=== PATIENT | female | born 1940 | race Caucasian/White ===

== ENCOUNTER → 2016-11-30 | Outpatient (CLI) | payer OTHER ==
[~2016-11-30] MED LIST: ASPI81TA28 PO; CALC500C50 PO; GEMF600T3 PO; METO25TA56 PO; MULTTAB58 PO; RANI150T2 PO; WARF5TAB7 PO
== END | disposition home or self-care (01) ==
LOC: C.PAPS 16:08
PROVIDERS: ATTEND Obstetrics & Gynecology
DX: N87.9 Dysplasia of cervix uteri, unspecified (principal); N81.11 Cystocele, midline

== ENCOUNTER → 2017-04-19 | Outpatient (CLI) | payer OTHER ==
--- NOTE | 2017-04-19 12:56 | MAMMOGRAPHY REPORT ---
BILATERAL DIGITAL SCREENING MAMMOGRAM WITH CAD: 04/19/2017 CLINICAL HISTORY: Routine screening. Patient has no complaints. TECHNIQUE: Current study was also evaluated with a Computer Aided Detection (CAD) system. Bilateral CC and MLO views were obtained. COMPARISON: Comparison is made to exams dated: 05/01/2016 mammogram, 04/18/2016 mammogram, 5 mammogram, 04/14/2014 mammogram, 04/13/2013 mammogram, and 04/10/2012 mammogram - [facility]. BREAST COMPOSITION: There are scattered areas of fibroglandular density in both breasts. FINDINGS: No suspicious masses, calcifications, or areas of architectural distortion are noted in ei ther breast. There has been no significant interval change compared to prior exams. Scattered bilater al benign-appearing calcifications are not significantly changed. IMPRESSION: ACR BI-RADS CATEGORY 2: BENIGN There is no mammographic evidence of malignancy. A 1 year screening mammogram is recommended. The pa tient will receive written notification of the results. Approximately 10% of breast cancers are not detected with mammography. A negative mammographic report should not delay biopsy if a clinically suggestive mass is present. Jessenia Tate M.D. /:04/19/2017 10:22:48 Requisition Approver: Cady CORONEL(Heber)(Stephan)(BD), [facility] letter sent: Normal 1/2 BI-RADS Code: ACR BI-RADS Category 2: Benign
== END | disposition home or self-care (01) ==
LOC: C.MAMM 09:10
PROVIDERS: ATTEND Obstetrics & Gynecology
DX: Z12.31 Encounter for screening mammogram for malignant neoplasm of breast (principal)

== ENCOUNTER → 2017-05-09 | Outpatient (CLI) | payer OTHER ==
[~2017-05-09] MED LIST changes: -GEMF600T3 PO; +GEMF600T5 PO
== END | disposition home or self-care (01) ==
LOC: C.PAPS 10:29
PROVIDERS: ATTEND Obstetrics & Gynecology
DX: Z12.4 Encounter for screening for malignant neoplasm of cervix (principal); N87.9 Dysplasia of cervix uteri, unspecified

== ENCOUNTER 2024-07-14 09:43 | Inpatient (IN) ==
--- NOTE | 2024-07-14 10:05 | Emergency Department Note ---
Impression & Plan Influenza A, UTI (urinary tract infection), Generalized weakness, Chronic atrial fibrillation, Elevated troponin ED Provider Note NAME: VAHID ADAMS AGE: 84 SEX: F : 1940 ARRIVES VIA: Ambulance INFORMANT: Patient, daughters, ED PROVIDER(S): Levi Zuleta MD CHIEF COMPLAINT: Weakness, falls MEDICAL DECISION MAKING: Patient presents with the above. Also associated cough decreased p.o. intake low-grade temperature per EMS. IV was established and blood work was obtained. Patient in A-fib. Patient with diminished breath sounds throughout. Chest x- ray was obtained. After discussion with patient family the patient did fall to her buttocks but no head strike or LOC. No CT head at this time. Patient's blood work shows a normal white count hemoglobin and platelet count. The patient was ordered her home metoprolol given her A-fib and the fact that she did not take her morning meds. INR of 2.5 therapeutic. Kidney function unremarkable. The patient's initial troponin of 239. No priors for comparison. Patient's EKG does not show evidence of obvious ischemia. Still pending urinalysis at this time. Patient is positive for flu A. Patient's urinalysis eventually does show nitrates with bacteria concerning for infection. Given the patient's NSTEMI and other findings including UTI and fluid do believe the patient would benefit from admission at this time. No active chest pain or shortness of breath at this time. I did inform the patient and the patient's family of the recommendations and findings. They are comfortable with current plan of care. Patient was admitted to the medicine service by Dr. White. Inpatient service did order antibiotics as well as Tamiflu. Also of note patient's repeat troponin to 79. Discussion w/ other healthcare providers: NADIYA Garrett Dr. inpatient medicine service [facility] Prior /Outside records reviewed: None Differential diagnosis: Infection, dehydration, metabolic abnormality, hypo/hyperglycemia, electrolyte imbalance, anemia, UTI, pneumonia, thyroid dysfunction among others were considered. Diagnostics, as interpreted by me: ECG: A-fib with RVR, rate 105, normal QRS duration, left axis deviation. No ST elevations. Cardiac monitoring: An order was placed for continuous cardiac monitoring. The monitor shows a rate of 112 with regular irregular rhythm. Patient was placed on pulse oximetry Medical decision rules: None Imaging studies: I informally interpreted the patient's Chest x-ray does not show obvious pneumonia or pneumothorax, cardiomegaly noted with formal report to follow. HPI: Patient presents from home due to concern for increasing weakness. The patient reportedly tried to ambulate yesterday and fell to her buttocks sometime in the evening. Patient subsequently was able to get back in bed. Therapist did arrive this morning and try to get her up and out of bed and subsequently had a fall to her buttocks. The patient denies any head strike with either fall. The patient reportedly did have some skin tears to the left lower leg. Patient is on Coumadin for known history of A-fib. Patient denies any chest pains or shortness of breath. Patient has had cough. Known sick contact being . Patient has not been eating as much. No reported abdominal pain nausea vomiting or diarrhea. Patient does follow with Tacos Guerin with cardiology at [facility]. PAST MEDICAL HISTORY: See Below PAST SURGICAL HISTORY: See Below SOCIAL HISTORY: See Below HOME MEDICATIONS: See Below ALLERGIES: See Below VITALS: See Below PHYSICAL EXAMINATION: GENERAL: NAD, non-toxic. EYE EXAM: Normal conjunctiva. PERRL, no anisocoria and EOM's grossly intact w/o pain. OROPHARYNX: Dry mucus membranes, grossly normal dentition. NECK: Trachea midline, no stridor. Supple, no nuchal rigidity, no adenopathy, non-tender. No signs of meningismus. FROM of the neck with good chin to chest and neck extension. LUNGS: Clear to auscultation. Normal chest wall mechanics. HEART: Tachycardic and irregular irregular, no MRG. ABDOMEN: Abdomen soft, non-tender, no masses, no rebound or guarding. BACK: No CVA TTP. SKIN: No rashes and no bruising. UPPER EXTREMITIES: Upper extremities are grossly normal. LOWER EXTREMITIES: 2 skin tears noted to the lateral aspect of the left lower leg no obvious laceration, no edema. NEURO EXAM: A&O x3, cranial nerves II-XII grossly intact, normal speech, moves all 4 extremities. Past Med/Surg History Problem List (Updated 07/14/24 @ 17:38 by Levi Zuleta MD) Elevated troponin (Acute) Chronic atrial fibrillation (Acute) Ambulatory dysfunction Generalized weakness (Acute) UTI (urinary tract infection) (Acute) Influenza A (Acute) Personal history of cervical dysplasia Cystocele Pessary maintenance Anticoagulant long-term use (Acute) Atrial fibrillation with rapid ventricular response (Acute 2013) Epistaxis (Acute) SOB (shortness of breath) (Acute) Medical History (Updated 07/14/24 @ 17:38 by Levi Zuleta MD) Hx of ovarian cyst Hx of uterine prolapse Endometrial polyp (1999) Surgical History S/P lymph node biopsy History of hysterectomy (12/01/12) vaginal hysterectomy with anterior repair S/P wisdom tooth extraction S/P tubal ligation (1981) S/P knee replacement S/P dilation and curettage (09/1999) with hysteroscopy for PMB, suspected endometrial polyp S/P colonoscopy (11/2007) Family History Aunt Breast cancer Mother Ovarian cancer Other Chest pain Social History Smoking Status: Never smoker Do You Dip or Chew Tobacco: No; Preferred Language: Taiwanese Feels Safe at Home: Yes Dental Care, Regularly: Yes Physical Activity Frequency Comment: Exercises regularly. Seatbelt Use: always Sunscreen Use: Yes Allergies Allergies Allergy/AdvReac Type Severity Reaction Status Date / Time metronidazole Allergy Unknown RASH Verified 07/14/24 11:30 Penicillins Allergy Unknown Swelling Verified 07/14/24 14:46 of Lip/Tongue/Throat Home Meds Home Medications Medication Instructions Recorded Confirmed metoprolol tartrate 25 mg tablet 25 mg PO BID 01/20/19 07/14/24 furosemide 20 mg tablet 20 mg PO 3XWK 03/14/23 07/14/24 omeprazole 20 mg capsule,delayed 20 mg PO BID 03/14/23 07/14/24 release rosuvastatin 20 mg tablet 20 mg PO DAILY 03/14/23 07/14/24 acetaminophen 500 mg tablet 500 mg PO Q6H PRN Pain 07/14/24 07/14/24 potassium chloride 10 mEq 10 meq PO 3XWK 07/14/24 07/14/24 tablet,extended release warfarin 2.5 mg tablet 1.25 mg PO UD 07/14/24 07/14/24 warfarin 2.5 mg tablet 2.5 mg PO DAILY 07/14/24 07/14/24 Results & Data (ED) Vital Signs Vital Signs - 24 hr 07/14/24 10:07 07/14/24 10:08 07/14/24 10:24 Temperature 36.8 C Temperature Source Oral Pulse Rate 104 H 105 H Pulse Rate [Apical] Pulse Rhythm Irregular Regular Pulse Rhythm [Apical] Pulse Strength Normal Pulse Strength [Apical] Respiratory Rate 20 Respiratory Effort / Characteristics Non-Labored Spontaneous Respiratory Depth Normal Respiratory Pattern Regular Blood Pressure 129/77 Blood Pressure [Right Arm] Blood Pressure Mean 94 Blood Pressure Mean [Right Arm] Blood Pressure Position Lying Blood Pressure Position [Right Arm] Pulse Oximetry 96 96 Oxygen Delivery Method Room Air Room Air Sepsis Recent Fever Within 48 Hours Yes Sepsis New/Unexplained Change in Mental Status N/A Sepsis Action Taken by Nursing No Action Required 07/14/24 11:31 07/14/24 12:01 07/14/24 12:01 Temperature 37.3 C Temperature Source Oral Pulse Rate Pulse Rate [Apical] 98 H 95 H Pulse Rhythm Pulse Rhythm [Apical] Irregular Irregular Pulse Strength Pulse Strength [Apical] Normal Normal Respiratory Rate 16 23 Respiratory Effort / Characteristics Non-Labored Spontaneous Non-Labored Spontaneous Respiratory Depth Normal Normal Respiratory Pattern Regular Regular Blood Pressure Blood Pressure [Right Arm] 147/91 H 136/69 Blood Pressure Mean Blood Pressure Mean [Right Arm] 109 91 Blood Pressure Position Blood Pressure Position [Right Arm] Lying Lying Pulse Oximetry 97 94 Oxygen Delivery Method Room Air Room Air Room Air Sepsis Recent Fever Within 48 Hours Sepsis New/Unexplained Change in Mental Status Sepsis Action Taken by [place] Medications Current Medication List: was personally reviewed by me Laboratory Data Attestation: I reviewed the patient's lab results. 07/14/24 10:20 07/14/24 10:20 Lab Results 07/14/24 07/14/24 07/14/24 Range/Units 10:20 10:35 12:00 WBC 8.63 (4.8-10.8) K/ul RBC 3.95 L (4.20-5.40) M/uL Hgb 12.1 (12.0-16.0) g/dl Hct 37.1 (37.0-47.0) % MCV 93.9 (80.0-100.0) fL MCH 30.6 (25.0-34.0) pg MCHC 32.6 (32.0-36.0) g/dL RDW Std Deviation 49.5 H (36.4-46.3) fL RDW Coeff of George 14.5 (11.5-14.5) % Plt Count 183 (130-400) K/uL MPV 12.6 H (9.4-12.4) fL Immature Gran % (Auto) 0.7 % Neut % (Auto) 78.1 % Lymph % (Auto) 8.8 % [place] % (Auto) 12.1 % Eos % (Auto) 0.1 % Baso % (Auto) 0.2 % Neut # (Auto) 6.74 H (1.40-6.50) K/uL Lymph # (Auto) 0.76 L (1.20-3.40) K/uL [place] # (Auto) 1.04 H (0.11-0.59) K/uL Eos # (Auto) 0.01 (0.00-0.50) K/uL Baso # (Auto) 0.02 (0.00-0.20) K/uL Immature Gran # (Auto) 0.06 (0.01-0.20) K/uL PT 25.2 H (9.0-12.0) Seconds INR 2.5 H (0.9-1.1) APTT 42 H (21-31) Seconds PTT Ratio 1.6 Sodium 139 (136-145) mmol/L Potassium 4.1 (3.5-5.1) mmol/L Chloride 104 (98-107) mmol/L Carbon Dioxide 26 (21-32) mmol/L Anion Gap 9 (3-11) BUN 22 (6-23) mg/dl Creatinine 0.93 (0.6-1.2) mg/dl Est Cr Clr Drug Dosing 41.9 ml/min eGFR 60.23 BUN/Creatinine Ratio 23.7 H (10-20) Glucose 122 H (70-99(Fasting)) mg/dl Calcium 9.1 (8.6-10.3) mg/dl Magnesium 1.9 (1.7-2.4) mg/dl Total Bilirubin 0.5 (0.2-1.0) mg/dl AST 36 (13-39) U/L ALT 21 (7-52) U/L Alkaline Phosphatase 86 (34-104) U/L Troponin I High Sens 239.0 H* (0-14) pg/ml Total Protein 8.0 (6.0-8.3) gm/dl Albumin 4.4 (3.4-5.0) gm/dl Globulin 3.6 (2.5-4.0) gm/dl Albumin/Globulin Ratio 1.2 (0.9-2) Procalcitonin 0.25 (0-0.5) ng/ml TSH 1.877 (0.300-4.500) uIu/ml Urine Color Yellow Urine Appearance Clear (Clear) Urine pH 5.5 (4.5-7.5) Ur Specific [place] 1.023 (1.000-1.030) Urine Protein 1+ H (Negative) Urine Glucose (UA) Negative (Negative) Urine Ketones 1+ H (Negative) Urine Blood Trace H (Negative) Urine Nitrite Positive A (Negative) Urine Bilirubin Negative (Negative) Urine Urobilinogen Negative (Negative) Ur Leukocyte Esterase Negative (Negative) Urine WBC (Auto) 0-5 (0-5) /hpf Urine RBC (Auto) 3-5 H (0-2) /hpf U Hyaline Cast (Auto) 0-2 (0-2) /lpf U Epithel Cells (Auto) 0-2 (0-2) /hpf Urine Bacteria (Auto) 4+ H (None Seen) Nasal Influ A H1 2008 PCR DETECTED A (NotDetected) Adenovirus (PCR) Not Detected (NotDetected) B. pertussis DNA (PCR) Not Detected (NotDetected) B.parapertussis DNA PCR Not Detected (NotDetected) C. pneumoniae DNA (PCR) Not Detected (NotDetected) Coronavirus OC43 (PCR) Not Detected (NotDetected) Coronavirus HKU1 (PCR) Not Detected (NotDetected) Coronavirus 229E (PCR) Not Detected (NotDetected) SARS-CoV-2 (PCR) Not Detected (NotDetected) Coronavirus NL63 (PCR) Not Detected (NotDetected) Human Metapneumovir PCR Not Detected (NotDetected) Influenza Type B (PCR) Not Detected (NotDetected) M. pneumoniae (PCR) Not Detected (NotDetected) Parainfluenza 1 (PCR) Not Detected (NotDetected) Parainfluenza 2 (PCR) Not Detected (NotDetected) Parainfluenza 3 (PCR) Not Detected (NotDetected) Parainfluenza 4 (PCR) Not Detected (NotDetected) RSV (PCR) Not Detected (NotDetected) Entero/Rhino (PCR) Not Detected (NotDetected) 07/14/24 Range/Units 12:19 WBC (4.8-10.8) K/ul RBC (4.20-5.40) M/uL Hgb (12.0-16.0) g/dl Hct (37.0-47.0) % MCV (80.0-100.0) fL MCH (25.0-34.0) pg MCHC (32.0-36.0) g/dL RDW Std Deviation (36.4-46.3) fL RDW Coeff of George (11.5-14.5) % Plt Count (130-400) K/uL MPV (9.4-12.4) fL Immature Gran % (Auto) % Neut % (Auto) % Lymph % (Auto) % [place] % (Auto) % Eos % (Auto) % Baso % (Auto) % Neut # (Auto) (1.40-6.50) K/uL Lymph # (Auto) (1.20-3.40) K/uL [place] # (Auto) (0.11-0.59) K/uL Eos # (Auto) (0.00-0.50) K/uL Baso # (Auto) (0.00-0.20) K/uL Immature Gran # (Auto) (0.01-0.20) K/uL PT (9.0-12.0) Seconds INR (0.9-1.1) APTT (21-31) Seconds PTT Ratio Sodium (136-145) mmol/L Potassium (3.5-5.1) mmol/L Chloride (98-107) mmol/L Carbon Dioxide (21-32) mmol/L Anion Gap (3-11) BUN (6-23) mg/dl Creatinine (0.6-1.2) mg/dl Est Cr Clr Drug Dosing ml/min eGFR BUN/Creatinine Ratio (10-20) Glucose (70-99(Fasting)) mg/dl Calcium (8.6-10.3) mg/dl Magnesium (1.7-2.4) mg/dl Total Bilirubin (0.2-1.0) mg/dl AST (13-39) U/L ALT (7-52) U/L Alkaline Phosphatase (34-104) U/L Troponin I High Sens 279.3 H* (0-14) pg/ml Total Protein (6.0-8.3) gm/dl Albumin (3.4-5.0) gm/dl Globulin (2.5-4.0) gm/dl Albumin/Globulin Ratio (0.9-2) Procalcitonin (0-0.5) ng/ml TSH (0.300-4.500) uIu/ml Urine Color Urine Appearance (Clear) Urine pH (4.5-7.5) Ur Specific [place] (1.000-1.030) Urine Protein (Negative) Urine Glucose (UA) (Negative) Urine Ketones (Negative) Urine Blood (Negative) Urine Nitrite (Negative) Urine Bilirubin (Negative) Urine Urobilinogen (Negative) Ur Leukocyte Esterase (Negative) Urine WBC (Auto) (0-5) /hpf Urine RBC (Auto) (0-2) /hpf U Hyaline Cast (Auto) (0-2) /lpf U Epithel Cells (Auto) (0-2) /hpf Urine Bacteria (Auto) (None Seen) Nasal Influ A H1 2009 PCR (NotDetected) Adenovirus (PCR) (NotDetected) B. pertussis DNA (PCR) (NotDetected) B.parapertussis DNA PCR (NotDetected) C. pneumoniae DNA (PCR) (NotDetected) Coronavirus OC43 (PCR) (NotDetected) Coronavirus HKU1 (PCR) (NotDetected) Coronavirus 229E (PCR) (NotDetected) SARS-CoV-2 (PCR) (NotDetected) Coronavirus NL63 (PCR) (NotDetected) Human Metapneumovir PCR (NotDetected) Influenza Type B (PCR) (NotDetected) M. pneumoniae (PCR) (NotDetected) Parainfluenza 1 (PCR) (NotDetected) Parainfluenza 2 (PCR) (NotDetected) Parainfluenza 3 (PCR) (NotDetected) Parainfluenza 4 (PCR) (NotDetected) RSV (PCR) (NotDetected) Entero/Rhino (PCR) (NotDetected) Administered Medications Aztreonam 1,000 mg/ Dextrose 100 mls @ 100 mls/hr IV Q8H FRANCIS Stop: 07/19/24 14:59 Last Admin: 07/14/24 16:05 Dose: 100 mls/hr Documented By: DANIEL Levalbuterol HCl (Levalbuterol 1.25 Mg/3 Ml Neb) 1.25 mg NEB Q6R FRANCIS Stop: 08/13/24 15:29 Last Admin: 07/14/24 15:50 Dose: 1.25 mg Documented By: [id number] Discontinued Medications Sodium Chloride (Nss) 250 mls @ 999 mls/hr IV .Q16M ONE Stop: 07/14/24 10:37 Last Infusion: 07/14/24 10:57 Dose: Infused Documented By: Admin: 07/14/24 10:40 Dose: 999 mls/hr Documented By: BANG Metoprolol Tartrate (Metoprolol Tartrate 25 Mg Tab) 25 mg PO NOW STA Stop: 07/14/24 10:22 Last Admin: 07/14/24 10:42 Dose: 25 mg Documented By: BANG Oseltamivir Phosphate (Oseltamivir Phosphate 75 Mg Cap) 75 mg PO NOW STA Stop: 07/14/24 13:07 Last Admin: 07/14/24 13:21 Dose: 75 mg Documented By: JESSICA Imaging Data Radiologist's Impression: Chest X-Ray 07/14/24 10:06 XR chest 1V portable CLINICAL HISTORY: weakness COMPARISON STUDY: 07/12/2021 FINDINGS: There is no significant interval change in alignment for technical differences. There is no acute pulmonary process identified. Cardiomegaly and pulmonary vascular congestion are persistent. No pleural effusion or pneumothorax. 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 IMPRESSION: Stable exam; no acute findings ACT 112: Negative or not required by law. Electronically signed by: Monserrat Khan M.D. 07/14/2024 10:20 AM Discharge Plan Visit Data Chief Complaint: Weakness Stated Complaint: FALL, WEAKNESS, INJURY ALERT, SKIN TEARS TO CALF ED Provider: Levi Zuleta Discharge Problem: Influenza A, UTI (urinary tract infection), Generalized weakness, Chronic atrial fibrillation, Elevated troponin Patient Disposition: Admitted As Inpatient Discharge Instructions Interventions: ED Discharge Assessment Last Done: 07/14/24 17:07 Discharge Problem: UTI (urinary tract infection) Qualifiers: Urinary tract infection type: acute cystitis Hematuria presence: with hematuria Qualified Code(s): N30.01 - Acute cystitis with hematuria
[2024-07-14] MEDS ORDERED: SODIUM CHLORIDE 0.9% 500 ML IV ONE (10:21)
--- NOTE | 2024-07-14 10:22 | XRay Report ---
XR chest 1V portable CLINICAL HISTORY: weakness COMPARISON STUDY: 07/12/2021 FINDINGS: There is no significant interval change in alignment for technical differences. There is no acute pulmonary process identified. Cardiomegaly and pulmonary vascular congestion are persistent. N o pleural effusion or pneumothorax. 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 IMPRESSION: Stable exam; no acute findings ACT 112: Negative or not required by law. Electronically signed by: Monserrat Khan M.D. 07/14/2024 10:20 AM
[2024-07-14] MEDS: SODIUM CHLORIDE 0.9% 250 ML IV ONE (10:40)
[2024-07-14] MEDS: METOPROLOL TARTRATE 25 MG TAB PO STA (10:42)
[2024-07-14 10:51] LABS: Basophils # (auto) 0.02 K/uL (0.00-0.20); Basophils % (auto) 0.2 %; Eosinophils # (auto) 0.01 K/uL (0.00-0.50); Eosinophils % (auto) 0.1 %; Hematocrit (blood only) 37.1 % (37.0-47.0); Hemoglobin 12.1 g/dl (12.0-16.0); Immature Granulocytes # (auto) 0.06 K/uL (0.01-0.20); Immature Granulocytes % (auto) 0.7 %; Lymphocytes # (auto) 0.76 K/uL (1.20-3.40); Lymphocytes % (auto) 8.8 %; Mean Corpuscular Hemoglobin 30.6 pg (25.0-34.0); Mean Corpuscular Hgb Conc 32.6 g/dL (32.0-36.0); Mean Corpuscular Volume 93.9 fL (80.0-100.0); Mean Platelet Volume 12.6 fL (9.4-12.4); Monocytes # (auto) 1.04 K/uL (0.11-0.59); Monocytes % (auto) 12.1 %; Neutrophils # (auto) 6.74 K/uL (1.40-6.50); Neutrophils % (auto) 78.1 %; Platelet Count 183 K/uL (130-400); RDW Coefficient of Variation 14.5 % (11.5-14.5); RDW Standard Deviation 49.5 fL (36.4-46.3); Red Blood Count 3.95 M/uL (4.20-5.40); White Blood Count 8.63 K/ul (4.8-10.8)
[2024-07-14 11:09] LABS: Albumin Globulin Ratio 1.2 (0.9-2); Albumin Level 4.4 gm/dl (3.4-5.0); BUN Creatinine Ratio 23.7 (10-20); Bilirubin,Total 0.5 mg/dl (0.2-1.0); Calcium 9.1 mg/dl (8.6-10.3); Creatinine Clr Calc Pharmacy 41.9 ml/min; Globulin 3.6 gm/dl (2.5-4.0); Magnesium 1.9 mg/dl (1.7-2.4); Potassium 4.1 mmol/L (3.5-5.1)
[2024-07-14 11:24] LABS: Thyroid Stimulating Hormone 1.877 uIu/ml (0.300-4.500)
[2024-07-14 11:28] LABS: INR 2.5 (0.9-1.1); Partial Thromboplastin Ratio 1.6; Partial Thromboplastin Time 42 Seconds (21-31); Prothrombin Time 25.2 Seconds (9.0-12.0)
--- OUTSIDE RECORDS SUMMARY | 2024-07-14 11:53 | External Medical Summary | Summary of Care ---
Author Name Unknown Organization [facility] Address [address] [place] [address] Phone [phone] Care Team Providers Care Accounts Payable Clerk Name Role Phone Roberth Hayward DO Primary Care Provider [phone] Reason for Visit * Reason Comments Dosage Adjustment In Person (Anticoag Cl inic) Encounter Details Date Type Department Care Team (Late st Contact Info) Description 06/25/2024 8:20 AM EST Anticoagulation Family Practice 65 [facility] [address] [place] [phone] College, Pharmacist [address] [address] Anticoagulation management encounter*; Chronic atrial fibrillation (HCC) Allergies Active Allergy Reactions Criticality Noted Date Comments Metronidazole 02/24/2007 Hives Penicillins 01/24/2001 swelling of tongue documented as of this encounter (statuses as of 06/25/2024) Medications Acetaminophen 500 MG Oral Tablet (Tylenol) Take 2 Tablets by mouth every 6 hours as needed for Pain, Mild or Pain, Moderate. 3 Active Estradiol 0.1 MG/GM Vaginal Cream (Estrace) Two times weekly 2 Active Triamcinolone Acetonide 0.5 % External Cream (Aristocort)Nelda cations:Venous stasis dermatitis of both lower extremities Apply topically to affected area 2 times a day. To affected area. 60 g 1 3 Active Warfarin Sodium 2.5 MG Oral Tablet (Coumadin) Take 1 Tablet by mouth every evening. 30 Tablet 11 06/04/2024 11:35 AM EST 4 Active Rosuvastatin Calcium 20 MG Oral Tablet (Crestor)Indicat ions:Dyslipidemi a, goal LDL below 100 Take 1 Tablet by mouth in the morning. 30 Tablet 11 06/04/2024 11:35 AM EST 4 Active One-A-Day Womens 50+ Oral Tablet Take 1 Tablet by mouth in the morning. 65 Tablet 11 05/04/2024 12:26 PM EST 4 Active Omeprazole 20 MG Oral Capsule Delayed Release (PriLOSEC) Take 1 Capsule by mouth in the morning and 1 Capsule before bedtime. 60 Capsule 11 06/04/2024 11:35 AM EST 4 Active Metoprolol Tartrate 25 MG Oral Tablet (Lopressor)Indic ations:Chronic atrial fibrillation (HCC) Take 1 Tablet by mouth in the morning and 1 Tablet before bedtime. 60 Tablet 11 06/04/2024 11:35 AM EST 4 Active Furosemide 20 MG Oral Tablet (Lasix)Indicatio ns:Pulmonary hypertension (HCC) Take 1 tablet by mouth once daily in the morning on Mondays, Wednesdays and Fridays 14 Tablet 1 5 Active Potassium Chloride ER 10 MEQ Oral Tablet Extended Release Dissolve 1 tablet in water over 2 minutes, stir well and drink immediately daily by mouth on Saturday, Saturday and Fridays 42 Tablet 2 06/05/2024 10:48 AM EST 5 Active Diclofenac Sodium 1 % External Gel (Voltaren) Apply topically to affected area 3 times a day as needed for Pain. Apply to affected area 100 g 2 5 Active documented as of this encounter (statuses as of 06/25/2024) Active Problems Problem Noted Date Diagnosed Date Personal history of adenomatous and serrated col on polyps 03/12/2024 Overview (03/12/2024): Colonoscopy 2007 HTN, goal below 140/90 11/19/2022 Lumbar degenerative disc disease 02/28/2022 Ambulatory dysfunction 02/28/2022 Pulmonary hypertension 06/20/2021 Benign esophageal stricture 06/20/2021 Type 2 diabetes mellitus wit h hemoglobin A1c goal of less than 8.0% 08/09/2020 Gastroesophageal reflux disease without esophagi tis 06/01/2019 Chronic atrial fibrillation 11/27/2018 Lung nodule 05/03/2014 Pure hypercholesterolemia 04/21/2009 Overview (04/21/2009): Per Lipid Taxonomy. Status post right knee replacement 03/11/2006 Overview (03/11/2006): R TKR 09/06 Osteoarthritis of multiple joints 09/01/2003 Overview (02/07/2016): ICD-10 update of inactive term documented as of this encounter (statuses as of 06/25/2024) Resolved Problems Problem Noted Date Diagnosed Date Resolved Date Prediabetes 06/18/2017 02/18/2020 Overview: Per Prediabetes protocol #1 Atrial fibrillation 03/30/2014 11/28/19 19 Benign neoplasm of colon 10/28/200711/2023 Overview (03/12/2024): Colonoscopy 2008 adenomatous/repeat colonoscopy in 5 yrs ADVANCE DIRECTIVE INFORMATION 02/05/2005 11/20/2016 Overview (02/05/2005): refused Allergic rhinitis 02/05/2005 06/01/2019 Mixed dyslipidemia 09/01/2003 9 Overview (04/21/2009): Per Lipid Taxonomy. Reflux esophagitis 09/01/2003 0 documented as of this encounter (statuses as of 06/25/2024) Immunizations Name Administration Dates Next Due COVID-19 mRNA, LNP-s, No Pre serve, 2-Dose Series ([employer]) 04/27/2021,07/15/2020,06/24/2020 COVID-19, LNP-s, No Preserve , Oliver-sucrose, Ages 12+ ([employer]) 10/24/2021 COVID-19, MRNA-LNP, PF, 30 M CG/0.3 mL, 12 YRS AND ABOVE, IM (PFIZER-Comirnaty) 01/16/2024,03/14/2023 Covid-19, Mrna, Lnp-s, Pf, B ivalent, 30 Mcg, IM, 12 yrs and above (Pfizer) 03/27/2022 Pneumococcal Conjugate Vacc, 13 Valent (Prevnar) 11/01/2014 Pneumococcal Conjugate Vacci ne, 20-valent ([id number]) 04/17/2024 Pneumococcal Polysaccharide PPV23 (Pneumovax) 08/28/2007 RSV Vac., Recomb, Adjuvant, PF,0.5 Ml (Arexvy) 04/17/2024 Season Influenza, Quad, PF, Adjuvanted, 65+ Yrs, IM (FLUAD) 01/14/2020 Seasonal Influenza Vac., MDV , IM, 0.5 mL (Fluzone) 02/12/2014,03/03/2013,01/30/2012,02/12,02/02/2010,03/04/2009,02/27/2008 ,02/24/2007,03/11/2006 Seasonal Influenza, High Dos e, Trivalent, PF, IM (Fluzone HD) 01/16/2024 Seasonal Influenza, PF, 6 M & above, IM , (FluLaval or Fluzone) 02/11/2018,01/28/2017 Seasonal Influenza, Quadriva lent Hd (Fluzone Hd) 01/24/2023,02/28/2022,02/16/2021 Seasonal Influenza, Quadriva lent, No Preserve, IM 02/29/2016,02/09/2015 Seasonal Influenza, Trivalen t, Adjuvanted, 65+ YRS, PF, (Fluad) 02/19/2019 TD - Tetanus/Diptheria (ADULT) 08/28/2007 TDAP (age 10 and older)(Boostrix) 05/30/2023, Varicella Zoster Vaccine (Adult) 08/17/2011 Zoster Vaccine Recombinant (Shingrix) 10/28/2019 ,06/18/2019 documented as of this encounter Social History Tobacco Use Types Packs/Day Years Used Date Smoking Tobacco: Never Passive Smoke Exposure: Never Smokeless Tobacco: Never Alcohol Use Standard Drinks/Week Comments Not Currently 0 (1 standard drink = 0.6 oz pur e alcohol) PHQ-2 Answer Date Recorded PHQ Adult Total Score 0 07/24/2023 Hunger Vital Sign Answer Date Recorded Within the past 12 months, y ou worried that your food would run out before you got the money to buy more. Never true 07/24/19 24 Within the past 12 months, t he food you bought just didn't last and you didn't have money to get more. Never true 07/24/2023 Childcare Answer Date Recorded Do you feel overwhelmed with taking care of a child, family member or friend? No 07/24/2023 Does your family need help f inding childcare? (Household - for ages 0-17 years) Not on file 07/24/2023 Clothing Answer Date Recorded Have you been unable to get clothing when it was really needed? No 07/24/2023 Is your family able to get c lothes or diapers when needed? (Household - for ages 0-17 years) Not on file 07/24/2023 Personal Safety Answer Date Recorded Do you feel unsafe or have concerns for your saf ety? No 07/24/2023 Do you have concerns for you r family's safety? (Household - for ages 0-17 years) Not on file 07/24/2023 Utilities Answer Date Recorded Do you have trouble paying y our heating, water, or electric bill? No 07/24/2023 Is your family able to pay t he heat, water, or electric bill? (Household - for ages 0-17 years) Not on file 07/24/2023 Does your family have access to good internet? (Household - for ages 0-17 years) Not on file 07/24/2023 Employment Status Answer Date Recorded Are you unemployed or without regular income? No 07/24/2023 Does the household have a re gular source of income? (Household - for ages 0-17 years) Not on file 07/24/2023 Social Connections Answer Date Recorded How often do you feel lonely or isolated from th ose around you? Never 07/24/2023 Financial Resource Strain Answer Date R ecorded Do you have any trouble payi ng for your medications, or do you think you might in the future? No 07/24/2023 Does your family have troubl e paying for medicine? (Household - for ages 0-17 years) Not on file 07/24/2023 Transportation Needs Answer Date Record ed READ ONLY Do you have troubl e getting a ride to medical visits or work? Never True 07/24/2023 Does your family have a hard time getting a ride to doctors visits? (Household - for ages 0-17 years) Not on file 07/24/2023 Has lack of transportation k ept you from medical appointments, meetings, work, or from getting things needed for daily living? Check all that apply. (Adult - for ages 18 years and over) Not on file 07/24/2023 Do you (or your family) have trouble finding or paying for a ride (transportation)? (Household - for ages 0-17 years) Not on file 07/24/2023 Housing Stability Answer Date Recorded Do you currently live in a s helter or have no steady place to sleep at night? No 07/24/2023 READ ONLY Do you think you a re at risk of becoming homeless? No 07/24/2023 Does your family worry about paying for your home or becoming homeless? (Household - for ages 0-17 years) Not on file 0 07/24/2023 Are you homeless or worried that you might be in the future? (Adult - for ages 18 years and over) Not on file Are you (or your family) elana eless or worried that you might be in the future? (Household - for ages 0-17 years) Not on file Food Insecurity Answer Date Recorded Do you need food for this week? No 07/24/2023 Are you able to get enough f ood for your family? (Household - for ages 0-17 years) Not on file 07/24/2023 Does your family need food t his week? (Household - for ages 0-17 years) Not on file 07/24/2023 Do you always have enough fo od for your family? (Household - for ages 0-17 years) Not on file 07/24/2023 Food Insecurity Answer Date Recorded Within the past 12 months, y ou worried that your food would run out before you got the money to buy more. Never true 07/24/19 24 Within the past 12 months, t he food you bought just didn't last and you didn't have money to get more. Never true 07/24/2023 Do you need food for this week? No 07/24/2023 Comments No Sex and Gender Information Value Date Recorded Sex Assigned at Female 06/20/2021 9:56 AM EST Legal Sex Female 7:14 AM EST Gender Identity Female 06/20/2021 9:56 AM EST Sexual Orientation Straight 06/20/2021 9 :56 AM EST documented as of this encounter Progress Notes * Columba Hays RPh - 06/25/2024 8:34 AM EST Images from the original note were not included. Medication Therapy Disease Management - Anticoagulation Patient: Kathi Verdugo | : 1940 Subjective Patient-Reported Symptoms: Patient Findings Positives: Change in diet/appetite (not eating much lately, and barely any vegetables at all) Negatives: Signs/symptoms of thrombosis, Signs/symptoms of bleeding, Change in health, Change in alcohol use, Change in activity, Upcoming invasive procedure, Missed doses, Extra doses, Change in medications, Bruising Objective Current Warfarin Dose As of 06/25/2024 Warfarin maintenance plan: 2.5 mg (2.5 mg x 1) every day INR Result As of 06/25/2024 INR goal: 2.0-3.0 INR used for dosin.8 (06/25/2024) Assessment & Plan Warfarin Plan As of 06/25/2024 Full warfarin instructions: 06/25: Hold; Otherwise 1.25 mg every Mon; 2.5 mg all other days Next INR check: 07/23/2024 Repeat PT/INR in 4 week(s) Weekly dose: decreased Additional Dosing Information: I spent a total of 10-19 minutes (exact time 10 mins) on the date of service in preparation, delivery, and documentation of the care provided to Kathi Verdugo excluding any time spent in the performance of separately billed services or time spent by another provider/QHP. Columba Fitch [facility] Clinical Pharmacist 06/25/2024, 8:34 AM documented in this encounter Plan of Treatment Upcoming Encounters Date Type Department Care Team (Late st Contact Info) Description 07/20/2024 10:30 AM EDT Anticoagulation Family Practice 65 [facility] [address] [place] [phone] College, Pharmacist [address], [place] [address] 08/21/2024 9:20 AM EDT Office Visit Family Practice 65 [facility] [address] [place] [phone] Roberth Haywadr, 293 [facility], [place] [address] 08/21/2024 10:00 AM EDT Anticoagulation Family Practice 65 [facility] [address] [facility], [place] [phone] College, Pharmacist [address], [place] [address] 12/17/2024 8:30 AM EDT Office Visit Cardiology, [facility] [address] [facility] [place] [address] Tacos Guerin PA-C [address] [facility] [place] [address] 04/28/2025 9:40 AM EST Office Visit Dermatology [facility] [place] [address] [place] [address] Chandni Stahl PA-C [address] [place] [address] Scheduled Procedures Name Priority Associated Diagnoses Date/Ti me COLONOSCOPY FLEXIBLE PROXIMAL DIAGNOSTIC Recall History of colon polyps Health Maintenance Due Date Last Done Comments DXA Scan 12/08/2021 12/08/2018, 05/0 08/2014, 03/18/2012, Additional history exists Adult Wellness Visit 09/28/2023 09/27/2022, 09/21/2021, 10/04/2020 Diabetic Foot Exam 07/11/2024 07/12/2023, 0 07/05/2022, 07/19/2021, Additional history exists COVID-19 Vaccine (2023- season) 2024 01/16/2024, 03/14/2023, 03/27/2022, Additional history exists Depression Screening 07/23/2024 07/24/2023 Diabetic Eye Exam 08/25/2024 08/26/2023, , 09/27/2022, Additional history exists HbA1c 10/16/2024 04/17/2024, 08/0 10/2023, 07/12/2023, Additional history exists Albumin/Creatinine Ratio 04/17/2025 024, 11/05/2022, 10/24/2021, Additional history exists DTap/Tdap Vaccines (3 - Td or Tdap) 05/30/2033 05/30/2023, 04/30/2013, 08/28/2007 Colonoscopy Discontinued 01/28/2018, 01/05, 01/09/2013, Additional history exists RETIRED - COLONOSCOPY-EVERY 5 YRS AGES 18-100 Discontinued 01/28/2018, 01/28/2018, 01/09/2013, Additional history exists Zoster Vaccines Completed 10/28/2019, 06/06, 08/17/2011 Influenza Vaccine (FLU shot) Completed 01/16/2024, 01/16/2024, 01/24/2023, Additional history exists Pneumococcal Vaccine: 50+ Years Completed 04/17/2024, 11/01/2014, 08/28/2007, Additional history exists HPV (Gardasil) Vaccine Aged Out No lo nger eligible based on patient's age to complete this topic Hepatitis B Vaccine Aged Out No longe r eligible based on patient's age to complete this topic MENINGOCOCCAL (MENACTRA/MENVEO) Aged Out No longer eligible based on patient's age to complete this topic Meningitis B Vaccine (Bexsero/Trumemba) Aged Out No longer eligible based on patient's age to complete this topic documented as of this encounter Medical Devices Implanted Type Area Electrical Designer Device Identifier Shelf Expiration Date Model / Serial / Lot Lens Intraoc 17.0 - [id number] - [id number] Implanted:Qty: 1 on 07/10/2022 by Lucio Pino MD at OR [facility] Left: Eye [employer] 02/02/2027 [id number] / [id number] / Lens Intraoc 17.0 - [id number] - [id number] Implanted:Qty: 1 on 07/24/2022 by Lucio Pino MD at OR [facility] Right: Eye [employer] 05/05/2027 [id number] / [id number] / [id number] documented as of this encounter Procedures Procedure Name Priority Date/Time Associated Diagnosis Comments INR FINGERSTICK, POINT OF CARE STAT 06/25/2024 8:35 AM EST Chronic atrial fibrillation (HCC) Anticoagulation management encounter documented in this encounter Results * INR FINGERSTICK, POINT OF CARE (06/25/2024 8:35 AM EST) Fingerstick INR 3.8 INR 8:42 AM EST [facility] 56-21 Blood 06/25/2024 8:35 AM EST 06/25/2024 8:42 AM EST Narrative [facility] 56-21 - 06/25/2024 8:42 AM EST Therapeutic ranges for non-operative patients: Prophylaxsis/treatment of DVT: (Range:2.0-3.0) Treatment of pulmonary embolism:(Range:2.0-3.0) Prevention of systemic embolism from: -tissue heart valves -acute myocardial infarction -valvular heart disease -atrial fibrillation (Range: 2.0-3.0) Mechanical prosthetic valves: (Range: 2.5-3.5) Columba Lobato [facility] LAB PO INT OF CARE TEST DOCKED DEVICE UNSOLICITED RESULTS Final Result [facility] [address] [place] [phone] documented in this encounter Visit Diagnoses Diagnosis Anticoagulation management encounter- Primary Encounter for therapeutic drug monitoring Chronic atrial fibrillation (HCC) Atrial fibrillation documented in this encounter Advance Directives * No Code (Latest Code Status on File) Date Activated Date Inactivated Comments 07/24/2022 11:26 AM 07/24/2022 5:48 PM This order reflects the patients wishes and were consensually agreed upon. Question Answer Comments Discussion of Advance Directives occurred with: Patient Does the patient have a Living Will? No Does the patient have Health Care Power of Attor hortensia? No * No Code Date Activated Date Inactivated Comments 07/10/2022 12:51 PM 07/10/2022 7:01 PM This order re flects the patients wishes and were consensually agreed upon. Question Answer Comments Discussion of Advance Directives occurred with: Patient Does the patient have a Living Will? No Does the patient have Health Care Power of Attor hortensia? No Care Teams Accounts Payable Clerk Relationship Specialty Start Date End Date Roberth Hayward DO [address] [place] [address] PCP - General Internal Medicine 10/21/23 documented as of this encounter"
--- OUTSIDE RECORDS SUMMARY | 2024-07-14 11:53 | External Medical Summary ---
Author Name Unknown Address Unknown Organization : Laboratory Report Ordering Provider Test Date Status SHAYLEE MEDINA 06/25/2024 08:35:47 Final Therapeutic ranges for non-o perative patients:
Prophylaxsis/treatment of DVT: (Range:2.0-3.0)
Treatment of pulmonary embolism:(Range:2.0-3.0)
Prevention of systemic embolism from:
-tissue heart valves
-acute myocardial infarction
-valvular heart disease
-atrial fibrillation
(Range: 2.0-3.0)
Mechanical prosthetic valves: (Range: 2.5-3.5) Observation Date Value Abnormality Reference (Units ) Status INR in Capillary blood by Coagulation assay 06/25/2024 08:35:47 3.8 (INR) Final Performing Location
--- OUTSIDE RECORDS SUMMARY | 2024-07-14 11:53 | External Medical Summary | Summary of Care ---
Author Name Unknown Organization [facility] Address [address] [place] [address] Phone [phone] Care Team Providers Care Hostage Negotiator Name Role Phone Roberth Hayward DO Primary Care Provider [phone] Reason for Visit * Reason Comments Dosage Adjustment In Person (Anticoag Cl inic) Encounter Details Date Type Department Care Team (Late st Contact Info) Description 05/29/2024 10:00 AM EST Anticoagulation Family Practice 65 [facility] [address] [place] [address] College, Pharmacist [address] [address] Anticoagulation management encounter*; Chronic atrial fibrillation (HCC) Allergies Active Allergy Reactions Criticality Noted Date Comments Metronidazole 02/24/2007 Hives Penicillins 01/24/2001 swelling of tongue documented as of this encounter (statuses as of 05/29/2024) Medications Acetaminophen 500 MG Oral Tablet (Tylenol) [...] by mouth every evening. 30 Tablet 11 05/04/2024 12:26 PM EST 4 Active Rosuvastatin Calcium 20 MG Oral Tablet (Crestor)Indicat ions:Dyslipidemi a, goal LDL below 100 Take 1 Tablet by mouth in the morning. 30 Tablet 11 05/04/2024 12:26 PM EST 4 Active One-A-Day Womens 50+ Oral Tablet Take 1 Tablet by mouth in the morning. 65 Tablet 11 05/04/2024 12:26 PM EST 4 Active Omeprazole 20 MG Oral Capsule Delayed Release (PriLOSEC) Take 1 Capsule by mouth in the morning and 1 Capsule before bedtime. 60 Capsule 11 05/04/2024 12:26 PM EST 4 Active Metoprolol Tartrate 25 MG Oral Tablet (Lopressor)Indic ations:Chronic atrial fibrillation (HCC) Take 1 Tablet by mouth in the morning and 1 Tablet before bedtime. 60 Tablet 11 05/04/2024 12:26 PM EST 4 Active Furosemide 20 MG Oral [...] Saturday, Saturday and Fridays 42 Tablet 2 5 Active documented as of this encounter (statuses as of 05/29/2024) Active Problems Problem Noted Date Diagnosed Date [...] as of this encounter (statuses as of 05/29/2024) Resolved Problems Problem Noted Date Diagnosed Date Resolved Date Prediabetes 06/18/2017 02/18/2020 Overview: Per Prediabetes protocol #1 Atrial fibrillation 03/30/2014 11/28/19 19 Benign neoplasm of colon 10/28/200711/2023 Overview (03/12/2024): Colonoscopy 2007 adenomatous/repeat colonoscopy in 5 yrs ADVANCE DIRECTIVE INFORMATION 02/05/2005 11/20/2016 Overview (02/05/2005): refused Allergic rhinitis 02/05/2005 06/01/2019 Mixed dyslipidemia 09/01/2003 9 Overview (04/21/2009): Per Lipid Taxonomy. Reflux esophagitis 09/01/2003 0 documented as of this encounter (statuses as of 05/29/2024) Immunizations Name Administration Dates Next Due COVID-19 mRNA, LNP-s, No Pre serve, 2-Dose Series ([facility]) 04/27/2021,07/15/2020,06/24/2020 COVID-19, LNP-s, No Preserve , Oliver-sucrose, Ages 12+ (Pfizer) 10/24/2021 COVID-19, MRNA-LNP, PF, 30 M CG/0.3 mL, 12 YRS AND ABOVE, IM ([facility]) 01/16/2024,03/14/2023 Covid-19, Mrna, Lnp-s, Pf, B ivalent, 30 Mcg, IM, 12 yrs and above (Pfizer) 03/27/2022 Pneumococcal Conjugate Vacc, 13 Valent (Prevnar) 11/01/2014 Pneumococcal Conjugate Vacci ne, 20-valent ([id number]) 04/17/2024 Pneumococcal Polysaccharide PPV23 (Pneumovax) 08/28/2007 RSV [...] No 07/24/2023 Does the household have a [facility] source [facility] income? (Household - for ages [...] ages 0-17 years) Not on file 07/24/2023 Comments No Sex and Gender Information Value Date Recorded Sex Assigned at Female 06/20/2021 9:56 AM EST Legal Sex Female 7:14 AM EST Gender Identity Female 06/20/2021 9:56 AM EST Sexual Orientation Straight 06/20/2021 9: 56 AM EST documented as of this encounter Progress Notes * Columba Hays, [facility] - 05/29/2024 10:27 AM EST Images from the original note were not included. Medication Therapy Disease Management - Anticoagulation Patient: Kathi Verdugo | : 1940 Subjective Patient-Reported Symptoms: Patient Findings Positives: Change in diet/appetite (decreased Vit K) Negatives: Signs/symptoms of thrombosis, Signs/symptoms of bleeding, Change in health, Change in alcohol use, Change in activity, Upcoming invasive procedure, Missed doses, Extra doses, Change in medications, Bruising Objective Current Warfarin Dose As of 05/29/2024 Warfarin maintenance plan: 2.5 mg (2.5 mg x 1) every day INR Result As of 05/29/2024 INR goal: 2.0-3.0 INR used for dosin.4 (05/29/2024) Assessment & Plan Warfarin Plan As of 05/29/2024 Full warfarin instructions: 05/29: Hold; Otherwise 2.5 mg every day Next INR check: 06/26/2024 Repeat PT/INR in 4 week(s) Weekly dose: not changed Additional Dosing Information: I spent a total of 10-19 minutes (exact time 15 mins) on the date of service in preparation, delivery, and documentation of the care provided to Kathi Verdugo excluding any time spent in the performance of separately billed services or time spent by another provider/QHP. Columba Fitch [facility] Clinical Pharmacist 05/29/2024, 10:27 AM documented in this encounter Plan of Treatment Upcoming Encounters Date Type Department Care Team (Late st Contact Info) Description 06/04/2024 11:15 AM EST Office Visit Orthopaedics [facility] [address] [place] [address] Jose Bowling PA-C [address] [place] [phone] 06/25/2024 8:20 AM EST Anticoagulation Family Practice [address] [place] [address] [facility] [address] College, Pharmacist 65 [facility] 293 [facility] [place] [address] 08/21/2024 9:20 AM EDT Office Visit Family Practice 65 [facility] [place] [facility] [place] [address] Roberth Hayward DO 293 [facility] [place] [address] 12/17/2024 8:30 AM EDT Office Visit Cardiology, [facility] 132 [facility] [place] [address] Tacos Guerin PA-C 132 [facility] [place] [address] 04/28/2025 9:40 AM EST Office Visit Dermatology [facility] [address] [place] [address] Chandni Stahl PA-C 200 [facility] [place] [address] Scheduled Procedures Name Priority Associated Diagnoses Date/Ti me COLONOSCOPY FLEXIBLE PROXIMAL DIAGNOSTIC Recall History of colon polyps Health Maintenance Due Date Last Done Comments DXA Scan 12/08/2021 12/08/2018, 050 08/2014, 03/18/2012, Additional history exists Adult Wellness Visit 09/28/2023 09/27/2022, 09/21/2021, 10/04/2020 Diabetic Foot Exam 07/11/2024 07/12/2023, 0 07/05/2022, 07/19/2021, Additional history exists Depression Screening 07/23/2024 07/24/2023 [...] exists Zoster Vaccines Completed 10/28/2019, 06/06, 08/17/2011 COVID-19 Vaccine Completed 01/16/2024, 01/2023, 03/27/2022, Additional history exists Influenza Vaccine (FLU shot) Completed 01/16/2024, 01/16/2024, [...] this encounter Medical Devices Implanted Type Area Bb Shot Packer Device Identifier Shelf Expiration Date Model / Serial / Lot Lens Intraoc 17.0 - [id number] - [id number] Implanted:Qty: 1 on 07/10/2022 by Lucio Pino MD at OR [facility] Left: Eye BAUSCH & LOMB 02/02/2027 [id number] / [id number] / Lens Intraoc 17.0 - [id number] - [id number] Implanted:Qty: 1 on 07/24/2022 by Lucio Pino MD at OR [facility] Right: Eye BAUSCH & LOMB 05/05/2027 [id number] / [id number] / [id number] documented as of this encounter Procedures Procedure Name Priority Date/Time Associated Diagnosis Comments INR FINGERSTICK, POINT OF CARE STAT 05/29/2024 10:29 AM EST Chronic atrial fibrillation (HCC) Anticoagulation management encounter documented in this encounter Results * INR FINGERSTICK, POINT OF CARE (05/29/2024 10:29 AM EST) Fingerstick INR 3.4 INR 10:41 AM EST [facility] Blood 05/29/2024 10:2 9 AM EST 05/29/2024 10:41 AM EST Narrative [facility] 56-21 - 05/29/2024 10:41 AM EST Therapeutic ranges for non-operative patients: Prophylaxsis/treatment of DVT: (Range:2.0-3.0) Treatment of pulmonary embolism:(Range:2.0-3.0) Prevention of systemic embolism from: -tissue heart valves -acute myocardial infarction -valvular heart disease -atrial fibrillation (Range: 2.0-3.0) Mechanical prosthetic valves: (Range: 2.5-3.5) Columba Lobato [facility] LAB PO INT OF CARE TEST DOCKED DEVICE UNSOLICITED RESULTS Final Result [place] [address] [address] [place] [address] documented in this encounter Visit Diagnoses Diagnosis [...] Power of Attor hortensia? No Care Teams Hostage Negotiator Relationship Specialty Start Date End Date Roberth Hayward DO 293 [place] [address] PCP - General Internal Medicine 10/21/23 documented as of this encounter"
--- OUTSIDE RECORDS SUMMARY | 2024-07-14 11:53 | External Medical Summary | Summary of Care ---
Author Name Unknown Organization [facility] Address [address] [place] [address] Phone [phone] Care Team Providers Care Coal Pipeline Operator Name Role Phone Roberth Hayward DO Primary Care Provider [phone] Encounter Details Date Type Department Care Team (Late st Contact Info) Description 05/27/2024 Population Health External Data Unspecified Department Allergies Active Allergy Reactions Criticality Noted Date Comments Metronidazole 02/24/2007 Hives Penicillins 01/24/2001 swelling of tongue documented as of this encounter (statuses as of 05/27/2024) Medications Acetaminophen 500 MG Oral Tablet (Tylenol) [...] as of this encounter (statuses as of 05/27/2024) Active Problems Problem Noted Date Diagnosed Date [...] as of this encounter (statuses as of 05/27/2024) Resolved Problems Problem Noted Date Diagnosed Date [...] as of this encounter (statuses as of 05/27/2024) Immunizations Name Administration Dates Next Due COVID-19 mRNA, LNP-s, No Pre serve, 2-Dose Series ([employer]) 04/27/2021,07/15/2020,06/24/2020 COVID-19, LNP-s, No Preserve , Oliver-sucrose, Ages 12+ (Pfizer) 10/24/2021 COVID-19, MRNA-LNP, PF, 30 M CG/0.3 mL, 12 YRS AND ABOVE, IM ([facility]) 01/16/2024,03/14/2023 Covid-19, Mrna, Lnp-s, Pf, B ivalent, 30 Mcg, IM, 12 yrs and above ([employer]) 03/27/2022 Pneumococcal Conjugate Vacc, 13 Valent (Prevnar) 11/01/2014 Pneumococcal Conjugate Vacci ne, 20-valent ([id number]) 04/17/2024 Pneumococcal Polysaccharide PPV23 (Pneumovax) 08/28/2007 RSV [...] money to buy more. Never true 07/24/19 Within the past 12 months, t he [...] No 07/24/2023 Does the household have a [facility] source [facility] income? (Household - for [...] AM EST documented as of this encounter Plan of Treatment Upcoming Encounters Date Type Department Care Team (Late st Contact Info) Description 05/29/2024 9:00 AM EST Office Visit Orthopaedics [facility] [address] [place] [address] Jose Bowling PA-C [address] [place] [phone] 05/29/2024 10:00 AM EST Anticoagulation Family Practice 65 [facility] 293 [place] [address] College, Pharmacist [address] [place] [address] 08/21/2024 9:20 AM EDT Office Visit Family Practice 65 [facility] 293 [place] [address] Roberth Hayward, 293 [place] [address] 12/17/2024 8:30 AM EDT Office Visit Cardiology, [facility] 132 [facility] [place] [address] Tacos Guerin PAHarshadC 132 [facility] [place] [address] 04/28/2025 9:40 AM EST Office Visit Dermatology [facility] 200 [facility] [place] [address] Chandni Stahl PA-C 200 [facility] [place] [address] Scheduled Procedures Name Priority Associated Diagnoses Date/Ti [...] this encounter Medical Devices Implanted Type Area News Production Supervisor Device Identifier Shelf Expiration Date Model / Serial / Lot Lens Intraoc 17.0 - [id number] - [id number] Implanted:Qty: 1 on 07/10/2022 by Lucio Pino MD at OR [facility] Left: Eye BAUSCH & LOMB 02/02/2027 [id number] / [id number] / Lens Intraoc 17.0 - [id number] - [id number] Implanted:Qty: 1 on 07/24/2022 by Lucio Pino MD at OR [facility] Right: Eye BAUSCH & LOMB 05/05/2027 [id number] / [id number] / [id number] documented as of this encounter Advance Directives * No Code [...] Power of Attor hortensia? No Care Teams Coal Pipeline Operator Relationship Specialty Start Date End Date Roberth Hayward DO [address] [place] [address] PCP - General Internal Medicine 10/21/23 documented as of this encounter
--- OUTSIDE RECORDS SUMMARY | 2024-07-14 11:53 | External Medical Summary | Summary of Care ---
Author Name Unknown Organization [facility] Address [address] [facility] [place] [address] Phone [phone] Care Team Providers Care Supervisor Soldering Name Role Phone Roberth Hayward DO Primary Care Provider Reason for Referral * Evaluate & Treat - Unlimited Visits (Within 10 days (routine)) - Authorized Specialty Diagnoses / Procedures Referred By Wilmer sesay Referred To Contact Physical Therapy / Physical Medicine And Rehab Diagnoses Patellar tendinitis of right knee Jose Bowling PA-C [address] [place] [address] Phone: tel: fax: Referral ID Status Reason Start Date Expiration Date Visits Requested Visits Authorized [id number] Authorized Specialty Services Required 06/04/[phone] Question Answer Referral Priority Within 10 days (routine) Where should this appointment be scheduled? [facility] Reason for Visit * Reason Comments Follow Up Pt presents for a 3 month f/u for L knee OA Encounter Details Date Type Department Care Team (Latest Contact Info) Description 06/04/2024 11:15 AM EST Office Visit Orthopaedics [facility] [address] [place] [phone] Jose Bowling PA-C [address] [place] [address] Patellar tendinitis of right knee*; Primary osteoarthritis of left knee Allergies Active Allergy Reactions Criticality Noted Date Comments Metronidazole 02/24/2007 Hives Penicillins 01/24/2001 swelling of tongue documented as of this encounter (statuses as of 06/04/2024) Medications Acetaminophen 500 MG Oral Tablet (Tylenol) [...] by mouth in the morning. 30 Tablet 06/04/2024 11:35 AM EST 4 Active One-A-Day [...] and Fridays 42 Tablet 2 5 Active Diclofenac Sodium 1 % External Gel (Voltaren) Apply topically to affected area 3 times a day as needed for Pain. Apply to affected area 100 g 2 5 Active documented as of this encounter (statuses as of 06/04/2024) Active Problems Problem Noted Date Diagnosed Date [...] as of this encounter (statuses as of 06/04/2024) Resolved Problems Problem Noted Date Diagnosed Date [...] as of this encounter (statuses as of 06/04/2024) Immunizations Name Administration Dates Next Due COVID-19 mRNA, LNP-s, No Pre serve, 2-Dose Series ([employer]) 04/27/2021,07/15/2020,06/24/2020 COVID-19, LNP-s, No Preserve , Oliver-sucrose, Ages 12+ ([employer]) 10/24/2021 COVID-19, MRNA-LNP, PF, 30 M CG/0.3 mL, 12 YRS AND ABOVE, IM ([facility]) 01/16/2024,03/14/2023 Covid-19, Mrna, Lnp-s, Pf, B ivalent, 30 Mcg, IM, 12 yrs and above ([employer]) 03/27/2022 Pneumococcal Conjugate Vacc, 13 Valent (Prevnar) 11/01/2014 Pneumococcal Conjugate Vacci ne, 20-valent ([id number]) 04/17/2024 Pneumococcal Polysaccharide PPV23 (Pneumovax) 08/28/2007 RSV [...] as of this encounter Progress Notes * Jose Bowling PA-C - 06/04/2024 11:11 AM EST Established patient presents 3 months status post left knee injection for osteoarthritis. The patient has also been doing physical therapy strengthening in both lower extremities and knees. States itis overall going well and actually reports that her left knee continues to do well from her last injection. The patient is not feel that an injection is warranted today. Denies any new injury or fall. Denies any calf pain. No swelling or redness in the knee. Denies any mechanical symptoms or instability. X-rays on file complete review of systems negative General: alert and oriented x3 female, no acute distress, appears currently stated age, pleasant, well nourished, here with family Skin: Left knee does not reveal any erythema, effusion, ecchymosis, abrasion, laceration, skin breakdown otherwise Neurovascular: Left lower extremity is neurovascularly intact with good sensation strength throughout, calf supple nontender, toes were mobile, +5 strength dorsi and plantar flexion of the foot Musculoskeletal: Left knee ROM 0-120, jointline tenderness, advanced crepitation noted in PFJ, femoral condyles are tender as well. Ligamentously stable regarding cruciate and collateral ligaments. Extensor mechanism intact. No obvious cystic change or masses the popliteal fossa. Pes anserine bursaand patellar tendon nontender. Hip and ankle atraumatic X-rays of the right and left knee x-rays obtained today. Right knee reveals postsurgical changes with intraoperative hardware consistent with total knee arthroplasty. No evidence of periprosthetic fracture or hardware loosening. Left knee reveals end-stage osteoarthritis tricompartmental. Calcific vascular changes identified throughout. No acute findings such as fracture dislocation or subluxation. Unable to identify any type of obvious cystic changes or masses in the bone. Official radiology report to follow accordingly and we listed in the patient's chart under imaging. Right knee reveals tenderness palpating the patellar tendon as well as resisted knee extension. Otherwise joint line is nontender. Extensor mechanism intact. Neurovascularly intact. Calf supple nontender right lower extremity. Impression: Left knee osteoarthritis, stable Right knee pain secondary to patellar tendinitis, history of TKA Plan: Today 's findings were discussed with the patient. They were educated regarding their diagnosis. Multiple treatment options discussed and agreed upon, including continued physical therapy as well as focusing on the right knee with the patellar tendinitis. Can use ice and Voltaren gel, behavior modification rest discuss as well. We would like to call for next appointment if interested in theleft knee repeat injection and I feel that is appropriate. Prescription diclofenac gel placed. The patient has no other questions or concerns. Pleased with today 's care. Call sooner if needed. This chart was completed in part utilizing [employer] Speech Voice Recognition Software. Grammatical errors, random word insertions, prounoun errors, and incomplete sentences are an occasional consequence of this system due to software limitations, ambient noise, and hardware issues. Any formal questions or concerns about the content, text, or information contained within the body of this dictation should be directly addressed to the provider for clarification. documented in this encounter Nursing Notes * Jordy Lopez CMA - 06/04/2024 10:57 AM EST Pt presents for a 3 month f/u for L knee OA A1C 6.5 as of 04/17/24 Pt states pain no pain today in her L knee - Jordy Ramos CMA documented in this encounter Plan of Treatment Upcoming Encounters Date Type Department Care Team (Late st Contact Info) Description 06/25/2024 8:20 AM EST Anticoagulation Family Practice 65 [facility] 293 [place] [phone] College, Pharmacist [address] [place] [address] 08/21/2024 9:20 AM EDT Office Visit Family Practice 65 [facility] 293 [place] [phone] Roberth Hayward, 293 [place] [address] 12/17/2024 8:30 AM EDT Office Visit Cardiology, [facility] [place] [address] Tacos Guerin PA-C 132 [facility] [address] 04/28/2025 9:40 AM EST Office Visit Dermatology [facility] 200 [facility] [place] [address] Chandni Stahl PAHarshadC 200 [facility] [place] [address] Scheduled Procedures Name Priority Associated Diagnoses Date/Ti me COLONOSCOPY FLEXIBLE PROXIMAL DIAGNOSTIC Recall History of colon polyps Scheduled Referrals Name Type Priority Associated Diagnoses Orde r Schedule PHYSICAL THERAPY REFERRAL OP Referral Within 10 days (routine) Patellar tendinitis of right knee Ordered: 06/04/2024 Health Maintenance Due Date Last Done Comments [...] this encounter Medical Devices Implanted Type Area Manhole Builder Device Identifier Shelf Expiration Date Model / Serial / Lot Lens Intraoc 17.0 - [id number] - [id number] Implanted:Qty: 1 on 07/10/2022 by Lucio Pino MD at OR [facility] Left: Eye BAUSCH & LOMB 02/02/2027 [id number] / [id number] / Lens Intraoc 17.0 - [id number] - [id number] Implanted:Qty: 1 on 07/24/2022 by Lucio Pino MD at [facility] Right: Eye BAUSCH & LOMB 05/05/2027 [id number] / [id number] / [id number] documented as of this encounter Visit Diagnoses Diagnosis Patellar tendinitis of right knee- Primary Patellar tendinitis Primary osteoarthritis of left knee Primary localized osteoarthrosis, lower leg documented in this encounter Advance Directives * [...] Power of Attor hortensia? No Care Teams Supervisor Soldering Relationship Specialty Start Date End Date Roberth Hayward DO [address] [place] [address] PCP - General Internal Medicine 10/21/23 documented as of this encounter
[2024-07-14 12:15] LABS: Appearance Urine Clear (Clear); Bacteria Urine Automated 4+ (None Seen); Bilirubin Urine Negative (Negative); Blood Urine Trace (Negative); Cast Urine Automated 0-2 /lpf (0-2); Color Urine Yellow; Epithelial Cell Urine Auto 0-2 /hpf (0-2); Glucose Urine UA Negative (Negative); Ketones Urine 1+ (Negative); Leukocyte Esterase Urine Negative (Negative); Nitrite Urine Positive (Negative); Protein Urine 1+ (Negative); Specific Gravity Urine 1.023 (1.000-1.030); Urobilinogen Urine Negative (Negative); WBC Urine Automated 0-5 /hpf (0-5); pH Urine 5.5 (4.5-7.5)
--- NOTE | 2024-07-14 12:33 | History & Physical Report ---
Date of Service July 14, 2024 Assessment & Plan (1) Influenza A: Plan: Patient is a 84-year-old female with PMH chronic atrial fibrillation, anticoagulated on warfarin, HTN, HLD, pulmonary hypertension, DM II, GERD presented to ER with c/o increased weakness and fall since yesterday. +URI symptoms past 2 days. In ER afebrile, P: 104, R: 20, BP 129/77, 96% on room air No leukocytosis. Positive influenza A on respiratory [employer] panel. Procalcitonin: 0.25 CXR no acute infiltrate In ER given 750 mL NSS Isolation precautions Start tamiflu Incentive spirometry CBC, BMP in am (2) UTI (urinary tract infection): Plan: UA: 4+bacteria, +nitrite Pt with reported tongue edema with penicillin With current weakness possibly related to UTI in addition to influenza will start on IV antibiotics - aztreonam given her allergies and age Urine culture pending (3) Generalized weakness: (4) Ambulatory dysfunction: Plan: Chronic ambulatory dysfunction Currently receiving home PT Increased weakness and ambulatory dysfunction past day likely secondary to influenza and UTI Fall precautions PT/OT eval (5) Chronic atrial fibrillation: Plan: Anticoagulated on warfarin INR: 2.5 Initially in ER pulse in low 100's. EKG with atrial fibrillation, nonspecific st changes per my interpretation Given home oral metoprolol tartrate (which she missed this morning) and 750ml NSS and HRs improved to 90's Continue warfarin, metoprolol tartrate (6) Elevated troponin: Plan: Initial troponin: 239. Repeat 279. Current troponins flat Patient without chest pain Possible demand ischemia Trend troponin Echo If troponins uptrending or abnormal echo consider cardiology consultation (7) Chronic heart failure with preserved ejection fraction (HFpEF): Plan: 03/21/2023 echo: EF: 60-64%, grade 3 diastolic dysfunction, mild MR, mild TR, mild pulmonary regurgitation, moderate pulmonary hypertension Patient currently appears euvolemic. Will hold home Lasix (takes 3 times a week) with patient's current fever and reassess volume status tomorrow (8) Diabetes mellitus, type II: Plan: A1c: 6.5 on 04/17/2024 Diet controlled Monitor a.m. glucose (9) HLD (hyperlipidemia): Plan: Continue rosuvastatin DVT Prophylaxis Anticoagulated on warfarin with therapeutic INR Admit med tele Full code as per discussion with pt Follows with Dr Hayward for routine care Pt was seen and care coordinated with Dr White. See addendum I spent a total of 71 minutes reviewing notes, outpatient records, labs, medication, coordinating, documenting and providing care for this patient excluding time spent in the performance of separately billed services and excluding time spent by another provider/QHP. History of Present Illness Chief Complaint: weakness Primary Care Provider: Roberth Hayward DO Patient is a 84-year-old female with PMH chronic atrial fibrillation, anticoagulated on warfarin, HTN, HLD, pulmonary hypertension, DM II, GERD presented to ER with c/o increased weakness and fall since yesterday. Patient states past 2 days with nasal congestion, post nasal drip triggering cough. She reports her spouse has similar symptoms that started prior to her onset of congestion. Patient states has ambulatory dysfunction at baseline and uses walker with seat. She reports she sits on seat and will use her legs to scoot throughout the house. She states she was sitting and scooting last night when she slid off the seat onto her knees. She states she was unable to get up. They needed to call for left assistance and patient was placed in bed. Patient states this morning was feeling weak and unable to get out of bed. She has home PT who evaluated patient today was able to get patient out of bed and sitting on her walker seat. States she slid out of seat onto buttocks. She denies hitting her head in any of these instances. Denies chest pain, shortness of breath. Family is concerned patient may have UTI as in past became more weak from UTI. EMS reported patient had temp 99F. Denies diaphoresis, N/V/D/C, GOMEZ, dizziness, syncope, vision changes, neck pain, CP, SOB, palpitations, hemoptysis, sore throat, abdominal pain, paresthesias, extremity edema, rashes, dysuria, hematuria, urinary frequency or urinary retention. Allergies Allergy/AdvReac Type Severity Reaction Status Date / Time metronidazole Allergy Unknown RASH Verified 07/14/24 11:30 Penicillins Allergy Unknown Swelling Verified 07/14/24 14:46 of Lip/Tongue/Throat Home Medications Medication Instructions Recorded Confirmed Type metoprolol tartrate 25 mg tablet 25 mg PO BID 01/20/19 07/14/24 History furosemide 20 mg tablet 20 mg PO 3XWK 03/14/23 07/14/24 History omeprazole 20 mg capsule,delayed 20 mg PO BID 03/14/23 07/14/24 History release rosuvastatin 20 mg tablet 20 mg PO DAILY 03/14/23 07/14/24 History acetaminophen 500 mg tablet 500 mg PO Q6H PRN Pain 07/14/24 07/14/24 History potassium chloride 10 mEq 10 meq PO 3XWK 07/14/24 07/14/24 History tablet,extended release warfarin 2.5 mg tablet 1.25 mg PO UD 07/14/24 07/14/24 History warfarin 2.5 mg tablet 2.5 mg PO DAILY 07/14/24 07/14/24 History Past Med/Surg History Problem List (Updated 07/14/24 @ 18:26 by Palma Thornton PA-C) HLD (hyperlipidemia) Diabetes mellitus, type II Chronic heart failure with preserved ejection fraction (HFpEF) Elevated troponin (Acute) Chronic atrial fibrillation (Acute) Ambulatory dysfunction Generalized weakness (Acute) UTI (urinary tract infection) (Acute) Influenza A (Acute) Personal history of cervical dysplasia Cystocele Pessary maintenance Anticoagulant long-term use (Acute) Atrial fibrillation with rapid ventricular response (Acute 2013) Epistaxis (Acute) SOB (shortness of breath) (Acute) Medical History (Updated 07/14/24 @ 18:26 by Palma Thornton PA-C) Hx of ovarian cyst Hx of uterine prolapse Endometrial polyp (1999) Surgical History S/P lymph node biopsy History of hysterectomy (12/01/12) vaginal hysterectomy with anterior repair S/P wisdom tooth extraction S/P tubal ligation (1981) S/P knee replacement S/P dilation and curettage (09/1999) with hysteroscopy for PMB, suspected endometrial polyp S/P colonoscopy (11/2007) Family History Aunt Breast cancer Mother Ovarian cancer Other Chest pain Social History Smoking Status: Never smoker Second Hand Exposure: No; Do You Dip or Chew Tobacco: No; Hx Alcohol Use: No Hx Substance Use: No Preferred Language: Ukrainian Business Analysis Consultant Required: No Beliefs That Will Affect Care: None Current Living Situation: Spouse Feels Safe at Home: Yes Safety Concerns: Feels Safe At This Time Dental Care, Regularly: Yes Physical Activity Frequency Comment: Exercises regularly. Seatbelt Use: always Sunscreen Use: Yes Assistive Devices: Glasses and Walker Review of Systems Review of Systems: All systems reviewed & are unremarkable except as noted in HPI & below Physical Exam Physical Exam: General: no distress, WDWN elderly female Head: normocephalic, atraumatic Eyes: conjunctiva non-injected, anicteric ENT: normal inspection external ears, nose, mucous membranes moist Neck: supple, trachea midline Lungs: clear, no respiratory distress, no wheezing/rhonchi/rales CV: irregularly irregular, no pretibial edema Abd: normal BS, soft, non-tender Ext: no cyanosis, no calf tenderness Neuro: A&O x 3, no focal deficits noted, normal affect Skin: warm, dry Results & Data Results & Data Vital Signs (Past 12 Hours) Vital Signs Temp Pulse Pulse Resp BP BP Pulse Ox 07/14/24 12:01 37.3 C 95 H 23 136/69 94 07/14/24 12:01 97 07/14/24 11:31 98 H 16 147/91 H 07/14/24 10:24 105 H 07/14/24 10:08 36.8 C 104 H 20 129/77 96 07/14/24 10:07 96 O2 Del Method 07/14/24 12:01 Room Air 07/14/24 12:01 Room Air 07/14/24 11:31 Room Air 07/14/24 10:24 07/14/24 10:08 Room Air 07/14/24 10:07 Room Air Laboratory Results Short CBC 07/14/24 Range/Units 10:20 WBC 8.63 (4.8-10.8) K/ul Hgb 12.1 (12.0-16.0) g/dl Hct 37.1 (37.0-47.0) % Plt Count 183 (130-400) K/uL BMP 07/14/24 10:20 Sodium 139 Potassium 4.1 Chloride 104 Carbon Dioxide 26 BUN 22 Creatinine 0.93 Glucose 122 H Calcium 9.1 Liver Function 07/14/24 Range/Units 10:20 Total Bilirubin 0.5 (0.2-1.0) mg/dl AST 36 (13-39) U/L ALT 21 (7-52) U/L Alkaline Phosphatase 86 (34-104) U/L Albumin 4.4 (3.4-5.0) gm/dl Urine 07/14/24 Range/Units 12:00 Urine Color Yellow Urine Appearance Clear (Clear) Urine pH 5.5 (4.5-7.5) Ur Specific [place] 1.023 (1.000-1.030) Urine Protein 1+ H (Negative) Urine Glucose (UA) Negative (Negative) Diagnostic Findings Chest X-Ray 07/14/24 10:06 XR chest 1V portable CLINICAL HISTORY: weakness COMPARISON STUDY: 07/12/2021 FINDINGS: There is no significant interval change in alignment for technical differences. There is no acute pulmonary process identified. Cardiomegaly and pulmonary vascular congestion are persistent. No pleural effusion or pneumothorax. 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 IMPRESSION: Stable exam; no acute findings ACT 112: Negative or not required by law. Electronically signed by: Monserrat Khan M.D. 07/14/2024 10:20 AM Supervising Physician Co-Signing Physician Notes Attending Addendum: Case reviewed with the advanced practitioner. I have personally performed a history and physical examination on the patient. I have reviewed the advanced practitioner's documentation on the date of service referenced in note, and I agree with, and take responsibility for the plan of care. please refer to her notes for full details patient seen and examined, records reviewed by myself as well on exam, patient Seen resting in bed, comfortable, patient's daughters at the bedside visiting on room air, not in distress, comfortable Appears weak States she is starting to feel improved since admission Breathing is improving, still having productive cough, congestion Denies abdominal pain, nausea or vomiting, problems with urination No other new symptoms VS noted and reviewed oriented x 2, not in distress, speaks in sentences with no effort nor accessory muscle use, appears weak normal rate, regular rhythm, no murmurs Positive scattered faint wheeze bilaterally, good air entry bilaterally non distended, soft, nontender no bipedal edema, erythema, warmth no gross focal neuro deficits all labs, imaging noted and reviewed ASSESSMENT AND PLAN> Generalized weakness, Multifactorial secondary to: Influenza A infection UTI Poor oral intake On room air Chest x-ray: No pneumonia Tamiflu, nebs every 6 hours scheduled, Mucinex If with persistent wheezing, may benefit from a short prednisone taper Follow-up cultures Empiric aztreonam given penicillin allergy-swelling of tongue/lip/throat Troponin elevation, likely demand ischemia secondary to above No cardiac symptoms Troponin 230, 279 EKG no signs of ischemia or infarct Echocardiogram ordered INR therapeutic, continue usual Coumadin, metoprolol, Crestor other diagnoses and plan of care as per advanced practitioner's notes I spent a total of 35 minutes coordinating, documenting, and providing care for this patient, excluding time spent in the performance of separately billed services or time spent by another provider/QHP. plan of care discussed with patient And her daughters at the peds in detail and at length all questions answered they are understanding, agreeable, comfortable with the plan of care Omer White MD
[2024-07-14 12:38] LABS: Adenovirus PCR Not Detected (NotDetected); Bordetella parapertussis PCR Not Detected (NotDetected); Bordetella pertussis PCR Not Detected (NotDetected); Chlamydia pneumoniae PCR Not Detected (NotDetected); Coronavirus 229E PCR Not Detected (NotDetected); Coronavirus CoV-2 (COVID19)PCR Not Detected (NotDetected); Coronavirus HKU1 PCR Not Detected (NotDetected); Coronavirus NL63 PCR Not Detected (NotDetected); Coronavirus OC43PCR Not Detected (NotDetected); Human Metapneumovirus PCR Not Detected (NotDetected); Influenza A (H1 2009) PCR DETECTED (NotDetected); Influenza B PCR Not Detected (NotDetected); Mycoplasma pneumoniae PCR Not Detected (NotDetected); Parainfluenza Virus 1 PCR Not Detected (NotDetected); Parainfluenza Virus 2 PCR Not Detected (NotDetected); Parainfluenza Virus 3 PCR Not Detected (NotDetected); Parainfluenza Virus 4 PCR Not Detected (NotDetected); Respiratory Syncytial VirusPCR Not Detected (NotDetected); Rhinovirus/Enterovirus PCR Not Detected (NotDetected)
[2024-07-14] MEDS: OSELTAMIVIR PHOSPHATE 75 MG CAP PO STA (13:21)
[2024-07-14] MEDS ORDERED: ONDANSETRON INJ 2 MG/ML 2 ML VIAL IV PRN (15:43)
[2024-07-14] MEDS: LEVALBUTEROL 1.25 MG/3 ML NEB NEB SCH (15:50)
[2024-07-14] MEDS: AZTREONAM 1,000 MG in DEXTROSE 5% MINI-B 100 ML IV SCH (16:05)
[2024-07-14] MEDS: WARFARIN SOD 2.5 MG TAB PO SCH (17:56)
[2024-07-14] MEDS: OSELTAMIVIR PHOSPHATE SUSP 30 MG/5 ML UDP PO SCH (20:21)
[2024-07-14] MEDS: PANTOprazole 40 MG TAB PO SCH (20:21)
[2024-07-14] MEDS: METOPROLOL TARTRATE 25 MG TAB PO SCH (20:21)
[2024-07-14] MEDS: ACETAMINOPHEN 325 MG TAB PO PRN (20:21)
--- NOTE | 2024-07-15 06:22 | Electrocardiogram Report ---
Test Reason : Blood Pressure : */* mmHG Vent. Rate : 105 BPM Atrial Rate : * BPM P-R Int : * ms QRS Dur : 88 ms QT Int : 302 ms P-R-T Axes : * -39 -15 degrees QTcB Int : 399 ms Atrial fibrillation with rapid ventricular response Left axis deviation Anteroseptal infarct (cited on or before 26-Mar-2014) Abnormal ECG When compared with ECG of 12-Jul-2021 17:30, Nonspecific T wave abnormality now evident in Anterolateral leads Confirmed by Olayinka Jin ([id number]) on 07/15/2024 6:22:38 AM Referred By: Confirmed By: Olayinka Jin
[2024-07-15 07:43] LABS: Hematocrit (blood only) 34.2 % (37.0-47.0); Hemoglobin 11.2 g/dl (12.0-16.0); Mean Corpuscular Hemoglobin 30.7 pg (25.0-34.0); Mean Corpuscular Hgb Conc 32.7 g/dL (32.0-36.0); Mean Corpuscular Volume 93.7 fL (80.0-100.0); Mean Platelet Volume 12.4 fL (9.4-12.4); Platelet Count 162 K/uL (130-400); RDW Coefficient of Variation 14.5 % (11.5-14.5); RDW Standard Deviation 50.2 fL (36.4-46.3); Red Blood Count 3.65 M/uL (4.20-5.40); White Blood Count 6.03 K/ul (4.8-10.8)
[2024-07-15 08:08] LABS: BUN Creatinine Ratio 22.1 (10-20); Calcium 8.5 mg/dl (8.6-10.3); Chol HDL Ratio 2.3 (0-5); Creatinine Clr Calc Pharmacy 50.8 ml/min; Potassium 3.8 mmol/L (3.5-5.1)
[2024-07-15 08:09] LABS: INR 2.4 (0.9-1.1); Prothrombin Time 24.4 Seconds (9.0-12.0)
[2024-07-15] MEDS: ROSUVASTATIN CALCIUM 20 MG TAB PO SCH (08:59)
--- NOTE | 2024-07-15 10:47 | Hospitalist Progress Note ---
Date of Service July 15, 2024 Assessment & Plan (1) Influenza A: Plan: Patient is a 84-year-old female with PMH chronic atrial fibrillation, anticoagulated on warfarin, HTN, HLD, pulmonary hypertension, DM II, GERD presented to ER with c/o increased weakness and fall since yesterday. +URI symptoms past 2 days. Continue Tamiflu, remains on room air CXR without infiltrate (2) UTI (urinary tract infection): Plan: Urine growing > 100k E.coli Started on Aztreonam - will continue until culture results given angioedema hx with PCN no prior urine culture in [facility] or [facility] (3) Generalized weakness: (4) Ambulatory dysfunction: Plan: Chronic ambulatory dysfunction Currently receiving home PT Increased weakness and ambulatory dysfunction past day likely secondary to influenza and UTI Fall precautions PT/OT eval (5) Chronic atrial fibrillation: Plan: Anticoagulated on warfarin INR: 2.5 Continue warfarin, metoprolol tartrate (6) Elevated troponin: Plan: Initial troponin: 239. Repeat 279 and downtrended to 231 Patient without chest pain, probably demand ischemia in setting of above illness Echocardiogram pending no further work up if no wall motional abnormality (7) Chronic heart failure with preserved ejection fraction (HFpEF): Plan: 03/21/2023 echo: EF: 60-64%, grade 3 diastolic dysfunction, mild MR, mild TR, mild pulmonary regurgitation, moderate pulmonary hypertension Patient currently appears euvolemic. Will continue to hold home lasix/KCL until pt eating/drinking has improved given underlying illness add daily weights (8) Diabetes mellitus, type II: Plan: A1c: 6.5 on 04/17/2024 Diet controlled fasting BS 124, continue diet control, given age allow for liberal control (9) HLD (hyperlipidemia): Plan: Continue rosuvastatin DVT Prophylaxis Anticoagulated on warfarin with therapeutic INR PCP: Yesy Dispo: await PT/OT evals, pt has home PT arranged but will need to determine if she would require inpt rehab, not yet medically ready for discharge Pt was seen and care coordinated with Dr Banks. See addendum I spent a total of 45 minutes reviewing notes, outpatient records, labs, medication, coordinating, documenting and providing care for this patient excluding time spent in the performance of separately billed services and excluding time spent by another provider/QHP. Admission and Anticipated Discharge Date Admission Date: July 14, 2024 Supervising Physician Co-Signing Physician Notes I have seen and discussed the case with the collaborating advanced practitioner. I agree with the above progress note. I have reviewed and confirmed the patients medical history, the findings on physical examination, and the patients diagnosis and treatment plan with Peter HEARN and agree with the information documented. Ms Verdugo is an 84 year old woman with Influenza A and UTI. NAEO overnight per [facility]. Reviewed labs with downtrending Troponin. CTM and plan for PT/OT I spent a total of 15 minutes coordinating, documenting, and providing care for this patient excluding time spent in the performance of separately billed services. All of the aforementioned completed outside of collaborating with the assigned advanced practitioner for a full treatment plan. I have reviewed the advanced practitioner's documentation, and I agree with, and take responsibility for the plan of care Subjective Pt was seen in room 256-2. She endorses no complaints this morning. Denies pain, f/c/s, chest pain, sob. She reports coming to the hospital due to significant weakness. She reports having home therapy arranged and when working with them she fell to her knees. Review of Systems Review of Systems: All systems reviewed & are unremarkable except as noted in HPI & below Physical Exam Physical Exam: Gen: WD/WN, elderly, F NAD, A&O x3 HEENT: Normocephalic, atraumatic, conjunctivae moist, sclerae anicteric, mucous membranes moist. Lung: Clear to Auscultation bilaterally, no wheezes/rales/rhonchi Heart: IRR/IRR, no murmurs, rubs, or gallops Abdomen: Soft, NT, ND +BS x 4 Extremities: No edema Skin: Warm, no rash, negative turgor. Results & Data Results & Data Vital Signs (Past 12 Hours) Vital Signs Temp Pulse Resp BP Pulse Ox O2 Del Method 07/15/24 07:39 37.8 C H 78 20 110/53 L 100 Nebulizer 07/15/24 07:30 85 20 96 Room Air 07/15/24 02:47 36.8 C 82 18 122/71 95 Room Air 07/14/24 23:55 75 18 97 Room Air Laboratory Results I have independently reviewed and interpreted patient's labs including CBC, bmp, trop, cholesterolpanel Short CBC 07/14/24 07/15/24 Range/Units 10:20 07:28 WBC 8.63 6.03 (4.8-10.8) K/ul Hgb 12.1 11.2 L (12.0-16.0) g/dl Hct 37.1 34.2 L (37.0-47.0) % Plt Count 183 162 (130-400) K/uL BMP 07/14/24 07/15/24 10:20 07:28 Sodium 139 137 Potassium 4.1 3.8 Chloride 104 104 Carbon Dioxide 26 26 BUN 22 17 Creatinine 0.93 0.77 Glucose 122 H 124 H Calcium 9.1 8.5 L Liver Function 07/14/24 Range/Units 10:20 Total Bilirubin 0.5 (0.2-1.0) mg/dl AST 36 (13-39) U/L ALT 21 (7-52) U/L Alkaline Phosphatase 86 (34-104) U/L Albumin 4.4 (3.4-5.0) gm/dl Urine 07/14/24 Range/Units 12:00 Urine Color Yellow Urine Appearance Clear (Clear) Urine pH 5.5 (4.5-7.5) Ur Specific [place] 1.023 (1.000-1.030) Urine Protein 1+ H (Negative) Urine Glucose (UA) Negative (Negative) Medications Administered Current Inpatient Medications Acetaminophen (Acetaminophen 325 Mg Tab) 650 mg PO Q4H PRN PRN Reason: Pain or Fever Stop: 08/13/24 15:42 Last Admin: 07/14/24 20:21 Dose: 650 mg Furosemide (Furosemide 20 Mg Tab) 20 mg PO MoWeFr [facility] Stop: 08/14/24 08:59 Aztreonam 1,000 mg/ Dextrose 100 mls @ 100 mls/hr IV Q8H FRANCIS Stop: 07/19/24 14:59 Last Infusion: 07/15/24 07:12 Dose: Infused Levalbuterol HCl (Levalbuterol 1.25 Mg/3 Ml Neb) 1.25 mg NEB Q6R PRN PRN Reason: Shortness Of Breath Or Wheezing Stop: 08/13/24 15:29 Metoprolol Tartrate (Metoprolol Tartrate 25 Mg Tab) 25 mg PO BID [facility] Stop: 08/13/24 20:59 Last Admin: 07/15/24 08:59 Dose: 25 mg Ondansetron HCl (Ondansetron Inj 2 Mg/Ml 2 Ml Vial) 4 mg IV Q6H PRN PRN Reason: Nausea Stop: 08/13/24 15:42 Oseltamivir Phosphate (Oseltamivir Phosphate Susp 30 Mg/5 Ml Udp) 30 mg PO BID [facility] Stop: 07/19/24 20:59 Last Admin: 07/15/24 08:59 Dose: 30 mg Pantoprazole Sodium (Pantoprazole 40 Mg Tab) 40 mg PO BID [facility] Stop: 08/13/24 20:59 Last Admin: 07/15/24 08:58 Dose: 40 mg Polyethylene Glycol (Polyethylene (Miralax) 17 Gm Pack) 17 gm PO DAILY PRN PRN Reason: Constipation Stop: 08/13/24 15:42 Potassium Chloride (Potassium Chloride 10 Meq Tabcr) 10 meq PO MoWeFr [facility] Stop: 08/14/24 08:59 Rosuvastatin Calcium (Rosuvastatin Calcium 20 Mg Tab) 20 mg PO DAILY [facility] Stop: 08/14/24 08:59 Last Admin: 07/15/24 08:59 Dose: 20 mg Warfarin Sodium (Warfarin Sod 2.5 Mg Tab) 2.5 mg PO [id number]@1600 [facility] Stop: 08/13/24 15:59 Last Admin: 07/14/24 17:56 Dose: 2.5 mg Warfarin Sodium (Warfarin Sod 1.25 Mg Tab) 1.25 mg PO Mo@1600 [facility] Stop: 08/19/24 15:59 (2) UTI (urinary tract infection) Hematuria presence: with hematuria Urinary tract infection type: acute cystitis Qualified Code(s): N30.01 - Acute cystitis with hematuria
[2024-07-15] MEDS: BENZONATATE 100 MG CAPSULE PO PRN (19:39)
[2024-07-15] MEDS: LEVALBUTEROL 1.25 MG/3 ML NEB NEB PRN (20:14)
[2024-07-16 05:23] LABS: Hematocrit (blood only) 35.1 % (37.0-47.0); Hemoglobin 11.3 g/dl (12.0-16.0); Mean Corpuscular Hemoglobin 30.3 pg (25.0-34.0); Mean Corpuscular Hgb Conc 32.2 g/dL (32.0-36.0); Mean Corpuscular Volume 94.1 fL (80.0-100.0); Platelet Count 151 K/uL (130-400); RDW Coefficient of Variation 14.5 % (11.5-14.5); RDW Standard Deviation 49.3 fL (36.4-46.3); Red Blood Count 3.73 M/uL (4.20-5.40); White Blood Count 6.71 K/ul (4.8-10.8)
[2024-07-16 05:32] LABS: Calcium 8.5 mg/dl (8.6-10.3); Creatinine Clr Calc Pharmacy 48.9 ml/min
[2024-07-16 05:44] LABS: INR 2.3 (0.9-1.1); Prothrombin Time 23.6 Seconds (9.0-12.0)
--- NOTE | 2024-07-16 06:44 | Electrocardiogram Report ---
Test Reason : Blood Pressure : */* mmHG Vent. Rate : 85 BPM Atrial Rate : 110 BPM P-R Int : * ms QRS Dur : 94 ms QT Int : 438 ms P-R-T Axes : * -37 -48 degrees QTcB Int : 521 ms Atrial fibrillation Left axis deviation Anterior infarct (cited on or before 26-Mar-2014) T wave abnormality, consider anterior ischemia T wave abnormality, consider inferior ischemia Prolonged QT Abnormal ECG When compared with ECG of 14-Jul-2024 10:16, Inverted T waves have replaced nonspecific T wave abnormality in Anterior leads QT has lengthened Confirmed by Olayinka Jin ([id number]) on 07/16/2024 6:43:45 AM Referred By: REFERRED SELF Confirmed By: Olayinka Jin
--- NOTE | 2024-07-16 07:59 | Hospitalist Progress Note ---
Date of Service July 16, 2024 Assessment & Plan (1) Influenza A: Plan: Patient is a 84-year-old female with PMH chronic atrial fibrillation, anticoagulated on warfarin, HTN, HLD, pulmonary hypertension, DM II, GERD presented to ER with c/o increased weakness and fall since yesterday. +URI symptoms past 2 days. Continue Tamiflu, remains on room air CXR without infiltrate (2) UTI (urinary tract infection): Plan: Urine growing > 100k E.coli, pansensitive per senitivities today Started on Aztreonam -history of angioedema hx with PCN Plan for transition to Macrobid at time of dc to complete course (3) Generalized weakness: (4) Ambulatory dysfunction: Plan: Chronic ambulatory dysfunction Currently receiving home PT Increased weakness and ambulatory dysfunction past day likely secondary to influenza and UTI Fall precautions PT/OT eval- recommending rehab CM to discuss rehab options with patient today (5) Chronic atrial fibrillation: Plan: Anticoagulated on warfarin INR therapeutic Continue warfarin, metoprolol tartrate (6) Elevated troponin: Plan: #NSTEMI iso illness Initial troponin: 239. Repeat 279 and downtrended to 231 Patient without chest pain, probably demand ischemia in setting of above illness Echocardiogram 07/15/24 with LV normal size, mild hypokinesis of apical anteroseptum with otherwise normal WM, EF 60-65%, AV sclerosis not stenosis (7) Chronic heart failure with preserved ejection fraction (HFpEF): Plan: Repeat Echo as above Patient currently appears euvolemic Add daily weights Plan to resume lasix/Kcl tomorrow now that eating/drinking improved (8) Diabetes mellitus, type II: Plan: A1c: 6.5 on 04/17/2024 Diet controlled Fasting BS 124, continue diet control, given age allow for liberal control (9) HLD (hyperlipidemia): Plan: Continue rosuvastatin DVT Prophylaxis Anticoagulated on warfarin with therapeutic INR PCP: Yesy Dispo: await PT/OT LYNETTE coffman discussing rehab options with patient Pt was seen and care coordinated with Dr Banks. I spent a total of 50 minutes reviewing notes, outpatient records, labs, medication, coordinating, documenting and providing care for this patient excluding time spent in the performance of separately billed services and excluding time spent by another provider/QHP. Admission and Anticipated Discharge Date Admission Date: July 14, 2024 Supervising Physician Co-Signing Physician Notes I have seen and discussed the case with the collaborating advanced practitioner. I agree with the above progress note. I have reviewed and confirmed the patients medical history, the findings on physical examination, and the edouard ents diagnosis and treatment plan with Aristeo HEARN and agree with the information documented. Ms Verdugo is an 84 year old woman with Influenza A and UTI. NAEO.. Reviewed labs with downtrending Troponin. CTM and plan for PT/OT: recommending rehab, discussed with CM I spent a total of 10 minutes coordinating, documenting, and providing care for this patient excluding time spent in the performance of separately billed services. All of the aforementioned completed outside of collaborating with the assigned advanced practitioner for a full treatment plan. I have reviewed the advanced practitioner's documentation, and I agree with, and take responsibility for the plan of care Subjective Pt was seen and examined in 256-2. No new complaints overnight. No F/C, lightheadedness or SOB. Tolerating diet without issue. Still feeling weak. No F/C, headache, CP, SOB, N/V, abd pain, dysuria, diarrhea or constipation. Review of Systems Review of Systems: At least ten systems reviewed and negative except as noted in the HPI. Physical Exam Physical Exam: Gen: WD/WN, NAD, resting in bed comfortably, A&Ox3 HEENT: Normocephalic, atraumatic, conjunctivae moist, sclerae anicteric, mucous membranes moist Lung: Clear to Auscultation bilaterally, no wheezes/rales/rhonchi Heart: Regular rate, regular rhythm, no murmurs, rubs, or gallops Abdomen: Soft, NT, ND +BS x 4 Extremities: no edema Skin: Warm, no rash Results & Data Results & Data Vital Signs (Past 12 Hours) Vital Signs Temp Pulse Pulse Pulse Resp BP Pulse Ox 07/16/24 07:39 36.6 C 82 17 131/82 95 07/16/24 04:33 36.5 C 98 H 16 138/78 91 07/15/24 23:45 37.0 C 91 H 20 115/63 95 07/15/24 21:46 85 07/15/24 20:15 07/15/24 20:15 90 18 97 O2 Del Method 07/16/24 07:39 Room Air 07/16/24 04:33 Room Air 07/15/24 23:45 Room Air 07/15/24 21:46 07/15/24 20:15 Room Air 07/15/24 20:15 Room Air Laboratory Results Short CBC 07/16/24 Range/Units 04:17 WBC 6.71 (4.8-10.8) K/ul Hgb 11.3 L (12.0-16.0) g/dl Hct 35.1 L (37.0-47.0) % Plt Count 151 (130-400) K/uL BMP 07/16/24 04:17 Sodium 136 Potassium 4.0 Chloride 104 Carbon Dioxide 25 BUN 20 Creatinine 0.80 Glucose 113 H Calcium 8.5 L Diagnostic Findings Chest X-Ray 07/14/24 10:06 XR chest 1V portable CLINICAL HISTORY: weakness COMPARISON STUDY: 07/12/2021 FINDINGS: There is no significant interval change in alignment for technical differences. There is no acute pulmonary process identified. Cardiomegaly and pulmonary vascular congestion are persistent. No pleural effusion or pneumothorax. 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 IMPRESSION: Stable exam; no acute findings ACT 112: Negative or not required by law. Electronically signed by: Monserrat Khan M.D. 07/14/2024 10:20 AM (2) UTI (urinary tract infection) Hematuria presence: with hematuria Urinary tract infection type: acute cystitis Qualified Code(s): N30.01 - Acute cystitis with hematuria
[2024-07-17 07:46] LABS: Hemoglobin 11.6 g/dl (12.0-16.0); Mean Corpuscular Hemoglobin 30.2 pg (25.0-34.0); Mean Corpuscular Hgb Conc 32.2 g/dL (32.0-36.0); Mean Corpuscular Volume 93.8 fL (80.0-100.0); Mean Platelet Volume 12.6 fL (9.4-12.4); Platelet Count 171 K/uL (130-400); RDW Coefficient of Variation 14.4 % (11.5-14.5); RDW Standard Deviation 49.4 fL (36.4-46.3); Red Blood Count 3.84 M/uL (4.20-5.40); White Blood Count 6.07 K/ul (4.8-10.8)
[2024-07-17 07:53] LABS: BUN Creatinine Ratio 23.7 (10-20); Calcium 8.7 mg/dl (8.6-10.3); Creatinine Clr Calc Pharmacy 52.7 ml/min; Potassium 3.9 mmol/L (3.5-5.1)
[2024-07-17 08:04] LABS: INR 2.4 (0.9-1.1); Prothrombin Time 24.5 Seconds (9.0-12.0)
--- NOTE | 2024-07-17 08:56 | Hospitalist Progress Note ---
Date of Service July 17, 2024 Assessment & Plan (1) Influenza A: Plan: Patient is a 84-year-old female with PMH chronic atrial fibrillation, anticoagulated on warfarin, HTN, HLD, pulmonary hypertension, DM II, GERD presented to ER with c/o increased weakness and fall since yesterday. +URI symptoms past 2 days. Continue Tamiflu (EOT 3/16 PM), remains on room air CXR without infiltrate (2) UTI (urinary tract infection): Plan: Urine growing > 100k E.coli, pansensitive per sensitivities today Started on Aztreonam (day 4)-history of angioedema hx with PCN Plan for transition to Macrobid at time of dc to complete course (3) Generalized weakness: (4) Ambulatory dysfunction: Plan: Chronic ambulatory dysfunction Currently receiving home PT Increased weakness and ambulatory dysfunction past day likely secondary to influenza and UTI Fall precautions PT/OT eval- recommending rehab CM to discuss rehab options with patient today (5) Chronic atrial fibrillation: Plan: Anticoagulated on warfarin INR therapeutic Continue warfarin, metoprolol tartrate (6) Elevated troponin: Plan: NSTEMI iso illness Initial troponin: 239. Repeat 279 and downtrended to 231 Patient without chest pain, probably demand ischemia in setting of above illness Echocardiogram 07/15/24 with LV normal size, mild hypokinesis of apical anteroseptum with otherwise normal WM, EF 60-65%, AV sclerosis not stenosis (7) Chronic heart failure with preserved ejection fraction (HFpEF): Plan: Repeat Echo as above Patient currently appears euvolemic Add daily weights Lasix/Kcl resumed today (8) Diabetes mellitus, type II: Plan: A1c: 6.5 on 04/17/2024 Diet controlled Fasting BS 124, continue diet control, given age allow for liberal control (9) HLD (hyperlipidemia): Plan: Continue rosuvastatin DVT Prophylaxis Anticoagulated on warfarin with therapeutic INR PCP: Yesy Dispo: await PT/OT augustus CM discussing rehab options with patient Pt was seen and care coordinated with Dr Banks. I spent a total of 45 minutes reviewing notes, outpatient records, labs, medication, coordinating, documenting and providing care for this patient excluding time spent in the performance of separately billed services and excluding time spent by another provider/QHP. Admission and Anticipated Discharge Date Admission Date: July 14, 2024 Supervising Physician Co-Signing Physician Notes I have seen and discussed the case with the collaborating advanced practitioner. I agree with the above progress note. I have reviewed and confirmed the patients medical history, the findings on physical examination, and the patients diagnosis and treatment plan with Aristeo HEARN and agree with the information documented. agree with above plan, no changes to plan I have reviewed the advanced practitioner's documentation, and I agree with, and take responsibility for the plan of care Subjective Pt was seen and examined in 256-2. No new complaints overnight. Worked with therapy this morning.No F/C, lightheadedness or SOB. Tolerating diet without issue.No F/C, headache, CP, SOB, N/V, abd pain, dysuria, diarrhea or constipation. Review of Systems Review of Systems: At least ten systems reviewed and negative except as noted in the HPI. Physical Exam Physical Exam: Gen: WD/WN, NAD, sitting in bedside chair, A&Ox3 HEENT: Normocephalic, atraumatic, conjunctivae moist, sclerae anicteric, mucous membranes moist Lung: Clear to Auscultation bilaterally, no wheezes/rales/rhonchi Heart: Regular rate, regular rhythm, no murmurs, rubs, or gallops Abdomen: Soft, NT, ND +BS x 4 Extremities: no edema Skin: Warm, no rash Results & Data Results & Data Vital Signs (Past 12 Hours) Vital Signs Temp Pulse Pulse Resp BP Pulse Ox O2 Del Method 07/17/24 07:43 Room Air 07/17/24 07:32 36.7 C 85 16 135/83 95 Room Air 07/17/24 03:41 36.9 C 74 16 111/59 L 96 Room Air 07/16/24 23:39 36.8 C 69 16 112/72 95 Room Air 07/16/24 22:05 93 H 07/16/24 21:45 Room Air Laboratory Results Short CBC 07/17/24 Range/Units 06:41 WBC 6.07 (4.8-10.8) K/ul Hgb 11.6 L (12.0-16.0) g/dl Hct 36.0 L (37.0-47.0) % Plt Count 171 (130-400) K/uL BMP 07/17/24 06:41 Sodium 137 Potassium 3.9 Chloride 104 Carbon Dioxide 29 BUN 18 Creatinine 0.76 Glucose 120 H Calcium 8.7 Diagnostic Findings Chest X-Ray 07/14/24 10:06 XR chest 1V portable CLINICAL HISTORY: weakness COMPARISON STUDY: 07/12/2021 FINDINGS: There is no significant interval change in alignment for technical differences. There is no acute pulmonary process identified. Cardiomegaly and pulmonary vascular congestion are persistent. No pleural effusion or pneumothorax. 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 IMPRESSION: Stable exam; no acute findings ACT 112: Negative or not required by law. Electronically signed by: Monserrat Khan M.D. 07/14/2024 10:20 AM (2) UTI (urinary tract infection) Hematuria presence: with hematuria Urinary tract infection type: acute cystitis Qualified Code(s): N30.01 - Acute cystitis with hematuria
[2024-07-17] MEDS: POTASSIUM CHLORIDE 10 MEQ TABCR PO SCH (09:55)
[2024-07-17] MEDS: FUROSEMIDE 20 MG TAB PO SCH (09:55)
[2024-07-18 06:28] LABS: Hematocrit (blood only) 35.1 % (37.0-47.0); Hemoglobin 11.7 g/dl (12.0-16.0); Mean Corpuscular Hemoglobin 30.7 pg (25.0-34.0); Mean Corpuscular Hgb Conc 33.3 g/dL (32.0-36.0); Mean Corpuscular Volume 92.1 fL (80.0-100.0); Platelet Count 166 K/uL (130-400); RDW Coefficient of Variation 13.9 % (11.5-14.5); Red Blood Count 3.81 M/uL (4.20-5.40); White Blood Count 7.81 K/ul (4.8-10.8)
[2024-07-18 06:54] LABS: BUN Creatinine Ratio 26.3 (10-20); Calcium 8.5 mg/dl (8.6-10.3); Creatinine Clr Calc Pharmacy 51.4 ml/min; Potassium 3.8 mmol/L (3.5-5.1)
--- NOTE | 2024-07-18 11:03 | Hospitalist Progress Note ---
Date of Service July 18, 2024 Assessment & Plan (1) Influenza A: Plan: Patient is a 84-year-old female with PMH chronic atrial fibrillation, anticoagulated on warfarin, HTN, HLD, pulmonary hypertension, DM II, GERD presented to ER with c/o increased weakness and fall since yesterday. +URI symptoms past 2 days. Continue Tamiflu (EOT 3/16 PM), remains on room air CXR without infiltrate (2) UTI (urinary tract infection): Plan: Urine growing > 100k E.coli, pansensitive per sensitivities today Will complete treatment of Aztreonam today (3) Generalized weakness: (4) Ambulatory dysfunction: Plan: Chronic ambulatory dysfunction Currently receiving home PT Increased weakness and ambulatory dysfunction past day likely secondary to influenza and UTI Fall precautions PT/OT eval- recommending rehab (5) Chronic atrial fibrillation: Plan: Anticoagulated on warfarin INR therapeutic Continue warfarin, metoprolol tartrate (6) Elevated troponin: Plan: NSTEMI iso illness Initial troponin: 239. Repeat 279 and downtrended to 231 Patient without chest pain, probably demand ischemia in setting of above illness Echocardiogram 07/15/24 with LV normal size, mild hypokinesis of apical anteroseptum with otherwise normal WM, EF 60-65%, AV sclerosis not stenosis (7) Chronic heart failure with preserved ejection fraction (HFpEF): Plan: Repeat Echo as above Patient currently appears euvolemic Add daily weights Lasix/Kcl resumed today (8) Diabetes mellitus, type II: Plan: A1c: 6.5 on 04/17/2024 Diet controlled Fasting BS 124, continue diet control, given age allow for liberal control (9) HLD (hyperlipidemia): Plan: Continue rosuvastatin DVT Prophylaxis Anticoagulated on warfarin with therapeutic INR PCP: Yesy Dispo: Plan for D/C to centre care when bed available Pt was seen and care coordinated with Dr Banks. I spent a total of 44 minutes reviewing notes, outpatient records, labs, medication, coordinating, documenting and providing care for this patient excluding time spent in the performance of separately billed services and excluding time spent by another provider/QHP. Admission and Anticipated Discharge Date Admission Date: July 14, 2024 Supervising Physician Co-Signing Physician Notes I have seen and discussed the case with the collaborating advanced practitioner. I agree with the above progress note. I have reviewed and confirmed the patients medical history, the findings on physical examination, and the patients diagnosis and treatment plan with Peter HEARN and agree with the information documented. labs reviewed.agree with above plan, no changes to plan I have reviewed the advanced practitioner's documentation, and I agree with, and take responsibility for the plan of care Subjective Pt was seen in 256-2. She continues to have a mild cough. Her appetite is diminished. She denies f/c/s, chest pain, sob, n/v/d. Plan is to go to rehab. She is down about the fact that she has to start over again with rehab. Review of Systems Review of Systems: All systems reviewed & are unremarkable except as noted in HPI & below Physical Exam Physical Exam: Gen: WD/WN, elderly, F NAD, A&O x3 HEENT: Normocephalic, atraumatic, conjunctivae moist, sclerae anicteric, mucous membranes moist. Lung: Clear to Auscultation bilaterally, no wheezes/rales/rhonchi Heart: IRR/IRR, no murmurs, rubs, or gallops Abdomen: Soft, NT, ND +BS x 4 Extremities: No edema Skin: Warm, no rash, negative turgor. Results & Data Results & Data Vital Signs (Past 12 Hours) Vital Signs Temp Pulse Pulse Resp BP Pulse Ox O2 Del Method 07/18/24 08:46 70 07/18/24 07:31 Room Air 07/18/24 07:30 36.5 C 88 16 137/81 96 Room Air 07/18/24 03:26 36.5 C 78 16 134/74 96 Room Air 07/17/24 23:48 36.8 C 73 16 115/66 93 Room Air Laboratory Results I have independently reviewed and interpreted patient's cbc, bmp Medications Administered Current Inpatient Medications Acetaminophen (Acetaminophen 325 Mg Tab) 650 mg PO Q4H PRN PRN Reason: Pain or Fever Stop: 08/13/24 15:42 Last Admin: 07/18/24 03:25 Dose: 650 mg Benzonatate (Benzonatate 100 Mg Capsule) 100 mg PO TID PRN PRN Reason: cough Stop: 08/14/24 13:59 Last Admin: 07/16/24 20:09 Dose: 100 mg Furosemide (Furosemide 20 Mg Tab) 20 mg PO MoWeFr FRANCIS Stop: 08/14/24 08:59 Last Admin: 07/17/24 09:55 Dose: 20 mg Aztreonam 1,000 mg/ Dextrose 100 mls @ 100 mls/hr IV Q8H FRANCIS Stop: 07/19/24 14:59 Last Infusion: 07/18/24 07:28 Dose: Infused Levalbuterol HCl (Levalbuterol 1.25 Mg/3 Ml Neb) 1.25 mg NEB Q6R PRN PRN Reason: Shortness Of Breath Or Wheezing Stop: 08/13/24 15:29 Last Admin: 07/16/24 15:51 Dose: 1.25 mg Metoprolol Tartrate (Metoprolol Tartrate 25 Mg Tab) 25 mg PO BID [facility] Stop: 08/13/24 20:59 Last Admin: 07/18/24 07:57 Dose: 25 mg Ondansetron HCl (Ondansetron Inj 2 Mg/Ml 2 Ml Vial) 4 mg IV Q6H PRN PRN Reason: Nausea Stop: 08/13/24 15:42 Oseltamivir Phosphate (Oseltamivir Phosphate Susp 30 Mg/5 Ml Udp) 30 mg PO BID FRANCIS Stop: 07/19/24 20:59 Last Admin: 07/18/24 07:57 Dose: 30 mg Pantoprazole Sodium (Pantoprazole 40 Mg Tab) 40 mg PO BID [facility] Stop: 08/13/24 20:59 Last Admin: 07/18/24 07:57 Dose: 40 mg Polyethylene Glycol (Polyethylene (Miralax) 17 Gm Pack) 17 gm PO DAILY PRN PRN Reason: Constipation Stop: 08/13/24 15:42 Potassium Chloride (Potassium Chloride 10 Meq Tabcr) 10 meq PO MoWeFr FRANCIS Stop: 08/14/24 08:59 Last Admin: 07/17/24 09:55 Dose: 10 meq Rosuvastatin Calcium (Rosuvastatin Calcium 20 Mg Tab) 20 mg PO DAILY [facility] Stop: 08/14/24 08:59 Last Admin: 07/18/24 07:57 Dose: 20 mg Warfarin Sodium (Warfarin Sod 2.5 Mg Tab) 2.5 mg PO [id number] [facility] Stop: 08/13/24 15:59 Last Admin: 07/17/24 17:15 Dose: 2.5 mg Warfarin Sodium (Warfarin Sod 1.25 Mg Tab) 1.25 mg PO Mo@1600 [facility] Stop: 08/19/24 15:59 (2) UTI (urinary tract infection) Hematuria presence: with hematuria Urinary tract infection type: acute cystitis Qualified Code(s): N30.01 - Acute cystitis with hematuria
[2024-07-18] MEDS ORDERED: COUGH DROP (SUGAR FREE) LOZ 24 LOZ/1 BOX BUCCAL PRN (14:01)
[2024-07-18] MEDS: guaiFENesin/DEXTROM SYRUP 200MG/20MG 10ML UDC PO SCH (20:28)
[2024-07-18] MEDS: POLYETHYLENE (MIRALAX) 17 GM PACK PO PRN (20:29)
[2024-07-19] MEDS: DOCUSATE SODIUM/SENNA 50/8.6MG TAB PO SCH (09:23)
--- NOTE | 2024-07-19 10:31 | Hospitalist Progress Note ---
Date of Service July 19, 2024 Assessment & Plan (1) Influenza A: Plan: Patient is a 84-year-old female with PMH chronic atrial fibrillation, anticoagulated on warfarin, HTN, HLD, pulmonary hypertension, DM II, GERD presented to ER with c/o increased weakness and fall since yesterday. +URI symptoms past 2 days. Continue Tamiflu (EOT 07/19 PM), remains on room air CXR without infiltrate added Robitussin DM and cough drops for symptomatic care (2) UTI (urinary tract infection): Plan: Urine growing > 100k E.coli, pansensitive per sensitivities today Completed tx with aztreonam (3) Generalized weakness: (4) Ambulatory dysfunction: Plan: Chronic ambulatory dysfunction Currently receiving home PT Increased weakness and ambulatory dysfunction past day likely secondary to influenza and UTI Fall precautions PT/OT eval- recommending rehab (5) Chronic atrial fibrillation: Plan: Anticoagulated on warfarin INR therapeutic Continue warfarin, metoprolol tartrate PT/INR in a.m (6) Elevated troponin: Plan: NSTEMI iso illness Initial troponin: 239. Repeat 279 and downtrended to 231 Patient without chest pain, probably demand ischemia in setting of above illness Echocardiogram 07/15/24 with LV normal size, mild hypokinesis of apical anteroseptum with otherwise normal WM, EF 60-65%, AV sclerosis not stenosis (7) Chronic heart failure with preserved ejection fraction (HFpEF): Plan: Repeat Echo as above Patient currently appears euvolemic weights remain stable at 71.8kg Lasix/Kcl resumed today (8) Diabetes mellitus, type II: Plan: A1c: 6.5 on 04/17/2024 Diet controlled continue diet control, given age allow for liberal control (9) HLD (hyperlipidemia): Plan: Continue rosuvastatin DVT Prophylaxis Anticoagulated on warfarin with therapeutic INR PCP: Yesy Dispo: Plan for D/C to centre care when bed available Pt was seen and care coordinated with Dr Banks. I spent a total of 45 minutes reviewing notes, outpatient records, labs, medication, coordinating, documenting and providing care for this patient excluding time spent in the performance of separately billed services and excluding time spent by another provider/QHP. Had extensive conversation with daughters at bedside updating them regarding Kathi's current condition, assessment and treatment plan and they agree with above. Plan to d/c to [facility] early next week when bed available. Admission and Anticipated Discharge Date Admission Date: July 14, 2024 Supervising Physician Co-Signing Physician Notes I have seen and discussed the case with the collaborating advanced practitioner. I agree with the above progress note. I have reviewed and confirmed the patients medical history, the findings on physical examination, and the patients diagnosis and treatment plan with Peter HEARN and agree with the information documented. labs reviewed.agree with above plan, no changes to plan I have reviewed the advanced practitioner's documentation, and I agree with, and take responsibility for the plan of care Subjective Pt was seen in 256-2. Pt endorses no concerns. She denies pain, f/c/s, chest pain, sob,n/v. She is tolerating diet. She reports no BM, per nursing notes last was 07/16. She is slightly confused this morning thinking it was evening time. Her blinds were lifted and she was re oriented. Review of Systems Review of Systems: All systems reviewed & are unremarkable except as noted in HPI & below Physical Exam Physical Exam: Gen: WD/WN, elderly, F NAD, A&O x2 basics HEENT: Normocephalic, atraumatic, conjunctivae moist, sclerae anicteric, mucous membranes moist. Lung: Clear to Auscultation bilaterally, no wheezes/rales/rhonchi Heart: IRR/IRR, no murmurs, rubs, or gallops Abdomen: Soft, NT, ND +BS x 4 Extremities: No edema Skin: Warm, no rash, negative turgor. Results & Data Results & Data Vital Signs (Past 12 Hours) Vital Signs Temp Pulse Pulse Resp BP Pulse Ox O2 Del Method 07/19/24 08:39 81 07/19/24 07:36 37.1 C 91 H 20 144/59 H 93 Room Air 07/19/24 07:19 Room Air 07/19/24 03:26 36.5 C 86 18 122/63 96 Room Air 07/19/24 01:24 Room Air 07/18/24 23:49 37.2 C 79 18 111/70 95 Room Air Medications Administered Current Inpatient Medications Acetaminophen (Acetaminophen 325 Mg Tab) 650 mg PO Q4H PRN PRN Reason: Pain or Fever Stop: 08/13/24 15:42 Last Admin: 07/18/24 17:57 Dose: 650 mg Benzonatate (Benzonatate 100 Mg Capsule) 100 mg PO TID PRN PRN Reason: cough Stop: 08/14/24 13:59 Last Admin: 07/16/24 20:09 Dose: 100 mg Furosemide (Furosemide 20 Mg Tab) 20 mg PO MoWeFr [facility] Stop: 08/14/24 08:59 Last Admin: 07/17/24 09:55 Dose: 20 mg Guaifenesin/Dextromethorphan (Guaifenesin/Dextrom Syrup 200mg/20mg 10ml Udc) 10 ml PO BID FRANCIS Stop: 08/17/24 20:59 Last Admin: 07/19/24 07:51 Dose: 10 ml Aztreonam 1,000 mg/ Dextrose 100 mls @ 100 mls/hr IV Q8H FRANCIS Stop: 07/19/24 14:59 Last Infusion: 07/19/24 07:35 Dose: Infused Levalbuterol HCl (Levalbuterol 1.25 Mg/3 Ml Neb) 1.25 mg NEB Q6R PRN PRN Reason: Shortness Of Breath Or Wheezing Stop: 08/13/24 15:29 Last Admin: 07/18/24 13:32 Dose: 1.25 mg Menthol (Cough Drop (Sugar Free) Danny 24 Danny/1 Box) 1 danny BUCCAL Q1H PRN PRN Reason: Sore Throat/cough Stop: 08/17/24 14:00 Metoprolol Tartrate (Metoprolol Tartrate 25 Mg Tab) 25 mg PO BID [facility] Stop: 08/13/24 20:59 Last Admin: 07/19/24 07:51 Dose: 25 mg Ondansetron HCl (Ondansetron Inj 2 Mg/Ml 2 Ml Vial) 4 mg IV Q6H PRN PRN Reason: Nausea Stop: 08/13/24 15:42 Oseltamivir Phosphate (Oseltamivir Phosphate Susp 30 Mg/5 Ml Udp) 30 mg PO BID [facility] Stop: 07/19/24 20:59 Last Admin: 07/19/24 07:51 Dose: 30 mg Pantoprazole Sodium (Pantoprazole 40 Mg Tab) 40 mg PO BID [facility] Stop: 08/13/24 20:59 Last Admin: 07/19/24 07:51 Dose: 40 mg Polyethylene Glycol (Polyethylene (Miralax) 17 Gm Pack) 17 gm PO DAILY PRN PRN Reason: Constipation Stop: 08/13/24 15:42 Last Admin: 07/18/24 20:29 Dose: 17 gm Potassium Chloride (Potassium Chloride 10 Meq Tabcr) 10 meq PO MoWeFr [facility] Stop: 08/14/24 08:59 Last Admin: 07/17/24 09:55 Dose: 10 meq Rosuvastatin Calcium (Rosuvastatin Calcium 20 Mg Tab) 20 mg PO DAILY [facility] Stop: 08/14/24 08:59 Last Admin: 07/19/24 07:51 Dose: 20 mg Senna/Docusate Sodium (Docusate Sodium/Senna 50/8.6mg Tab) 1 tab PO QAM [facility] Stop: 08/18/24 08:59 Last Admin: 07/19/24 09:23 Dose: 1 tab Warfarin Sodium (Warfarin Sod 2.5 Mg Tab) 2.5 mg PO [id number] [facility] Stop: 08/13/24 15:59 Last Admin: 07/18/24 15:21 Dose: 2.5 mg Warfarin Sodium (Warfarin Sod 1.25 Mg Tab) 1.25 mg PO Mo@1600 [facility] Stop: 08/19/24 15:59 (2) UTI (urinary tract infection) Hematuria presence: with hematuria Urinary tract infection type: acute cystitis Qualified Code(s): N30.01 - Acute cystitis with hematuria
[2024-07-19 22:58] VITALS: O2SAT 96
[2024-07-20 06:13] LABS: Hematocrit (blood only) 38.2 % (37.0-47.0); Hemoglobin 12.6 g/dl (12.0-16.0); Mean Corpuscular Hemoglobin 30.7 pg (25.0-34.0); Mean Corpuscular Volume 92.9 fL (80.0-100.0); Mean Platelet Volume 12.4 fL (9.4-12.4); Platelet Count 211 K/uL (130-400); RDW Coefficient of Variation 13.8 % (11.5-14.5); RDW Standard Deviation 46.5 fL (36.4-46.3); Red Blood Count 4.11 M/uL (4.20-5.40); White Blood Count 9.56 K/ul (4.8-10.8)
[2024-07-20 06:29] LABS: BUN Creatinine Ratio 27.9 (10-20); Calcium 8.8 mg/dl (8.6-10.3); Creatinine Clr Calc Pharmacy 56.8 ml/min; Potassium 3.7 mmol/L (3.5-5.1)
[2024-07-20 06:53] LABS: INR 2.8 (0.9-1.1); Prothrombin Time 27.5 Seconds (9.0-12.0)
[2024-07-20 07:59] VITALS: RESP 20; TEMP 98.4
--- NOTE | 2024-07-20 10:22 | Discharge Summary ---
Discharge Summary Date of Service July 20, 2024 Principal Dx & Hospital Course #1 = Principal Diagnosis (1) Influenza A: Patient is a 84-year-old female with PMH chronic atrial fibrillation, anticoagulated on warfarin, HTN, HLD, pulmonary hypertension, DM II, GERD presented to ER with c/o increased weakness and fall since yesterday. +URI symptoms past 2 days. Continue Tamiflu (EOT 3/16 PM), remains on room air CXR without infiltrate continue supportive care as needed with cough drops and robitussin (2) UTI (urinary tract infection): Urine growing > 100k E.coli, pansensitive per sensitivities today Completed tx with aztreonam (3) Generalized weakness: (4) Ambulatory dysfunction: Chronic ambulatory dysfunction Currently receiving home PT Increased weakness and ambulatory dysfunction past day likely secondary to influenza and UTI Fall precautions PT/OT eval- recommending rehab - will discharge to centre care today (5) Chronic atrial fibrillation: Anticoagulated on warfarin INR therapeutic Continue warfarin, metoprolol tartrate (6) Elevated troponin: NSTEMI iso illness Initial troponin: 239. Repeat 279 and downtrended to 231 Patient without chest pain, probably demand ischemia in setting of above illness Echocardiogram 07/15/24 with LV normal size, mild hypokinesis of apical anteroseptum with otherwise normal WM, EF 60-65%, AV sclerosis not stenosis (7) Chronic heart failure with preserved ejection fraction (HFpEF): Repeat Echo as above Patient currently appears euvolemic weights remain stable at 70.8kg continue lasix (8) Diabetes mellitus, type II: A1c: 6.5 on 04/17/2024 Diet controlled continue diet control, given age allow for liberal control (9) HLD (hyperlipidemia): Continue rosuvastatin DVT Prophylaxis Anticoagulated on warfarin with therapeutic INR PCP: Yesy Dispo: Plan for D/C to centre care Today Pt was seen and care coordinated with Dr Banks. I spent a total of 35 minutes reviewing notes, outpatient records, labs, medication, coordinating, documenting and providing care for this patient excluding time spent in the performance of separately billed services and excluding time spent by another provider/QHP. Notes For Next Care Provider Please check a cbc, bmp and PT/INR with in 3 days of discharge. INR on day of discharge is 2.8. Medication Changes From Visit Continue all medications as prescribed. Current warfarin dosing is 1.25mg every Saturday and 2.5mg all other days. Her INR was 2.8 on day of discharge. Please continue to use stool softeners as needed to help promote regular bowel movements. Admission HPI Per Admitting Provider Patient is a 84-year-old female with PMH chronic atrial fibrillation, anticoagulated on warfarin, HTN, HLD, pulmonary hypertension, DM II, GERD presented to ER with c/o increased weakness and fall since yesterday. Patient states past 2 days with nasal congestion, post nasal drip triggering cough. She reports her spouse has similar symptoms that started prior to her onset of congestion. Patient states has ambulatory dysfunction at baseline and uses walker with seat. She reports she sits on seat and will use her legs to scoot throughout the house. She states she was sitting and scooting last night when she slid off the seat onto her knees. She states she was unable to get up. They needed to call for left assistance and patient was placed in bed. Patient states this morning was feeling weak and unable to get out of bed. She has home PT who evaluated patient today was able to get patient out of bed and sitting on her walker seat. States she slid out of seat onto buttocks. She denies hitting her head in any of these instances. Denies chest pain, shortness of breath. Family is concerned patient may have UTI as in past became more weak from UTI. EMS reported patient had temp 99F. Denies diaphoresis, N/V/D/C, GOMEZ, dizziness, syncope, vision changes, neck pain, CP, SOB, palpitations, hemoptysis, sore throat, abdominal pain, paresthesias, extremity edema, rashes, dysuria, hematuria, urinary frequency or urinary retention. Admission Exam Per Admitting Provider General: no distress, WDWN elderly female Head: normocephalic, atraumatic Eyes: conjunctiva non-injected, anicteric ENT: normal inspection external ears, nose, mucous membranes moist Neck: supple, trachea midline Lungs: clear, no respiratory distress, no wheezing/rhonchi/rales CV: irregularly irregular, no pretibial edema Abd: normal BS, soft, non-tender Ext: no cyanosis, no calf tenderness Neuro: A&O x 3, no focal deficits noted, normal affect Skin: warm, dry Discharge Exam Gen: WD/WN, elderly, F NAD, A&O x2 basics HEENT: Normocephalic, atraumatic, conjunctivae moist, sclerae anicteric, mucous membranes moist. Lung: Clear to Auscultation bilaterally, no wheezes/rales/rhonchi Heart: IRR/IRR, no murmurs, rubs, or gallops Abdomen: Soft, NT, ND +BS x 4 Extremities: No edema Skin: Warm, no rash, negative turgor. Updated Medication List Medication Instructions Recorded Confirmed Type acetaminophen 500 mg tablet 500 mg PO Q6H PRN Pain 07/14/24 07/14/24 History furosemide 20 mg tablet 20 mg PO 3XWK #16 tabs 07/20/24 Rx metoprolol tartrate 25 mg tablet 25 mg PO BID #60 tabs 07/20/24 Rx omeprazole 20 mg capsule,delayed 20 mg PO BID #60 caps 07/20/24 Rx release potassium chloride 10 mEq 10 meq PO 3XWK #16 tabs 07/20/24 Rx tablet,extended release rosuvastatin 20 mg tablet 20 mg PO DAILY #30 tabs 07/20/24 Rx warfarin 2.5 mg tablet 1.25 mg (1/2 x 2.5 mg) PO Mo@1600 07/20/24 Rx #4 tabs warfarin 2.5 mg tablet 2.5 mg PO SuTuWeThFrSa@1600 #24 07/20/24 Rx tabs Hospital Stay Data Consultations 07/14/24 11:30 ED Decision to Admit Stat Diagnostic Imagining Performed Chest X-Ray 07/14/24 10:06 XR chest 1V portable CLINICAL HISTORY: weakness COMPARISON STUDY: 07/12/2021 FINDINGS: There is no significant interval change in alignment for technical differences. There is no acute pulmonary process identified. Cardiomegaly and pulmonary vascular congestion are persistent. No pleural effusion or pneumothorax. 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 IMPRESSION: Stable exam; no acute findings ACT 112: Negative or not required by law. Electronically signed by: Monserrat Khan M.D. 07/14/2024 10:20 AM Pending Results Patient Have Any Pending Studies at Discharge: No Discharge Instructions Given to Patient (Per Discharging Provider) MEDICATION CHANGES: Continue all medications as prescribed. Current warfarin dosing is 1.25mg every Saturday and 2.5mg all other days. Her INR was 2.8 on day of discharge. Please continue to use stool softeners as needed to help promote regular bowel movements. SUMMARY OF TEST RESULTS: You were admitted to the hospital due to weakness and difficulty walking from Influenza A and a UTI. You were treated with IV antibiotics for a UTI and you received Tamiflu for your influenza A. Your symptoms gradually improved. You continue to have a mild cough which may take a couple weeks to completely resolve. PENDING TEST RESULTS: None RECOMMENDATIONS FOR FOLLOW-UP: Please follow up with your Primary Care Provider after discharge from Rehab. Please have your PT/INR rechecked in 3 days. Continue all other home medications as prescribed. OTHER INSTRUCTIONS: Seek medical attention if you have: * temperature above 101 * chest pain or trouble breathing * abdominal pain, nausea, vomiting * diarrhea, dark stools or bloody stools * any unanswered questions or concerns Call 911 if symptoms are severe. Please take good care of yourself. It has been a pleasure taking care of you. Please take care of yourself. If you have any questions regarding your recent hospitalization please contact [facility] and request Analilia Huist @ [phone]. Total Time Total Time Spent Total Time Spent (In Minutes): 35 minutes Supervising Physician Co-Signing Physician Notes I have seen and discussed the case with the collaborating advanced practitioner. I agree with the above progress note. I have reviewed and confirmed the patients medical history, the findings on physical examination, and the patients diagnosis and treatment plan with Peter HEARN and agree with the information documented. Admitted for uti and influenza. Reports significant subjective improvement and ready to leave hospital. Exam with diminished bibasilar breath sounds. [facility] I have reviewed the advanced practitioner's documentation, and I agree with, and take responsibility for the plan of care
[2024-07-20 10:35] VITALS: BP 129/76; PULSE 93
[2024-07-20] MEDS ORDERED: WARFARIN SOD 1.25 MG TAB PO SCH (16:00)
== END 2024-07-20 11:15 | DRG 193 ==
LOC: ED 09:43 → EDINP 12:41 → SUATTDRO 12:41 → 2W 17:07

== ENCOUNTER 2024-08-28 10:29 | Inpatient (IN) ==
[2024-08-28] MEDS: SODIUM CHLORIDE 0.9% 500 ML IV ONE (10:46)
[2024-08-28 11:01] LABS: Basophils # (auto) 0.03 K/uL (0.00-0.20); Basophils % (auto) 0.3 %; Eosinophils # (auto) 0.01 K/uL (0.00-0.50); Eosinophils % (auto) 0.1 %; Hematocrit (blood only) 37.6 % (37.0-47.0); Hemoglobin 12.3 g/dl (12.0-16.0); Immature Granulocytes # (auto) 0.04 K/uL (0.01-0.20); Immature Granulocytes % (auto) 0.4 %; Mean Corpuscular Hemoglobin 30.6 pg (25.0-34.0); Mean Corpuscular Hgb Conc 32.7 g/dL (32.0-36.0); Mean Corpuscular Volume 93.5 fL (80.0-100.0); Mean Platelet Volume 12.2 fL (9.4-12.4); Monocytes % (auto) 7.1 %; Neutrophils # (auto) 8.59 K/uL (1.40-6.50); Neutrophils % (auto) 76.1 %; Platelet Count 311 K/uL (130-400); RDW Coefficient of Variation 14.7 % (11.5-14.5); RDW Standard Deviation 51.3 fL (36.4-46.3); Red Blood Count 4.02 M/uL (4.20-5.40); White Blood Count 11.27 K/ul (4.8-10.8)
--- NOTE | 2024-08-28 11:02 | Electrocardiogram Report ---
Test Reason : Blood Pressure : */* mmHG Vent. Rate : 91 BPM Atrial Rate : * BPM P-R Int : * ms QRS Dur : 90 ms QT Int : 364 ms P-R-T Axes : * -25 -43 degrees QTcB Int : 447 ms Atrial fibrillation Nonspecific ST and T wave abnormality Abnormal ECG When compared with ECG of 15-Jul-2024 06:01, T wave inversion no longer evident in Anterior leads QT has shortened Confirmed by David Lua ([id number]) on 08/28/2024 11:01:52 AM Referred By: Confirmed By: David Lua
--- NOTE | 2024-08-28 11:04 | Emergency Department Note ---
Impression & Plan Weakness, Acute dehydration, Cellulitis, Leukocytosis ED Provider Note NAME: VAHID ADAMS AGE: 84 SEX: F : 1940 ARRIVES VIA: Ambulance INFORMANT: [Patient][family] ED PROVIDER(S): [Arjun Martinez MD] CHIEF COMPLAINT: Abnormal labs, weakness HISTORY OF PRESENT ILLNESS: The patient is an 84-year-old female who has had 2 recent UTIs. She has had a wound to her right heel but, it has been draining persistently. She saw her doctor's office yesterday and had lab work showing a high white count and a possible acidosis, she was referred to the ER for evaluation. The patient has been weaker, no fever. No shortness of breath, no nausea or vomiting, no abdominal pain. PMHx/PSHx/Social Hx: See Below PHYSICAL EXAM: GENERAL: Patient is in no acute distress. HEENT: No acute trauma, normocephalic atraumatic, mucous membranes dry, no nasal congestion. NECK: No stridor, no adenopathy, no meningismus, trachea is midline. LUNGS: Clear to auscultation bilaterally, no wheeze, no rhonchi, breath sounds equal. HEART: Irregular rhythm, no obvious murmurs. Normal rate. ABDOMEN: Soft, nontender, no peritonitis. EXTREMITIES: No cyanosis, full range of motion of all the joints without pain or difficulty. Patient has a draining wound to the right heel. A culture was obtained. Subtle surrounding erythema noted. No ascending erythema seen. NEUROLOGIC: Awake alert, no acute motor or sensory deficits, no focal weakness. SKIN: No jaundice, no diaphoresis. DIFFERENTIAL DIAGNOSIS: Osteomyelitis, cellulitis, UTI, dehydration, electrolyte imbalance, among others. EMERGENCY DEPARTMENT PROCEDURES: MEDICAL DECISION MAKING: There is a very subtle leukocytosis, this could be consistent with infection. There is a normal hemoglobin and platelet count. No bandemia. INR was elevated at 3.1, consistent with her warfarin use. There was no renal failure or significant electrolyte abnormality. Lactic acid level was not elevated making severe sepsis unlikely. No worrisome liver enzyme elevation. The patient appeared to be in a euthyroid state. ECG showed atrial fibrillation, no obvious ischemia. Cardiac enzyme testing x 1 was not consistent with acute cardiac injury. Urinalysis shows some dehydration as well as some contamination, no obvious infection. COVID, influenza and RSV test were negative. Chest x-ray did not show pneumonia. Right foot CT did not show any osteomyelitis, cellulitis was thought likely. On exam, the patient had a open draining wound to the right heel with some subtle surrounding cellulitis. The patient received IV clindamycin as antibiotic therapy. She was given a 500 cc saline bolus. The patient has a wound that has been draining and is now cellulitic. She has a leukocytosis as well as some weakness. Hospitalization is indicated. I spoke with the patient and case management. The on-call hospitalist was consulted. Of note, a culture of her wound was obtained and is currently pending. Prior/Outside records/notes reviewed: Today's EMS notes describing her presentation and transport to this hospital. ECG per my interpretation: Indication was weakness. The ECG shows atrial fibrillation with a rate of 91. There is nonspecific ST change and some baseline artifact. There is no acute ST elevation, no PVCs. The QTc is 447. Continuous Cardiac Monitoring per my interpretation: An order was placed for continuous cardiac monitoring. The monitor shows a rate of 92 with atrial fibrillation. Imaging/x-ray results per my interpretation: Chest x-ray shows some chronic change, there was a hiatal hernia. No pneumonia. Chronic Medical/Social conditions affecting care: Advanced age. Care/Management discussed with: Case management, the on-call hospitalist. Level of care consideration(s): After review of the information above and other included data: --I believe the patient requires escalation of care to admission DISPOSITION: Admission Past Med/Surg History Problem List (Updated 08/28/24 @ 17:14 by Arjun Martinez MD) Leukocytosis (Acute) Cellulitis (Acute) Acute dehydration (Acute) Weakness (Acute) Pressure injury of heel, stage 2 Personal history of cervical dysplasia Cystocele Pessary maintenance Anticoagulant long-term use (Acute) Atrial fibrillation with rapid ventricular response (Acute 2013) Epistaxis (Acute) SOB (shortness of breath) (Acute) Medical History (Updated 08/28/24 @ 17:14 by Arjun Martinez MD) HLD (hyperlipidemia) Diabetes mellitus, type II Chronic heart failure with preserved ejection fraction (HFpEF) Elevated troponin Chronic atrial fibrillation Ambulatory dysfunction Generalized weakness UTI (urinary tract infection) Influenza A Hx of ovarian cyst Hx of uterine prolapse Endometrial polyp (1999) Surgical History (Updated 08/20/24 @ 00:06 by Joselo Osuna) S/P lymph node biopsy History of hysterectomy (12/01/12) vaginal hysterectomy with anterior repair S/P wisdom tooth extraction S/P tubal ligation (1981) S/P knee replacement S/P dilation and curettage (09/1999) with hysteroscopy for PMB, suspected endometrial polyp S/P colonoscopy (11/2007) Family History Aunt Breast cancer Mother Ovarian cancer Other Chest pain Social History Smoking Status: Never smoker Second Hand Exposure: No; Do You Dip or Chew Tobacco: No; Hx Alcohol Use: No Hx Substance Use: No Preferred Language: Moldovan Communication Ability: Effective Handkerchief Presser Required: No Beliefs That Will Affect Care: None Current Living Situation: Spouse Feels Safe at Home: Yes Dental Care, Regularly: Yes Physical Activity Frequency Comment: Exercises regularly. Seatbelt Use: always Sunscreen Use: Yes Assistive Devices: Walker Allergies Allergies Allergy/AdvReac Type Severity Reaction Status Date / Time metronidazole Allergy Unknown RASH Verified 07/14/24 11:30 Penicillins Allergy Unknown Swelling Verified 07/14/24 14:46 of Lip/Tongue/Throat Home Meds Home Medications Medication Instructions Recorded Confirmed acetaminophen 500 mg tablet 500 mg PO Q6H PRN Pain 07/14/24 08/28/24 warfarin 2.5 mg tablet 2.5 mg PO UD 08/28/24 08/28/24 Previous Rx's Medication Instructions Recorded furosemide 20 mg tablet 20 mg PO 3XWK #16 tabs 07/20/24 metoprolol tartrate 25 mg tablet 25 mg PO BID #60 tabs 07/20/24 omeprazole 20 mg capsule,delayed 20 mg PO BID #60 caps 07/20/24 release potassium chloride 10 mEq 10 meq PO 3XWK #16 tabs 07/20/24 tablet,extended release rosuvastatin 20 mg tablet 20 mg PO DAILY #30 tabs 07/20/24 Results & Data (ED) Vital Signs Vital Signs - 24 hr 08/28/24 10:34 08/28/24 10:34 08/28/24 10:34 Temperature Temperature Source Pulse Rate Pulse Rate [Finger] Pulse Rate from SpO2 Sensor Pulse Rhythm [Finger] Pulse Strength [Finger] Respiratory Rate Respiratory Effort / Characteristics Respiratory Depth Respiratory Pattern Blood Pressure 128/85 128/85 128/85 Blood Pressure [Right Arm] Blood Pressure Mean 97 97 97 Blood Pressure Mean [Right Arm] Blood Pressure Position [Right Arm] Pulse Oximetry Oxygen Delivery Method Sepsis Recent Fever Within 48 Hours Sepsis New/Unexplained Change in Mental Status Sepsis Action Taken by Nursing 08/28/24 10:36 08/28/24 10:37 08/28/24 10:46 Temperature 36.7 C Temperature Source Oral Pulse Rate 91 H 87 91 H Pulse Rate [Finger] Pulse Rate from SpO2 Sensor 98 H Pulse Rhythm [Finger] Pulse Strength [Finger] Respiratory Rate 23 24 Respiratory Effort / Characteristics Non-Labored Respiratory Depth Normal Respiratory Pattern Regular Blood Pressure 125/85 Blood Pressure [Right Arm] Blood Pressure Mean 98 Blood Pressure Mean [Right Arm] Blood Pressure Position [Right Arm] Pulse Oximetry 98 97 Oxygen Delivery Method Room Air Sepsis Recent Fever Within 48 Hours No Sepsis New/Unexplained Change in Mental Status No Sepsis Action Taken by Nursing No Action Required 08/28/24 10:59 08/28/24 11:00 08/28/24 11:00 Temperature Temperature Source Pulse Rate Pulse Rate [Finger] 78 Pulse Rate from SpO2 Sensor Pulse Rhythm [Finger] Regular Pulse Strength [Finger] Normal Respiratory Rate 20 Respiratory Effort / Characteristics Non-Labored Respiratory Depth Normal Respiratory Pattern Regular Blood Pressure 135/81 Blood Pressure [Right Arm] 135/81 Blood Pressure Mean 117 Blood Pressure Mean [Right Arm] 99 Blood Pressure Position [Right Arm] Lying Pulse Oximetry 98 98 Oxygen Delivery Method Room Air Sepsis Recent Fever Within 48 Hours Sepsis New/Unexplained Change in Mental Status Sepsis Action Taken by Nursing 08/28/24 11:00 08/28/24 11:00 08/28/24 11:00 Temperature Temperature Source Pulse Rate 80 Pulse Rate [Finger] Pulse Rate from SpO2 Sensor 82 Pulse Rhythm [Finger] Pulse Strength [Finger] Respiratory Rate 18 Respiratory Effort / Characteristics Respiratory Depth Respiratory Pattern Blood Pressure 135/81 135/81 Blood Pressure [Right Arm] Blood Pressure Mean 117 117 Blood Pressure Mean [Right Arm] Blood Pressure Position [Right Arm] Pulse Oximetry 98 Oxygen Delivery Method Sepsis Recent Fever Within 48 Hours Sepsis New/Unexplained Change in Mental Status Sepsis Action Taken by Nursing 08/28/24 11:03 08/28/24 11:31 08/28/24 11:31 Temperature Temperature Source Pulse Rate 83 Pulse Rate [Finger] Pulse Rate from SpO2 Sensor 81 Pulse Rhythm [Finger] Pulse Strength [Finger] Respiratory Rate 20 Respiratory Effort / Characteristics Respiratory Depth Respiratory Pattern Blood Pressure 126/108 H 126/108 H Blood Pressure [Right Arm] Blood Pressure Mean 111 111 Blood Pressure Mean [Right Arm] Blood Pressure Position [Right Arm] Pulse Oximetry 97 96 Oxygen Delivery Method Sepsis Recent Fever Within 48 Hours Sepsis New/Unexplained Change in Mental Status Sepsis Action Taken by Nursing 08/28/24 11:31 08/28/24 11:33 08/28/24 11:57 Temperature Temperature Source Pulse Rate 85 106 H Pulse Rate [Finger] Pulse Rate from SpO2 Sensor Pulse Rhythm [Finger] Pulse Strength [Finger] Respiratory Rate 23 16 Respiratory Effort / Characteristics Respiratory Depth Respiratory Pattern Blood Pressure 126/108 H Blood Pressure [Right Arm] Blood Pressure Mean 111 Blood Pressure Mean [Right Arm] Blood Pressure Position [Right Arm] Pulse Oximetry Oxygen Delivery Method Sepsis Recent Fever Within 48 Hours Sepsis New/Unexplained Change in Mental Status Sepsis Action Taken by Nursing 08/28/24 12:00 08/28/24 12:00 08/28/24 12:06 Temperature Temperature Source Pulse Rate 86 Pulse Rate [Finger] 87 Pulse Rate from SpO2 Sensor 83 Pulse Rhythm [Finger] Pulse Strength [Finger] Respiratory Rate 18 18 Respiratory Effort / Characteristics Non-Labored Respiratory Depth Normal Respiratory Pattern Regular Blood Pressure 134/75 Blood Pressure [Right Arm] 134/75 Blood Pressure Mean 101 Blood Pressure Mean [Right Arm] 94 Blood Pressure Position [Right Arm] Sitting Pulse Oximetry 100 98 Oxygen Delivery Method Room Air Sepsis Recent Fever Within 48 Hours Sepsis New/Unexplained Change in Mental Status Sepsis Action Taken by Nursing 08/28/24 12:24 08/28/24 12:30 08/28/24 12:33 Temperature Temperature Source Pulse Rate 88 84 Pulse Rate [Finger] Pulse Rate from SpO2 Sensor 88 81 Pulse Rhythm [Finger] Pulse Strength [Finger] Respiratory Rate 22 17 Respiratory Effort / Characteristics Respiratory Depth Respiratory Pattern Blood Pressure 130/78 Blood Pressure [Right Arm] Blood Pressure Mean 107 Blood Pressure Mean [Right Arm] Blood Pressure Position [Right Arm] Pulse Oximetry 100 100 Oxygen Delivery Method Sepsis Recent Fever Within 48 Hours Sepsis New/Unexplained Change in Mental Status Sepsis Action Taken by [facility] Medications Current Medication List: was personally reviewed by me Laboratory Data Attestation: I reviewed the patient's lab results. 08/28/24 10:40 08/28/24 10:40 Lab Results 08/28/24 08/28/24 08/28/24 Range/Units 10:40 10:45 11:33 WBC 11.27 H (4.8-10.8) K/ul RBC 4.02 L (4.20-5.40) M/uL Hgb 12.3 (12.0-16.0) g/dl Hct 37.6 (37.0-47.0) % MCV 93.5 (80.0-100.0) fL MCH 30.6 (25.0-34.0) pg MCHC 32.7 (32.0-36.0) g/dL RDW Std Deviation 51.3 H (36.4-46.3) fL RDW Coeff of George 14.7 H (11.5-14.5) % Plt Count 311 (130-400) K/uL MPV 12.2 (9.4-12.4) fL Immature Gran % (Auto) 0.4 % Neut % (Auto) 76.1 % Lymph % (Auto) 16.0 % [place] % (Auto) 7.1 % Eos % (Auto) 0.1 % Baso % (Auto) 0.3 % Neut # (Auto) 8.59 H (1.40-6.50) K/uL Lymph # (Auto) 1.80 (1.20-3.40) K/uL [place] # (Auto) 0.80 H (0.11-0.59) K/uL Eos # (Auto) 0.01 (0.00-0.50) K/uL Baso # (Auto) 0.03 (0.00-0.20) K/uL Immature Gran # (Auto) 0.04 (0.01-0.20) K/uL PT 30.0 H (9.0-12.0) Seconds INR 3.1 H (0.9-1.1) Sodium 138 (136-145) mmol/L Potassium 4.2 (3.5-5.1) mmol/L Chloride 104 (98-107) mmol/L Carbon Dioxide 26 (21-32) mmol/L Anion Gap 8 (3-11) BUN 19 (6-23) mg/dl Creatinine 0.82 (0.6-1.2) mg/dl Est Cr Clr Drug Dosing 47.0 ml/min eGFR 70.05 BUN/Creatinine Ratio 23.2 H (10-20) Glucose 173 H (70-99(Fasting)) mg/dl Lactate 2.0 (0.4-2.0) mmol/L Calcium 8.9 (8.6-10.3) mg/dl Magnesium 1.8 (1.7-2.4) mg/dl Total Bilirubin 0.6 (0.2-1.0) mg/dl AST 23 (13-39) U/L ALT 13 (7-52) U/L Alkaline Phosphatase 106 H (34-104) U/L Troponin I High Sens 9.0 (0-14) pg/ml Total Protein 8.2 (6.0-8.3) gm/dl Albumin 3.8 (3.4-5.0) gm/dl Globulin 4.4 H (2.5-4.0) gm/dl Albumin/Globulin Ratio 0.9 (0.9-2) Procalcitonin 0.04 (0-0.5) ng/ml TSH 2.343 (0.300-4.500) uIu/ml Urine Color Urine Appearance (Clear) Urine pH (4.5-7.5) Ur Specific Bo[place] (1.000-1.030) Urine Protein (Negative) Urine Glucose (UA) (Negative) Urine Ketones (Negative) Urine Blood (Negative) Urine Nitrite (Negative) Urine Bilirubin (Negative) Urine Urobilinogen (Negative) Ur Leukocyte Esterase (Negative) Urine WBC (Auto) (0-5) /hpf Urine RBC (Auto) (0-2) /hpf U Hyaline Cast (Auto) (0-2) /lpf U Epithel Cells (Auto) (0-2) /hpf Urine Bacteria (Auto) (None Seen) SARS-CoV-2 (PCR) NEGATIVE (Negative) Influenza Type A (PCR) Negative (Neg) Influenza Type B (PCR) Negative (Neg) RSV (RT-PCR) Negative (Neg) 08/28/24 Range/Units 11:55 WBC (4.8-10.8) K/ul RBC (4.20-5.40) M/uL Hgb (12.0-16.0) g/dl Hct (37.0-47.0) % MCV (80.0-100.0) fL MCH (25.0-34.0) pg MCHC (32.0-36.0) g/dL RDW Std Deviation (36.4-46.3) fL RDW Coeff of George (11.5-14.5) % Plt Count (130-400) K/uL MPV (9.4-12.4) fL Immature Gran % (Auto) % Neut % (Auto) % Lymph % (Auto) % [place] % (Auto) % Eos % (Auto) % Baso % (Auto) % Neut # (Auto) (1.40-6.50) K/uL Lymph # (Auto) (1.20-3.40) K/uL [place] # (Auto) (0.11-0.59) K/uL Eos # (Auto) (0.00-0.50) K/uL Baso # (Auto) (0.00-0.20) K/uL Immature Gran # (Auto) (0.01-0.20) K/uL PT (9.0-12.0) Seconds INR (0.9-1.1) Sodium (136-145) mmol/L Potassium (3.5-5.1) mmol/L Chloride (98-107) mmol/L Carbon Dioxide (21-32) mmol/L Anion Gap (3-11) BUN (6-23) mg/dl Creatinine (0.6-1.2) mg/dl Est Cr Clr Drug Dosing ml/min eGFR BUN/Creatinine Ratio (10-20) Glucose (70-99(Fasting)) mg/dl Lactate (0.4-2.0) mmol/L Calcium (8.6-10.3) mg/dl Magnesium (1.7-2.4) mg/dl Total Bilirubin (0.2-1.0) mg/dl AST (13-39) U/L ALT (7-52) U/L Alkaline Phosphatase (34-104) U/L Troponin I High Sens (0-14) pg/ml Total Protein (6.0-8.3) gm/dl Albumin (3.4-5.0) gm/dl Globulin (2.5-4.0) gm/dl Albumin/Globulin Ratio (0.9-2) Procalcitonin (0-0.5) ng/ml TSH (0.300-4.500) uIu/ml Urine Color Yellow Urine Appearance Clear (Clear) Urine pH 5.5 (4.5-7.5) Ur Specific [place] 1.024 (1.000-1.030) Urine Protein 1+ H (Negative) Urine Glucose (UA) Negative (Negative) Urine Ketones Trace H (Negative) Urine Blood Negative (Negative) Urine Nitrite Negative (Negative) Urine Bilirubin Negative (Negative) Urine Urobilinogen Negative (Negative) Ur Leukocyte Esterase 1+ H (Negative) Urine WBC (Auto) 11-20 H (0-5) /hpf Urine RBC (Auto) 6-10 H (0-2) /hpf U Hyaline Cast (Auto) 3-5 H (0-2) /lpf U Epithel Cells (Auto) 0-2 (0-2) /hpf Urine Bacteria (Auto) None Seen (None Seen) SARS-CoV-2 (PCR) (Negative) Influenza Type A (PCR) (Neg) Influenza Type B (PCR) (Neg) RSV (RT-PCR) (Neg) Administered Medications Daptomycin 400 mg/ Syringe 8 mls @ 4 mls/min IV Q24H [facility]; Protocol Stop: 09/04/24 13:29 Last Admin: 08/28/24 13:43 Dose: 4 mls/min Documented By: FARHAT Discontinued Medications Sodium Chloride (Nss) 500 mls @ 999 mls/hr IV .Q31M ONE Stop: 08/28/24 11:07 Last Infusion: 08/28/24 11:54 Dose: Infused Documented By: Admin: 08/28/24 10:46 Dose: 999 mls/hr Documented By: EDITA Clindamycin Phosphate (Cleocin/D5w) 900 mg in 50 mls @ 100 mls/hr IV NOW ONE Stop: 08/28/24 11:22 Last Infusion: 08/28/24 12:30 Dose: Infused Documented By: Admin: 08/28/24 11:54 Dose: 100 mls/hr Documented By: FARHAT Imaging Data Radiologist's Impression: Chest X-Ray 08/28/24 10:37 XR chest 1V portable CLINICAL HISTORY: weakness COMPARISON STUDY: 07/14/2024 FINDINGS: There is a small hiatal hernia. There is stable moderate cardiomegaly without pulmonary vascular congestion. No effusion, consolidation, or pneumothorax. IMPRESSION: No acute findings. ACT 112: Negative or not required by law. Electronically signed by: Prabhjot Guan M.D. 08/28/2024 11:[address] 08/28/24 10:51 CT foot RT wo con HISTORY: 84 years-old Female poss osteo chronic pain of the right foot with clinical concern for osteomyelitis COMPARISON: None TECHNIQUE: Multiple axial CT images of the right foot were obtained without IV contrast. A dose lowering technique was used consistent with the principals of JAIDEN. FINDINGS: Extensive arterial calcifications. There is diffuse atrophy of the musculature with mild to moderate subcutaneous edema. No discrete fluid collection or soft tissue mass identified. Moderate thickening within the proximal to mid fibers of the Achilles tendon. Moderate thickening of the medial cord plantar fascia suggestive of chronic fasciitis. Tendons and ligaments are not well evaluated by CT technique. Subcentimeter accessory ossicles are noted adjacent to the medial talus. Demineralized appearance of the bones. Multifocal osteoarthritis appears to mild to moderate. Moderate sized calcaneal enthesophyte at the Achilles insertion site. No acute fracture, dislocation or osseous erosion identified by CT. IMPRESSION: 1. No acute fracture, dislocation or osseous erosion to suggest acute osteomyelitis. 2. Nonspecific subcutaneous edema. Differential considerations include cellulitis, venous stasis or lymphedema. 3. Extensive arterial calcifications. 4. Mild to moderate osteoarthritis. 5. Moderate Achilles tendinosis. ACT 112: Negative or not required by law. The above report was generated using voice recognition software. It may contain grammatical, syntax or spelling errors. Electronically signed by: Sergio Kebede M.D. 08/28/2024 11:50 AM Discharge Plan Visit Data Chief Complaint: Abnormal Labs/Diagnostic Testing ED Provider: Arjun Martinez ED Midlevel Provider: Yelena Munoz Discharge Problem: Weakness, Acute dehydration, Cellulitis, Leukocytosis Patient Disposition: Admitted As Inpatient Condition: Fair Discharge Instructions Interventions: ED Discharge Assessment Last Done: 08/28/24 15:58 Discharge Problem: Cellulitis Qualifiers: Site of cellulitis: extremity Site of cellulitis of extremity: lower extremity Laterality: right Qualified Code(s): L03.115 - Cellulitis of right lower limb Leukocytosis Qualifiers: Leukocytosis type: unspecified Qualified Code(s): D72.829 - Elevated white blood cell count, unspecified
[2024-08-28 11:19] LABS: Albumin Globulin Ratio 0.9 (0.9-2); Albumin Level 3.8 gm/dl (3.4-5.0); BUN Creatinine Ratio 23.2 (10-20); Bilirubin,Total 0.6 mg/dl (0.2-1.0); Calcium 8.9 mg/dl (8.6-10.3); Globulin 4.4 gm/dl (2.5-4.0); Magnesium 1.8 mg/dl (1.7-2.4); Potassium 4.2 mmol/L (3.5-5.1); Total Protein 8.2 gm/dl (6.0-8.3)
[2024-08-28 11:34] LABS: Thyroid Stimulating Hormone 2.343 uIu/ml (0.300-4.500)
[2024-08-28 11:48] LABS: Influenza A virus by PCR Negative (Neg); Influenza B virus by PCR Negative (Neg); RSV by PCR Negative (Neg); SARS CoV2 RNA(COVID-19) Ceph NEGATIVE (Negative)
--- NOTE | 2024-08-28 11:51 | CT Scan Report ---
CT foot RT wo con HISTORY: 84 years-old Female poss osteo chronic pain of the right foot with clinical concern for ost eomyelitis COMPARISON: None TECHNIQUE: Multiple axial CT images of the right foot were obtained without IV contrast. A dose lower ing technique was used consistent with the principals of JAIDEN. FINDINGS: Extensive arterial calcifications. There is diffuse atrophy of the musculature with mild to moderate subcutaneous edema. No discrete fluid collection or soft tissue mass identified. Moderate thickening within the proximal to mid fibers of the Achilles tendon. Moderate thickening of the medial cord plan tar fascia suggestive of chronic fasciitis. Tendons and ligaments are not well evaluated by CT techni que. Subcentimeter accessory ossicles are noted adjacent to the medial talus. Demineralized appearance of the bones. Multifocal osteoarthritis appears to mild to moderate. Moderate sized calcaneal enthesophy te at the Achilles insertion site. No acute fracture, dislocation or osseous erosion identified by CT . IMPRESSION: 1. No acute fracture, dislocation or osseous erosion to suggest acute osteomyelitis. 2. Nonspecific subcutaneous edema. Differential considerations include cellulitis, venous stasis or l ymphedema. 3. Extensive arterial calcifications. 4. Mild to moderate osteoarthritis. 5. Moderate Achilles tendinosis. ACT 112: Negative or not required by law. The above report was generated using voice recognition software. It may contain grammatical, syntax o r spelling errors. Electronically signed by: Sergio Kebede M.D. 08/28/2024 11:50 AM
[2024-08-28] MEDS: CLINDAMYCIN/D5W 900 MG/50 ML BAG IV ONE (11:54)
[2024-08-28 12:32] LABS: Appearance Urine Clear (Clear); Bacteria Urine Automated None Seen (None Seen); Bilirubin Urine Negative (Negative); Blood Urine Negative (Negative); Color Urine Yellow; Epithelial Cell Urine Auto 0-2 /hpf (0-2); Glucose Urine UA Negative (Negative); Ketones Urine Trace (Negative); Leukocyte Esterase Urine 1+ (Negative); Nitrite Urine Negative (Negative); Protein Urine 1+ (Negative); Specific Gravity Urine 1.024 (1.000-1.030); Urobilinogen Urine Negative (Negative); pH Urine 5.5 (4.5-7.5)
[2024-08-28] MEDS ORDERED: GLUCOSE 10 TAB/TUBE PO PRN (12:44)
[2024-08-28] MEDS ORDERED: GLUCAGON FOR INJ 1 MG VIAL SQ PRN (12:44)
[2024-08-28] MEDS ORDERED: GLUCOSE 40% GEL 15 GM TUBE PO PRN (12:44)
[2024-08-28] MEDS ORDERED: DEXTROSE 50% 50 ML SYRINGE IV PRN (12:44)
[2024-08-28] MEDS ORDERED: CARBOHYDRATES FOR HYPOGLYCEMIA PO PRN (12:44)
[2024-08-28 12:58] LABS: INR 3.1 (0.9-1.1)
--- NOTE | 2024-08-28 13:08 | History & Physical Report ---
Date of Service August 28, 2024 Assessment & Plan (1) Pressure injury of heel, stage 2: (2) HLD (hyperlipidemia): (3) Diabetes mellitus, type II: (4) Ambulatory dysfunction: (5) Chronic heart failure with preserved ejection fraction (HFpEF): Plan The patient is a 84-year-old female who presents to the ED on with complaints of generalized weakness and concern for right heel drainage/infection Right heel pressure sorePOA Right foot cellulitis versus possible osteomyelitis Worsening general weakness over the past week, right foot CT not indicative of osteomyelitis Consult podiatry for possible I&D, continue IV Dapto, patient has allergy to penicillin Therapeutic Lovenox, hold warfarin for possible debridement Wound culture pending, blood cultures pending, afebrile Hx CHF/NSTEMI/AF/HLD: Continue furosemide/metoprolol/statin Hold warfarin, continue therapeutic Lovenox Hx DM2: Not on any medications at home, last A1c 6.9 SSI/4 times daily BGM, continue to monitor Hx GERD: Continue omeprazole A total of 60 minutes was spent on chart review/reviewing diagnostic data/facilitating plan of care/discussion with consultants Full code DVT prophylaxis: Therapeutic Lovenox/warfarin History of Present Illness Chief Complaint: Generalized weakness, abnormal labs Primary Care Provider: Roberth Hayward, The patient is a 84-year-old female with a past medical history of DM 2, HLD, A- fibon warfarin, pulmonary hypertension, HTN, GERD, esophageal stricture, osteoarthritis, chronic ambulatory dysfunction, NSTEMI who presents to the ED on 05/30/2024 with complaints of worsening generalized weakness over the past week and abnormal outpatient labs. Patient had blood work at her PCPs office on 08/27/2024 that showed a white count of 12.28, sugar of 220, anion gap 23, CO2 15. Patient has been treated recently outpatient for 2 UTIs. Both E. coli. Family is concerned with the worsening generalized weakness that she may have recurrent UTI. Patient also has a right heel wound, stage II pressure sore that was present on arrival that has been draining more and has a slight odor to it. On arrival to the ED today, labs remarkable for WBC 11.2, glucose 173, alk phos 106 Urinalysis + ketones, protein, leukocytes, WBC, urine culture pending Chest x-ray without any acute findings Right foot CT showed: 1. No acute fracture, dislocation or osseous erosion to suggest acute osteomyelitis. 2. Nonspecific subcutaneous edema. Differential considerations include cellulitis, venous stasis or lymphedema. 3. Extensive arterial calcifications. 4. Mild to moderate osteoarthritis. 5. Moderate Achilles tendinosis. The patient will be admitted for further workup for worsening weakness and treatment of right heel infection Allergies Allergy/AdvReac Type Severity Reaction Status Date / Time metronidazole Allergy Unknown RASH Verified 07/14/24 11:30 Penicillins Allergy Unknown Swelling Verified 07/14/24 14:46 of Lip/Tongue/Throat Home Medications Medication Instructions Recorded Confirmed Type acetaminophen 500 mg tablet 500 mg PO Q6H PRN Pain 07/14/24 08/28/24 History furosemide 20 mg tablet 20 mg PO 3XWK #16 tabs 07/20/24 08/28/24 Rx metoprolol tartrate 25 mg tablet 25 mg PO BID #60 tabs 07/20/24 08/28/24 Rx omeprazole 20 mg capsule,delayed 20 mg PO BID #60 caps 07/20/24 08/28/24 Rx release potassium chloride 10 mEq 10 meq PO 3XWK #16 tabs 07/20/24 08/28/24 Rx tablet,extended release rosuvastatin 20 mg tablet 20 mg PO DAILY #30 tabs 07/20/24 08/28/24 Rx warfarin 2.5 mg tablet 2.5 mg PO UD 08/28/24 08/28/24 History Past Med/Surg History Problem List (Updated 08/28/24 @ 13:04 by CHUCK Aleman) Pressure injury of heel, stage 2 Personal history of cervical dysplasia Cystocele Pessary maintenance Anticoagulant long-term use (Acute) Atrial fibrillation with rapid ventricular response (Acute 2013) Epistaxis (Acute) SOB (shortness of breath) (Acute) Medical History (Updated 08/28/24 @ 13:04 by CHUCK Aleman) HLD (hyperlipidemia) Diabetes mellitus, type II Chronic heart failure with preserved ejection fraction (HFpEF) Elevated troponin Chronic atrial fibrillation Ambulatory dysfunction Generalized weakness UTI (urinary tract infection) Influenza A Hx of ovarian cyst Hx of uterine prolapse Endometrial polyp (1999) Surgical History (Updated 08/20/24 @ 00:06 by Joselo Osuna) S/P lymph node biopsy History of hysterectomy (07/29/13) vaginal hysterectomy with anterior repair S/P wisdom tooth extraction S/P tubal ligation (1981) S/P knee replacement S/P dilation and curettage (09/1999) with hysteroscopy for PMB, suspected endometrial polyp S/P colonoscopy (11/2007) Family History Aunt Breast cancer Mother Ovarian cancer Other Chest pain Social History Smoking Status: Never smoker Second Hand Exposure: No; Do You Dip or Chew Tobacco: No; Hx Alcohol Use: No Hx Substance Use: No Preferred Language: Nicaraguan Communication Ability: Effective Heel Caser Required: No Beliefs That Will Affect Care: None Current Living Situation: Spouse Feels Safe at Home: Yes Dental Care, Regularly: Yes Physical Activity Frequency Comment: Exercises regularly. Seatbelt Use: always Sunscreen Use: Yes Assistive Devices: Walker Review of Systems Review of Systems: All systems reviewed & are unremarkable except as noted in HPI & below Physical Exam Constitutional: WD/WN, vitals as above Eyes: PERRL, conjunctivae normal, anicteric sclerae ENMT: external ear and nose normal, oropharynx normal Neck: trachea midline, no thyromegaly Respiratory: normal respiratory effort, lungs clear to auscultation Cardiovascular: RRR, no murmur, no edema Gastrointestinal (Abdomen): normal bowel sounds, soft, nontender, no hepatosplenomegaly Musculoskeletal: no cyanosis or clubbing, extremities motor strength 5/5 Skin: no rashes, warm and dry (Right heel stage II-III pressure sore, left heel stage I pressure sore-POA) Neurologic: PERRL, EOMI, accommodation nl, no face palsy, no dysarthria Psychiatric: A+Ox3, euthymic affect Genitourinary: no vaginal lesions, no adnexal mass Lymphatic: no cervical or axillary lymphadenopathy Results & Data Results & Data Vital Signs (Past 12 Hours) Vital Signs Temp Pulse Pulse Resp BP BP Pulse Ox 08/28/24 12:06 86 18 98 08/28/24 12:00 134/75 08/28/24 12:00 87 18 134/75 100 08/28/24 11:57 106 H 16 08/28/24 11:33 85 23 08/28/24 11:31 126/108 H 08/28/24 11:31 126/108 H 96 08/28/24 11:31 126/108 H 08/28/24 11:03 83 20 97 08/28/24 11:00 80 18 98 08/28/24 11:00 135/81 08/28/24 11:00 135/81 08/28/24 11:00 135/81 08/28/24 11:00 78 20 135/81 98 08/28/24 10:59 98 08/28/24 10:46 91 H 08/28/24 10:37 36.7 C 87 24 125/85 97 08/28/24 10:36 91 H 23 98 08/28/24 10:34 128/85 08/28/24 10:34 128/85 08/28/24 10:34 128/85 O2 Del Method 08/28/24 12:06 08/28/24 12:00 08/28/24 12:00 Room Air 08/28/24 11:57 08/28/24 11:33 08/28/24 11:31 08/28/24 11:31 08/28/24 11:31 08/28/24 11:03 08/28/24 11:00 08/28/24 11:00 08/28/24 11:00 08/28/24 11:00 08/28/24 11:00 Room Air 08/28/24 10:59 08/28/24 10:46 08/28/24 10:37 Room Air 08/28/24 10:36 08/28/24 10:34 08/28/24 10:34 08/28/24 10:34 Diagnostic Findings Laboratory Results WBC 11.27 K/ul (4.8-10.8) H 08/28/24 10:40 RBC 4.02 M/uL (4.20-5.40) L 08/28/24 10:40 Hgb 12.3 g/dl (12.0-16.0) 08/28/24 10:40 Hct 37.6 % (37.0-47.0) 08/28/24 10:40 MCV 93.5 fL (80.0-100.0) 08/28/24 10:40 MCH 30.6 pg (25.0-34.0) 08/28/24 10:40 MCHC 32.7 g/dL (32.0-36.0) 08/28/24 10:40 RDW Std Deviation 51.3 fL (36.4-46.3) H 08/28/24 10:40 RDW Coeff of George 14.7 % (11.5-14.5) H 08/28/24 10:40 Plt Count 311 K/uL (130-400) 08/28/24 10:40 MPV 12.2 fL (9.4-12.4) 08/28/24 10:40 Immature Gran % (Auto) 0.4 % 08/28/24 10:40 Neut % (Auto) 76.1 % 08/28/24 10:40 Lymph % (Auto) 16.0 % 08/28/24 10:40 [place] % (Auto) 7.1 % 08/28/24 10:40 Eos % (Auto) 0.1 % 08/28/24 10:40 Baso % (Auto) 0.3 % 08/28/24 10:40 Neut # (Auto) 8.59 K/uL (1.40-6.50) H 08/28/24 10:40 Lymph # (Auto) 1.80 K/uL (1.20-3.40) 08/28/24 10:40 [place] # (Auto) 0.80 K/uL (0.11-0.59) H 08/28/24 10:40 Eos # (Auto) 0.01 K/uL (0.00-0.50) 08/28/24 10:40 Baso # (Auto) 0.03 K/uL (0.00-0.20) 08/28/24 10:40 Immature Gran # (Auto) 0.04 K/uL (0.01-0.20) 08/28/24 10:40 PT 30.0 Seconds (9.0-12.0) H 08/28/24 10:40 INR 3.1 (0.9-1.1) H 08/28/24 10:40 Sodium 138 mmol/L (136-145) 08/28/24 10:40 Potassium 4.2 mmol/L (3.5-5.1) 08/28/24 10:40 Chloride 104 mmol/L (98-107) 08/28/24 10:40 Carbon Dioxide 26 mmol/L (21-32) 08/28/24 10:40 Anion Gap 8 (3-11) 08/28/24 10:40 BUN 19 mg/dl (6-23) 08/28/24 10:40 Creatinine 0.82 mg/dl (0.6-1.2) 08/28/24 10:40 Est Cr Clr Drug Dosing 47.0 ml/min 08/28/24 10:40 eGFR 70.05 08/28/24 10:40 BUN/Creatinine Ratio 23.2 (10-20) H 08/28/24 10:40 Glucose 173 mg/dl (70-99(Fasting)) H 08/28/24 10:40 Lactate 2.0 mmol/L (0.4-2.0) 08/28/24 11:33 Calcium 8.9 mg/dl (8.6-10.3) 08/28/24 10:40 Magnesium 1.8 mg/dl (1.7-2.4) 08/28/24 10:40 Total Bilirubin 0.6 mg/dl (0.2-1.0) 08/28/24 10:40 AST 23 U/L (13-39) 08/28/24 10:40 ALT 13 U/L (7-52) 08/28/24 10:40 Alkaline Phosphatase 106 U/L (34-104) H 08/28/24 10:40 Troponin I High Sens 9.0 pg/ml (0-14) 08/28/24 10:40 Total Protein 8.2 gm/dl (6.0-8.3) 08/28/24 10:40 Albumin 3.8 gm/dl (3.4-5.0) 08/28/24 10:40 Globulin 4.4 gm/dl (2.5-4.0) H 08/28/24 10:40 Albumin/Globulin Ratio 0.9 (0.9-2) 08/28/24 10:40 Procalcitonin 0.04 ng/ml (0-0.5) 08/28/24 11:33 TSH 2.343 uIu/ml (0.300-4.500) 08/28/24 10:40 Urine Color Yellow 08/28/24 11:55 Urine Appearance Clear (Clear) 08/28/24 11:55 Urine pH 5.5 (4.5-7.5) 08/28/24 11:55 Ur Specific Woodman 1.024 (1.000-1.030) 08/28/24 11:55 Urine Protein 1+ (Negative) H 08/28/24 11:55 Urine Glucose (UA) Negative (Negative) 08/28/24 11:55 Urine Ketones Trace (Negative) H 08/28/24 11:55 Urine Blood Negative (Negative) 08/28/24 11:55 Urine Nitrite Negative (Negative) 08/28/24 11:55 Urine Bilirubin Negative (Negative) 08/28/24 11:55 Urine Urobilinogen Negative (Negative) 08/28/24 11:55 Ur Leukocyte Esterase 1+ (Negative) H 08/28/24 11:55 Urine WBC (Auto) 11-20 /hpf (0-5) H 08/28/24 11:55 Urine RBC (Auto) 6-10 /hpf (0-2) H 08/28/24 11:55 U Hyaline Cast (Auto) 3-5 /lpf (0-2) H 08/28/24 11:55 U Epithel Cells (Auto) 0-2 /hpf (0-2) 08/28/24 11:55 Urine Bacteria (Auto) None Seen (None Seen) 08/28/24 11:55 SARS-CoV-2 (PCR) NEGATIVE (Negative) 08/28/24 10:45 Influenza Type A (PCR) Negative (Neg) 08/28/24 10:45 Influenza Type B (PCR) Negative (Neg) 08/28/24 10:45 RSV (RT-PCR) Negative (Neg) 08/28/24 10:45 Impressions Chest X-Ray 08/28/24 10:37 XR chest 1V portable CLINICAL HISTORY: weakness COMPARISON STUDY: 07/14/2024 FINDINGS: There is a small hiatal hernia. There is stable moderate cardiomegaly without pulmonary vascular congestion. No effusion, consolidation, or pneumothorax. IMPRESSION: No acute findings. ACT 112: Negative or not required by law. Electronically signed by: Prabhjot Guan M.D. 08/28/2024 11:[address] 08/28/24 10:51 CT foot RT wo con HISTORY: 84 years-old Female poss osteo chronic pain of the right foot with clinical concern for osteomyelitis COMPARISON: None TECHNIQUE: Multiple axial CT images of the right foot were obtained without IV contrast. A dose lowering technique was used consistent with the principals of JAIDEN. FINDINGS: Extensive arterial calcifications. There is diffuse atrophy of the musculature with mild to moderate subcutaneous edema. No discrete fluid collection or soft tissue mass identified. Moderate thickening within the proximal to mid fibers of the Achilles tendon. Moderate thickening of the medial cord plantar fascia suggestive of chronic fasciitis. Tendons and ligaments are not well evaluated by CT technique. Subcentimeter accessory ossicles are noted adjacent to the medial talus. Demineralized appearance of the bones. Multifocal osteoarthritis appears to mild to moderate. Moderate sized calcaneal enthesophyte at the Achilles insertion site. No acute fracture, dislocation or osseous erosion identified by CT. IMPRESSION: 1. No acute fracture, dislocation or osseous erosion to suggest acute osteomyelitis. 2. Nonspecific subcutaneous edema. Differential considerations include cellulitis, venous stasis or lymphedema. 3. Extensive arterial calcifications. 4. Mild to moderate osteoarthritis. 5. Moderate Achilles tendinosis. ACT 112: Negative or not required by law. The above report was generated using voice recognition software. It may contain grammatical, syntax or spelling errors. Electronically signed by: Sergio Kebede M.D. 08/28/2024 11:50 AM Supervising Physician Co-Signing Physician Notes Attending addendum: The patient was seen and examined in the emergency room in presence of the family members She has been complaining of difficulty in ambulating with frequent falls at home. She has been in rehab until about 2 weeks ago when she was sent home She has history of recurrent UTI and denies any symptoms of urinary infection or any significant pain with ambulation Noted to have right-sided pressure sore at the heel with occasional drainage as per the daughter without any fever no chills On examination Lying in bed without any acute distress Remains hemodynamically stable and is afebrile Chestclear to auscultate bilateral HeartS1-S2, regular Abdomenbenign Extremitiesno edema Examination of the right foot and right heel showed dry ulceration involving the right heel without any evidence of drainage or surrounding inflammation General examination revealed generalized osteoarthritis and also generalized bruising secondary to anticoagulation Her admission labs, imaging studies and medications reviewed She has significant osteoarthritis and significant problem with ambulation Possible stage II heel ulcer on the right side and no evidence of osteomyelitis with CT scan Cultures have been taken and she has been on daptomycin IV for now UA is not suggestive of infection but culture has been sent with history of recurrent UTI Other significant medical conditions remained stable as noted above Agree with assessment and plan as outlined above by CHUCK Stewart and take the full responsible care in the hospital Total time taken in documenting all this was [address] Stephan Rios
[2024-08-28] MEDS: DAPTOmycin 400 MG in SYRINGE 0 ML IV SCH (13:43)
--- OUTSIDE RECORDS SUMMARY | 2024-08-28 15:14 | External Medical Summary | Summary of Care ---
Author Name Unknown Organization [facility] Address [address] [place] [address] Phone [phone] Care Team Providers Care Mast Maker Name Role Phone Roberth Hayward DO Primary Care Provider [phone] Reason for Visit * Reason Comments Medication Refill Encounter Details Date Type Department Care Team (Late st Contact Info) Description 08/27/2024 Refill Family Practice [address] [facility] [address] [place] [address] Roberth Hayward, [address] [place] [address] Allergies Active Allergy Reactions Criticality Noted Date Comments Metronidazole 02/24/2007 Hives Penicillins 01/24/2001 swelling of tongue documented as of this encounter (statuses as of 08/28/2024) Medications Acetaminophen 500 MG Oral Tablet (Tylenol) Take 2 Tablets by mouth every 6 hours as needed for Pain, Mild or Pain, Moderate. 07/06/19 23 Active Estradiol 0.1 MG/GM Vaginal Cream (Estrace) Two times weekly 02/06/20 22 Active Triamcinolone Acetonide 0.5 % External Cream (Aristocort)Nelda cations:Venous stasis dermatitis of both lower extremities Apply topically to affected area 2 times a day. To affected area. 60 g 1 11/20/19 23 Active Furosemide 20 MG Oral Tablet (Lasix)Indicatio ns:Pulmonary hypertension (HCC) Take 1 tablet by mouth once daily in the morning on Mondays, Wednesdays and Fridays 14 Tablet 1 07/31/2024 2:08 PM EDT 05/19/19 25 Active Potassium Chloride ER 10 MEQ Oral Tablet Extended Release Dissolve 1 tablet in water over 2 minutes, stir well and drink immediately daily by mouth on Saturday, Saturday and Fridays 42 Tablet 2 06/05/2024 10:48 AM EST 05/18/19 25 Active Diclofenac Sodium 1 % External Gel (Voltaren) Apply topically to affected area 3 times a day as needed for Pain. Apply to affected area 100 g 2 06/04/19 25 Active Rosuvastatin Calcium 20 MG Oral Tablet (Crestor)Indicat ions:Dyslipidemi a, goal LDL below 100 Take 1 Tablet by mouth in the morning. 30 Tablet 11 07/31/2024 2:08 PM EDT 07/23/19 25 Active Metoprolol Tartrate 25 MG Oral Tablet (Lopressor)Indic ations:Chronic atrial fibrillation (HCC) Take 1 Tablet by mouth in the morning and 1 Tablet before bedtime. 60 Tablet 11 07/31/2024 2:08 PM EDT 07/23/19 25 Active Warfarin Sodium 2.5 MG Oral Tablet (Coumadin) Take 1 Tablet by mouth every evening. 30 Tablet 11 07/31/2024 2:08 PM EDT 07/23/19 25 Active Omeprazole 20 MG Oral Capsule Delayed Release (PriLOSEC) Take 1 Capsule by mouth in the morning and 1 Capsule before bedtime. 60 Capsule 11 07/31/2024 2:08 PM EDT 07/23/19 25 Active Gait/Transfer BeltIndications: Generalized weakness,Ambulat ory dysfunction Family to use on patient for position change and when walking 1 Each 08/22/19 25 Active One-A-Day Womens 50+ Oral Tablet Take 1 Tablet by mouth in the morning. 65 Tablet 11 07/02/2024 10:17 AM EST 08/27/19 24 025 Discontin ued(Refil l) documented as of this encounter (statuses as of 08/28/2024) Active Problems Problem Noted Date Diagnosed Date History of non-ST elevation myocardial infarctio n (NSTEMI) 08/21/2024 Personal history of adenomatous and serrated col [...] as of this encounter (statuses as of 08/28/2024) Resolved Problems Problem Noted Date Diagnosed Date [...] as of this encounter (statuses as of 08/28/2024) Immunizations Name Administration Dates Next Due COVID-19 mRNA, LNP-s, No Pre serve, 2-Dose Series (Wickr) 04/27/2021,07/15/2020,06/24/2020 COVID-19, LNP-s, No Preserve , Oliver-sucrose, Ages 12+ (Pfizer) 10/24/2021 COVID-19, MRNA-LNP, PF, 30 M CG/0.3 mL, 12 YRS AND ABOVE, IM ([facility]) 01/16/2024,03/14/2023 Covid-19, Mrna, Lnp-s, Pf, B ivalent, 30 Mcg, IM, 12 yrs and above (Wickr) 03/27/2022 Pneumococcal Conjugate Vacc, 13 Valent (Prevnar) 11/01/2014 Pneumococcal Conjugate Vacci ne, 20-valent ([id number]) 04/17/2024 Pneumococcal Polysaccharide PPV23 (Pneumovax) 08/28/2007 RSV [...] 10 and older)(Boostrix) 05/30/2023, Varicella Zoster Vaccine Mani lt (Zostavax) 08/17/2011 Zoster Vaccine Recombinant (Shingrix) 10/28/2019 ,06/18/2019 documented as of this encounter Social History Tobacco Use Types Packs/Day Years Used Date Smoking Tobacco: Never Passive Smoke Exposure: Never Smokeless Tobacco: Never Alcohol Use Standard Drinks/Week Comments Not Currently 0 (1 standard drink = 0.6 oz pur e alcohol) PHQ-2 Answer Date Recorded PHQ Adult Total Score 0 08/21/2024 Hunger Vital Sign Answer Date Recorded Within [...] AM EST documented as of this encounter Miscellaneous Notes * Telephone Encounter - Haley Rivero [facility] - 08/28/2024 8:41 AM EDT No prescriptions requested or ordered in this encounter documented in this encounter Plan of Treatment Upcoming Encounters Date Type Department Care Team (Late st Contact Info) Description 09/04/2024 11:20 AM EDT Office Visit Family Practice [address] [facility] [place] [address] [facility] [place] [address] Roberth Hayward DO [address] [place] [address] 12/17/2024 8:30 AM EDT Office Visit Cardiology, [facility] [address] [place] [phone] Tacos Guerin PA-C [address] [place] [id number] 04/28/2025 9:40 AM EST Office Visit Dermatology Rick Garcia [place] [address] [facility] [place] [address] Chandni Stahl PA-C [address] [facility] [place] [address] Scheduled Procedures Name Priority Associated Diagnoses Date/Ti me COLONOSCOPY FLEXIBLE PROXIMAL DIAGNOSTIC Recall History of colon polyps Health Maintenance Due Date Last Done Comments DXA Scan 12/08/2021 12/08/2018, 05/0 08/2014, 03/18/2012, Additional history exists Adult Wellness Visit 09/28/2023 09/27/2022, 09/21/2021, 10/04/2020 Diabetic Foot Exam 07/11/2024 07/12/2023, 0 07/05/2022, 07/19/2021, Additional history exists COVID-19 Vaccine ( season) 2024 02/04/2024, 01/16/2024, 03/14/2023, Additional history exists Diabetic Eye Exam 08/25/2024 08/26/2023, , 09/27/2022, Additional history exists HbA1c 02/20/2025 08/21/2024, 04/05, 12/10/2023, Additional history exists Depression Screening 08/21/2025 08/21/2024 Albumin/Creatinine Ratio 08/24/2025 025, 04/17/2024, 11/05/2022, Additional history exists DTap/Tdap Vaccines (3 - [...] this encounter Medical Devices Implanted Type Area Sales Service Professional Device Identifier Shelf Expiration Date Model / Serial / Lot Lens Intraoc 17.0 - [id number] - [id number] Implanted:Qty: 1 on 07/10/2022 by Lucio Pino MD at [facility] Left: Eye BAUSCH 02/02/2027 [id number] / [id number] / Lens Intraoc 17.0 - [id number] - [id number] Implanted:Qty: 1 on 07/24/2022 by Lucio Pino MD at OR [facility] Right: Eye BAUSCH 05/05/2027 [id number] / [id number] / [id number] documented as of this encounter Advance Directives [...] Power of Attor hortensia? No Care Teams Mast Maker Relationship Specialty Start Date End Date Roberth Hayward DO [facility] [place] [address] PCP - General Internal Medicine 10/21/23 documented as of this encounter
--- OUTSIDE RECORDS SUMMARY | 2024-08-28 15:15 | External Medical Summary | Summary of Care ---
Author Name Unknown Organization [facility] Address [address] [place] [address] Phone [phone] Care Team Providers Care Clinical Academic Allergist Name Role Phone Roberth Hayward DO Primary Care Provider [phone] Reason for Visit * Reason Comments Outpatient Testing Encounter Details Date Type Department Care Team (Late st Contact Info) Description 08/27/2024 3:20 PM EDT Laboratory Laboratory [facility] [address] [place] [address] [facility] [address] [facility] [place] [address] Encounter for long-term (current) use of medications; Elevated white blood cell count Allergies Active Allergy Reactions Criticality Noted Date Comments Metronidazole 02/24/2007 Hives Penicillins 01/24/2001 swelling of tongue documented as of this encounter (statuses as of 08/27/2024) Medications Acetaminophen 500 MG Oral Tablet (Tylenol) [...] affected area. 60 g 1 3 Active One-A-Day Womens 50+ Oral Tablet Take 1 Tablet by mouth in the morning. 65 Tablet 11 07/02/2024 10:17 AM EST 4 Active Furosemide 20 MG Oral Tablet (Lasix)Indicatio ns:Pulmonary hypertension (HCC) Take 1 tablet by mouth once daily in the morning on Mondays, Wednesdays and Fridays 14 Tablet 1 07/31/2024 2:08 PM EDT 5 Active Potassium Chloride ER 10 MEQ [...] affected area 100 g 2 5 Active Rosuvastatin Calcium 20 MG Oral Tablet (Crestor)Indicat ions:Dyslipidemi a, goal LDL below 100 Take 1 Tablet by mouth in the morning. 30 Tablet 11 07/31/2024 2:08 PM EDT 5 Active Metoprolol Tartrate 25 MG Oral Tablet (Lopressor)Indic ations:Chronic atrial fibrillation (HCC) Take 1 Tablet by mouth in the morning and 1 Tablet before bedtime. 60 Tablet 11 07/31/2024 2:08 PM EDT 5 Active Warfarin Sodium 2.5 MG Oral Tablet (Coumadin) Take 1 Tablet by mouth every evening. 30 Tablet 11 07/31/2024 2:08 PM EDT 5 Active Omeprazole 20 MG Oral Capsule Delayed Release (PriLOSEC) Take 1 Capsule by mouth in the morning and 1 Capsule before bedtime. 60 Capsule 11 07/31/2024 2:08 PM EDT 5 Active Gait/Transfer BeltIndications: Generalized weakness,Ambulat ory dysfunction Family to use on patient for position change and when walking 1 Each 5 Active documented as of this encounter (statuses as of 08/27/2024) Active Problems Problem Noted Date Diagnosed Date [...] as of this encounter (statuses as of 08/27/2024) Resolved Problems Problem Noted Date Diagnosed Date [...] as of this encounter (statuses as of 08/27/2024) Immunizations Name Administration Dates Next Due COVID-19 mRNA, LNP-s, No Pre serve, 2-Dose Series (rankur) 04/27/2021,07/15/2020,06/24/2020 COVID-19, LNP-s, No Preserve , Oliver-sucrose, Ages 12+ (Pfizer) 10/24/2021 COVID-19, MRNA-LNP, PF, 30 M CG/0.3 mL, 12 YRS AND ABOVE, IM ([facility]) 01/16/2024,03/14/2023 Covid-19, Mrna, Lnp-s, Pf, B ivalent, 30 Mcg, IM, 12 yrs and above (rankur) 03/27/2022 Pneumococcal Conjugate Vacc, 13 Valent (Prevnar) 11/01/2014 Pneumococcal Conjugate Vacci ne, 20-valent ([id number]) 04/17/2024 Pneumococcal Polysaccharide PPV23 (Pneumovax) 08/28/2007 RSV [...] 11:20 AM EDT Office Visit Family Practice [address] [place] [address] [facility] [address] Roberth Hayward DO 293 [place] [address] 12/17/2024 8:30 AM EDT Office Visit Cardiology, [facility] [address] [place] [phone] Tacos Guerin PAYecenia [address] [place] [address] 04/28/2025 9:40 AM EST Office Visit Dermatology [facility] [address] [place] [address] Chandni Stahl PA-C [address] [place] [address] Scheduled Procedures Name Priority Associated Diagnoses Date/Ti me COLONOSCOPY FLEXIBLE PROXIMAL DIAGNOSTIC Recall History of colon polyps Health Maintenance Due Date Last Done Comments DXA Scan 12/08/2021 12/08/2018, 0508/2014, 03/18/2012, Additional history exists Adult Wellness Visit [...] this encounter Medical Devices Implanted Type Area Playground Equipment Erector Device Identifier Shelf Expiration Date Model / Serial / Lot Lens Intraoc 17.0 - [id number] - [id number] Implanted:Qty: 1 on 07/10/2022 by Lucio Pino MD at OR [facility] Left: Eye BAUSCH 02/02/2027 [id number] / [id number] / Lens Intraoc 17.0 - [id number] - [id number] Implanted:Qty: 1 on 07/24/2022 by Lucio Pino MD at OR [facility] Right: Eye BAUSCH 05/05/2027 [id number] / [id number] / [id number] documented as of this encounter Procedures Procedure Name Priority Date/Time Associated Diagnosis Comments COMPREHENSIVE METABOLIC PANEL Routine 08/27/2024 3:25 PM EDT Encounter for long-term (current) use of medications CBC Routine 08/27/2024 3:25 PM EDT Elevated white blood cell count documented in this encounter Results * (ABNORMAL) CBC (08/27/2024 3:25 PM EDT) WBC 12.28(H) 4.00 - 10.80 K/uL 08/27/2024 3:47 PM EDT [facility] 56- RBC 3.79 3.85 - 5.15 M/uL 08/27/2024 3:47 PM EDT [facility] 56- HGB 11.6(L) 12.0 - 15.3 g/dL 08/27/2024 3:47 PM EDT [facility] 56- HCT 37.2 36.0 - 45.2 % 08/27/2024 3:47 PM EDT [facility] 56- MCV 98.2 81.5 - 97.5 fL 08/27/2024 3:47 PM EDT [facility] 56- MCH 30.6 27.0 - 34.0 pg 08/27/2024 3:47 PM EDT [facility] 56- MCHC 31.2 32.0 - 36.0 g/dL 08/27/2024 3:47 PM EDT [facility] RDW 15.4 11.5 - 15.5 % 08/27/2024 3:47 PM EDT [facility] PLT 324 140 - 400 K/uL 08/27/2024 3:47 PM EDT [facility] MPV 12.2 6.6 - 11.1 fL 08/27/2024 3:47 PM EDT [facility] Blood Venous blood specimen / Unknown Venipuncture / Unknown 08/27/2024 3:25 PM EDT 08/27/2024 3:25 PM EDT us Roberth Hayward DO LAB BLOOD ORDERABLES Final Res ult [facility] [address] [place] [address] * (ABNORMAL) COMPREHENSIVE METABOLIC PANEL (08/27/2024 3:25 PM EDT) BUN 22(H) 6 - 20 mg/dL 08/27/2024 4:35 PM EDT [facility] CREATININE 0.8 0.5 - 1.0 mg/dL 08/27/2024 4:35 PM EDT [facility] EGFR 77 >=60 mL/min 08/27/2024 4:35 PM EDT [facility] Comment:eGFR is calculated b ased on the CKD-EPI 2020 equation. SODIUM 138 135 - 146 mmol/L 08/27/2024 4:35 PM EDT [facility] POTASSIUM 4.3 3.5 - 5.1 mmol/L 08/27/2024 4:35 PM EDT [facility] CHLORIDE 100 98 - 107 mmol/L 08/27/2024 4:35 PM EDT [facility] CO2 15(L) 22 - 32 mmol/L 08/27/2024 4:35 PM EDT [facility] ANION GAP 23(H) 7 - 15 mmol/L 08/27/2024 4:35 PM EDT [facility] GLUCOSE 220(H) 70 - 120 mg/dL 08/27/2024 4:35 PM EDT [facility] 56 Albumin 3.9 3.8 - 5.0 g/dL 08/27/2024 4:35 PM EDT [facility] 56 AST 25 10 - 35 U/L 08/27/2024 4:35 PM EDT [facility] 56 Alkaline Phosphatase 124 35 - 130 U/L 08/27/2024 4:35 PM EDT [facility] 56 Bilirubin, Total 0.4 <=1.2 mg/dL 08/27/2024 4:35 PM EDT [facility] 56 CALCIUM 9.2 8.4 - 10.2 mg/dL 08/27/2024 4:35 PM EDT [facility] 56 Protein 7.7 6.0 - 8.3 g/dL 08/27/2024 4:35 PM EDT [facility] 56 ALT 15 10 - 35 U/L 08/27/2024 4:35 PM EDT [facility] 56 Blood Venous blood specimen / Unknown Venipuncture / Unknown 08/27/2024 3:25 PM EDT 08/27/2024 3:25 PM EDT [facility] LAB BLOOD ORDERABLES Fin al Result [facility] 56[facility] [address] [place] [address] documented in this encounter Visit Diagnoses Diagnosis Encounter for long-term (current) use of medications Encounter for long-term (current) use of other medications Elevated white blood cell count Leukocytosis, unspecified documented in this encounter Advance Directives * [...] Power of Attor hortensia? No Care Teams Clinical Academic Allergist Relationship Specialty Start Date End Date Roberth Hayward DO [address] [place] [address] PCP - General Internal Medicine 10/21/23 documented as of this encounter
--- OUTSIDE RECORDS SUMMARY | 2024-08-28 15:15 | External Medical Summary | Summary of Care ---
Author Name Unknown Organization [facility] Address [address] [place] [address] Phone [phone] Care Team Providers Care Stna Name Role Phone Roberth Hayward DO Primary Care Provider [phone] Reason for Visit * Reason Onset Date Comments Order Request 08/25/2024 DME for transfer wheelchair Encounter Details Date Type Department Care Team (Late st Contact Info) Description 08/25/2024 Telephone Family Practice 65 [facility] [address] [place] [address] Roberth Hayward DO [address] [place] [address] Order Request (DME for transfer wheelchair ) Allergies Active Allergy Reactions Criticality Noted Date Comments Metronidazole 02/24/2007 Hives Penicillins 01/24/2001 swelling of tongue documented as of this encounter (statuses as of 08/26/2024) Medications Acetaminophen 500 MG Oral Tablet (Tylenol) [...] as of this encounter (statuses as of 08/26/2024) Active Problems Problem Noted Date Diagnosed Date [...] as of this encounter (statuses as of 08/26/2024) Resolved Problems Problem Noted Date Diagnosed Date [...] as of this encounter (statuses as of 08/26/2024) Immunizations Name Administration Dates Next Due COVID-19 mRNA, LNP-s, No Pre serve, 2-Dose Series (2C2P) 04/27/2021,07/15/2020,06/24/2020 COVID-19, LNP-s, No Preserve , Oliver-sucrose, Ages 12+ (Pfizer) 10/24/2021 COVID-19, MRNA-LNP, PF, 30 M CG/0.3 mL, 12 YRS AND ABOVE, IM ([facility]) 01/16/2024,03/14/2023 Covid-19, Mrna, Lnp-s, Pf, B ivalent, 30 Mcg, IM, 12 yrs and above (2C2P) 03/27/2022 Pneumococcal Conjugate Vacc, 13 Valent (Prevnar) 11/01/2014 Pneumococcal Conjugate Vacci ne, 20-valent ([id number]) 04/17/2024 Pneumococcal Polysaccharide PPV23 (Pneumovax) 08/28/2007,01/23/2002 RSV Vac., Recomb, Adjuvant, PF,0.5 Ml (Arexvy) 04/17/2024 Season Influenza, Quad, PF, Adjuvanted, 65+ Yrs, IM (FLUAD) 01/14/2020 Seasonal Influenza Vac., MDV , IM, 0.5 mL (Fluzone) 02/12/2014,03/03/2013,01/30/2012,02/12,02/02/2010,03/04/2009,02/27/2008 ,02/24/2007,03/11/2006,03/20/2005 Seasonal Influenza, High Dos e, Trivalent, PF, [...] encounter Miscellaneous Notes * Telephone Encounter - Roberth Hayward DO - 08/25/2024 3:23 PM EDT Transfer wheelchair as ordered is what the patient needs. * Telephone Encounter - Leesa Drummond CCMA - 08/25/2024 2:47 PM EDT I had submitted the DME order for a transfer wheelchair through [facility] on 08/17. After chatting back and forth with the [facility] team, this is what they need "Hello! [facility] here. Apologies for the back and forth as we are needing clarification to provide the best service care for the patient. The Rx uploaded did indicate "transfer wheelchair" however, the Dr needs to help clarify what exactly as the supplier would be requesting a LMN to justifythe need. So, please discuss with the provider and help us create a new portal order or you can faxa new Rx for it. Please be specific with your request to help provide clarity. For instance, does the patient already have a wheelchair and you need a gait belt (you already have a order created for this), or does she need a transfer bench for the bathroom, just to list a few examples. Thank you somuch." Please provide a new DME order stating exactly what the patient needs in order for [facility] to process the order. Thank you. documented in this encounter Plan of Treatment Upcoming Encounters Date Type Department Care Team (Late st Contact Info) Description 08/27/2024 10:00 AM EDT Scheduled Telephone Family Practice 65 [facility] [address] Floor [address] [place] [address] Roselia Costa, ANDREA [address] [facility] [address] [place], [place] [id number] 09/04/2024 11:20 AM EDT Office Visit Family [address] [place] [address] Roberth Hayward DO [address] [place] [address] 12/17/2024 8:30 AM EDT Office Visit Cardiology, [facility] [address] [place] [phone] Tacos Guerin PA-C [address] [place] [address] 04/28/2025 9:40 AM EST Office Visit [facility]ermatology [facility] [address] [place] [address] Chandni Stahl PA-C [address] [place] [address] Scheduled Procedures Name Priority Associated Diagnoses Date/Ti [...] this encounter Medical Devices Implanted Type Area Protection Mgr Device Identifier Shelf Expiration Date Model / Serial / Lot Lens Intraoc 17.0 - [id number] - [id number] Implanted:Qty: 1 on 07/10/2022 by Lucoi Pino MD at OR [facility] Left: Eye BAUSCH 02/02/2027 [id number] / [id number] / Lens Intraoc 17.0 - [id number] - [id number] Implanted:Qty: 1 on 07/24/2022 by Lucio Pino MD at OR [facility] Right: Eye BAUSCH 05/05/2027 [id number] / [id number] / [id number] documented as of this encounter Advance Directives [...] Power of Attor hortensia? No Care Teams Stna Relationship Specialty Start Date End Date Roberth Hayward DO [address] [place] [address] PCP - General Internal Medicine 10/21/23 documented as of this encounter
--- OUTSIDE RECORDS SUMMARY | 2024-08-28 15:15 | External Medical Summary | Summary of Care ---
Author Name Unknown Organization [facility] Address [address] [place] [address] Phone [phone] Care Team Providers Care Body Joiner Name Role Phone Roberth Hayward DO Primary Care Provider [phone] Reason for Visit * Reason Onset Date Comments Order Request 08/25/2024 DME for transfer wheelchair Encounter Details Date Type Department Care Team (Late st Contact Info) Description 08/25/2024 Telephone Family Practice 65 [facility] [address] [place] [address] Roberth Hayward DO [address] [place] [address] Order Request (DME for transfer wheelchair ) [...] mRNA, LNP-s, No Pre serve, 2-Dose Series (TheGrid) 04/27/2021,07/15/2020,06/24/2020 COVID-19, LNP-s, No Preserve , Oliver-sucrose, Ages 12+ (Pfizer) 10/24/2021 COVID-19, MRNA-LNP, PF, 30 M CG/0.3 mL, 12 YRS AND ABOVE, IM ([facility]) 01/16/2024,03/14/2023 Covid-19, Mrna, Lnp-s, Pf, B ivalent, 30 Mcg, IM, 12 yrs and above (TheGrid) 03/27/2022 Pneumococcal Conjugate Vacc, 13 Valent (Prevnar) 11/01/2014 Pneumococcal Conjugate Vacci ne, 20-valent ([id number]) 04/17/2024 Pneumococcal Polysaccharide PPV23 (Pneumovax) 08/28/2007,01/23/2002 RSV [...] DME order for a transfer wheelchair through [facility] on 08/17. After chatting back and forth with the [facility] team, this is what they need "Hello! [facility] here. Apologies for the back and forth [...] 11:20 AM EDT Office Visit Family Practice [address] [place] [address] 293 [facility] [place] [address] Roberth Hayward DO 293 [facility] [place] [address] 12/17/2024 8:30 AM EDT Office Visit Cardiology, [facility] [address] [place] [phone] Tacos Guerin PA-C [address] [place] [address] 04/28/2025 9:40 AM EST Office Visit Dermatology [facility] [address] [facility] [place] [address] Chandni Stahl PA-C [address] [facility] [place] [address] Scheduled Procedures Name Priority Associated Diagnoses Date/Ti [...] this encounter Medical Devices Implanted Type Area Ship'S Pilot Device Identifier Shelf Expiration Date Model / Serial / Lot Lens Intraoc 17.0 - [id number] - [id number] Implanted:Qty: 1 on 07/10/2022 by Lucio Pino MD at OR [facility] Left: Eye BAUSCH 02/02/2027 [id number] / [id number] / Lens Intraoc 17.0 - [id number] - [id number] Implanted:Qty: 1 on 07/24/2022 by Lucio Pino MD at OR [facility] Right: Eye BAUSCH 05/05/2027 [id number] / [id number] / [id number] documented as of this encounter Advance Directives [...] Power of Attor hortensia? No Care Teams Body Joiner Relationship Specialty Start Date End Date Roberth Hayward DO [address] [place] [address] PCP - General Internal Medicine 10/21/23 documented as of this encounter
--- OUTSIDE RECORDS SUMMARY | 2024-08-28 15:15 | External Medical Summary | Summary of Care ---
Author Name Unknown Organization [facility] Address [address] [place] [address] Phone [phone] Care Team Providers Care Eeg Technologist Name Role Phone Vicky Hayward DO Primary Care Provider [phone] Reason for Referral * Evaluate & Treat - Unlimited Visits (Within 3 days (urgent)) - Authorized Specialty Diagnoses / Procedures Referred By Wilmer sesay Referred To Contact Wound Care Diagnoses Pressure ulcer of right heel, stage 2 (HCC) Vicky Hayward DO [address] [place] [address] Phone: tel: fax: Referral ID Status Reason Start Date Expiration Date Visits Requested Visits Authorized [id number] Authorized Specialty Services Required 08/21/[phone] Question Answer Referral Priority Within 3 days (urgent) Where should this appointment be scheduled? [facility] Where is the wound? Below the knee Comments Assess for: Hx of wound healing problem Reason for Visit * Reason Onset Date Comments Hospital Follow-Up Hospital Follow-Up 08/21/2024 Encounter Details Date Type Department Care Team (Latest Contact Info) Description 08/21/2024 9:20 AM EDT Office Visit Family Practice [address] [facility] [place] [address] [place] [address] Vicky Hayward DO [address] [place] [address] Generalized weakness*; Ambulatory dysfunction; Influenza A; Pressure ulcer of right heel, stage 2 (HCC); Acute cystitis without hematuria; Chronic atrial fibrillation (HCC); History of non-ST elevation myocardial infarction (NSTEMI); Gastroesophageal reflux disease without esophagitis; HTN, goal below 140/90; Degeneration of intervertebral disc of lumbar region with discogenic back pain and lower extremity pain; Pulmonary hypertension (HCC); Pure hypercholesterolemia; Type 2 diabetes mellitus with hemoglobin A1c goal of less than 8.0% ([facility]); Risk and functional assessment; Hospital discharge follow-up Allergies Active Allergy Reactions Criticality Noted Date [...] by mouth in the morning. 30 Tablet 07/31/2024 2:08 PM EDT 5 Active Metoprolol Tartrate 25 MG Oral Tablet (Lopressor)Indic ations:Chronic atrial fibrillation (HCC) Take 1 Tablet by mouth in the morning and 1 Tablet before bedtime. 60 Tablet 07/31/2024 2:08 PM EDT 5 Active Warfarin Sodium 2.5 MG Oral Tablet (Coumadin) Take 1 Tablet by mouth every evening. 30 Tablet 07/31/2024 2:08 PM EDT 5 Active Omeprazole 20 MG Oral Capsule Delayed Release (PriLOSEC) Take 1 Capsule by mouth in the morning and 1 Capsule before bedtime. 60 Capsule 07/31/2024 2:08 PM EDT 5 Active Gait/Transfer [...] knee replacement 03/11/2006 Overview (03/11/2006): R TKR 5/04 Osteoarthritis of multiple joints 09/01/2003 Overview (02/07/2016): [...] mRNA, LNP-s, No Pre serve, 2-Dose Series (Aidin) 04/27/2021,07/15/2020,06/24/2020 COVID-19, LNP-s, No Preserve , Oliver-sucrose, Ages 12+ (Pfizer) 10/24/2021 COVID-19, MRNA-LNP, PF, 30 M CG/0.3 mL, 12 YRS AND ABOVE, IM ([employer]-Comirnat) 01/16/2024,03/14/2023 Covid-19, Mrna, Lnp-s, Pf, B ivalent, 30 Mcg, IM, 12 yrs and above (Aidin) 03/27/2022 Pneumococcal Conjugate Vacc, 13 Valent (Prevnar) 11/01/2014 Pneumococcal Conjugate Vacci ne, 20-valent ([id number]) 04/17/2024 Pneumococcal Polysaccharide PPV23 (Pneumovax) 08/28/2007,01/23/2002 RSV [...] Passive Smoke Exposure: Never Smokeless Tobacco: Never Tobacco Cessation:Counseling Given: Not Answered Alcohol Use Standard Drinks/Week Comments Not Currently [...] 07/24/2023 Does the household have a re lar source of income? (Household - for ages [...] AM EST documented as of this encounter Last Filed Vital Signs Vital Sign Reading Time Taken Comments Blood Pressure 100/66 08/21/2024 9:38 AM EDT Pulse 94 08/21/2024 9:38 AM EDT Temperature 36.3 °C (97.3 °F) 08/21/2024 9:38 AM ED T Respiratory Rate 14 08/21/2024 9:38 AM EDT Oxygen Saturation 90% 08/21/2024 9:38 AM EDT Inhaled Oxygen Concentration - - Weight 67.1 kg (147 lb 14.4 oz) 08/21/2024 9:38 AM EDT Height 152.4 cm (5') 08/21/2024 9:38 AM EDT Body Mass Index 28.88 08/21/2024 9:38 AM EDT documented in this encounter Patient Instructions * Patient Instructions* Bre De La Garza LPN - 08/21/2024 9:36 AM EDT Urinary Incontinence Plan of Care Documentation: (This education is for all patients over 65 regardless of symptoms) Current medications reconciled. Patient encouraged to: Practice kegal exercises Provide education materials Use the restroom every 2 hours throughout the day Limit caffeine, alcohol, spicy foods and acidic foods Keep a bladder diary Limit fluid intake 3-4 hours before bed Lose weight Prevent constipation Take fluid pills at a time when you can get to the bathroom quickly Control sugar better if diabetic Limit fluid intake to 60 oz. per day Wear support stockings (TEDs)if you have edema Bre De La Garza LPN 08/21/2024 Kegel Exercises Kegel exercises don’t require special clothing or equipment. They’re easy to learn and simple to do. And if you do them right, no one can tell you’re doing them, so they can be done almost anywhere. Your doctor, nurse, or physical therapist can answer any questions you have and help you get started. A Weak Pelvic Floor The pelvic floor muscles may weaken due to aging, and vaginal childbirth, injury, surgery, chronic cough, or lack of exercise. If the pelvic floor is weak, your bladder and other pelvic organs may sag out of place. The urethra may also open too easily and allow urine to leak out. Kegel exercises can help you strengthen your pelvic floor muscles so they can better support the pelvic organs and control urine flow. How Kegel Exercises Are Done Try each of the Kegel exercises described below. When you’re doing them, try not to move your leg, buttock, or stomach muscles. While you’re urinating, try to stop the flow of urine. Start and stop it as often as you can. Contract as if you were stopping your urine stream, but do it when you’re not urinating. Tighten your rectum as if trying not to pass gas. Contract your anus, but don’t move your buttocks. Helpful Hints Do your Kegels as often as you can. The more you do them, the faster you’ll feel the results. Pick an activity you do often as a reminder. For instance, do your Kegels every time you sit down. Tighten your pelvic floor before you sneeze, get up from a chair, cough, laugh, or lift. This protects your pelvic floor from injury and can help prevent urine leakage. Try to hold each Kegel for a slow count to five. You probably won’t be able to hold them for thatlong at first, but keep practicing. It will get easier as your pelvic floor gets stronger. Eventually, special weights that you place in your vagina may be recommended to help make your Kegels even more effective. Sweta Patient Education Copyright© 2008 - 2010 Sweta except where otherwise noted. Here are some helpful tips for your urinary incontinence: (This education is for all patients over 65 regardless of symptoms) Practice Kegel exercises Use the restroom every 2 hours throughout the day Limit caffeine, alcohol, spicy foods, and acidic foods Keep a bladder diary Limit fluid intake 3-4 hours before bed Lose weight Prevent constipation Take fluid pills at a time when can get to the bathroom quickly Control sugar better if diabetic Limit fluid intake to 60 oz. per day Any questions, please feel free to contact our office. documented in this encounter Progress Notes * Bre De La Garza LPN - 08/21/2024 1:01 PM EDT [facility] order for gait belt, chair and heel protectors. * Vicky Hayward, - 08/21/2024 10:25 AM EDT SUBJECTIVE: Kathi Verdugo is a 84 year old female. Chief Complaint Patient presents with Hospital Follow-Up Hospital Follow-Up Recent Admission: Patient was recently admitted to [facility]. The date of discharge was 08/13/2024. Discharge report received and reviewed. HPI: Patient is an 84 year old female with a history of diabetes type II, atrial fibrillation, hyperlipidemia, GERD, esophageal stricture, lumbar disc disease, ambulatory dysfunction, and osteoporosis that is seen for hospital follow up. The patient was admitted to [facility] from 07/14/2024 - 07/20/2024. The patient was admitted to the hospital due to fall from walker seat. She had worsening weakness due to influenza A infection and UTI. The patient had NSTEMI as well. The patient was transferred to [facility] on 07/20/2024 and was discharged on 08/13/2024. She was admitted to [facility] for weakness andwas treated with Physical Therapy. The patient still has weakness. She is unable to walk and needs full two person assist to transfer from bed to wheelchair. No chest pain or shortness of breath are present. Appetite is fair and weight is down. Patient Active Problem List Diagnosis Osteoarthritis of multiple joints Status post right knee replacement Pure hypercholesterolemia Lung nodule Chronic atrial fibrillation (HCC) Gastroesophageal reflux disease without esophagitis Type 2 diabetes mellitus with hemoglobin A1c goal of less than 8.0% (HCC) Pulmonary hypertension (HCC) Benign esophageal stricture Lumbar degenerative disc disease Ambulatory dysfunction HTN, goal below 140/90 Personal history of adenomatous and serrated colon polyps History of non-ST elevation myocardial infarction (NSTEMI) Current Outpatient Medications Medication Sig Dispense Refill Acetaminophen 500 MG Oral Tablet (Tylenol) Take 2 Tablets by mouth every 6 hours as needed for Pain, Mild or Pain, Moderate. Estradiol 0.1 MG/GM Vaginal Cream (Estrace) Two times weekly Triamcinolone Acetonide 0.5 % External Cream (Aristocort) Apply topically to affected area 2 times a day. To affected area. 60 g 1 One-A-Day Womens 50+ Oral Tablet Take 1 Tablet by mouth in the morning. 65 Tablet 11 Furosemide 20 MG Oral Tablet (Lasix) Take 1 tablet by mouth once daily in the morning on Mondays, Wednesdays and Fridays 14 Tablet 1 Potassium Chloride ER 10 MEQ Oral Tablet Extended Release Dissolve 1 tablet in water over 2 minutes, stir well and drink immediately daily by mouth on Saturday, Saturday and Fridays 42 Tablet 2 Diclofenac Sodium 1 % External Gel (Voltaren) Apply topically to affected area 3 times a day as needed for Pain. Apply to affected area 100 g 2 Rosuvastatin Calcium 20 MG Oral Tablet (Crestor) Take 1 Tablet by mouth in the morning. 30 Tablet 11 Metoprolol Tartrate 25 MG Oral Tablet (Lopressor) Take 1 Tablet by mouth in the morning and 1 Tablet before bedtime. 60 Tablet 11 Warfarin Sodium 2.5 MG Oral Tablet (Coumadin) Take 1 Tablet by mouth every evening. 30 Tablet 11 Omeprazole 20 MG Oral Capsule Delayed Release (PriLOSEC) Take 1 Capsule by mouth in the morning and1 Capsule before bedtime. 60 Capsule 11 No current facility-administered medications for this visit. Current and discharge medications have been reconciled. Review of patient's allergies indicates: Allergen Reactions Metronidazole Hives Penicillins swelling of tongue OBJECTIVE: BP 100/66 | Pulse 94 | Temp 97.3 °F (36.3 °C) | Resp 14 | Ht 5' (1.524 m) | Wt 147 lb 14.4 oz (67.1 kg) | SpO2 90% | BMI 28.88 kg/m² | BSA 1.69 m² REVIEW OF SYSTEMS: Review of Systems Constitutional: Positive for appetite change (), fatigue and unexpected weight change (decreased). Negative for fever. HENT: Negative for congestion, sore throat and trouble swallowing. Respiratory: Negative for cough, shortness of breath and wheezing. Cardiovascular: Negative for chest pain, palpitations and leg swelling. Gastrointestinal: Negative for abdominal pain, blood in stool, constipation, diarrhea, nausea and vomiting. Genitourinary: Negative for dysuria, frequency and hematuria. Musculoskeletal: Positive for gait problem. Bilateral knee pain is stable Neurological: Positive for weakness. Negative for dizziness, syncope and headaches. Psychiatric/Behavioral: Negative for decreased concentration and dysphoric mood. PHYSICAL EXAM: BP 100/66 | Pulse 94 | Temp 97.3 °F (36.3 °C) | Resp 14 | Ht 5' (1.524 m) | Wt 147 lb 14.4 oz (67.1 kg) | SpO2 90% | BMI 28.88 kg/m² | BSA 1.69 m² Physical Exam Vitals and nursing note reviewed. Constitutional: General: She is not in acute distress. Appearance: Normal appearance. She is not toxic-appearing. HENT: Head: Normocephalic and atraumatic. Cardiovascular: Rate and Rhythm: Normal rate. Rhythm irregular. Heart sounds: Normal heart sounds. No murmur heard. No gallop. Pulmonary: Effort: Pulmonary effort is normal. Breath sounds: Normal breath sounds. No wheezing, rhonchi or rales. Abdominal: General: Bowel sounds are normal. There is no distension. Palpations: Abdomen is soft. Tenderness: There is no abdominal tenderness. Musculoskeletal: Right lower leg: No edema. Left lower leg: No edema. Skin: Comments: Right heel stage 2 ulcer Left heel stage 1 ulcer Neurological: Mental Status: She is alert and oriented to person, place, and time. Mental status is at baseline. Motor: Weakness present. Gait: Gait abnormal. Psychiatric: Mood and Affect: Mood normal. Behavior: Behavior normal. ASSESSMENT/PLAN Generalized weakness (Primary) Significant worsening since hospitalization Unable to transfer without two person assist - COMPREHENSIVE METABOLIC PANEL; Future; Expected date: 08/21/2024 - CBC; Future; Expected date: 11/20/2024 - DURABLE MEDICAL EQUIPMENT - Gait/Transfer Belt; Family to use on patient for position change and when walking - COMPREHENSIVE METABOLIC PANEL - CBC Continue Home Physical Therapy Ambulatory dysfunction - DURABLE MEDICAL EQUIPMENT - Gait/Transfer Belt; Family to use on patient for position change and when walking Influenza A Resolved Pressure ulcer of right heel, stage 2 (HCC) - WOUND CARE REFERRAL OP Acute cystitis without hematuria Resolved Chronic atrial fibrillation (HCC) Continue Warfarin and Metoprolol History of non-ST elevation myocardial infarction (NSTEMI) Continue Metoprolol Gastroesophageal reflux disease without esophagitis Continue Omeprazole HTN, goal below 140/90 Continue Metoprolol Degeneration of intervertebral disc of lumbar region with discogenic back pain and lower extremity pain Pulmonary hypertension (HCC) Pure hypercholesterolemia Continue rosuvastatin Type 2 diabetes mellitus with hemoglobin A1c goal of less than 8.0% ([facility]) - HEMOGLOBIN A1C; Future; Expected date: 08/21/2024 - HEMOGLOBIN A1C Diet controlled Risk and functional assessment Hospital discharge follow-up - DISCH MED RECON CUR MED LIS Follow-up: Return in about 2 weeks (around 09/04/2024). | Check-out note: Schedule with [facility] Vicky Hayward DO documented in this encounter Miscellaneous Notes * Result Encounter Note - Bre De La Garza LPN - 08/24/2024 11:25 AM EDT See telephone encounter. * Result Encounter Note - Bre De La Garza LPN - 08/24/2024 11:24 AM EDT See telephone encounter. * Addendum Note - Vicky Hayward DO - 08/21/2024 12:47 PM EDTAddended by: VICKY HAYWARD on: 08/21/2024 12:47 PM Modules accepted: Orders * Addendum Note - rBe De La Garza LPN - 08/21/2024 12:47 PM EDTAddended by: BRE DE LA GARZA on: 08/21/2024 12:47 PM Modules accepted: Orders documented in this encounter Plan of Treatment Upcoming Encounters Date Type Department Care Team (Late st Contact Info) Description 09/04/2024 11:20 AM EDT Office Visit Family Practice [facility] [address] [place] [address] Vicky Hayward DO [address] [facility], [place] [address] 12/17/2024 8:30 AM EDT Office Visit Cardiology, [facility] [address] [place] [phone] Tacos Guerin PA-C [address] [place] [address] 04/28/2025 9:40 AM EST Office Visit Dermatology [employer] [address] [place] [address] Chandni Stahl PA-C [address] [facility] [place] [address] Scheduled Procedures Name Priority Associated Diagnoses Date/Ti me COLONOSCOPY FLEXIBLE PROXIMAL DIAGNOSTIC Recall History of colon polyps Scheduled Referrals Name Type Priority Associated Diagnoses Orde r Schedule WOUND CARE REFERRAL OP Referral Within 3 days (urgent) Pressure ulcer of right heel, stage 2 (HCC) Ordered: 08/21/2024 Health Maintenance Due Date Last Done Comments DXA Scan 12/08/2021 12/08/2018, 08/2014, 03/18/2012, Additional history exists Adult Wellness [...] this encounter Medical Devices Implanted Type Area Medical Imaging Technician Device Identifier Shelf Expiration Date Model / Serial / Lot Lens Intraoc 17.0 - [id number] - [id number] Implanted:Qty: 1 on 07/10/2022 by Lucio Pino MD at OR [facility] Left: Eye BAUSCH 02/02/2027 [id number] / [id number] / Lens Intraoc 17.0 - [id number] - [id number] Implanted:Qty: 1 on 07/24/2022 by Lucio Pino MD at OR [facility] Right: Eye BAUSCH 05/05/2027 [id number] / [id number] / [id number] documented as of this encounter Procedures Procedure Name Priority Date/Time Associated Diagnosis Comments HEMOGLOBIN A1C Routine 08/21/2024 10:44 AM EDT Type 2 diabetes mellitus with hemoglobin A1c goal of less than 8.0% (HCC) COMPREHENSIVE METABOLIC PANEL Routine 08/21/2024 10:44 AM EDT Generalized weakness CBC Routine 08/21/2024 10:44 AM EDT Generalized weakness documented in this encounter Results * (ABNORMAL) CBC (08/21/2024 10:44 AM EDT) WBC 11.44(H) 4.00 - 10.80 K/uL 08/21/2024 10:52 PM EDT [facility] RBC 3.96 3.85 - 5.15 M/uL 08/21/2024 10:52 PM EDT [facility] HGB 12.1 12.0 - 15.3 g/dL 08/21/2024 10:52 PM EDT [facility] HCT 38.9 36.0 - 45.2 % 08/21/2024 10:52 PM EDT [facility] MCV 98.2 81.5 - 97.5 fL 08/21/2024 10:52 PM EDT [facility] MCH 30.6 27.0 - 34.0 pg 08/21/2024 10:52 PM EDT LABORATORY [facility] MCHC 31.1 32.0 - 36.0 g/dL 08/21/2024 10:52 PM EDT LABORATORY [facility] RDW 14.6 11.5 - 15.5 % 08/21/2024 10:52 PM EDT LABORATORY [facility] PLT 313 140 - 400 K/uL 08/21/2024 10:52 PM EDT [facility] MPV 13.4 6.6 - 11.1 fL 08/21/2024 10:52 PM EDT LABORATORY [facility] NRBCs 0 <=0 /100 WBCs 08/21/2024 10:52 PM EDT LABORATORY [facility] Blood Venous blood specimen / Unknown Venipuncture / Unknown 08/21/2024 10:44 AM EDT 08/21/2024 10:44 AM EDT us Vicky Hayward DO LAB BLOOD ORDERABLES Final Res ult LABORATORY [facility] [address] [place] [address] * COMPREHENSIVE METABOLIC PANEL (08/21/2024 10:44 AM EDT) BUN 20 6 - 20 mg/dL 08/22/2024 2:23 AM EDT [facility] CREATININE 0.8 0.5 - 1.0 mg/dL 08/22/2024 2:23 AM EDT [facility] EGFR 76 >=60 mL/min 08/22/2024 2:23 AM EDT [facility] Comment:eGFR is calculated b ased on the CKD-EPI 2020 equation. SODIUM 141 135 - 146 mmol/L 08/22/2024 2:23 AM EDT [facility] POTASSIUM 5.0 3.5 - 5.1 mmol/L 08/22/2024 2:23 AM EDT [facility] CHLORIDE 104 98 - 107 mmol/L 08/22/2024 2:23 AM EDT [facility] CO2 23 22 - 32 mmol/L 08/22/2024 2:23 AM EDT [facility] ANION GAP 14 7 - 15 mmol/L 08/22/2024 2:23 AM EDT [facility] GLUCOSE 111 70 - 120 mg/dL 08/22/2024 2:23 AM EDT [facility] Albumin 3.8 3.8 - 5.0 g/dL 08/22/2024 2:23 AM EDT [facility] AST 27 10 - 35 U/L 08/22/2024 2:23 AM EDT [facility] Alkaline Phosphatase 109 35 - 130 U/L 08/22/2024 2:23 AM EDT [facility] Bilirubin, Total 0.3 <=1.2 mg/dL 08/22/2024 2:23 AM EDT [facility] CALCIUM 9.2 8.4 - 10.2 mg/dL 08/22/2024 2:23 AM EDT [facility] Protein 7.4 6.0 - 8.3 g/dL 08/22/2024 2:23 AM EDT [facility] ALT 19 10 - 35 U/L 08/22/2024 2:23 AM EDT [facility] Blood Venous blood specimen / Unknown Venipuncture / Unknown 08/21/2024 10:44 AM EDT 08/21/2024 10:44 AM EDT us Vicky Hayward DO LAB BLOOD ORDERABLES Final Res ult LAB[facility]ATORY [facility] [address] [place] [address] * (ABNORMAL) HEMOGLOBIN A1C (08/21/2024 10:44 AM EDT) Hemoglobin A1C 6.9(H) 4.0 - 5.6 % 08/22/2024 2:29 AM EDT LABORATORY [facility] Comment:The use of HbA1c to monitor glycemic status is based on normal hemoglobin and HbA composition. This test should not be used in patients with abnormal hemoglobin that affects the half life of the red blood cell or the in vivo glycation rates. Estimated Average Glucose 151(H) <126 mg/dL 08/22/2024 2:29 AM EDT LABORATORY [facility] Blood Venous blood specimen / Unknown Venipuncture / Unknown 08/21/2024 10:44 AM EDT 08/21/2024 10:44 AM EDT us Vicky Hayward DO LAB BLOOD ORDERABLES Final Res ult LABORATORY [facility] [address] [facility] [place] [id number] documented in this encounter Visit Diagnoses Diagnosis Generalized weakness- Primary Other malaise and fatigue Ambulatory dysfunction Influenza A Influenza with other respiratory manifestations Pressure ulcer of right heel, stage 2 (HCC) Acute cystitis without hematuria Acute cystitis Chronic atrial fibrillation (HCC) Atrial fibrillation History of non-ST elevation myocardial infarction (NSTEMI) Old myocardial infarction Gastroesophageal reflux disease without esophagitis Esophageal reflux HTN, goal below 140/90 Unspecified essential hypertension Degeneration of intervertebral disc of lumbar region with discogenic back pain and lower extremity pain Pulmonary hypertension (HCC) Other chronic pulmonary heart diseases Pure hypercholesterolemia Type 2 diabetes mellitus with hemoglobin A1c goal of less than 8.0% (HCC) Risk and functional assessment Screening for unspecified condition Hospital discharge follow-up Other follow-up examination documented in this encounter Advance Directives * [...] Power of Attor hortensia? No Care Teams Eeg Technologist Relationship Specialty Start Date End Date Vicky Hayward DO [address] [place] [address] PCP - General Internal Medicine 10/21/23 documented as of this encounter"
--- OUTSIDE RECORDS SUMMARY | 2024-08-28 15:15 | External Medical Summary | Summary of Care ---
Author Name Unknown Organization [facility] Address [address] [place] [address] Phone [phone] Care Team Providers Care Manufacturing Associate Name Role Phone Roberth Hayward DO Primary Care Provider [phone] Encounter Details Date Type Department Care Team (Late st Contact Info) Description 08/24/2024 3:30 PM EDT Nurse Only Family Practice 65 [facility] [address] [place] [address] College, Nurse [facility] [address] [address] Allergies Active Allergy Reactions Criticality Noted Date [...] mRNA, LNP-s, No Pre serve, 2-Dose Series ([employer]) 04/27/2021,07/15/2020,06/24/2020 COVID-19, LNP-s, No Preserve , Oliver-sucrose, Ages 12+ (Pfizer) 10/24/2021 COVID-19, MRNA-LNP, PF, 30 M CG/0.3 mL, 12 YRS AND ABOVE, IM ([facility] 01/16/2024,03/14/2023 Covid-19, Mrna, Lnp-s, Pf, B ivalent, 30 Mcg, IM, 12 yrs and above (Pfizer) 03/27/2022 Pneumococcal Conjugate Vacc, 13 Valent (Prevnar) 11/01/2014 Pneumococcal Conjugate Vacci ne, 20-valent ([id number]) 04/17/2024 Pneumococcal Polysaccharide PPV23 (Pneumovax) 08/28/2007 RSV [...] as of this encounter Miscellaneous Notes * Result Encounter Note - Bre De La Garza LPN - 08/25/2024 10:11 AM EDT Sent my Connectipity message. documented in this encounter Plan of Treatment Upcoming Encounters Date Type Department Care Team (Late st Contact Info) Description 09/04/2024 11:20 AM EDT Office Visit Family Practice [address] [place] [address] 293 [place] [address] Roberth Hayward DO 293 [place] [address] 12/17/2024 8:30 AM EDT Office Visit Cardiology, [facility] [address] [place] [phone] Tacos Guerin PA-C [address] [place] [address] 04/28/2025 9:40 AM EST Office Visit Dermatology [facility] [address] [place] [address] Chandni Stahl PA-C [address] [place] [address] Scheduled Procedures Name Priority Associated Diagnoses Date/Ti [...] this encounter Medical Devices Implanted Type Area Mill Dresser Device Identifier Shelf Expiration Date Model / Serial / Lot Lens Intraoc 17.0 - [id number] - [id number] Implanted:Qty: 1 on 07/10/2022 by Lucio Pino MD at OR [facility] Left: Eye BAUSCH 02/02/2027 [id number] / [id number] / Lens Intraoc 17.0 - [id number] - [id number] Implanted:Qty: 1 on 07/24/2022 by Lucio Pino MD at OR [facility] Right: Eye BAUSCH 05/05/2027 [id number] / [id number] / [id number] documented as of this encounter Procedures Procedure Name Priority Date/Time Associated Diagnosis Comments ALBUMIN / CREATININE RATIO, URINE Routine 08/24/2024 3:23 PM EDT Microalbuminuria documented in this encounter Results * (ABNORMAL) ALBUMIN / CREATININE RATIO, URINE (08/24/2024 3:23 PM EDT) Albumin, Random Urine 10.01 mg/dL 08/24/2024 10:43 PM EDT [facility] Creatinine, Random Urine 196 mg/dL 08/24/2024 10:43 PM EDT [facility]ORY [facility] Albumin / Creatinine Ratio, Urine 51(H) <30 mg/g Creat 08/24/2024 10:43 PM EDT [facility]ORY [facility] Urine Urine specimen obtained by clean catch procedure / Unknown Non-blood Collection / Unknown 08/24/2024 3:23 PM EDT 08/24/2024 3:23 PM EDT Narrative [facility]ORY [facility] - 08/24/2024 10:43 PM EDT Normal: <30 mg/g creatinine High: 30-300 mg/g creatinine Very High: >300 mg/g creatinine Nephrotic: >2200 mg/g creatinine us Roberth Hayward DO LAB URINE ORDERABLES Final Res ult LAB[facility]ATORY [facility] [address] [place] [address] documented in this encounter Visit Diagnoses Diagnosis Microalbuminuria- Primary Proteinuria documented in this encounter Advance Directives * [...] Power of Attor hortensia? No Care Teams Manufacturing Associate Relationship Specialty Start Date End Date Roberth Hayward DO [address] [place] [address] PCP - General Internal Medicine 10/21/23 documented as of this encounter
--- OUTSIDE RECORDS SUMMARY | 2024-08-28 15:15 | External Medical Summary | Summary of Care ---
Author Name Unknown Organization [facility] Address [address] [place] [address] Phone [phone] Care Team Providers Care Surgical Elastic Knitter Hand Frame Name Role Phone Roberth Hayward DO Primary Care Provider [phone] Reason for Visit * Reason Onset Date Comments Hospital Follow-Up 08/27/2024 Encounter Details Date Type Department Care Team (Late st Contact Info) Description 08/27/2024 10:00 AM EDT Scheduled Telephone Family Practice 65 [facility] [address] Floor 1 Entrance [address] [place] [address] Roselia Costa, ANDREA [address] [place] [address] Allergies Active Allergy Reactions Criticality Noted Date [...] mRNA, LNP-s, No Pre serve, 2-Dose Series (Andel) 04/27/2021,07/15/2020,06/24/2020 COVID-19, LNP-s, No Preserve , Oliver-sucrose, Ages 12+ (Pfizer) 10/24/2021 COVID-19, MRNA-LNP, PF, 30 M CG/0.3 mL, 12 YRS AND ABOVE, IM ([facility]) 01/16/2024,03/14/2023 Covid-19, Mrna, Lnp-s, Pf, B ivalent, 30 Mcg, IM, 12 yrs and above (Andel) 03/27/2022 Pneumococcal Conjugate Vacc, 13 Valent (Prevnar) 11/01/2014 Pneumococcal Conjugate Vacci ne, 20-valent ([id number]) 04/17/2024 Pneumococcal Polysaccharide PPV23 (Pneumovax) 08/28/2007 RSV [...] encounter Miscellaneous Notes * Telephone Encounter - Roselia Costa RN - 08/27/2024 1:51 PM EDT Phone visit for post SNF d/c from [facility]- [facility] week 2 Dates of stay: 07/14/24 to [facility] then 07/20/24 to [facility] until 08/13/24 Spoke with patient's quitatherInga, who reports: Kathi is "Doing ok" Still having a hard time getting up on her own- needs a lot of help PT was in today-encouraging that she does the home exercises they provided to build strength Eating independently Brushes her teeth (seated) independently Requires assistance with other tasks [facility] sending someone out twice weekly to assist with personal cares Finished cipro (for UTI) Had urine tested Saturday for alb/creat- daughter thought it was being tested for infection, however. No fever, no dysuria, no change in urine characteristics Denies increased SOB, no wheeze No chest pain Appetite fair- still about 50% meals Family encouraging water intake- Kathi doing better with this No N/V/D Bms regular- every 1-2 days No Dizziness/Lightheadedness Continues to c/o pain in knees L>R No longer c/o left hip pain Takes tylenol prn Keeping an eye on heel pressure areas- R>L; Right heel dressings every other day. Using a no sting skin prep spray to left heel only Avoiding pressure when lying/sitting Wound care appointment at [facility] on 09/02/24 at 1 PM Gait Belt Transfer w/c, lift chair have been ordered but Inga reports they have not heard anything yet about any of them. I did relay that TH was asking for additional information for the transferw/c and that clinic team is working on the request Aware CBC is needed this week- will take Kathi to [facility] lab this afternoon Inga denies any outstanding needs or concerns Pt scheduled for next PCP f/u on 09/04/24 I reinforced how to reach [address] triage after hours, weekends and holidays by calling clinic phone # documented in this encounter Plan of Treatment Upcoming Encounters Date Type Department Care Team (Late st Contact Info) Description 09/04/2024 11:20 AM EDT Office Visit Family Practice [address], [place] [facility] [address] Roberth Hayward, 293 [facility], [place] [address] 12/17/2024 8:30 AM EDT Office Visit Cardiology, [facility] [address] [place] [phone] Tacos Guerin PA-C [address] [place] [address] 04/28/2025 9:40 AM EST Office Visit Dermatology [facility] [address] [place] [address] Chandni Stahl PA-C [address] [place] [address] Scheduled Procedures Name Priority Associated Diagnoses Date/Ti me COLONOSCOPY FLEXIBLE PROXIMAL DIAGNOSTIC Recall History of colon polyps Health Maintenance Due Date Last Done Comments DXA Scan 12/08/2021 12/08/2018, 05/0 08/2014, 03/18/2012, Additional history exists Adult Wellness Visit 09/28/2023 09/27/2022, 09/21/2021, 10/04/2020 Diabetic Foot Exam 07/11/2024 07/12/2023, 0 07/05/2022, 07/19/2021, Additional history exists COVID-19 Vaccine (2023- season) 2024 02/04/2024, 01/16/2024, 03/14/2023, Additional history [...] this encounter Medical Devices Implanted Type Area Rubber Belt Splicer Device Identifier Shelf Expiration Date Model / Serial / Lot Lens Intraoc 17.0 - [id number] - [id number] Implanted:Qty: 1 on 07/10/2022 by Lucio Pino MD at OR [facility] Left: Eye BAUSCH 02/02/2027 [id number] / [id number] / Lens Intraoc 17.0 - [id number] - [id number] Implanted:Qty: 1 on 07/24/2022 by Lucio Pino MD at OR [facility] Right: Eye BAUSCH 05/05/2027 [id number] / [id number] / [id number] documented as of this encounter Advance Directives [...] Power of Attor hortensia? No Care Teams Surgical Elastic Knitter Hand Frame Relationship Specialty Start Date End Date Roberth Hayward DO [address] [place] [address] PCP - General Internal Medicine 10/21/23 documented as of this encounter
--- OUTSIDE RECORDS SUMMARY | 2024-08-28 15:15 | External Medical Summary ---
Author Name Unknown Address Unknown Organization K09:[facility] [place] [address] Laboratory Report Ordering Provider Test Date Status GM HAMMOND 08/27/2024 15:25:45 Final Observation Date Value Abnormality Reference (Units ) Status BUN 08/27/2024 15:25:45 22 Above high normal 6-20 (mg/dL) Final Creatinine 08/27/2024 15:25:45 0.8 0.5-1.0 (mg/dL) Final Glomerular filtration rate/1.73 sq M.predicted [Volume Rate/Area] in Serum, Plasma or Blood by Creatinine-based formula (CKD-EPI) 08/27/2024 15:25:45 77 >=60 (mL/min) Final eGFR is calculated based on the CKD-EPI 2020 equation. Sodium 08/27/2024 15:25:45 138 135-146 (m mol/L) Final Potassium 08/27/2024 15:25:45 4.3 3.5-5.1 (m mol/L) Final Cl 08/27/2024 15:25:45 100 98-107 (mm ol/L) Final CO2 08/27/2024 15:25:45 15 Below low normal 22- 32 (mmol/L) Final Anion gap 08/27/2024 15:25:45 23 Above high normal 7- 15 (mmol/L) Final Glucose 08/27/2024 15:25:45 220 Above high normal 70 -120 (mg/dL) Final Albumin 08/27/2024 15:25:45 3.9 3.8-5.0 (g /dL) Final AST (Aspartate aminotransferase) 08/27/2024 15:25:45 25 10-35 (U/L) Fin al Alk Phos 08/27/2024 15:25:45 124 35-130 (U/ L) Final Bilirubin, Total 08/27/2024 15:25:45 0.4 <=1 .2 (mg/dL) Final Calcium 08/27/2024 15:25:45 9.2 8.4-10.2 ( mg/dL) Final Protein 08/27/2024 15:25:45 7.7 6.0-8.3 (g /dL) Final ALT (Alanine aminotransferase) 08/27/2024 15:25:45 15 10-35 (U/L) Eugene patterson Performing Location [facility] [address] [place] [address]
--- OUTSIDE RECORDS SUMMARY | 2024-08-28 15:15 | External Medical Summary | Summary of Care ---
Author Name Unknown Organization [facility] Address [address] [place] [address] Phone [phone] Care Team Providers Care Medical Sales Consultant Name Role Phone Roberth Hayward DO Primary Care Provider [phone] Reason for Visit * Reason Onset Date Comments Hospital Follow-Up 08/27/2024 Encounter Details Date Type Department Care Team (Late st Contact Info) Description 08/27/2024 10:00 AM EDT Scheduled Telephone Family Practice 65 [facility] [address] Floor 1 Entrance [address] [place] [address] Roselia Costa, ANDREA [address] [place] [address] Allergies Active Allergy Reactions Criticality Noted [...] mRNA, LNP-s, No Pre serve, 2-Dose Series ([employer]) 04/27/2021,07/15/2020,06/24/2020 COVID-19, LNP-s, No Preserve , Oliver-sucrose, Ages 12+ (Pfizer) 10/24/2021 COVID-19, MRNA-LNP, PF, 30 M CG/0.3 mL, 12 YRS AND ABOVE, IM ([facility]) 01/16/2024,03/14/2023 Covid-19, Mrna, Lnp-s, Pf, B ivalent, 30 Mcg, IM, 12 yrs and above ([employer]) 03/27/2022 Pneumococcal Conjugate Vacc, 13 Valent (Prevnar) 11/01/2014 Pneumococcal Conjugate Vacci ne, 20-valent ([id number]) 04/17/2024 Pneumococcal Polysaccharide PPV23 (Pneumovax) 08/28/2007 RSV [...] Phone visit for post SNF d/c from [facility]- [facility] week 2 Dates of stay: 07/14/24 to [facility] then 07/20/24 to [facility] until 08/13/24 Spoke with patient's quitatherInga, who reports: Kathi is "Doing ok" Still having a hard time getting up on her own- needs a lot of help PT was in today-encouraging that she does the home exercises they provided to build strength Eating independently Brushes her teeth (seated) independently Requires assistance with other tasks [facility] sending someone out twice weekly to [...] pressure when lying/sitting Wound care appointment at [place] on 09/02/24 at 1 PM Gait Belt Transfer w/c, lift chair have been ordered but Inga reports they have not heard anything yet about any of them. I did relay that TH was asking for additional information for the transferw/c and that clinic team is working on the request Aware CBC is needed this week- will take Kathi to [facility] lab this afternoon Inga denies any [...] EDT Office Visit Family Practice [address], [place] [facility] [address] Roberth Hayward, 293 [facility], [place] [address] 12/17/2024 8:30 AM EDT Office Visit Cardiology, [facility] [address] [place] [phone] Tacos Guerin PA-C [address] [place] [address] 04/28/2025 9:40 AM EST Office Visit Dermatology [facility] [address] [place] [address] Chandni Stahl PA-C [address] [place] [address] Scheduled Procedures Name Priority Associated Diagnoses Date/Ti [...] this encounter Medical Devices Implanted Type Area Associate Professor Of Radiology Device Identifier Shelf Expiration Date Model / Serial / Lot Lens Intraoc 17.0 - [id number] - [id number] Implanted:Qty: 1 on 07/10/2022 by Lucio Pino MD at OR [facility] Left: Eye BAUSCH 02/02/2027 [id number] / [id number] / Lens Intraoc 17.0 - [id number] - [id number] Implanted:Qty: 1 on 07/24/2022 by Lucio Pino MD at OR [facility] Right: Eye BAUSCH 05/05/2027 [id number] / [id number] / [id number] documented as of this encounter Advance Directives [...] Power of Attor hortensia? No Care Teams Medical Sales Consultant Relationship Specialty Start Date End Date Roberth Hayward DO [address] [place] [address] PCP - General Internal Medicine 10/21/23 documented as of this encounter
--- OUTSIDE RECORDS SUMMARY | 2024-08-28 15:15 | External Medical Summary | Summary of Care ---
Author Name Unknown Organization [facility] Address [address] [place] [address] Phone [phone] Care Team Providers Care Dean Of Instruction Name Role Phone Roberth Hayward DO Primary Care Provider [phone] Reason for Visit * Reason Onset Date Comments Order Request 08/25/2024 DME for transfer wheelchair Encounter Details Date Type Department Care Team (Late st Contact Info) Description 08/25/2024 Telephone Family Practice 65 [facility] [address] [place] [address] Roberth Hayward DO [address] [place] [address] Order Request (DME for transfer wheelchair ) Allergies Active Allergy Reactions Criticality Noted Date Comments Metronidazole 02/24/2007 Hives Penicillins 01/24/2001 swelling of tongue documented as of this encounter (statuses as of 08/25/2024) Medications Acetaminophen 500 MG Oral Tablet (Tylenol) [...] as of this encounter (statuses as of 08/25/2024) Active Problems Problem Noted Date Diagnosed Date [...] as of this encounter (statuses as of 08/25/2024) Resolved Problems Problem Noted Date Diagnosed Date [...] as of this encounter (statuses as of 08/25/2024) Immunizations Name Administration Dates Next Due COVID-19 mRNA, LNP-s, No Pre serve, 2-Dose Series ([employer]) 04/27/2021,07/15/2020,06/24/2020 COVID-19, LNP-s, No Preserve , Oliver-sucrose, Ages 12+ (Pfizer) 10/24/2021 COVID-19, MRNA-LNP, PF, 30 M CG/0.3 mL, 12 YRS AND ABOVE, IM ([facility]) 01/16/2024,03/14/2023 Covid-19, Mrna, Lnp-s, Pf, B ivalent, 30 Mcg, IM, 12 yrs and above ([employer]) 03/27/2022 Pneumococcal Conjugate Vacc, 13 Valent (Prevnar) 11/01/2014 Pneumococcal Conjugate Vacci ne, 20-valent ([id number]) 04/17/2024 Pneumococcal Polysaccharide PPV23 (Pneumovax) 08/28/2007,01/23/2002 RSV [...] DME order for a transfer wheelchair through [facility] on 08/17. After chatting back and forth with the [facility] team, this is what they need "Hello! [facility] here. Apologies for the back and forth [...] AM EDT Scheduled Telephone Family Practice 65 [facility] [address] Floor [address]tr[address] [place] [address] Roselia Costa, ANDREA [address] [facility] [address] [place], [place] [phone] 09/04/2024 11:20 AM EDT Office Visit Family [address] [place] [address] Roberth Hayward DO [address] [place] [address] 12/17/2024 8:30 AM EDT Office Visit Cardiology, [facility] [address] [place] [phone] Tacos Guerin PA-C [address] [place] [address] 04/28/2025 9:40 AM EST Office Visit [facility]atology [facility] [address] [place] [address] Chandni Stahl PA-C [address] [place] [address] Scheduled Procedures Name Priority Associated Diagnoses Date/Ti [...] this encounter Medical Devices Implanted Type Area Safety Clothing And Equipment Developer Device Identifier Shelf Expiration Date Model / Serial / Lot Lens Intraoc 17.0 - [id number] - [id number] Implanted:Qty: 1 on 07/10/2022 by Lucio Pino MD at OR [facility] Left: Eye BAUSCH 02/02/2027 [id number] / [id number] / Lens Intraoc 17.0 - [id number] - [id number] Implanted:Qty: 1 on 07/24/2022 by Lucio Pino MD at OR [facility] Right: Eye BAUSCH 05/05/2027 [id number] / [id number] / [id number] documented as of this encounter Advance Directives [...] Power of Attor hortensia? No Care Teams Dean Of Instruction Relationship Specialty Start Date End Date Roberth Hayward DO [address] [place] [address] PCP - General Internal Medicine 10/21/23 documented as of this encounter
--- OUTSIDE RECORDS SUMMARY | 2024-08-28 15:15 | External Medical Summary | Summary of Care ---
Author Name Unknown Organization [facility] Address [address] [place] [address] Phone [phone] Care Team Providers Care Retail Branch Manager Name Role Phone Roberth Hayward DO Primary Care Provider [phone] Reason for Visit * Reason Onset Date Comments Order Request 08/25/2024 DME for transfer wheelchair Encounter Details Date Type Department Care Team (Late st Contact Info) Description 08/25/2024 Telephone Family Practice 65 [facility] [address] [place] [address] Roberth Hayward DO 293 [place] [address] Order Request (DME for transfer wheelchair ) [...] mRNA, LNP-s, No Pre serve, 2-Dose Series ([employer]) 04/27/2021,07/15/2020,06/24/2020 COVID-19, LNP-s, No Preserve , Oliver-sucrose, Ages 12+ (Pfizer) 10/24/2021 COVID-19, MRNA-LNP, PF, 30 M CG/0.3 mL, 12 YRS AND ABOVE, IM ([facility]) 01/16/2024,03/14/2023 Covid-19, Mrna, Lnp-s, Pf, B ivalent, 30 Mcg, IM, 12 yrs and above ([employer]icoin) 03/27/2022 Pneumococcal Conjugate Vacc, 13 Valent (Prevnar) 11/01/2014 Pneumococcal Conjugate Vacci ne, 20-valent ([id number]) 04/17/2024 Pneumococcal Polysaccharide PPV23 (Pneumovax) 08/28/2007,01/23/2002 RSV [...] DME order for a transfer wheelchair through [facility] on 08/17. After chatting back and forth with the [facility] team, this is what they need "Hello! [facility] here. Apologies for the back and forth [...] AM EDT Scheduled Telephone Family Practice 65 [facility] [address] [place] [address] Roselia Costa, ANDREA [address] [facility] 61 [place], [place] [address] 09/04/2024 11:20 AM EDT Office Visit Family [address] [place] [address] Roberth Hayward DO [address] [place] [address] 12/17/2024 8:30 AM EDT Office Visit Cardiology, [facility] [address] [place] [phone] Tacos Guerin PA-C [address] [place] [address] 04/28/2025 9:40 AM EST Office Visit [facility]atology [facility] [address] [place] [address] Chandni Stahl PA-C [address] [place] [address] Scheduled Procedures Name Priority Associated Diagnoses Date/Ti [...] encounter Medical Devices Implanted Type Area Safety Patrol Officer Device Identifier Shelf Expiration Date Model / Serial / Lot Lens Intraoc 17.0 - [id number] - [id number] Implanted:Qty: 1 on 07/10/2022 by Lucio Pino MD at OR [facility] Left: Eye BAUSCH 02/02/2027 [id number] / [id number] / Lens Intraoc 17.0 - [id number] - [id number] Implanted:Qty: 1 on 07/24/2022 by Lucio Pino MD at OR [facility] Right: Eye BAUSCH 05/05/2027 [id number] / [id number] / [id number] documented as of this encounter Advance Directives [...] Power of Attor hortensia? No Care Teams Retail Branch Manager Relationship Specialty Start Date End Date Roberth Hayward DO [address] [place] [address] PCP - General Internal Medicine 10/21/23 documented as of this encounter
--- OUTSIDE RECORDS SUMMARY | 2024-08-28 15:15 | External Medical Summary ---
Author Name Unknown Address Unknown Organization [facility] [place] [address] Laboratory Report Ordering Provider Test Date Status MARTIN PERRY 08/27/2024 15:25:45 Final Observation Date Value Abnormality Reference (Units ) Status WBC, Total 08/27/2024 15:25:45 12.28 Above high normal 4 .00-10.80 (K/uL) Final RBC 08/27/2024 15:25:45 3.79 3.85-5.15 (M/uL) Final Hemoglobin 08/27/2024 15:25:45 11.6 Below low normal 12 .0-15.3 (g/dL) Final HCT 08/27/2024 15:25:45 37.2 36.0-45.2 (%) Final MCV 08/27/2024 15:25:45 98.2 81.5-97.5 (fL) Final MCH 08/27/2024 15:25:45 30.6 27.0-34.0 (pg) Final MCHC 08/27/2024 15:25:45 31.2 32.0-36.0 (g/dL) Final RDW 08/27/2024 15:25:45 15.4 11.5-15.5 (%) Final Platelets 08/27/2024 15:25:45 324 140-400 (K /uL) Final MPV 08/27/2024 15:25:45 12.2 6.6-11.1 ( fL) Final Performing Location [facility] [place] [address]
--- OUTSIDE RECORDS SUMMARY | 2024-08-28 15:16 | External Medical Summary | Summary of Care ---
Author Name Unknown Organization [facility] Address [address] [place] [address] Phone [phone] Care Team Providers Care Linen Room Houseperson Name Role Phone Vicky Hayward DO Primary Care Provider [phone] Reason for Referral * Evaluate & Treat - Unlimited Visits (Within 3 days (urgent)) - Authorized Specialty Diagnoses / Procedures Referred By Wilmer sesay Referred To Contact Wound Care Diagnoses Pressure ulcer of right heel, stage 2 (HCC) Vicky Hayward DO [address] [place] [address] Phone: tel: fax: Referral ID Status Reason Start Date Expiration Date Visits Requested Visits Authorized [id number] Authorized Specialty Services Required 08/21/2024 999 999 [...] EDT Office Visit Family Practice [address] [facility] [place] [address] [place] [address] Vicky Hayward DO [address] [place] [address] Generalized weakness*; Ambulatory dysfunction; Influenza A; Pressure [...] hemoglobin A1c goal of less than 8.0% ([facility]); Risk and functional assessment; Hospital discharge follow-up Allergies Active Allergy Reactions Criticality Noted Date Comments Metronidazole 02/24/2007 Hives Penicillins 01/24/2001 swelling of tongue documented as of this encounter (statuses as of 08/21/2024) Medications Acetaminophen 500 MG Oral Tablet (Tylenol) [...] as of this encounter (statuses as of 08/21/2024) Active Problems Problem Noted Date Diagnosed Date [...] as of this encounter (statuses as of 08/21/2024) Resolved Problems Problem Noted Date Diagnosed Date [...] as of this encounter (statuses as of 08/21/2024) Immunizations Name Administration Dates Next Due COVID-19 mRNA, LNP-s, No Pre serve, 2-Dose Series (meQuilibrium) 04/27/2021,07/15/2020,06/24/2020 COVID-19, LNP-s, No Preserve , Oliver-sucrose, Ages 12+ (Pfizer) 10/24/2021 COVID-19, MRNA-LNP, PF, 30 M CG/0.3 mL, 12 YRS AND ABOVE, IM ([employer]-Comirnat) 01/16/2024,03/14/2023 Covid-19, Mrna, Lnp-s, Pf, B ivalent, 30 Mcg, IM, 12 yrs and above (meQuilibrium) 03/27/2022 Pneumococcal Conjugate Vacc, 13 Valent (Prevnar) 11/01/2014 Pneumococcal Conjugate Vacci ne, 20-valent ([id number]) 04/17/2024 Pneumococcal Polysaccharide PPV23 (Pneumovax) 08/28/2007,01/23/2002 RSV [...] Recent Admission: Patient was recently admitted to [facility]. The date of discharge was 08/13/2024. Discharge report received and reviewed. HPI: Patient is an 84 year old female with a history of diabetes type II, atrial fibrillation, hyperlipidemia, GERD, esophageal stricture, lumbar disc disease, ambulatory dysfunction, and osteoporosis that is seen for hospital follow up. The patient was admitted to [facility] from 07/14/2024 - 07/20/2024. The patient was admitted to the hospital due to fall from walker seat. She had worsening weakness due to influenza A infection and UTI. The patient had NSTEMI as well. The patient was transferred to [facility] on 07/20/2024 and was discharged on 08/13/2024. She was admitted to [facility] for weakness andwas treated with Physical [...] hemoglobin A1c goal of less than 8.0% ([facility]) - HEMOGLOBIN A1C; Future; Expected date: 08/21/2024 - HEMOGLOBIN A1C Diet controlled Risk and functional assessment Hospital discharge follow-up - DISCH MED RECON CUR MED LIS Follow-up: Return in about 2 weeks (around 09/04/2024). | Check-out note: Schedule with [facility] Vicky Hayward DO documented in this encounter Miscellaneous Notes * Addendum Note - Vicky Hayward DO - 08/21/2024 12:47 PM EDTAddended by: VICKY HAYWARD on: 08/21/2024 12:47 PM Modules accepted: Orders * Addendum Note - Bre De La Garza LPN - 08/21/2024 12:47 PM EDTAddended by: BRE DE LA GARZA on: 08/21/2024 12:47 PM Modules accepted: Orders documented in this encounter Plan of Treatment Upcoming Encounters Date Type Department Care Team (Late st Contact Info) Description 09/04/2024 11:20 AM EDT Office Visit Family Practice [address] [place] [address] [address] [facility] [place] [address] Vicky Hayward DO 293 [facility], [place] [address] 12/17/2024 8:30 AM EDT Office Visit [facility], [facility] [address] [place] [phone] Tacos Guerin PA-C [address] [place] [address] 04/28/2025 9:40 AM EST Office Visit Dermatology [facility] [address] [facility] [place] [address] Chandni Stahl PA-C [address] [facility] [place] [address] Pending Results Name Type Priority Associated Diagnoses Date /Time HEMOGLOBIN A1C Lab Routine Type 2 diabetes mellitus with hemoglobin A1c goal of less than 8.0% (HCC) 08/21/2024 10:44 AM EDT COMPREHENSIVE METABOLIC PANEL Lab Routine Generalized weakness 08/21/2024 10:44 AM EDT CBC Lab Routine Generalized weakness 08/21/2024 10:44 AM EDT Scheduled Orders Name Type Priority Associated Diagnoses Orde r Schedule HEMOGLOBIN A1C Lab Routine Type 2 diabetes mellitus with hemoglobin A1c goal of less than 8.0% (HCC) Expected: 08/21/2024 (Approximate), Expires: 08/21/2025 COMPREHENSIVE METABOLIC PANEL Lab Routine Generalized weakness Expected: 08/21/2024 (Approximate), Expires: 08/21/2025 CBC Lab Routine Generalized weakness Expected: 11/20/2024 (Approximate), Expires: 08/21/2025 Scheduled Procedures Name Priority Associated Diagnoses Date/Ti [...] 09/27/2022, Additional history exists HbA1c 10/16/2024 04/17/2024, 0810/2023, 07/12/2023, Additional history exists Albumin/Creatinine Ratio 04/17/202504/17/2 024, 11/05/2022, 10/24/2021, Additional history exists Depression Screening 08/21/2025 08/21/2024 DTap/Tdap Vaccines (3 - Td or Tdap) [...] encounter Medical Devices Implanted Type Area Sales Special Agent Device Identifier Shelf Expiration Date Model / Serial / Lot Lens Intraoc 17.0 - [id number] - [id number] Implanted:Qty: 1 on 07/10/2022 by Lucio Pino MD at OR [facility] Left: Eye BAUSCH 02/02/2027 [id number] / [id number] / Lens Intraoc 17.0 - [id number] - [id number] Implanted:Qty: 1 on 07/24/2022 by Lucio Pino MD at OR [facility] Right: Eye BAUSCH 05/05/2027 [id number] / [id number] / [id number] documented as of this encounter Visit Diagnoses Diagnosis Generalized weakness- [...] Power of Attor hortensia? No Care Teams Linen Room Houseperson Relationship Specialty Start Date End Date Vicky Hayward DO [address] [place] [address] PCP - General Internal Medicine 10/21/23 documented as of this encounter"
--- OUTSIDE RECORDS SUMMARY | 2024-08-28 15:16 | External Medical Summary ---
Author Name Unknown Address Unknown Organization K01:[facility] [place] [address] [facility] [address] Laboratory Report Ordering Provider Test Date Status MARTIN PERRY 08/21/2024 10:44:22 Final Observation Date Value Abnormality Reference (Units ) Status HbA1C 08/21/2024 10:44:22 6.9 Above high normal 4. 0-5.6 (%) Final The use of HbA1c to monitor glycemic status is based on normal hemoglobin and HbA composition. This test should not be used in patients with abnormal hemoglobin that affects the half life of the red blood cell or the in vivo glycation rates. Glucose, estimated average 08/21/2024 10:44:22 151 Above high normal <126 (mg/dL) Eugene patterson Performing Location [facility] [place] [facility] [address] [facility] [address]
--- OUTSIDE RECORDS SUMMARY | 2024-08-28 15:16 | External Medical Summary ---
Author Name Unknown Address Unknown Organization K01:[facility] [place] - [address] [facility] [address] Laboratory Report Ordering Provider Test Date Status VICKYMARTIN 08/21/2024 10:44:22 Final Observation Date Value Abnormality Reference (Units ) Status BUN 08/21/2024 10:44:22 20 6-20 (mg/dL) Final Creatinine 08/21/2024 10:44:22 0.8 0.5-1.0 (mg/dL) Final Glomerular filtration rate/1.73 sq M.predicted [Volume Rate/Area] in Serum, Plasma or Blood by Creatinine-based formula (CKD-EPI) 08/21/2024 10:44:22 76 >=60 (mL/min) Final eGFR is calculated based on the CKD-EPI 2020 equation. Sodium 08/21/2024 10:44:22 141 135-146 (m mol/L) Final Potassium 08/21/2024 10:44:22 5.0 3.5-5.1 (m mol/L) Final Cl 08/21/2024 10:44:22 104 98-107 (mm ol/L) Final CO2 08/21/2024 10:44:22 23 22-32 (mmo l/L) Final Anion gap 08/21/2024 10:44:22 14 7-15 (mmol /L) Final Glucose 08/21/2024 10:44:22 111 70-120 (mg /dL) Final Albumin 08/21/2024 10:44:22 3.8 3.8-5.0 (g /dL) Final AST (Aspartate aminotransferase) 08/21/2024 10:44:22 27 10-35 (U/L) Final Alk Phos 08/21/2024 10:44:22 109 35-130 (U/ L) Final Bilirubin, Total 08/21/2024 10:44:22 0.3 <=1 .2 (mg/dL) Final Calcium 08/21/2024 10:44:22 9.2 8.4-10.2 ( mg/dL) Final Protein 08/21/2024 10:44:22 7.4 6.0-8.3 (g /dL) Final ALT (Alanine aminotransferase) 08/21/2024 10:44:22 19 10-35 (U/L) Final Performing Location [facility] [place] - [address] [facility] [address]
--- OUTSIDE RECORDS SUMMARY | 2024-08-28 15:16 | External Medical Summary | Summary of Care ---
Author Name Unknown Organization [facility] Address [address] [place] [address] Phone [phone] Care Team Providers Care Warehouse Unloader Name Role Phone Roberth Hayward DO Primary Care Provider [phone] Reason for Visit * Reason Onset Date Comments Test Results 08/24/202408/24 Encounter Details Date Type Department Care Team (Late st Contact Info) Description 08/24/2024 Telephone Family Practice [address] [facility] [address] [place] [phone] Roberth Hayward DO [address] [place] [address] Test Results (08/24) Allergies Active Allergy Reactions Criticality Noted Date [...] mRNA, LNP-s, No Pre serve, 2-Dose Series ([employer]) 04/27/2021,07/15/2020,06/24/2020 COVID-19, LNP-s, No Preserve , Oliver-sucrose, Ages 12+ (Pfizer) 10/24/2021 COVID-19, MRNA-LNP, PF, 30 M CG/0.3 mL, 12 YRS AND ABOVE, IM ([facility]) 01/16/2024,03/14/2023 Covid-19, Mrna, Lnp-s, Pf, B ivalent, 30 Mcg, IM, 12 yrs and above ([employer]) 03/27/2022 Pneumococcal Conjugate Vacc, 13 Valent (Prevnar) 11/01/2014 Pneumococcal Conjugate Vacci ne, 20-valent ([id number]) 04/17/2024 Pneumococcal Polysaccharide PPV23 (Pneumovax) 08/28/2007 RSV [...] encounter Miscellaneous Notes * Telephone Encounter - Angelo Beck MED ASSIST - 08/24/2024 11:38 AM EDT Patient daughter calling in wanting to speak to a nurse. No information given. Patient daughter did ask for [facility] wound clinic number and it was given to daughter. * Telephone Encounter - Roberth Hayward DO - 08/24/2024 11:29 AM EDT Repeat CBC any time this week * Telephone Encounter - Bre De La Garza LPN - 08/24/2024 11:23 AM EDT The only problem for Kathi daughter states is her heels. Does not have wound clinic appt yet. Repeat CBC when? Thank you * Telephone Encounter - Bre De La Garza LPN - 08/24/2024 11:21 AM EDT ----- Message from Roberth Hayward DO sent at 08/23/2024 10:58 AM EDT ----- Repeat CBC Check for infectious symptoms. documented in this encounter Plan of Treatment Upcoming Encounters Date Type Department Care Team (Late st Contact Info) Description 08/27/2024 10:00 AM EDT Scheduled Telephone Family Practice 65 [facility] [address]tr[address] [place] [address] Roselia Costa, RN [address] [place] [address] 09/04/2024 11:20 AM EDT Office Visit Family Practice [address] [place] [address] [address] [place] [address] Roberth Hayward DO [address] [place] [address] 12/17/2024 8:30 AM EDT Office Visit Cardiology, [facility] [address] [place] [address] Tacos Guerin PAYecenia [address] [place] [address] 04/28/2025 9:40 AM EST Office Visit Dermatology [facility] [address] [place] [address] Chandni Stahl PA-C [address] [place] [address] Scheduled Orders Name Type Priority Associated Diagnoses Orde r Schedule CBC Lab Routine Elevated white blood cell count Expected: 08/24/2024 (Approximate), Expires: 08/24/2025 Scheduled Procedures Name Priority Associated Diagnoses Date/Ti [...] encounter Medical Devices Implanted Type Area Medical Anthropologist Device Identifier Shelf Expiration Date Model / Serial / Lot Lens Intraoc 17.0 - [id number] - [id number] Implanted:Qty: 1 on 07/10/2022 by Lucio Pino MD at OR [facility] Left: Eye BAUSCH 02/02/2027 [id number] / [id number] / Lens Intraoc 17.0 - [id number] - [id number] Implanted:Qty: 1 on 07/24/2022 by Lucio Pino MD at OR [facility] Right: Eye BAUSCH 05/05/2027 [id number] / [id number] / [id number] documented as of this encounter Visit Diagnoses Diagnosis Elevated white blood cell count- Primary Leukocytosis, unspecified documented in this encounter Advance [...] Power of Attor hortensia? No Care Teams Warehouse Unloader Relationship Specialty Start Date End Date Roberth Hayward DO [address] [place] [address] PCP - General Internal Medicine 10/21/23 documented as of this encounter
--- OUTSIDE RECORDS SUMMARY | 2024-08-28 15:16 | External Medical Summary | Summary of Care ---
Author Name Unknown Organization [facility] Address [address] [place] [address] Phone [phone] Care Team Providers Care Perfect Binder Feeder Offbearer Name Role Phone Vicky Hayward DO Primary Care Provider [phone] Reason for Referral * Evaluate & Treat - Unlimited Visits (Within 3 days (urgent)) - Authorized Specialty Diagnoses / Procedures Referred By Wilmer sesay Referred To Contact Wound Care Diagnoses Pressure ulcer of right heel, stage 2 (HCC) Vicky Hayward DO [address] [place] [address] Phone: tel: fax: Referral ID Status Reason Start Date Expiration Date Visits Requested Visits Authorized [id number] Authorized Specialty Services Required 08/21/2024 999 999 [...] AM EDT Office Visit Family Practice 65 [facility] [place] [address] [place] [address] Vicky Hayward DO [address] [place] [address] Generalized weakness*; Ambulatory dysfunction; Influenza A; Pressure [...] hemoglobin A1c goal of less than 8.0% ([facility]); Risk and functional assessment; Hospital discharge follow-up [...] mRNA, LNP-s, No Pre serve, 2-Dose Series ([employer]) 04/27/2021,07/15/2020,06/24/2020 COVID-19, LNP-s, No Preserve , Oliver-sucrose, Ages 12+ (Pfizer) 10/24/2021 COVID-19, MRNA-LNP, PF, 30 M CG/0.3 mL, 12 YRS AND ABOVE, IM ([employer]-Comirnat) 01/16/2024,03/14/2023 Covid-19, Mrna, Lnp-s, Pf, B ivalent, 30 Mcg, IM, 12 yrs and above ([employer]avn) 03/27/2022 Pneumococcal Conjugate Vacc, 13 Valent (Prevnar) 11/01/2014 Pneumococcal Conjugate Vacci ne, 20-valent ([id number]) 04/17/2024 Pneumococcal Polysaccharide PPV23 (Pneumovax) 08/28/2007,01/23/2002 RSV [...] Recent Admission: Patient was recently admitted to [facility]. The date of discharge was 08/13/2024. Discharge report received and reviewed. HPI: Patient is an 84 year old female with a history of diabetes type II, atrial fibrillation, hyperlipidemia, GERD, esophageal stricture, lumbar disc disease, ambulatory dysfunction, and osteoporosis that is seen for hospital follow up. The patient was admitted to [facility] from 07/14/2024 - 07/20/2024. The patient was admitted to the hospital due to fall from walker seat. She had worsening weakness due to influenza A infection and UTI. The patient had NSTEMI as well. The patient was transferred to [facility] on 07/20/2024 and was discharged on 08/13/2024. She was admitted to [facility] for weakness andwas treated with Physical [...] hemoglobin A1c goal of less than 8.0% ([facility]) - HEMOGLOBIN A1C; Future; Expected date: 08/21/2024 - HEMOGLOBIN A1C Diet controlled Risk and functional assessment Hospital discharge follow-up - DISCH MED RECON CUR MED LIS Follow-up: Return in about 2 weeks (around 09/04/2024). | Check-out note: Schedule with [facility] Vicky Hayward DO documented in this encounter [...] 11:20 AM EDT Office Visit Family Practice [address] [place] [address] 293 [place] [address] Vicky Hayward DO [address] [facility], [place] [address] 12/17/2024 8:30 AM EDT Office Visit Cardiology, [facility] [address] [place] [phone] Tacos Guerin PA-C [address] [place] [address] 04/28/2025 9:40 AM EST Office Visit Dermatology [facility] [address] [facility] [place] [address] Chandni Stahl PA-C [address] [facility] [place] [address] Pending Results Name Type Priority Associated Diagnoses [...] this encounter Medical Devices Implanted Type Area Field Crop I Farmworker Device Identifier Shelf Expiration Date Model / Serial / Lot Lens Intraoc 17.0 - [id number] - [id number] Implanted:Qty: 1 on 07/10/2022 by Lucio Pino MD at OR [facility] Left: Eye BAUSCH 02/02/2027 [id number] / [id number] / Lens Intraoc 17.0 - [id number] - [id number] Implanted:Qty: 1 on 07/24/2022 by Lucio Pino MD at OR [facility] Right: Eye BAUSCH 05/05/2027 [id number] / [id number] / [id number] documented as of this encounter Visit Diagnoses [...] Power of Attor hortensia? No Care Teams Perfect Binder Feeder Offbearer Relationship Specialty Start Date End Date Vicky Hayward DO [address] [place] [address] PCP - General Internal Medicine 10/21/23 documented as of this encounter"
--- OUTSIDE RECORDS SUMMARY | 2024-08-28 15:16 | External Medical Summary | Summary of Care ---
Author Name Unknown Organization [facility] Address [address] [place] [address] Phone [phone] Care Team Providers Care Clinical Cytogenetics Director Name Role Phone Vicky Hayward DO Primary Care Provider [phone] Reason for Referral * Evaluate & Treat - Unlimited Visits (Within 3 days (urgent)) - Authorized Specialty Diagnoses / Procedures Referred By Wilmer sesay Referred To Contact Wound Care Diagnoses Pressure ulcer of right heel, stage 2 (HCC) Vicky Hayward DO [address] [place] [address] Phone: tel: fax: Referral ID Status Reason Start Date Expiration Date Visits Requested Visits Authorized [id number] Authorized Specialty Services Required 08/21/2024 999 999 [...] AM EDT Office Visit Family Practice 65 [facility] [place] [address] [place] [address] Vicky Hayward DO [address] [place] [address] Generalized weakness*; Ambulatory dysfunction; Influenza A; Pressure [...] hemoglobin A1c goal of less than 8.0% ([facility]); Risk and functional assessment; Hospital [...] mRNA, LNP-s, No Pre serve, 2-Dose Series (Power[employer]) 04/27/2021,07/15/2020,06/24/2020 COVID-19, LNP-s, No Preserve , Oliver-sucrose, Ages 12+ (Pfizer) 10/24/2021 COVID-19, MRNA-LNP, PF, 30 M CG/0.3 mL, 12 YRS AND ABOVE, IM ([employer]-Comirnat) 01/16/2024,03/14/2023 Covid-19, Mrna, Lnp-s, Pf, B ivalent, 30 Mcg, IM, 12 yrs and above ([employer]) 03/27/2022 Pneumococcal Conjugate Vacc, 13 Valent (Prevnar) 11/01/2014 Pneumococcal Conjugate Vacci ne, 20-valent ([id number]) 04/17/2024 Pneumococcal Polysaccharide PPV23 (Pneumovax) 08/28/2007,01/23/2002 RSV [...] recently admitted to [facility]. The date of discharge was 08/13/2024. Discharge report received and reviewed. HPI: Patient is an 84 year old female with a history of diabetes type II, atrial fibrillation, hyperlipidemia, GERD, esophageal stricture, lumbar disc disease, ambulatory dysfunction, and osteoporosis that is seen for hospital follow up. The patient was admitted to [facility] from 07/14/2024 - 07/20/2024. The patient was admitted to the hospital due to fall from walker seat. She had worsening weakness due to influenza A infection and UTI. The patient had NSTEMI as well. The patient was transferred to [facility] on 07/20/2024 and was discharged on 08/13/2024. She was admitted to [facility] for weakness andwas treated with Physical [...] hemoglobin A1c goal of less than 8.0% ([facility]) - HEMOGLOBIN A1C; Future; Expected date: 08/21/2024 - HEMOGLOBIN A1C Diet controlled Risk and functional assessment Hospital discharge follow-up - DISCH MED RECON CUR MED LIS Follow-up: Return in about 2 weeks (around 09/04/2024). | Check-out note: Schedule with [facility] Vicky Hayward DO documented in this encounter [...] 11:20 AM EDT Office Visit Family Practice [address] [place] [address] 293 [place] [address] Vicky Hayward DO 293 [facility], [place] [address] 12/17/2024 8:30 AM EDT Office Visit Cardiology, [facility] [address] [place] [phone] Tacos Guerin PA-C [address] [place] [address] 04/28/2025 9:40 AM EST Office Visit Dermatology [facility] [address] [facility] [place] [address] Chandni Stahl PA-C [address] [facility] [place] [address] Pending Results Name Type Priority Associated Diagnoses [...] this encounter Medical Devices Implanted Type Area Insurance Sales Representative Device Identifier Shelf Expiration Date Model / Serial / Lot Lens Intraoc 17.0 - [id number] - [id number] Implanted:Qty: 1 on 07/10/2022 by Lucio Pino MD at OR [facility] Left: Eye BAUSCH 02/02/2027 [id number] / [id number] / Lens Intraoc 17.0 - [id number] - [id number] Implanted:Qty: 1 on 07/24/2022 by Lucio Pino MD at OR [facility] Right: Eye BAUSCH 05/05/2027 [id number] / [id number] / [id number] documented as of this encounter Visit Diagnoses [...] of Attor hortensia? No Care Teams Clinical Cytogenetics Director Relationship Specialty Start Date End Date Vicky Hayward DO [address] [place] [address] PCP - General Internal Medicine 10/21/23 documented as of this encounter"
--- OUTSIDE RECORDS SUMMARY | 2024-08-28 15:16 | External Medical Summary | Summary of Care ---
Author Name Unknown Organization [facility] Address [address] [place] [address] Phone [phone] Care Team Providers Care Newspaper Columnist Name Role Phone Vicky Hayward DO Primary Care Provider [phone] Reason for Referral * Evaluate & Treat - Unlimited Visits (Within 3 days (urgent)) - Authorized Specialty Diagnoses / Procedures Referred By Wilmer sesay Referred To Contact Wound Care Diagnoses Pressure ulcer of right heel, stage 2 (HCC) Vicky Hayward DO [address] [place] [address] Phone: tel: fax: Referral ID Status Reason Start Date Expiration Date Visits Requested Visits Authorized [id number] Authorized Specialty Services Required 08/21/2024 999 999 [...] EDT Office Visit Family Practice [address] [facility] [place] [address] [place] [address] Vicky Hayward DO [address] [place] [address] Generalized weakness*; Ambulatory dysfunction; Influenza A; Pressure [...] hemoglobin A1c goal of less than 8.0% ([facility]); Risk and functional assessment; Hospital discharge follow-up [...] mRNA, LNP-s, No Pre serve, 2-Dose Series ([employer]) 04/27/2021,07/15/2020,06/24/2020 COVID-19, LNP-s, No Preserve , Oliver-sucrose, Ages 12+ (Pfizer) 10/24/2021 COVID-19, MRNA-LNP, PF, 30 M CG/0.3 mL, 12 YRS AND ABOVE, IM (ObjectVideo-Comirnat) 01/16/2024,03/14/2023 Covid-19, Mrna, Lnp-s, Pf, B ivalent, 30 Mcg, IM, 12 yrs and above ([employer]) 03/27/2022 Pneumococcal Conjugate Vacc, 13 Valent (Prevnar) 11/01/2014 Pneumococcal Conjugate Vacci ne, 20-valent ([id number]) 04/17/2024 Pneumococcal Polysaccharide PPV23 (Pneumovax) 08/28/2007,01/23/2002 RSV [...] Recent Admission: Patient was recently admitted to [facility]. The date of discharge was 08/13/2024. Discharge report received and reviewed. HPI: Patient is an 84 year old female with a history of diabetes type II, atrial fibrillation, hyperlipidemia, GERD, esophageal stricture, lumbar disc disease, ambulatory dysfunction, and osteoporosis that is seen for hospital follow up. The patient was admitted to [facility] from 07/14/2024 - 07/20/2024. The patient was admitted to the hospital due to fall from walker seat. She had worsening weakness due to influenza A infection and UTI. The patient had NSTEMI as well. The patient was transferred to [facility] on 07/20/2024 and was discharged on 08/13/2024. She was admitted to [facility] for weakness andwas treated with Physical [...] hemoglobin A1c goal of less than 8.0% ([facility]) - HEMOGLOBIN A1C; Future; Expected date: 08/21/2024 - HEMOGLOBIN A1C Diet controlled Risk and functional assessment Hospital discharge follow-up - DISCH MED RECON CUR MED LIS Follow-up: Return in about 2 weeks (around 09/04/2024). | Check-out note: Schedule with [facility] Vicky Hayward DO documented in [...] 11:20 AM EDT Office Visit Family Practice [address] [place] [address] 293 [facility] [place] [address] Vicky Hayward DO 293 [facility], [place] [address] 12/17/2024 8:30 AM EDT Office Visit Cardiology, [facility] [address] [place] [phone] Tacos Guerin PA-C [address] [place] [address] 04/28/2025 9:40 AM EST Office Visit Dermatology [facility] [address] [facility] [place] [address] Chandni Stahl PA-C [address] [facility] [place] [address] Pending Results Name Type Priority Associated Diagnoses [...] this encounter Medical Devices Implanted Type Area Hand Laster Device Identifier Shelf Expiration Date Model / Serial / Lot Lens Intraoc 17.0 - [id number] - [id number] Implanted:Qty: 1 on 07/10/2022 by Lucio Pino MD at OR [facility] Left: Eye BAUSCH 02/02/2027 [id number] / [id number] / Lens Intraoc 17.0 - [id number] - [id number] Implanted:Qty: 1 on 07/24/2022 by Lucio Pino MD at OR [facility] Right: Eye BAUSCH 05/05/2027 [id number] / [id number] / [id number] documented as of this encounter Visit Diagnoses [...] 12:51 PM 07/10/2022 7:01 PM This order r eflects the patients wishes and were consensually agreed upon. Question Answer Comments Discussion of Advance Directives occurred with: Patient Does the patient have a Living Will? No Does the patient have Health Care Power of Attor hortensia? No Care Teams Newspaper Columnist Relationship Specialty Start Date End Date Vicky Hayward DO [address] [place] [address] PCP - General Internal Medicine 10/21/23 documented as of this encounter"
--- OUTSIDE RECORDS SUMMARY | 2024-08-28 15:16 | External Medical Summary ---
Author Name Unknown Address Unknown Organization K01:LABORATORY [facility] - [address] [facility] [address] Laboratory Report Ordering Provider Test Date Status MARTIN PERRY 08/24/2024 15:23:43 Final Normal: <30 mg/g creatinine< br/>High: 30-300 mg/g creatinine
Very High: >300 mg/g creatinine
Nephrotic: >2200 mg/g creatinine Observation Date Value Abnormality Reference (Units ) Status Albumin, Urine 08/24/2024 15:23:43 10.01 (mg/dL) Final Creatinine, Urine 08/24/2024 15:23:43 196 (mg/dL) Final Albumin/Creatinine [Mass Ratio] in Urine 08/24/2024 15:23:43 51 Above high normal <30 (mg/g Creat) Final Performing Location LABORATORY [facility] - [address] [place] [address]
--- OUTSIDE RECORDS SUMMARY | 2024-08-28 15:16 | External Medical Summary ---
Author Name Unknown Address Unknown Organization : Laboratory Report Ordering Provider Test Date Status SHAYLEE MEDINA 08/21/2024 10:29:32 Final Therapeutic ranges for non-o perative patients:
Prophylaxsis/treatment of DVT: (Range:2.0-3.0)
Treatment of pulmonary embolism:(Range:2.0-3.0)
Prevention of systemic embolism from:
-tissue heart valves
-acute myocardial infarction
-valvular heart disease
-atrial fibrillation
(Range: 2.0-3.0)
Mechanical prosthetic valves: (Range: 2.5-3.5) Observation Date Value Abnormality Reference (Units ) Status INR in Capillary blood by Coagulation assay 08/21/2024 10:29:32 2.7 (INR) Final Performing Location
--- OUTSIDE RECORDS SUMMARY | 2024-08-28 15:16 | External Medical Summary | Summary of Care ---
Author Name Unknown Organization [facility] Address [address] [place] [address] Phone [phone] Care Team Providers Care Quantitative Researcher Name Role Phone Vicky Hayward DO Primary Care Provider [phone] Reason for Referral * Evaluate & Treat - Unlimited Visits (Within 3 days (urgent)) - Authorized Specialty Diagnoses / Procedures Referred By Wilmer sesay Referred To Contact Wound Care Diagnoses Pressure ulcer of right heel, stage 2 (HCC) Vicky Hayward DO [address] [place] [address] Phone: tel: fax: Referral ID Status Reason Start Date Expiration Date Visits Requested Visits Authorized [id number] Authorized Specialty Services Required 08/21/2024 999 999 [...] AM EDT Office Visit Family Practice [address] [facility] [place] [address] [place] [address] Vicky Hayward DO [address] [place] [address] Generalized weakness*; Ambulatory dysfunction; Influenza A; Pressure [...] hemoglobin A1c goal of less than 8.0% ([facility]); Risk and functional assessment; Hospital discharge follow-up [...] mRNA, LNP-s, No Pre serve, 2-Dose Series (Flukle) 04/27/2021,07/15/2020,06/24/2020 COVID-19, LNP-s, No Preserve , Oliver-sucrose, Ages 12+ (Pfizer) 10/24/2021 COVID-19, MRNA-LNP, PF, 30 M CG/0.3 mL, 12 YRS AND ABOVE, IM (Kyron-Comirnat) 01/16/2024,03/14/2023 Covid-19, Mrna, Lnp-s, Pf, B ivalent, 30 Mcg, IM, 12 yrs and above (Flukle) 03/27/2022 Pneumococcal Conjugate Vacc, 13 Valent (Prevnar) 11/01/2014 Pneumococcal Conjugate Vacci ne, 20-valent ([id number]) 04/17/2024 Pneumococcal Polysaccharide PPV23 (Pneumovax) 08/28/2007,01/23/2002 RSV [...] Recent Admission: Patient was recently admitted to [facility]. The date of discharge was 08/13/2024. Discharge report received and reviewed. HPI: Patient is an 84 year old female with a history of diabetes type II, atrial fibrillation, hyperlipidemia, GERD, esophageal stricture, lumbar disc disease, ambulatory dysfunction, and osteoporosis that is seen for hospital follow up. The patient was admitted to [facility] from 07/14/2024 - 07/20/2024. The patient was admitted to the hospital due to fall from walker seat. She had worsening weakness due to influenza A infection and UTI. The patient had NSTEMI as well. The patient was transferred to [facility] on 07/20/2024 and was discharged on 08/13/2024. She was admitted to [facility] for weakness andwas treated with Physical Therapy. [...] hemoglobin A1c goal of less than 8.0% ([facility]) - HEMOGLOBIN A1C; Future; Expected date: 08/21/2024 - HEMOGLOBIN A1C Diet controlled Risk and functional assessment Hospital discharge follow-up - DISCH MED RECON CUR MED LIS Follow-up: Return in about 2 weeks (around 09/04/2024). | Check-out note: Schedule with [facility] Vicky Hayward DO documented in this encounter [...] 11:20 AM EDT Office Visit Family Practice [address] [place] [address] 293 [facility] [address] Vicky Hayward DO 293 [facility], [place] [address] 12/17/2024 8:30 AM EDT Office Visit Cardiology, [facility] [address] [place] [phone] Tacos Guerin PA-C [address] [place] [address] 04/28/2025 9:40 AM EST Office Visit Dermatology [facility] [address] [facility] [place] [address] Chandni Stahl PA-C 200 [facility] [place] [address] Pending Results Name Type Priority Associated Diagnoses [...] this encounter Medical Devices Implanted Type Area Senior Production Manager Device Identifier Shelf Expiration Date Model / Serial / Lot Lens Intraoc 17.0 - [id number] - [id number] Implanted:Qty: 1 on 07/10/2022 by Lucio Pino MD at OR [facility] Left: Eye BAUSCH 02/02/2027 [id number] / [id number] / Lens Intraoc 17.0 - [id number] - [id number] Implanted:Qty: 1 on 07/24/2022 by Lucio Pino MD at OR [facility] Right: Eye BAUSCH 05/05/2027 [id number] / [id number] / [id number] documented as of this encounter Visit Diagnoses [...] Power of Attor hortensia? No Care Teams Quantitative Researcher Relationship Specialty Start Date End Date Vicky Hayward DO [address] [place] [address] PCP - General Internal Medicine 10/21/23 documented as of this encounter"
--- OUTSIDE RECORDS SUMMARY | 2024-08-28 15:16 | External Medical Summary | Summary of Care ---
Author Name Unknown Organization [facility] Address [address] [place] [address] Phone [phone] Care Team Providers Care Desktop Publisher Name Role Phone Roberth Hayward DO Primary Care Provider [phone] Reason for Visit * Reason Onset Date Comments Order Request 08/25/2024 DME for transfer wheelchair Encounter Details Date Type Department Care Team (Late st Contact Info) Description 08/25/2024 Telephone Family Practice [address] [facility] [address] [place] [address] Roberth Hayward DO [address] [place] [address] Order Request (DME for transfer wheelchair ) [...] mRNA, LNP-s, No Pre serve, 2-Dose Series (Retina [employer]plant) 04/27/2021,07/15/2020,06/24/2020 COVID-19, LNP-s, No Preserve , Oliver-sucrose, Ages 12+ (Pfizer) 10/24/2021 COVID-19, MRNA-LNP, PF, 30 M CG/0.3 mL, 12 YRS AND ABOVE, IM ([facility]) 01/16/2024,03/14/2023 Covid-19, Mrna, Lnp-s, Pf, B ivalent, 30 Mcg, IM, 12 yrs and above (Retina Implant) 03/27/2022 Pneumococcal Conjugate Vacc, 13 Valent (Prevnar) 11/01/2014 Pneumococcal Conjugate Vacci ne, 20-valent ([id number]) 04/17/2024 Pneumococcal Polysaccharide PPV23 (Pneumovax) 08/28/2007,01/23/2002 RSV [...] DME order for a transfer wheelchair through [facility] on 08/17. After chatting back and forth with the [facility] team, this is what they need "Hello! [facility] here. Apologies for the back [...] AM EDT Scheduled Telephone Family Practice 65 [facility] [address] Floor [address] Entr[address] [place] [address] Roselia Costa, [place] [address] [facility] [address] [place], [place] [phone] 09/04/2024 11:20 AM EDT Office Visit Family [address] [place] [address] Roberth Hayward DO [address] [place] [address] 12/17/2024 8:30 AM EDT Office Visit Cardiology, [facility] [address] [place] [phone] Tacos Guerin PA-C [address] [place] [address] 04/28/2025 9:40 AM EST Office Visit [facility]ermatology [facility] [address] [place] [address] Chandni Stahl PA-C [address] [place] [address] Scheduled Procedures Name Priority Associated Diagnoses Date/Ti [...] this encounter Medical Devices Implanted Type Area Bottoming Room Supervisor Device Identifier Shelf Expiration Date Model / Serial / Lot Lens Intraoc 17.0 - [id number] - [id number] Implanted:Qty: 1 on 07/10/2022 by Lucio Pino MD at OR [facility] Left: Eye BAUSCH 02/02/2027 [id number] / [id number] / Lens Intraoc 17.0 - [id number] - [id number] Implanted:Qty: 1 on 07/24/2022 by Lucio Pino MD at OR [facility] Right: Eye BAUSCH 05/05/2027 [id number] / [id number] / [id number] documented as of this encounter Advance Directives [...] Power of Attor hortensia? No Care Teams Desktop Publisher Relationship Specialty Start Date End Date Roberth Hayward DO [address] [place] [address] PCP - General Internal Medicine 10/21/23 documented as of this encounter
--- OUTSIDE RECORDS SUMMARY | 2024-08-28 15:16 | External Medical Summary ---
Author Name Unknown Address Unknown Organization K01:LABORATORY [facility] - [facility] [address] [facility] [address] Laboratory Report Ordering Provider Test Date Status MARTIN PERRY 08/21/2024 10:44:22 Final Observation Date Value Abnormality Reference (Units ) Status WBC, Total 08/21/2024 10:44:22 11.44 Above high normal 4.00-10.80 (K/uL) Final RBC 08/21/2024 10:44:22 3.96 3.85-5.15 (M/uL) Final Hemoglobin 08/21/2024 10:44:22 12.1 12.0-15.3 (g/dL) Final HCT 08/21/2024 10:44:22 38.9 36.0-45.2 (%) Final MCV 08/21/2024 10:44:22 98.2 81.5-97.5 (fL) Final MCH 08/21/2024 10:44:22 30.6 27.0-34.0 (pg) Final MCHC 08/21/2024 10:44:22 31.1 32.0-36.0 (g/dL) Final RDW 08/21/2024 10:44:22 14.6 11.5-15.5 (%) Final Platelets 08/21/2024 10:44:22 313 140-400 (K/uL) Final MPV 08/21/2024 10:44:22 13.4 6.6-11.1 (fL) Final Nucleated erythrocytes/100 leukocytes [Ratio] in Blood by Automated count 08/21/2024 10:44:22 0 <=0 (/100 WBCs) Final Performing Location LABORATORY [facility] - [address] [place] [address]
--- OUTSIDE RECORDS SUMMARY | 2024-08-28 15:16 | External Medical Summary | Summary of Care ---
Author Name Unknown Organization [facility] Address [address] [place] [address] Phone [phone] Care Team Providers Care Floor Waxer Name Role Phone Roberth Hayward DO Primary Care Provider Reason for Visit * Reason Comments Dosage Adjustment In Person (Anticoag Cl inic) Encounter Details Date Type Department Care Team (Late st Contact Info) Description 08/21/2024 10:00 AM EDT Anticoagulation Family Practice 65 [facility] [address] [place] [phone] College, Pharmacist [address] [address] Anticoagulation management encounter*; Chronic atrial fibrillation (HCC) [...] 11 07/31/2024 2:08 PM EDT 5 Active documented as of this encounter [...] mRNA, LNP-s, No Pre serve, 2-Dose Series ([employer]) 04/27/2021,07/15/2020,06/24/2020 COVID-19, LNP-s, No Preserve , Oliver-sucrose, Ages 12+ (Pfizer) 10/24/2021 COVID-19, MRNA-LNP, PF, 30 M CG/0.3 mL, 12 YRS AND ABOVE, IM ([facility]) 01/16/2024,03/14/2023 Covid-19, Mrna, Lnp-s, Pf, B ivalent, 30 Mcg, IM, 12 yrs and above (Pfizer) 03/27/2022 Pneumococcal Conjugate Vacc, 13 Valent (Prevnar) 11/01/2014 Pneumococcal Conjugate Vacci ne, 20-valent ([id number]) 04/17/2024 Pneumococcal Polysaccharide PPV23 (Pneumovax) 08/28/2007 RSV [...] this encounter Progress Notes * Columba Hays, [facility] - 08/21/2024 10:26 AM EDT Medication Therapy Disease Management - Anticoagulation Patient: Kathi Verdugo | : 1940 Subjective Patient-Reported Symptoms: Patient Findings Positives: Change in health (little mobility), Change in medications (patient completed 5 day course of cipro. hasn't been taking furosemide) Negatives: Signs/symptoms of thrombosis, Signs/symptoms of bleeding, Change in alcohol use, Change in activity, Upcoming invasive procedure, Missed doses, Extra doses, Change in diet/appetite, Bruising Objective Current Warfarin Dose As of 08/21/2024 Warfarin maintenance plan: 1.25 mg (2.5 mg x 0.5) every Mon; 2.5 mg (2.5 mg x 1) all other days INR Result As of 08/21/2024 INR goal: 2.0-3.0 INR used for dosin.7 (08/21/2024) Assessment & Plan Warfarin Plan As of 08/21/2024 Full warfarin instructions: 1.25 mg every Mon, Fri; 2.5 mg all other days Next INR check: 08/25/2024 Repeat PT/INR in 4 day(s) with [facility] Weekly dose: decreased as INR continues to climb outpatient Additional Dosing Information: Description Faxed note to [facility] for INR. ( , fax [phone]) Fingerstick preferred, please draw venipuncture if INR > 5. Ordering Provider: oRberth Hayward Diagnosis: I48.91 atrial fibrillation Please call results to [phone] or fax [phone]. I spent a total of 10-19 minutes (exact time 16 mins) on the date of service in preparation, delivery, and documentation of the care provided to Kathi Verdugo excluding any time spent in the performance of separately billed services or time spent by another provider/QHP. Columba Fitch [facility] Clinical Pharmacist 08/21/2024, 10:26 AM documented in this encounter Plan of Treatment Upcoming Encounters Date Type Department Care Team (Late st Contact Info) Description 09/04/2024 11:20 AM EDT Office Visit Family Practice [address] [place] [address] 293 [facility], [place] [address] Roberth Hayward, 293 [facility] [place] [address] 12/17/2024 8:30 AM EDT Office Visit Cardiology, [facility] [address] [place] [phone] Tacos Guerin PA-C [address] [place] [address] 04/28/2025 9:40 AM EST Office Visit Dermatology [facility] 200 [facility] [place] [address] Chandni Stahl PA-C 200 [facility] [place] [address] Scheduled Procedures Name Priority Associated Diagnoses Date/Ti [...] 04/17/2025 024, 11/05/2022, 10/24/2021, Additional history exists Depression [...] this encounter Medical Devices Implanted Type Area Bolt Threader Device Identifier Shelf Expiration Date Model / Serial / Lot Lens Intraoc 17.0 - [id number] - [id number] Implanted:Qty: 1 on 07/10/2022 by Lucio Pino MD at OR [facility] Left: Eye BAUSCH 02/02/2027 [id number] / [id number] / Lens Intraoc 17.0 - [id number] - [id number] Implanted:Qty: 1 on 07/24/2022 by Lucio Pino MD at OR [facility] Right: Eye BAUSCH 05/05/2027 [id number] / [id number] / [id number] documented as of this encounter Procedures Procedure Name Priority Date/Time Associated Diagnosis Comments INR FINGERSTICK, POINT OF CARE STAT 08/21/2024 10:29 AM EDT Chronic atrial fibrillation (HCC) Anticoagulation management encounter documented in this encounter Results * INR FINGERSTICK, POINT OF CARE (08/21/2024 10:29 AM EDT) Fingerstick INR 2.7 INR 11:13 AM EDT [facility] 5621 Blood 08/21/2024 10:2 9 AM EDT 08/21/2024 11:13 AM EDT [facility] 56-21 - 08/21/2024 11:13 AM EDT Therapeutic ranges for non-operative patients: Prophylaxsis/treatment of DVT: (Range:2.0-3.0) Treatment of pulmonary embolism:(Range:2.0-3.0) Prevention of systemic embolism from: -tissue heart valves -acute myocardial infarction -valvular heart disease -atrial fibrillation (Range: 2.0-3.0) Mechanical prosthetic valves: (Range: 2.5-3.5) Columba Lobato [facility] LAB PO INT OF CARE TEST DOCKED DEVICE UNSOLICITED RESULTS Final Result [place] [address] [address] [place] [address] documented in this encounter Visit [...] Power of Attor hortensia? No Care Teams Floor Waxer Relationship Specialty Start Date End Date Roberth Hayward DO [address] [place] [address] PCP - General Internal Medicine 10/21/23 documented as of this encounter"
--- OUTSIDE RECORDS SUMMARY | 2024-08-28 15:17 | External Medical Summary | Summary of Care ---
Author Name Unknown Organization [facility] Address [address] [place] [address] Phone [phone] Care Team Providers Care Hypoid Gear Tester Name Role Phone Roberth Hayward DO Primary Care Provider [phone] Reason for Visit * Reason Onset Date Comments Other 08/20/2024 Encounter Details Date Type Department Care Team (Late st Contact Info) Description 08/20/2024 Telephone Family Practice 65 [facility] [address] [place] [address] Roberth Hayward DO [address] [place] [address] Other Allergies Active Allergy Reactions Criticality Noted Date Comments Metronidazole 02/24/2007 Hives Penicillins 01/24/2001 swelling of tongue documented as of this encounter (statuses as of 08/20/2024) Medications Acetaminophen 500 MG Oral Tablet (Tylenol) [...] day. To affected area. 60 g 1 07/17/202 3 Active One-A-Day Womens 50+ Oral Tablet [...] as of this encounter (statuses as of 08/20/2024) Active Problems Problem Noted Date Diagnosed Date [...] as of this encounter (statuses as of 08/20/2024) Resolved Problems Problem Noted Date Diagnosed Date [...] as of this encounter (statuses as of 08/20/2024) Immunizations Name Administration Dates Next Due COVID-19 mRNA, LNP-s, No Pre serve, 2-Dose Series ([employer]) 04/27/2021,07/15/2020,06/24/2020 COVID-19, LNP-s, No Preserve , Oliver-sucrose, Ages 12+ ([employer]) 10/24/2021 COVID-19, MRNA-LNP, PF, 30 M CG/0.3 mL, 12 YRS AND ABOVE, IM (PFIZER-Comirnaty) 01/16/2024,03/14/2023 Covid-19, Mrna, Lnp-s, Pf, B ivalent, 30 Mcg, IM, 12 yrs and above (Pfizer) 03/27/2022 Pneumococcal Conjugate Vacc, 13 Valent (Prevnar) 11/01/2014 Pneumococcal Conjugate Vacci ne, 20-valent ([id number]) 04/17/2024 Pneumococcal Polysaccharide PPV23 (Pneumovax) 08/28/2007 RSV [...] 18 years and over) Not on file 4 Are you (or your family) elana eless [...] Telephone Encounter - Roberth Hayward DO - 08/20/2024 2:51 PM EDT Noted. If no improvement with ability to transfer see what family plan is for the patient. * Telephone Encounter - Angelo Beck MED ASSIST - 08/20/2024 2:33 PM EDT [facility] Moreno seen patient at home today and his concern is transfers with patient are not good. They will be starting next week seeing patient 2x a week for 3 weeks. Moreno states he is very concerned for the patients safety. They attempted sit to stand transfer and they were not very good today. Patients family is very helpful but they also state the transfers can be good and sometimes they aren't so good. Also states walking is not an option. Moreno ([facility])- just wanted to give this as a FYI for patients appointment tomorrow. documented in this encounter Plan of Treatment Upcoming Encounters Date Type Department Care Team (Late st Contact Info) Description 08/21/2024 9:20 AM EDT Office Visit Family [address] [place] [address] Roberth Hayward DO 293 [facility] [place] [address] 08/21/2024 10:00 AM EDT Anticoagulation Family Practice [address] [place] [address] 293 [facility], [place] [address] College, Pharmacist [address] [facility] 293 [place] [address] 12/17/2024 8:30 AM EDT Office Visit Cardiology, [facility] [address] [place] [phone] Tacos Guerin PA-C [address] [place] [address] 04/28/2025 9:40 AM EST Office [facility] [address] [place] [address] Chandni Stahl PA-C [address] [place] [address] Scheduled Procedures Name Priority Associated Diagnoses Date/Ti me COLONOSCOPY FLEXIBLE PROXIMAL DIAGNOSTIC Recall History of colon polyps Health Maintenance Due Date Last Done Comments DXA Scan 12/08/2021 12/08/2018, 08/2014, 03/18/2012, Additional history exists Adult Wellness Visit 09/28/2023 09/27/2022, 09/21/2021, 10/04/2020 Diabetic Foot Exam 07/11/2024 07/12/2023, 0 07/05/2022, 07/19/2021, Additional history exists Depression Screening 07/23/2024 07/24/2023 COVID-19 Vaccine ( season) 2024 02/04/2024, 01/16/2024, 03/14/2023, Additional history exists Diabetic Eye Exam 08/25/2024 08/26/2023, , 09/27/2022, Additional history exists HbA1c 10/16/2024 04/17/2024, 0810/2023, 07/12/2023, Additional history exists Albumin/Creatinine Ratio 04/17/20252 024, 11/05/2022, 10/24/2021, Additional history exists DTap/Tdap [...] this encounter Medical Devices Implanted Type Area Electronic Device Monitor Device Identifier Shelf Expiration Date Model / Serial / Lot Lens Intraoc 17.0 - [id number] - [id number] Implanted:Qty: 1 on 07/10/2022 by Lucio Pino MD at OR [facility] Left: Eye BAUSCH 02/02/2027 [id number] / [id number] / Lens Intraoc 17.0 - [id number] - [id number] Implanted:Qty: 1 on 07/24/2022 by Lucio Pino MD at OR [facility] Right: Eye BAUSCH 05/05/2027 [id number] / [id number] / [id number] documented as of this encounter Advance Directives [...] Power of Attor hortensia? No Care Teams Hypoid Gear Tester Relationship Specialty Start Date End Date Roberth Hayward DO [address] [place] [address] PCP - General Internal Medicine 10/21/23 documented as of this encounter
--- OUTSIDE RECORDS SUMMARY | 2024-08-28 15:17 | External Medical Summary | Summary of Care ---
Author Name Unknown Organization [facility] Address [address] [place] [address] Phone [phone] Care Team Providers Care Seating Upholsterer Name Role Phone Roberth Hayward DO Primary Care Provider [phone] Reason for Visit * Reason Onset Date Comments [facility] Follow Up 08/14/2024 Encounter Details Date Type Department Care Team (Latest Contact Info) Description 08/14/2024 1:00 PM EDT Scheduled Telephone Family Practice [address] [place], [place] [address] [facility] [address] [place] [address] Roselia Costa, ANDREA [address] [facility] [address] [place] [address] Ambulatory dysfunction* Allergies Active Allergy Reactions Criticality Noted Date Comments Metronidazole 02/24/2007 Hives Penicillins 01/24/2001 swelling of tongue documented as of this encounter (statuses as of 08/17/2024) Medications Acetaminophen 500 MG Oral Tablet (Tylenol) [...] as of this encounter (statuses as of 08/17/2024) Active Problems Problem Noted Date Diagnosed Date [...] as of this encounter (statuses as of 08/17/2024) Resolved Problems Problem Noted Date Diagnosed Date [...] as of this encounter (statuses as of 08/17/2024) Immunizations Name Administration Dates Next Due COVID-19 mRNA, LNP-s, No Pre serve, 2-Dose Series ([employer]) 04/27/2021,07/15/2020,06/24/2020 COVID-19, LNP-s, No Preserve , Oliver-sucrose, Ages 12+ (Pfizer) 10/24/2021 COVID-19, MRNA-LNP, PF, 30 M CG/0.3 mL, 12 YRS AND ABOVE, IM ([facility]) 01/16/2024,03/14/2023 Covid-19, Mrna, Lnp-s, Pf, B ivalent, 30 Mcg, IM, 12 yrs and above (Pfizer) 03/27/2022 Pneumococcal Conjugate Vacc, 13 Valent (Prevnar) 11/01/2014 Pneumococcal Conjugate Vacci ne, 20-valent ([id number]) 04/17/2024 Pneumococcal Polysaccharide PPV23 (Pneumovax) 08/28/2007 RSV [...] encounter Miscellaneous Notes * Telephone Encounter - Leesa Drummond CCMA - 08/17/2024 7:50 AM EDT DME order submitted through [employer]. * Telephone Encounter - Roberth Hayward DO - 08/14/2024 4:29 PM EDT Order signed for transfer chair * Telephone Encounter - Roselia Costa RN - 08/14/2024 3:[address] Hayward- Daughter would like to have a transfer chair for use in home due to patient's decreasedability to ambulate PT not starting in home until next week and she's unable to ambulate/get around. They only have a rollator that they've been sitting her on/pushing her around on which is not safe. Pended for your approval if you agree. Nursing, please enter in TH if approved * Telephone Encounter - Roselia Costa RN - 08/14/2024 3:20 PM EDT Phone visit for post SNF d/c from [facility] Dates of stay: 07/14/24 to [facility] then 07/20/24 to [facility] until 08/13/24 Spoke with patient's daugther, Inga- Current Concerns/Problems: Having a hard time getting up and getting around especially to go to the restroom. Does report she has a bedside commode. wears briefs- knees seem locked again- can't spread legs very much CV/PULM: Reports: Denies problems Fever? no Shortness of breath? Hasn't complained- but daughter reports she heard a slight wheezing last evening. None today Denies difficulty breathing Chest Pain? no Appetite: Appetite fair- eating about 50% of meals since d/c from rehab Encouraging her to drink plenty of water/fluids Nausea/Vomiting/Diarrhea? no Dizziness/Lightheadedness? no Sleep: Denies problems- slept through the night last night Elimination: both incont and continent- minimal urinary output in toilet but her diapers have been wet BM today- small, formed Pain: pt reports she has pain in her legs- knees mostly L>R. No redness, warmth, swelling Pt refuses to use voltaren gel Takes tylenol prn Wound: both heels R>L; Right heel dressings every other day unless there is drainage/dislodgement Is not currently followed by would care for these but nurse today feels this may be needed in the future if worsens Avoiding pressure when lying/sitting Using a no sting skin prep spray to left heel only Mobility: limited ability to ambulate ; family has been sitting her on her Rollator walker and moving her about the home Prior to IP and Rehab, she was ambulating with the rollator with minimal assistance required for steps Vitals- not monitored in home Weight: per daughter: patient is "around 150-151 lbs" D/C Instructions received and understood? Yes Medications Reviewed? Yes Medications Changes during hospitalization: see [facility] med rec in separate encounter this same date R/X Obtained: Yes and received notification that new RX for cipro is ready during our call today Post hospital appt scheduled: Yes PCP 08/21/24 Other Services/Equipment Coordinated: [facility] SN was out today to assess. PT/OT to start next week. SN told them today she will also get them set up with personal care assistance twice weekly to assist with bathing, etc Is patient care managed? no Care Management referral placed? no CM needs: N/A Does the patient have adequate food, water and residential? yes Other: Daughter currently staying with patient in her home. 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 Encouraged plenty of fluids- avoid caffeine, alcohol, spicy foods that can be bladder irritants Encouraged close supervision with transfers/encourage patient not to try to ambulate without assistance to prevent falls/injuries RN to follow up in 1 week I reinforced how to reach [address] [place] [address] triage after hours, weekends and holidays by calling clinic phone # documented in this encounter Plan of Treatment Upcoming Encounters Date Type Department Care Team (Late st Contact Info) Description 08/18/2024 11:00 AM EDT Scheduled Telephone Family Practice [address] [place] [address], Floor 1 Entrance [address] [place] [address] Roselia Costa, ANDREA [address] [place] [address] 08/21/2024 9:20 AM EDT Office Visit Family Practice [address] [place] [address] [address] [place] [address] Roberth Hayward DO [address] [place] [address] 08/21/2024 10:00 AM EDT Anticoagulation Family Practice [address] [place] [address] [address] [place] [address] College, Pharmacist [address] [place] [address] 12/17/2024 8:30 AM EDT Office Visit Cardiology, [facility] [address] [place] [address] Tacos Guerin PAYecenia [address] [place] [address] 04/28/2025 9:40 AM EST Office Visit Dermatology Rick Garcia [place] [address] [facility] [place] [address] Chandni Stahl PA-C [address] [place] [address] Scheduled Procedures Name Priority Associated Diagnoses Date/Ti [...] 09/27/2022, Additional history exists HbA1c 10/16/2024 04/17/2024, 08/10/2023, 07/12/2023, Additional history exists Albumin/Creatinine Ratio 04/17/2025 [...] this encounter Medical Devices Implanted Type Area Life Advisor Device Identifier Shelf Expiration Date Model / Serial / Lot Lens Intraoc 17.0 - [id number] - [id number] Implanted:Qty: 1 on 07/10/2022 by Lucio Pino MD at OR [facility] Left: Eye BAUSCH 02/02/2027 [id number] / [id number] / Lens Intraoc 17.0 - [id number] - [id number] Implanted:Qty: 1 on 07/24/2022 by Lucio Pino MD at OR [facility] Right: Eye BAUSCH 05/05/2027 [id number] / [id number] / [id number] documented as of this encounter Visit Diagnoses Diagnosis Ambulatory dysfunction- Primary documented in this encounter Advance Directives * [...] Power of Attor hortensia? No Care Teams Seating Upholsterer Relationship Specialty Start Date End Date Roberth Hayward DO [address] [place] [address] PCP - General Internal Medicine 10/21/23 documented as of this encounter
--- OUTSIDE RECORDS SUMMARY | 2024-08-28 15:17 | External Medical Summary | Summary of Care ---
Author Name Unknown Organization [facility] Address [address] [place] [address] Phone [phone] Care Team Providers Care Cd Reactor Operator Name Role Phone Roberth Hayward DO Primary Care Provider [phone] Reason for Visit * Reason Comments Dosage Adjustment Via Phone (anticoag Cl inic) Follow Up Encounter Details Date Type Department Care Team (Late st Contact Info) Description 08/14/2024 9:30 AM EDT Telemedicine Family Practice 65 [facility] [address] [place] [address] College, Pharmacist [address] [address] Medication management* Allergies Active Allergy Reactions Criticality Noted Date [...] Active Triamcinolone Acetonide 0.5 % External Cream (Aristocort)Indic ations:Venous stasis dermatitis of both lower extremities Apply topically to affected area 2 times a day. To affected area. 60 g 1 11/20/19 23 Active One-A-Day Womens 50+ Oral Tablet Take 1 Tablet by mouth in the morning. 65 Tablet 11 5 10:17 AM EST 08/27/19 24 Active Furosemide 20 MG Oral Tablet (Lasix)Indication s:Pulmonary hypertension (HCC) Take 1 tablet by mouth once daily in the morning on Mondays, Wednesdays and Fridays 14 Tablet 1 5 2:08 PM EDT 05/19/19 25 Active Potassium Chloride ER 10 MEQ Oral Tablet Extended Release Dissolve 1 tablet in water over 2 minutes, stir well and drink immediately daily by mouth on Saturday, Saturday and Fridays 42 Tablet 2 5 10:48 AM EST 05/18/19 25 Active Diclofenac Sodium 1 % External Gel (Voltaren) Apply topically to affected area 3 times a day as needed for Pain. Apply to affected area 100 g 2 06/04/19 25 Active Rosuvastatin Calcium 20 MG Oral Tablet (Crestor)Indicati ons:Dyslipidemia, goal LDL below 100 Take 1 Tablet by mouth in the morning. 30 Tablet 11 5 2:08 PM EDT 07/23/19 25 Active Metoprolol Tartrate 25 MG Oral Tablet (Lopressor)Indica tions:Chronic atrial fibrillation (HCC) Take 1 Tablet by mouth in the morning and 1 Tablet before bedtime. 60 Tablet 11 5 2:08 PM EDT 07/23/19 25 Active Warfarin Sodium 2.5 MG Oral Tablet (Coumadin) Take 1 Tablet by mouth every evening. 30 Tablet 11 5 2:08 PM EDT 07/23/19 25 Active Omeprazole 20 MG Oral Capsule Delayed Release (PriLOSEC) Take 1 Capsule by mouth in the morning and 1 Capsule before bedtime. 60 Capsule 5 2:08 PM EDT 07/23/19 25 Active Arexvy 120 MCG/0.5ML Intramuscular Suspension Reconstituted (RSV PreF3 Vac Recomb Adjuvanted)Indica tions:Need for RSV vaccination Inject 0.5 mL into a large muscle once for 1 dose. 1 Each 4 12:14 PM EST 04/17/20 24 025 Discontin ued(Medic ation List Clean Up) documented as of this encounter (statuses as [...] mRNA, LNP-s, No Pre serve, 2-Dose Series ([employer]) 04/27/2021,07/15/2020,06/24/2020 COVID-19, LNP-s, No Preserve , Oliver-sucrose, Ages 12+ (Pfizer) 10/24/2021 COVID-19, MRNA-LNP, PF, 30 M CG/0.3 mL, 12 YRS AND ABOVE, IM ([employer]) 01/16/2024,03/14/2023 Covid-19, Mrna, Lnp-s, Pf, B ivalent, 30 Mcg, IM, 12 yrs and above ([employer]) 03/27/2022 Pneumococcal Conjugate Vacc, 13 Valent (Prevnar) 11/01/2014 Pneumococcal Conjugate Vacci ne, 20-valent ([id number]) 04/17/2024 Pneumococcal Polysaccharide PPV23 (Pneumovax) 08/28/2007 RSV [...] this encounter Progress Notes * Columba Hays, [facility] - 08/14/2024 9:43 AM EDT Medication Therapy Disease Management Clinic - Medication Reconciliation Encounter Type: discussed with patient Med Bottles Available for Review: no Med Rec Reason: Transition of Care Date of Admission: 07/14/24 to [facility] then 07/20/24 to [facility] Date of Discharge: 08/13/24 to home Reason for Admission: Influenza A/ambulatory dysfunction/UTI Medication changes during admission/on discharge: Added: none Modified: warfarin dose adjusted at [facility] then again at [facility] to 2 mg daily Discontinued: none Does the patient currently have all of their medications in their home? No, didn't pickling drum operator warfarin Having a hard time getting up and getting around especially to go to the restroom. Does report she has a bedside commode. INR - check urine as well. - 08/13 urine preliminary - gram - bacilli > 100,000 - INR - Had been 1.25 mg - 2.5mg daily through 07/23 - INR 3.0, then decreased to 2mg daily. 08/10 INR1.5 then 2mg daily [facility] to be coming but hasn't been yet. Called [facility] and they're coming today. Got them an INR order. Enrolled in Medicare Prescription Payment Plan for current year? No [x] Preferred pharmacy reviewed/updated [x] Problem list reviewed [x] Allergies reviewed and updated if needed [x] Drug interaction check completed [x] HEDIS list addressed Immunizations indicated: COVID Medication Organization/Adherence: Has home care nurse or caregiver: Yes Patient uses a pill box/blister packs? Yes, refill(s) completed by daughter When you are at home, how often do you miss doses of medications? Less than once a week Missed med(s): furosemide Reason: if going out of the house for appointment How difficult is it for you to pay for your medications? Somewhat difficult How often do you experience adverse effects from your medications? Never Labs/Vitals/Risk Scores: ASCVD 10-Year Risk Score Current as of yesterday N/A 0 to < 5 Points: Low Risk 5 to < 7.5 Points: Borderline Risk 7.5 to < 20 Points: Intermediate Risk 20 to 100 Points: High Risk Last Change: N/A The ASCVD risk score (Bridger BAI Jr, et al., 2013) returns the percentage likelihood of a first time ASCVD event. This score is not applicable to this patient. Components are not calculated. BP Readings from Last 3 Encounters: 04/17/24 116/74 03/13/24 118/64 12/10/23 124/62 Recent Labs Units 04/17/24 1134 12/10/23 1432 07/12/23 1238 [facility] % 6.5* 6.6* 6.6* Recent Labs Units 04/17/24 1134 03/18/23 0908 ESTIMATED GLOMERULAR FILTRATION RATE - [facility] mL/min 76 69 Serum creatinine: 0.8 mg/dL 04/17/24 1134 Estimated creatinine clearance: 45 mL/min Assessment: Medication discrepancies identified: patient went back to warfarin dose from PMP PROJECT MANAGER rather than 2mg. After talking to the nurse at [facility], it sounds like INR has been low and intention was to increase anyway. Dose/frequency of medications appropriate for current renal function? yes Other medication problems identified: - ambulatory dysfunction - daughter thinks patient has another UTI. Received urine dip from [facility] and does appear she does. Plan: Immunizations facilitated: None Patient education provided: regarding warfarin and general med adherence. Referral pended for follow up management of: N/A Medication recommendations: - per discussion with pcp, start cipro for 5 days for UTI. Culture should be back Saturday and will review. - Continue PMP PROJECT MANAGER warfarin dose and get INR Saturday. I spent a total of 20-29 minutes (exact time 26 mins) on the date of service in preparation, delivery, and documentation of the care provided to Kathi Verdugo excluding any time spent in the performance of separately billed services or time spent by another provider/QHP. Columba Fitch [facility] Clinical Pharmacist - Pcts Medication Therapy Management Clinic 08/14/2024, 9:43 AM documented in this encounter Plan of Treatment Upcoming Encounters Date Type Department Care Team (Late st Contact Info) Description 08/18/2024 11:00 AM EDT Scheduled Telephone Family Practice [address] [place] [address] [facility], Floor 1 Entrance [address] [place] [address] Roselia Costa, ANDREA [address] [address] 08/21/2024 9:20 AM EDT Office Visit Family Practice [address] [place] [address] [address] [place] [address] Roberth Hayward DO 293 [place] [address] 08/21/2024 10:00 AM EDT Anticoagulation Family Practice [address] [place] [address] 293 [place] [phone] College, Pharmacist [address] [place] [address], [place] [address] 12/17/2024 8:30 AM EDT Office Visit Cardiology, [facility] [address] [place] [address] Tacos Guerin PAHarshadC [address] [place] [address] 04/28/2025 9:40 AM EST Office Visit Dermatology iRck Garcia [place] [address] [facility] [place] [address] Chandni Stahl PA-C [address] [facility] [address] Scheduled Procedures Name Priority Associated Diagnoses Date/Ti [...] this encounter Medical Devices Implanted Type Area Carpentry Supervisor Device Identifier Shelf Expiration Date Model / Serial / Lot Lens Intraoc 17.0 - [id number] - [id number] Implanted:Qty: 1 on 07/10/2022 by Lucio Pino MD at OR [facility] Left: Eye BAUSCH 02/02/2027 [id number] / [id number] / Lens Intraoc 17.0 - [id number] - [id number] Implanted:Qty: 1 on 07/24/2022 by Lucio Pino MD at OR [facility] Right: Eye BAUSCH 05/05/2027 [id number] / [id number] / [id number] documented as of this encounter Visit Diagnoses Diagnosis Medication management- Primary Encounter for long-term (current) use of other medications documented in this encounter Advance Directives * [...] Power of Attor hortensia? No Care Teams Cd Reactor Operator Relationship Specialty Start Date End Date Roberth Hayward DO [address] [place] [address] PCP - General Internal Medicine 10/21/23 documented as of this encounter
--- OUTSIDE RECORDS SUMMARY | 2024-08-28 15:17 | External Medical Summary | Summary of Care ---
Author Name Unknown Organization [facility] Address [address] [place] [address] Phone [phone] Care Team Providers Care Medical Office Clerk Name Role Phone Roberth Hayward DO Primary Care Provider [phone] Reason for Visit * Reason Onset Date Comments Long Term Follow Up 08/14/2024 Encounter Details Date Type Department Care Team (Latest Contact Info) Description 08/14/2024 1:00 PM EDT Scheduled Telephone Family Practice [address], [place] [address] [facility] [address] [place] [address] Roselia Costa, [place]RE[place] [address] [facility] [address] [place] [address] Ambulatory dysfunction* Allergies Active Allergy Reactions Criticality [...] mRNA, LNP-s, No Pre serve, 2-Dose Series ([employer]ius) 04/27/2021,07/15/2020,06/24/2020 COVID-19, LNP-s, No Preserve , Oliver-sucrose, Ages 12+ (Pfizer) 10/24/2021 COVID-19, MRNA-LNP, PF, 30 M CG/0.3 mL, 12 YRS AND ABOVE, IM ([facility] 01/16/2024,03/14/2023 Covid-19, Mrna, Lnp-s, Pf, B ivalent, 30 Mcg, IM, 12 yrs and above (Pfizer) 03/27/2022 Pneumococcal Conjugate Vacc, 13 Valent (Prevnar) 11/01/2014 Pneumococcal Conjugate Vacci ne, 20-valent ([id number]) 04/17/2024 Pneumococcal Polysaccharide PPV23 (Pneumovax) 08/28/2007 RSV [...] 7:50 AM EDT DME order submitted through [facility]. * Telephone Encounter - Roberth Hayward DO [...] Phone visit for post SNF d/c from [facility] Dates of stay: 07/14/24 to [facility] then 07/20/24 to [facility] until 08/13/24 Spoke with patient's daugther, [...] Reviewed? Yes Medications Changes during hospitalization: see [facility] med rec in separate encounter this same date R/X Obtained: Yes and received notification that new RX for cipro is ready during our call today Post hospital appt scheduled: Yes PCP 08/21/24 Other Services/Equipment Coordinated: [facility] SN was out today to assess. PT/OT to start next week. SN told them today she will also get them set up with personal care assistance twice weekly to assist with bathing, etc Is patient care managed? no Care Management referral placed? no CM needs: N/A Does the patient have adequate food, water and penitentiary? yes Other: Daughter currently staying with patient in her home. 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 2 other daughters also help 2 grandsons [...] 1 week I reinforced how to reach [address] [place] [address] triage after hours, weekends and holidays by calling clinic phone # documented in this encounter Plan of Treatment Upcoming Encounters Date Type Department Care Team (Late st Contact Info) Description 08/18/2024 11:00 AM EDT Scheduled Telephone Family Practice [address] [place] [address], Floor 1 Entrance A [address] [place] [address] Roselia Costa, ANDREA [address] [place] [address] 08/21/2024 9:20 AM EDT Office Visit Family Practice [address] [place] [address] 293 [place] [phone] Roberth Hayward DO 293 [place] [address] 08/21/2024 10:00 AM EDT Anticoagulation Family Practice [address] [place] [address] 293 [place] [phone] College, Pharmacist [address] [place] [address] 12/17/2024 8:30 AM EDT Office Visit Cardiology, [facility] [address] [place] [phone] Tacos Guerin PAYecenia [address] [place] [address] 04/28/2025 9:40 AM EST Office Visit Dermatology Rick Garcia [place] 200 [facility] [place] [address] Chandni Stahl PA-C 200 [facility] [place] [address] Scheduled Procedures Name Priority Associated Diagnoses Date/Ti [...] this encounter Medical Devices Implanted Type Area Secretary Receptionist Device Identifier Shelf Expiration Date Model / Serial / Lot Lens Intraoc 17.0 - [id number] - [id number] Implanted:Qty: 1 on 07/10/2022 by Lucio Pino MD at OR [facility] Left: Eye BAUSCH 02/02/2027 [id number] / [id number] / Lens Intraoc 17.0 - [id number] - [id number] Implanted:Qty: 1 on 07/24/2022 by Lucio Pino MD at OR [facility] Right: Eye BAUSCH 05/05/2027 [id number] / [id number] / [id number] documented as of this encounter Visit Diagnoses [...] of Attor hortensia? No Care Teams Medical Office Clerk Relationship Specialty Start Date End Date Roberth Hayward DO 293 [facility] [place] [address] PCP - General Internal Medicine 10/21/23 documented as of this encounter
--- OUTSIDE RECORDS SUMMARY | 2024-08-28 15:17 | External Medical Summary | Summary of Care ---
Author Name Unknown Organization [facility] Address [address] [place] [address] Phone [phone] Care Team Providers Care Binder Roller Name Role Phone Robreth Hayward DO Primary Care Provider [phone] Reason for Visit * Reason Onset Date Comments Urinary Tract Infection Symptoms 08/14/2024 Encounter Details Date Type Department Care Team (Late st Contact Info) Description 08/14/2024 Telephone Family Practice 65 [facility] 293 [place] [phone] Roberth Hayward DO 293 [place] [address] Urinary Tract Infection Symptoms Allergies Active Allergy Reactions Criticality Noted Date Comments Metronidazole 02/24/2007 Hives Penicillins 01/24/2001 swelling of tongue documented as of this encounter (statuses as of 08/14/2024) Medications Acetaminophen 500 MG Oral Tablet (Tylenol) [...] 11 07/31/2024 2:08 PM EDT 5 Active Ciprofloxacin HCl 250 MG Oral Tablet (Cipro)Indicatio ns:Acute cystitis without hematuria Take 1 Tablet by mouth in the morning and 1 Tablet before bedtime. Do all this for 5 days. 10 Tablet 5 08/20/19 25 Active documented as of this encounter (statuses as of 08/14/2024) Active Problems Problem Noted Date Diagnosed Date [...] as of this encounter (statuses as of 08/14/2024) Resolved Problems Problem Noted Date Diagnosed Date [...] as of this encounter (statuses as of 08/14/2024) Immunizations Name Administration Dates Next Due COVID-19 mRNA, LNP-s, No Pre serve, 2-Dose Series ([employer]) 04/27/2021,07/15/2020,06/24/2020 COVID-19, LNP-s, No Preserve , Oliver-sucrose, Ages 12+ (Pfizer) 10/24/2021 COVID-19, MRNA-LNP, PF, 30 M CG/0.3 mL, 12 YRS AND ABOVE, IM ([facility]) 01/16/2024,03/14/2023 Covid-19, Mrna, Lnp-s, Pf, B ivalent, 30 Mcg, IM, 12 yrs and above ([employer]) 03/27/2022 Pneumococcal Conjugate Vacc, 13 Valent (Prevnar) 11/01/2014 Pneumococcal Conjugate Vacci ne, 20-valent ([id number]) 04/17/2024 Pneumococcal Polysaccharide PPV23 (Pneumovax) 08/28/2007,01/23/2002 RSV [...] Encounter - Roselia Costa RN - 08/14/2024 4:04 PM EDT Relayed to patient's daughterInga- She already received text from pharmacy that cipro is ready for citrus picker * Telephone Encounter - Roberth Hayward DO - 08/14/2024 3:10 PM EDT Urine testing reviewed. Start Cipro 250 mg two times a day for 5 days. Awaiting Urine culture form [facility] * Telephone Encounter - Columba Hays, [facility] - 08/14/2024 2:57 PM EDT Spoke to patient's daughter who reports patient was doing really well with ambulating at [facility] for most part, but then started to have trouble as of 08/12-08/13 but they discharged her anyway. Upon coming home she couldn't even walk into the house. took 2 daughters and to get her up 2 steps inside and had to wheel her through the house. Does have bedside commode but even that is tough to get up and use - daughter was wondering if she had a UTI. She reports that she dropped urine off at [facility] yesterday. Daughter also has wounds on both heels - worst one is on Right heel per daughter. also has old bruise behind L knee which is now scabbed over so that one is okay. Called and spoke to patient's nurse at [facility]. She reports preliminary urine shows gram negative bacilli > 100,000, sensitivities pending. Discussed with PCP and got sensitivities from UTI on 07/14 at [facility] which was treated with Aztreonam.Patient is pcn allergic. Could consider cipro. Pended to PCP for ciprofloxacin 250mg BID x 3 days to [facility] (pharmacy confirmed withdaughter). Columba Lobato, Pharm D, BCACP Clinical Pharmacist [facility] - Medication Therapy [facility] 08/14/2024, 3:04 PM Ph. [phone] documented in this encounter Plan of Treatment Upcoming Encounters Date Type Department Care Team (Late st Contact Info) Description 08/18/2024 11:00 AM EDT Scheduled Telephone Family Practice [address] [place] [address], Floor 1 Entrance A [address] [place] [address] Roselia Costa, RN [address] [address] 08/21/2024 9:20 AM EDT Office Visit Family Practice [address] [place] [address] 293 [place] [address] Roberth Hayward DO 293 [place] [address] 08/21/2024 10:00 AM EDT Anticoagulation Family Practice [address] [place] [address] 293 [place] [address] College, Pharmacist [address] [place] [address] [place] [address] 12/17/2024 8:30 AM EDT Office Visit Cardiology, [facility] [address] [place] [phone] Tacos Guerin PA-C [address] [place] [address] 04/28/2025 9:40 AM EST Office Visit Dermatology [facility] [address] [place] [address] Chandni Stahl PA-C [address] [place] [address] Scheduled Procedures Name Priority Associated Diagnoses Date/Ti [...] 0810/2023, 07/12/2023, Additional history exists Albumin/Creatinine Ratio 04/17/2025 [...] this encounter Medical Devices Implanted Type Area Mine Patrol Device Identifier Shelf Expiration Date Model / Serial / Lot Lens Intraoc 17.0 - [id number] - [id number] Implanted:Qty: 1 on 07/10/2022 by Lucio Pino MD at OR [facility] Left: Eye BAUSCH 02/02/2027 [id number] / [id number] / Lens Intraoc 17.0 - [id number] - [id number] Implanted:Qty: 1 on 07/24/2022 by Lucio Pino MD at OR [facility] Right: Eye BAUSCH 05/05/2027 [id number] / [id number] / [id number] documented as of this encounter Visit Diagnoses Diagnosis Acute cystitis without hematuria- Primary Acute cystitis documented in this encounter Advance Directives * [...] Power of Attor hortensia? No Care Teams Binder Roller Relationship Specialty Start Date End Date Roberth Hayward DO [address] [place] [address] PCP - General Internal Medicine 10/21/23 documented as of this encounter
--- OUTSIDE RECORDS SUMMARY | 2024-08-28 15:17 | External Medical Summary | Summary of Care ---
Author Name Unknown Organization [facility] Address [address] [place] [address] Phone [phone] Care Team Providers Care Assembler Golf Wood Head Name Role Phone Roberth Hayward DO Primary Care Provider [phone] Reason for Visit * Reason Comments Dosage Adjustment Via Phone (anticoag Cl inic) Encounter Details Date Type Department Care Team (Late st Contact Info) Description 08/14/2024 10:40 AM EDT Anticoagulation Family Practice 65 [facility] 293 [place] [phone] College, Pharmacist [address] [address] Anticoagulation management encounter*; Chronic atrial fibrillation (HCC) [...] mRNA, LNP-s, No Pre serve, 2-Dose Series ([employer]) 04/27/2021,07/15/2020,06/24/2020 COVID-19, LNP-s, No Preserve , Oliver-sucrose, Ages 12+ (Pfizer) 10/24/2021 COVID-19, MRNA-LNP, PF, 30 M CG/0.3 mL, 12 YRS AND ABOVE, IM ([facility]) 01/16/2024,03/14/2023 Covid-19, Mrna, Lnp-s, Pf, B ivalent, 30 Mcg, IM, 12 yrs and above (Pfizer) 03/27/2022 Pneumococcal Conjugate Vacc, 13 Valent (Prevnar) 11/01/2014 Pneumococcal Conjugate Vacci ne, 20-valent ([id number]) 04/17/2024 Pneumococcal Polysaccharide PPV23 (Pneumovax) 08/28/2007 RSV [...] this encounter Progress Notes * Columba Hays [facility] - 08/14/2024 12:04 PM EDT Images from the original note were not included. Medication Therapy Disease Management - Anticoagulation Patient: Kathi Verdugo | : 1940 Subjective Patient-Reported Symptoms: Patient Findings Positives: Change in health (patient has UTI - starting cipro x 5 days today), Change in medications (warfarin dose decreased in hospital and SNF. last INR subtherapeutic as well), Hospital admission(discharged home yesterday) Negatives: Signs/symptoms of thrombosis, Signs/symptoms of bleeding, Change in alcohol use, Change in activity, Upcoming invasive procedure, Missed doses, Extra doses, Change in diet/appetite, Bruising Objective Current Warfarin Dose As of 08/14/2024 Warfarin maintenance plan: 2 mg (2 mg x 1) every day INR Result As of 08/14/2024 INR goal: 2.0-3.0 INR used for dosin.7 (08/14/2024) Assessment & Plan Warfarin Plan As of 08/14/2024 Full warfarin instructions: 1.25 mg every Mon; 2.5 mg all other days No change documented: Columba Hays [facility] Next INR check: 08/17/2024 Repeat PT/INR in 3 days. Additional Dosing Information: Description Faxed note to [facility] for INR. ( , fax [phone]) Fingerstick preferred, please draw venipuncture if INR > 5. Ordering Provider: Roberth Hayward Diagnosis: I48.91 atrial fibrillation Please call results to [phone] or fax [phone]. Columba Fitch [facility] Clinical Pharmacist 08/14/2024, 3:16 PM documented in this encounter Plan of Treatment Upcoming Encounters Date Type Department Care Team (Late st Contact Info) Description 08/18/2024 11:00 AM EDT Scheduled Telephone Family Practice [address], Floor 1 Entrance [address] [place], [place] [address] Roselia Costa, RN [address] [place] [address] 08/21/2024 9:20 AM EDT Office Visit Family Practice [address] [place] [address] [address] [place] [phone] Roberth Hayward DO 293 [place] [address] 08/21/2024 10:00 AM EDT Anticoagulation Family Practice 65 [facility] 293 [place] [phone] College, Pharmacist [address] [address] 12/17/2024 8:30 AM EDT Office Visit Cardiology, [facility] [address] [place] [phone] Tacos Guerin PAHarshadC [address] [place] [address] 04/28/2025 9:40 AM EST Office Visit [facility]ermatology [facility] [address] [place] [address] Chandni Stahl PA-C [address] [place] [address] Scheduled Procedures Name Priority Associated Diagnoses Date/Ti [...] this encounter Medical Devices Implanted Type Area Address Change Clerk Device Identifier Shelf Expiration Date Model / Serial / Lot Lens Intraoc 17.0 - [id number] - [id number] Implanted:Qty: 1 on 07/10/2022 by Lucio Pino MD at OR [facility] Left: Eye BAUSCH 02/02/2027 [id number] / [id number] / Lens Intraoc 17.0 - [id number] - [id number] Implanted:Qty: 1 on 07/24/2022 by Lucio Pino MD at OR [facility] Right: Eye BAUSCH 05/05/2027 [id number] / [id number] / [id number] documented as of this encounter Procedures Procedure Name Priority Date/Time Associated Diagnosis Comments OUTSIDE LAB-PT/INR Routine 08/14/2024 documented in this encounter Results * (ABNORMAL) OUTSIDE LAB-PT/INR (08/14/2024) INR-OUTSIDE LAB 1.7(A) 2 - 3 08/14/2024 us History Per Patient LABORATORY Final Result documented in this encounter Visit Diagnoses Diagnosis [...] Power of Attor hortensia? No Care Teams Assembler Golf Wood Head Relationship Specialty Start Date End Date Roberth Hayward DO 293 [place] [address] PCP - General Internal Medicine 10/21/23 documented as of this encounter"
--- OUTSIDE RECORDS SUMMARY | 2024-08-28 15:17 | External Medical Summary | Summary of Care ---
Author Name Unknown Organization [facility] Address [address] [place] [address] Phone [phone] Care Team Providers Care Television Mechanic Name Role Phone Roberth Hayward DO Primary Care Provider [phone] Reason for Visit * Reason Onset Date Comments Urinary Tract Infection Symptoms 08/14/2024 Encounter Details Date Type Department Care Team (Late st Contact Info) Description 08/14/2024 Telephone Family Practice 65 [facility] 293 [place] [phone] Roberth Hayward DO 293 [place] [address] Urinary Tract Infection Symptoms Allergies Active Allergy [...] mRNA, LNP-s, No Pre serve, 2-Dose Series ([employer]) 04/27/2021,07/15/2020,06/24/2020 COVID-19, LNP-s, No Preserve , Oliver-sucrose, Ages 12+ (Pfizer) 10/24/2021 COVID-19, MRNA-LNP, PF, 30 M CG/0.3 mL, 12 YRS AND ABOVE, IM ([facility]) 01/16/2024,03/14/2023 Covid-19, Mrna, Lnp-s, Pf, B ivalent, 30 Mcg, IM, 12 yrs and above ([employer]) 03/27/2022 Pneumococcal Conjugate Vacc, 13 Valent (Prevnar) 11/01/2014 Pneumococcal Conjugate Vacci ne, 20-valent ([id number]) 04/17/2024 Pneumococcal Polysaccharide PPV23 (Pneumovax) 08/28/2007,01/23/2002 RSV [...] from pharmacy that cipro is ready for roll picker * Telephone Encounter - Roberth Hayward DO - 08/14/2024 3:10 PM EDT Urine testing reviewed. Start Cipro 250 mg two times a day for 5 days. Awaiting Urine culture form [facility] * Telephone Encounter - Columba Hays, [facility] - 08/14/2024 2:57 PM EDT Spoke to patient's daughter who reports patient was doing really well with ambulating at [facility] for most part, but then started [...] reports that she dropped urine off at [facility] yesterday. Daughter also has wounds on both heels - worst one is on Right heel per daughter. also has old bruise behind L knee which is now scabbed over so that one is okay. Called and spoke to patient's nurse at [facility]. She reports preliminary urine shows gram negative bacilli > 100,000, sensitivities pending. Discussed with PCP and got sensitivities from UTI on 07/14 at [facility] which was treated with Aztreonam.Patient is pcn allergic. Could consider cipro. Pended to PCP for ciprofloxacin 250mg BID x 3 days to [facility] (pharmacy confirmed withdaughter). Columba Lobato, Pharm D, BCACP Clinical Pharmacist 65 [facility] - Med[facility] Therapy [facility] Management [facility] 08/14/2024, 3:04 PM Ph. [phone] documented in this encounter Plan of Treatment Upcoming Encounters Date Type Department Care Team (Late st Contact Info) Description 08/18/2024 11:00 AM EDT Scheduled Telephone Family Practice [address] [place] [address], Floor 1 Entrance [address] [place] [address] Roselia Costa, RN [address] [address] 08/21/2024 9:20 AM EDT Office Visit Family Practice [address] [place] [address] 293 [place] [address] Roberth Hayward DO 293 [place] [address] 08/21/2024 10:00 AM EDT Anticoagulation Family Practice [address] [place] [address] 293 [place] [address] College, Pharmacist [address] [place] [address] [place] [address] 12/17/2024 8:30 AM EDT Office Visit Cardiology, [facility] [address] [place] [phone] Tacos Guerin PA-C [address] [place] [address] 04/28/2025 9:40 AM EST Office Visit Dermatology [facility] [address] [place] [address] Chandni Stahl PA-C [address] [place] [address] Scheduled Procedures Name Priority Associated Diagnoses Date/Ti [...] this encounter Medical Devices Implanted Type Area Board Certified Family Physician Device Identifier Shelf Expiration Date Model / Serial / Lot Lens Intraoc 17.0 - [id number] - [id number] Implanted:Qty: 1 on 07/10/2022 by Lucio Pino MD at OR [facility] Left: Eye BAUSCH 02/02/2027 [id number] / [id number] / Lens Intraoc 17.0 - [id number] - [id number] Implanted:Qty: 1 on 07/24/2022 by Lucio Pino MD at OR [facility] Right: Eye BAUSCH 05/05/2027 [id number] / [id number] / [id number] documented as of this encounter Visit Diagnoses [...] Power of Attor hortensia? No Care Teams Television Mechanic Relationship Specialty Start Date End Date Roberth Hayward DO [address] [place] [address] PCP - General Internal Medicine 10/21/23 documented as of this encounter
--- OUTSIDE RECORDS SUMMARY | 2024-08-28 15:17 | External Medical Summary | Summary of Care ---
Author Name Unknown Organization [facility] Address [address] [place] [address] Phone [phone] Care Team Providers Care Professor Of Special Education Name Role Phone Roberth Hayward DO Primary Care Provider [phone] Encounter Details Date Type Department Care Team (Late st Contact Info) Description 08/13/2024 Result Scan Unspecified Department <No scans attached> Allergies Active Allergy Reactions Criticality Noted Date Comments Metronidazole 02/24/2007 Hives Penicillins 01/24/2001 swelling of tongue documented as of this encounter (statuses as of 08/19/2024) Medications Acetaminophen 500 MG Oral Tablet (Tylenol) [...] as of this encounter (statuses as of 08/19/2024) Active Problems Problem Noted Date Diagnosed Date [...] as of this encounter (statuses as of 08/19/2024) Resolved Problems Problem Noted Date Diagnosed Date [...] as of this encounter (statuses as of 08/19/2024) Immunizations Name Administration Dates Next Due COVID-19 mRNA, LNP-s, No Pre serve, 2-Dose Series ([employer]) 04/27/2021,07/15/2020,06/24/2020 COVID-19, LNP-s, No Preserve , Oliver-sucrose, Ages 12+ (Pfizer) 10/24/2021 COVID-19, MRNA-LNP, PF, 30 M CG/0.3 mL, 12 YRS AND ABOVE, IM ([facility]) 01/16/2024,03/14/2023 Covid-19, Mrna, Lnp-s, Pf, B ivalent, 30 Mcg, IM, 12 yrs and above ([employer]) 03/27/2022 Pneumococcal Conjugate Vacc, 13 Valent (Prevnar) 11/01/2014 Pneumococcal Conjugate Vacci ne, 20-valent ([id number]) 04/17/2024 Pneumococcal Polysaccharide PPV23 (Pneumovax) 08/28/2007 RSV [...] the money to buy more. Never true 03/20/20 24 Within the past 12 months, t [...] AM EDT Office Visit Family Practice 65 [facility] 293 [facility] [place] [phone] Roberth Hayward DO 293 [place] [address] 08/21/2024 10:00 AM EDT Anticoagulation Family Practice 65 [facility] 293 [facility], [place] [phone] College, Pharmacist [address], [place] [address] 12/17/2024 8:30 AM EDT Office Visit Cardiology, [facility] [address] [place] [phone] Tacos Guerin PAYecenia [address] [place] [address] 04/28/2025 9:40 AM EST [facility] [address] [place] [address] Chandni Stahl PA-C 200 [facility] [place] [address] Scheduled Procedures Name Priority Associated Diagnoses Date/Ti [...] this encounter Medical Devices Implanted Type Area Magnetic Testing Technician Device Identifier Shelf Expiration Date Model / Serial / Lot Lens Intraoc 17.0 - [id number] - [id number] Implanted:Qty: 1 on 07/10/2022 by Lucio Pino MD at OR [facility] Left: Eye BAUSCH 02/02/2027 [id number] / [id number] / Lens Intraoc 17.0 - [id number] - [id number] Implanted:Qty: 1 on 07/24/2022 by Lucio Pino MD at OR [facility] Right: Eye BAUSCH 05/05/2027 [id number] / [id number] / [id number] documented as of this encounter Procedures Procedure Name Priority Date/Time Associated Diagnosis Comments OUTSIDE LAB RESULTS 08/13/2024 documented in this encounter Results * OUTSIDE LAB RESULTS (08/13/2024) 08/13/2024 us No Physician Data Unknown LABORATORY Final Result documented in this encounter Advance Directives * [...] Power of Attor hortensia? No Care Teams Professor Of Special Education Relationship Specialty Start Date End Date Roberth Hayward DO 293 [place] [address] PCP - General Internal Medicine 10/21/23 documented as of this encounter
[2024-08-28] MEDS ORDERED: ENOXAPARIN 80 MG/0.8 ML SYR SQ SCH (16:30)
[2024-08-28] MEDS: INSULIN ASPART PER UNIT CHARGE SC SCH (20:02)
[2024-08-28] MEDS: METOPROLOL TARTRATE 25 MG TAB PO SCH (21:45)
[2024-08-28] MEDS: PANTOprazole 40 MG TAB PO SCH (21:52)
--- OUTSIDE RECORDS SUMMARY | 2024-08-29 01:59 | External Medical Summary | Summary of Care ---
Author Name Unknown Organization [facility] Address [address] [place] [address] Phone [phone] Care Team Providers Care Soil Science Technical Officer Name Role Phone Vicky Hayward DO Primary Care Provider [phone] Reason for Visit * Reason Comments Medication Refill Encounter Details Date Type Department Care Team (Late st Contact Info) Description 08/28/2024 Refill Family Practice 65 [facility] [address] [place] [address] Vicky Hayward, 293 [place] [address] Allergies Active Allergy Reactions Criticality Noted Date [...] Active Triamcinolone Acetonide 0.5 % External Cream (Aristocort)Nleda cations:Venous stasis dermatitis of both lower extremities [...] bedtime. 60 Capsule 07/31/2024 2:08 PM EDT 07/23/19 25 Active Gait/Transfer BeltIndications: Generalized weakness,Ambulat ory dysfunction Family to use on patient for position change and when walking 1 Each 08/22/19 25 Active One-A-Day Womens 50+ Oral Tablet Take 1 Tablet by mouth in the morning. 65 Tablet 11 08/29/19 25 Active One-A-Day Womens 50+ Oral Tablet Take 1 Tablet by mouth in the morning. 65 Tablet 11 07/02/2024 10:17 AM EST 08/27/19 24 08/28/ 025 Discontin ued(Refil l) documented as of [...] mRNA, LNP-s, No Pre serve, 2-Dose Series (StudyApps) 04/27/2021,07/15/2020,06/24/2020 COVID-19, LNP-s, No Preserve , Oliver-sucrose, Ages 12+ (Pfizer) 10/24/2021 COVID-19, MRNA-LNP, PF, 30 M CG/0.3 mL, 12 YRS AND ABOVE, IM ([facility]) 01/16/2024,03/14/2023 Covid-19, Mrna, Lnp-s, Pf, B ivalent, 30 Mcg, IM, 12 yrs and above (StudyApps) 03/27/2022 Pneumococcal Conjugate Vacc, 13 Valent (Prevnar) 11/01/2014 Pneumococcal Conjugate Vacci ne, 20-valent ([id number]) 04/17/2024 Pneumococcal Polysaccharide PPV23 (Pneumovax) 08/28/2007 RSV [...] encounter Miscellaneous Notes * Telephone Encounter - Vicky Hayward DO - 08/28/2024 9:21 AM EDTSigned Prescriptions: Disp Refills One-A-Day Womens 50+ Oral Tablet 65 Tab*11 Sig: Take 1 Tablet bymouth in the morning.Authorizing Provider: VICKY HAYWARD documented in this encounter Plan of Treatment Upcoming Encounters Date Type Department Care Team (Late st Contact Info) Description 09/04/2024 11:20 AM EDT Office Visit Family Practice [address] [place] [address] [place] [phone] Vicky Hayward DO 293 [place] [address] 12/17/2024 8:30 AM EDT Office Visit Cardiology, [facility] [address] [place] [phone] Tacos Guerin PA-C [address] [place] [address] 04/28/2025 9:40 AM EST Office Visit Dermatology [facility] [address] [facility] [place] [address] Chandni Stahl PA-C [address] [place] [address] Scheduled Procedures Name Priority Associated Diagnoses Date/Ti [...] this encounter Medical Devices Implanted Type Area Veterinary Surgery Technician Device Identifier Shelf Expiration Date Model / Serial / Lot Lens Intraoc 17.0 - [id number] - [id number] Implanted:Qty: 1 on 07/10/2022 by Lucio Pino MD at OR [facility] Left: Eye BAUSCH 02/02/2027 [id number] / [id number] / Lens Intraoc 17.0 - [id number] - [id number] Implanted:Qty: 1 on 07/24/2022 by Lucio Pino MD at OR [facility] Right: Eye BAUSCH 05/05/2027 [id number] / [id number] / [id number] documented as of this encounter Advance Directives [...] Power of Attor hortensia? No Care Teams Soil Science Technical Officer Relationship Specialty Start Date End Date Vicky Hayward DO [address] [place] [address] PCP - General Internal Medicine 10/21/23 documented as of this encounter
--- OUTSIDE RECORDS SUMMARY | 2024-08-29 01:59 | External Medical Summary | Summary of Care ---
Author Name Unknown Organization [facility] Address [address] [place] [address] Phone [phone] Care Team Providers Care Aviation All Source Intelligence Name Role Phone Roberth Hayward DO Primary Care Provider [phone] Reason for Visit * Reason Onset Date Comments Advice 08/28/202408/28 Encounter Details Date Type Department Care Team (Late st Contact Info) Description 08/28/2024 Telephone Family Practice 65 [facility] 293 [place] [phone] Roberth Hayward DO 293 [place] [address] Advice (08/28) Allergies Active Allergy Reactions Criticality Noted Date [...] affected area. 60 g 1 3 Active Furosemide 20 MG Oral Tablet (Lasix)Indicatio [...] and when walking 1 Each 5 Active One-A-Day Womens 50+ Oral Tablet Take 1 Tablet by mouth in the morning. 65 Tablet 11 5 Active documented as of this encounter [...] mRNA, LNP-s, No Pre serve, 2-Dose Series (Niupai) 04/27/2021,07/15/2020,06/24/2020 COVID-19, LNP-s, No Preserve , Oliver-sucrose, Ages 12+ (Pfizer) 10/24/2021 COVID-19, MRNA-LNP, PF, 30 M CG/0.3 mL, 12 YRS AND ABOVE, IM ([facility]) 01/16/2024,03/14/2023 Covid-19, Mrna, Lnp-s, Pf, B ivalent, 30 Mcg, IM, 12 yrs and above (Niupai) 03/27/2022 Pneumococcal Conjugate Vacc, 13 Valent (Prevnar) 11/01/2014 Pneumococcal Conjugate Vacci ne, 20-valent ([id number]) 04/17/2024 Pneumococcal Polysaccharide PPV23 (Pneumovax) 08/28/2007 RSV [...] encounter Miscellaneous Notes * Telephone Encounter - Lina Narayanan LPN - 08/28/2024 9:27 AM EDT Spoke with Vanessa. She was asking if they could take patient to a convenient care. Advised that it would be best to take her to an ER for the best care and evaluation needed to be done. Aware and verbalized understanding - will take patient now. * Telephone Encounter - Luz Peña OSA - 08/28/2024 9:18 AM EDT Other daughter, Vanessa called asking to speak with Michelle. * Telephone Encounter - Michelle Wagoner LPN - 08/28/2024 8:43 AM EDT Spoke to charge nurse Montez and relayed information from Dr. Hayward. Faxed labs to [facility] [phone]. See prior note - dtr and pt aware. * Telephone Encounter - Michelle Wagoner LPN - 08/28/2024 8:43 AM EDT ----- Message from Roberth Hayward DO sent at 08/28/2024 6:33 AM EDT ----- WBC is up. Glucose is up. Patient has metabolic acidosis on CMP. Needs ED evaluation today. * Telephone Encounter - Michelle Wagoner LPN - 08/28/2024 8:31 AM EDT Call placed to patient - spoke to daughter Apryl and relayed information from Dr. Hayward. Daughter acknowledged understanding and agreeable to taking pt to [facility] ED for evaluation. Dtr agreeable tome calling ED and providing information. Information from Dr. Hayward also sent through pts MyG per request of daughter. Call placed to ED and spoke to charge nurse * Telephone Encounter - Michelle Wagoner LPN - 08/28/2024 8:21 AM EDT ----- Message from Roberth Hayward DO sent at 08/28/2024 6:33 AM EDT ----- WBC is up. Glucose is up. Patient has metabolic acidosis on CMP. Needs ED evaluation today. documented in this encounter Plan of Treatment Upcoming Encounters Date Type Department Care Team (Late st Contact Info) Description 09/04/2024 11:20 AM EDT Office Visit Family Practice 65 [facility] [place] 293 [place] [address] Roberth Hayward DO 293 [facility], [place] [address] 12/17/2024 8:30 AM EDT Office Visit Cardiology, [facility] [address] [place] [phone] Tacos Guerin PA-C [address] [place] [address] 04/28/2025 9:40 AM EST Office Visit Dermatology [facility] 200 [facility] [place] [address] Chandni Stahl PA-C [address] [place] [address] Scheduled Procedures Name Priority Associated Diagnoses Date/Ti me COLONOSCOPY FLEXIBLE PROXIMAL DIAGNOSTIC Recall History of colon polyps Health Maintenance Due Date Last Done Comments DXA Scan 12/08/2021 12/08/2018, 08/2014, 03/18/2012, Additional history exists Adult Wellness Visit 09/28/2023 09/27/2022, 09/21/2021, 10/04/2020 Diabetic Foot Exam 07/11/2024 07/12/2023, 0 07/05/2022, 07/19/2021, Additional history exists COVID-19 Vaccine () 08/04/2024 02/04/2024, 01/16/2024, 03/14/2023, Additional history exists Diabetic [...] this encounter Medical Devices Implanted Type Area Tilesetter Device Identifier Shelf Expiration Date Model / Serial / Lot Lens Intraoc 17.0 - [id number] - [id number] Implanted:Qty: 1 on 07/10/2022 by Lucio Pino MD at OR [facility] Left: Eye BAUSCH 02/02/2027 [id number] / [id number] / Lens Intraoc 17.0 - [id number] - [id number] Implanted:Qty: 1 on 07/24/2022 by Lucio Pino MD at OR [facility] Right: Eye BAUSCH 05/05/2027 [id number] / [id number] / [id number] documented as of this encounter Advance Directives [...] Power of Attor hortensia? No Care Teams Aviation All Source Intelligence Relationship Specialty Start Date End Date Roberth Hayward DO [address] [place] [address] PCP - General Internal Medicine 10/21/23 documented as of this encounter
--- OUTSIDE RECORDS SUMMARY | 2024-08-29 01:59 | External Medical Summary | Summary of Care ---
Author Name Unknown Organization [facility] Address [address] [place] [address] Phone [phone] Care Team Providers Care Maintenance Technician 3Rd Shift Name Role Phone Roberth Hayward DO Primary Care Provider [phone] Reason for Visit * Reason Onset Date Comments Advice 08/28/202408/28 Encounter Details Date Type Department Care Team (Late st Contact Info) Description 08/28/2024 Telephone Family Practice 65 [facility] 293 [place] [phone] Roberth Hayward DO [address] [place] [address] Advice (08/28) Allergies Active Allergy Reactions Criticality [...] mRNA, LNP-s, No Pre serve, 2-Dose Series ([employer] 04/27/2021,07/15/2020,06/24/2020 COVID-19, LNP-s, No Preserve , Oliver-sucrose, Ages 12+ (Pfizer) 10/24/2021 COVID-19, MRNA-LNP, PF, 30 M CG/0.3 mL, 12 YRS AND ABOVE, IM ([facility]) 01/16/2024,03/14/2023 Covid-19, Mrna, Lnp-s, Pf, B ivalent, 30 Mcg, IM, 12 yrs and above ([employer] 03/27/2022 Pneumococcal Conjugate Vacc, 13 Valent (Prevnar) 11/01/2014 Pneumococcal Conjugate Vacci ne, 20-valent ([id number]) 04/17/2024 Pneumococcal Polysaccharide PPV23 (Pneumovax) 08/28/2007 RSV [...] information from Dr. Hayward. Faxed labs to [facility] [phone]. See prior note - dtr and pt [...] understanding and agreeable to taking pt to [facility] ED for evaluation. Dtr agreeable tome calling [...] AM EDT Office Visit Family Practice 65 [facility] [place] 293 [place] [address] Roberth Hayward DO 293 [facility], [place] [address] 12/17/2024 8:30 AM EDT Office Visit Cardiology, [facility] [address] [place] [phone] Tacos Guerin PA-C [address] [place] [address] 04/28/2025 9:40 AM EST Office Visit Dermatology [facility] 200 [facility] [place] [address] Chandni Stahl PA-C [address] [place] [address] Scheduled Procedures Name Priority Associated Diagnoses Date/Ti [...] this encounter Medical Devices Implanted Type Area Graphic Production Artist Device Identifier Shelf Expiration Date Model / Serial / Lot Lens Intraoc 17.0 - [id number] - [id number] Implanted:Qty: 1 on 07/10/2022 by Lucio Pino MD at OR [facility] Left: Eye BAUSCH 02/02/2027 [id number] / [id number] / Lens Intraoc 17.0 - [id number] - [id number] Implanted:Qty: 1 on 07/24/2022 by Lucio Pino MD at OR [facility] Right: Eye BAUSCH 05/05/2027 [id number] / [id number] / [id number] documented as of this encounter Advance Directives [...] Power of Attor hortensia? No Care Teams Maintenance Technician 3Rd Shift Relationship Specialty Start Date End Date Roberth Hayward DO [address] [place] [address] PCP - General Internal Medicine 10/21/23 documented as of this encounter
[2024-08-29] MEDS: ACETAMINOPHEN 325 MG TAB PO PRN (04:55)
[2024-08-29 06:59] LABS: Hematocrit (blood only) 32.9 % (37.0-47.0); Hemoglobin 10.7 g/dl (12.0-16.0); Mean Corpuscular Hgb Conc 32.5 g/dL (32.0-36.0); Mean Corpuscular Volume 92.2 fL (80.0-100.0); Mean Platelet Volume 11.9 fL (9.4-12.4); Platelet Count 245 K/uL (130-400); RDW Coefficient of Variation 14.6 % (11.5-14.5); RDW Standard Deviation 49.4 fL (36.4-46.3); Red Blood Count 3.57 M/uL (4.20-5.40); White Blood Count 9.69 K/ul (4.8-10.8)
--- NOTE | 2024-08-29 07:01 | Podiatry Consultation ---
Date of Consultation August 29, 2024 Assessment & Plan (1) Pressure injury of heel, stage 2: Laterality: right Qualified Code(s): L89.612 - Pressure ulcer of right heel, stage 2 (2) Cellulitis: Laterality: right Site of cellulitis: extremity Site of cellulitis of extremity: lower extremity Qualified Code(s): L03.115 - Cellulitis of right lower limb (3) Leukocytosis: Leukocytosis type: unspecified Qualified Code(s): D72.829 - Elevated white blood cell count, unspecified Plan Stage 2 pressure injury to the posterior lateral aspect of the right heel: - Likely caused by pressure from prolonged bed rest - Order placed for Betadine wet-to-dry dressing, to be changed once daily right heel - Order placed for heel offloading boots (waffle boots), to be worn at all times while in bed - Weight-bearing as tolerated in normal shoe gear for short distances and transfers. Avoid unnecessary weight-bearing when possible. - No indication for surgical debridement at this time. Thank you for consulting podiatry to aid in the care of this patient. Will continue to follow as she remains in health and recommend follow-up in the wound care center within 2 weeks of discharge. Patient will require continued once daily dressing changes to the right heel wound with Betadine wet-to-dry dressing once daily following discharge. History of Present Illness Reason for Consultation: Right foot cellulitis versus possible osteomyelitis Attending Physician: Cortez Rios MD History of Present Illness 84-year-old female past medical history significant for type 2 diabetes, hyperlipidemia, CHF, atrial fibrillation, multiple recent urinary tract infections. Presents to [facility] emergency department 08/28/2024 with generalized weakness and infected right heel wound. Initiated on IV daptomycin. Wound culture and blood cultures pending. CT scan of the right foot with no osseous erosions to suggest osteomyelitis. No soft tissue emphysema. Allergies Allergy/AdvReac Type Severity Reaction Status Date / Time metronidazole Allergy Unknown RASH Verified 07/14/24 11:30 Penicillins Allergy Unknown Swelling Verified 07/14/24 14:46 of Lip/Tongue/Throat Home Medications Medication Instructions Recorded Confirmed Type acetaminophen 500 mg tablet 500 mg PO Q6H PRN Pain 07/14/24 08/28/24 History furosemide 20 mg tablet 20 mg PO 3XWK #16 tabs 07/20/24 08/28/24 Rx metoprolol tartrate 25 mg tablet 25 mg PO BID #60 tabs 07/20/24 08/28/24 Rx omeprazole 20 mg capsule,delayed 20 mg PO BID #60 caps 07/20/24 08/28/24 Rx release potassium chloride 10 mEq 10 meq PO 3XWK #16 tabs 07/20/24 08/28/24 Rx tablet,extended release rosuvastatin 20 mg tablet 20 mg PO DAILY #30 tabs 07/20/24 08/28/24 Rx warfarin 2.5 mg tablet 2.5 mg PO UD 08/28/24 08/28/24 History Patient History Medical History (Updated 08/29/24 @ 14:45 by Jose Diop DPM) HLD (hyperlipidemia) Diabetes mellitus, type II Chronic heart failure with preserved ejection fraction (HFpEF) Elevated troponin Chronic atrial fibrillation Ambulatory dysfunction Generalized weakness UTI (urinary tract infection) Influenza A Hx of ovarian cyst Hx of uterine prolapse Endometrial polyp (1999) Surgical History (Updated 08/20/24 @ 00:06 by Joselo Osuna) S/P lymph node biopsy History of hysterectomy (12/01/12) vaginal hysterectomy with anterior repair S/P wisdom tooth extraction S/P tubal ligation (1981) S/P knee replacement S/P dilation and curettage (09/1999) with hysteroscopy for PMB, suspected endometrial polyp S/P colonoscopy (11/2007) Family History Aunt Breast cancer Mother Ovarian cancer Other Chest pain Social History Smoking Status: Never smoker Second Hand Exposure: No; Do You Dip or Chew Tobacco: No; Hx Alcohol Use: No Hx Substance Use: No Preferred Language: Lao Communication Ability: Effective Rose Grader Required: No Beliefs That Will Affect Care: None Current Living Situation: Spouse Feels Safe at Home: Yes Dental Care, Regularly: Yes Physical Activity Frequency Comment: Exercises regularly. Seatbelt Use: always Sunscreen Use: Yes Assistive Devices: Walker Review of Systems Review of Systems: Denies nausea vomiting fever chills. Reports pain in the right heel. All other systems reviewed and negative unless detailed in HPI. Physical Exam Physical Exam: Objective: Const: Appears well developed and well nourished. No signs of acute distress present. CV: Extremities: No cyanosis or edema. Capillary refill time is less than 2 seconds all digits of the bilateral foot. Posterior tibial and dorsalis pedis pulses are palpable bilateral. Lymph: No palpable or visible regional lymphadenopathy. Skin: No scars, rashes, lesions or ecchymosis. Thin atrophic skin to the bilateral lower extremity below the knee with loss of hair growth. Neuro: Sensation intact to light touch in all areas of the foot and ankle. Psych: Mood/Affect: Mood is normal. Affect is normal. Cognition: Orientation is intact to person, place and time. Focused lower extremity musculoskeletal exam: Leg: No pain with compression of the calf muscle. Patient unable to fully extend knees while at rest in bed which makes offloading with a pillow behind the calf suboptimal as her heels are still able to contact the mattress and apply pressure to the area of ulceration. Ankles: Normal to inspection and palpation. No swelling bilaterally. No tenderness bilaterally. Motor strength is intact. Range of motion pain-free and unlimited. Feet: All ulceration to the posterior lateral aspect of the right heel meets criteria for stage II pressure injury. Exposed subcutaneous tissue and loosely adhered eschar to the central lesion. No malodor. No active drainage. Scant sanguinous drainage to dressing. Mild periwound erythema and edema. Results & Data Vital Signs (Past 12 Hours) Vital Signs Temp Pulse Resp BP Pulse Ox O2 Del Method 08/28/24 22:21 36.5 C 98 H 18 137/85 96 Room Air 08/28/24 20:41 37.0 C 91 H 12 151/83 H 97 Room Air Laboratory Results WBC 9.69 Blood culture 08/28/2024: No growth after 24 hours. Preliminary Wound culture right foot: 08/28/2024: Growing Staph aureus and group B strep. Diagnostic Findings CT foot RT wo con HISTORY: 84 years-old Female poss osteo chronic pain of the right foot with clinical concern for osteomyelitis COMPARISON: None TECHNIQUE: Multiple axial CT images of the right foot were obtained without IV contrast. A dose lowering technique was used consistent with the principals of ELSARA. FINDINGS: Extensive arterial calcifications. There is diffuse atrophy of the musculature with mild to moderate subcutaneous edema. No discrete fluid collection or soft tissue mass identified. Moderate thickening within the proximal to mid fibers of the Achilles tendon. Moderate thickening of the medial cord plantar fascia suggestive of chronic fasciitis. Tendons and ligaments are not well evaluated by CT technique. Subcentimeter accessory ossicles are noted adjacent to the medial talus. Demineralized appearance of the bones. Multifocal osteoarthritis appears to mild to moderate. Moderate sized calcaneal enthesophyte at the Achilles insertion site. No acute fracture, dislocation or osseous erosion identified by CT. IMPRESSION: 1. No acute fracture, dislocation or osseous erosion to suggest acute osteomyelitis. 2. Nonspecific subcutaneous edema. Differential considerations include cellulitis, venous stasis or lymphedema. 3. Extensive arterial calcifications. 4. Mild to moderate osteoarthritis. 5. Moderate Achilles tendinosis. PG Care Time/CCT Total # of Minutes Spent Total Time Spent with Patient: Total time spent is greater than 50% in coordination of care (as documented) at patient's floor/unit and/or counseling patient: Coding Level of Care Code 10924 INT INP/OBS CARE 2/55MIN Diagnoses Pressure injury of right heel, stage 2 L89.612 Laterality: right Cellulitis L03.115 Laterality: right Site of cellulitis: extremity Site of cellulitis of extremity: lower extremity Leukocytosis D72.829 Leukocytosis type: unspecified
[2024-08-29 07:23] LABS: Albumin Globulin Ratio 0.9 (0.9-2); Albumin Level 3.4 gm/dl (3.4-5.0); BUN Creatinine Ratio 25.7 (10-20); Bilirubin,Total 0.6 mg/dl (0.2-1.0); Calcium 8.5 mg/dl (8.6-10.3); Globulin 3.7 gm/dl (2.5-4.0); Potassium 3.8 mmol/L (3.5-5.1); Total Protein 7.1 gm/dl (6.0-8.3)
[2024-08-29 07:27] LABS: Estimated Average Glucose 151 mg/dl; Hemoglobin A1C 6.9 % (4.5-5.6)
[2024-08-29 07:30] LABS: INR 3.4 (0.9-1.1); Prothrombin Time 32.7 Seconds (9.0-12.0)
[2024-08-29] MEDS ORDERED: Nursing to Pharmacy Communication SCH (07:45)
--- NOTE | 2024-08-29 07:54 | Hospitalist Progress Note ---
Date of Service August 29, 2024 Assessment & Plan (1) Pressure injury of heel, stage 2: (2) HLD (hyperlipidemia): (3) Diabetes mellitus, type II: (4) Ambulatory dysfunction: (5) Chronic heart failure with preserved ejection fraction (HFpEF): Plan The patient is a 84-year-old female who presents to the ED on with complaints of generalized weakness and concern for right heel drainage/infection Right heel pressure sorePOA Right foot cellulitis versus possible osteomyelitis Worsening general weakness over the past week, right foot CT not indicative of osteomyelitis Consult podiatry for possible I&D, continue IV Dapto, patient has allergy to penicillin Therapeutic Lovenox, hold warfarin for possible debridement Wound culture pending, blood cultures pending, afebrile Hx CHF/NSTEMI/AF/HLD: Continue furosemide/metoprolol/statin Hold warfarin, continue therapeutic Lovenox Hx DM2: Not on any medications at home, last A1c 6.9 SSI/4 times daily BGM, continue to monitor Hx GERD: Continue omeprazole Full code DVT prophylaxis: Therapeutic Lovenox/warfarin Admission and Anticipated Discharge Date Admission Date: August 28, 2024 Subjective Pt seen in follow up of foot wound received clinda in ED, now on dapto wound cultx pending Currently sitting up in bed in NAD no fever, chills, chest pain, shortness of breath, no abd. pain, n/v Podiatry consulted PT/OT consulted, CM involved in Dc plans Review of Systems Review of Systems: All systems reviewed & are unremarkable except as noted in Subjective Physical Exam Physical Exam: Constitutional: WD/WN, vitals as a sada Eyes: PERRL, conjunctiva e normal, anicteri c sclerae ENMT: external ear and n ose normal Neck: supple Respiratory: normal respiratory effort, lungs yoni ar to auscultation Cardiovascular: RRR, no murmur, no edema Gastrointestinal ( Abdomen): normal bowel sound s, soft, nontender Musculoskeletal: moves extremities Skin: no rashes, warm an d dry (Right heel stage II pressure injury, left heel stage I pressure s ore-POA) Neurologic: PERRL, EOMI,no fac e palsy, no dysart hria, moves extrem ities Psychiatric: A+Ox3, euthymic af fect Results & Data Results & Data Vital Signs (Past 12 Hours) Vital Signs Temp Pulse Resp BP Pulse Ox O2 Del Method 08/29/24 07:34 36.7 C 92 H 18 145/73 H 96 Room Air 08/28/24 22:21 36.5 C 98 H 18 137/85 96 Room Air 08/28/24 20:41 37.0 C 91 H 12 151/83 H 97 Room Air Laboratory Results 08/29/24 08/28/24 08/28/24 Range/Units 06:18 20:40 15:55 WBC 9.69 (4.8-10.8) K/ul RBC 3.57 L (4.20-5.40) M/uL Hgb 10.7 L (12.0-16.0) g/dl Hct 32.9 L (37.0-47.0) % MCV 92.2 (80.0-100.0) fL MCH 30.0 (25.0-34.0) pg MCHC 32.5 (32.0-36.0) g/dL RDW Std Deviation 49.4 H (36.4-46.3) fL RDW Coeff of George 14.6 H (11.5-14.5) % Plt Count 245 (130-400) K/uL MPV 11.9 (9.4-12.4) fL Immature Gran % (Auto) % Neut % (Auto) % Lymph % (Auto) % [place] % (Auto) % Eos % (Auto) % Baso % (Auto) % Neut # (Auto) (1.40-6.50) K/uL Lymph # (Auto) (1.20-3.40) K/uL [place] # (Auto) (0.11-0.59) K/uL Eos # (Auto) (0.00-0.50) K/uL Baso # (Auto) (0.00-0.20) K/uL Immature Gran # (Auto) (0.01-0.20) K/uL PT 32.7 H (9.0-12.0) Seconds INR 3.4 H (0.9-1.1) Sodium 135 L (136-145) mmol/L Potassium 3.8 (3.5-5.1) mmol/L Chloride 104 (98-107) mmol/L Carbon Dioxide 26 (21-32) mmol/L Anion Gap 5 (3-11) BUN 18 (6-23) mg/dl Creatinine 0.70 (0.6-1.2) mg/dl Est Cr Clr Drug Dosing 55.0 ml/min eGFR 84.70 BUN/Creatinine Ratio 25.7 H (10-20) Glucose 118 H (70-99(Fasting)) mg/dl POC Glucose 104 H (70-99) mg/dl Estimat Average Glucose 151 mg/dl Hemoglobin A1c 6.9 H (4.5-5.6) % Lactate (0.4-2.0) mmol/L Calcium 8.5 L (8.6-10.3) mg/dl Magnesium (1.7-2.4) mg/dl Total Bilirubin 0.6 (0.2-1.0) mg/dl AST 22 (13-39) U/L ALT 11 (7-52) U/L Alkaline Phosphatase 91 (34-104) U/L Troponin I High Sens (0-14) pg/ml Total Protein 7.1 (6.0-8.3) gm/dl Albumin 3.4 (3.4-5.0) gm/dl Globulin 3.7 (2.5-4.0) gm/dl Albumin/Globulin Ratio 0.9 (0.9-2) Procalcitonin (0-0.5) ng/ml TSH (0.300-4.500) uIu/ml Urine Color Urine Appearance (Clear) Urine pH (4.5-7.5) Ur Specific [place] (1.000-1.030) Urine Protein (Negative) Urine Glucose (UA) (Negative) Urine Ketones (Negative) Urine Blood (Negative) Urine Nitrite (Negative) Urine Bilirubin (Negative) Urine Urobilinogen (Negative) Ur Leukocyte Esterase (Negative) Urine WBC (Auto) (0-5) /hpf Urine RBC (Auto) (0-2) /hpf U Hyaline Cast (Auto) (0-2) /lpf U Epithel Cells (Auto) (0-2) /hpf Urine Bacteria (Auto) (None Seen) Nasal Screen MRSA (PCR) Negative (Negative) SARS-CoV-2 (PCR) (Negative) Influenza Type A (PCR) (Neg) Influenza Type B (PCR) (Neg) RSV (RT-PCR) (Neg) 08/28/24 08/28/24 08/28/24 Range/Units 11:55 11:33 10:45 WBC (4.8-10.8) K/ul RBC (4.20-5.40) M/uL Hgb (12.0-16.0) g/dl Hct (37.0-47.0) % MCV (80.0-100.0) fL MCH (25.0-34.0) pg MCHC (32.0-36.0) g/dL RDW Std Deviation (36.4-46.3) fL RDW Coeff of George (11.5-14.5) % Plt Count (130-400) K/uL MPV (9.4-12.4) fL Immature Gran % (Auto) % Neut % (Auto) % Lymph % (Auto) % [place] % (Auto) % Eos % (Auto) % Baso % (Auto) % Neut # (Auto) (1.40-6.50) K/uL Lymph # (Auto) (1.20-3.40) K/uL [place] # (Auto) (0.11-0.59) K/uL Eos # (Auto) (0.00-0.50) K/uL Baso # (Auto) (0.00-0.20) K/uL Immature Gran # (Auto) (0.01-0.20) K/uL PT (9.0-12.0) Seconds INR (0.9-1.1) Sodium (136-145) mmol/L Potassium (3.5-5.1) mmol/L Chloride (98-107) mmol/L Carbon Dioxide (21-32) mmol/L Anion Gap (3-11) BUN (6-23) mg/dl Creatinine (0.6-1.2) mg/dl Est Cr Clr Drug Dosing ml/min eGFR BUN/Creatinine Ratio (10-20) Glucose (70-99(Fasting)) mg/dl POC Glucose (70-99) mg/dl Estimat Average Glucose mg/dl Hemoglobin A1c (4.5-5.6) % Lactate 2.0 (0.4-2.0) mmol/L Calcium (8.6-10.3) mg/dl Magnesium (1.7-2.4) mg/dl Total Bilirubin (0.2-1.0) mg/dl AST (13-39) U/L ALT (7-52) U/L Alkaline Phosphatase (34-104) U/L Troponin I High Sens (0-14) pg/ml Total Protein (6.0-8.3) gm/dl Albumin (3.4-5.0) gm/dl Globulin (2.5-4.0) gm/dl Albumin/Globulin Ratio (0.9-2) Procalcitonin 0.04 (0-0.5) ng/ml TSH (0.300-4.500) uIu/ml Urine Color Yellow Urine Appearance Clear (Clear) Urine pH 5.5 (4.5-7.5) Ur Specific [place] 1.024 (1.000-1.030) Urine Protein 1+ H (Negative) Urine Glucose (UA) Negative (Negative) Urine Ketones Trace H (Negative) Urine Blood Negative (Negative) Urine Nitrite Negative (Negative) Urine Bilirubin Negative (Negative) Urine Urobilinogen Negative (Negative) Ur Leukocyte Esterase 1+ H (Negative) Urine WBC (Auto) 11-20 H (0-5) /hpf Urine RBC (Auto) 6-10 H (0-2) /hpf U Hyaline Cast (Auto) 3-5 H (0-2) /lpf U Epithel Cells (Auto) 0-2 (0-2) /hpf Urine Bacteria (Auto) None Seen (None Seen) Nasal Screen MRSA (PCR) (Negative) SARS-CoV-2 (PCR) NEGATIVE (Negative) Influenza Type A (PCR) Negative (Neg) Influenza Type B (PCR) Negative (Neg) RSV (RT-PCR) Negative (Neg) 08/28/24 Range/Units 10:40 WBC 11.27 H (4.8-10.8) K/ul RBC 4.02 L (4.20-5.40) M/uL Hgb 12.3 (12.0-16.0) g/dl Hct 37.6 (37.0-47.0) % MCV 93.5 (80.0-100.0) fL MCH 30.6 (25.0-34.0) pg MCHC 32.7 (32.0-36.0) g/dL RDW Std Deviation 51.3 H (36.4-46.3) fL RDW Coeff of George 14.7 H (11.5-14.5) % Plt Count 311 (130-400) K/uL MPV 12.2 (9.4-12.4) fL Immature Gran % (Auto) 0.4 % Neut % (Auto) 76.1 % Lymph % (Auto) 16.0 % [place] % (Auto) 7.1 % Eos % (Auto) 0.1 % Baso % (Auto) 0.3 % Neut # (Auto) 8.59 H (1.40-6.50) K/uL Lymph # (Auto) 1.80 (1.20-3.40) K/uL [place] # (Auto) 0.80 H (0.11-0.59) K/uL Eos # (Auto) 0.01 (0.00-0.50) K/uL Baso # (Auto) 0.03 (0.00-0.20) K/uL Immature Gran # (Auto) 0.04 (0.01-0.20) K/uL PT 30.0 H (9.0-12.0) Seconds INR 3.1 H (0.9-1.1) Sodium 138 (136-145) mmol/L Potassium 4.2 (3.5-5.1) mmol/L Chloride 104 (98-107) mmol/L Carbon Dioxide 26 (21-32) mmol/L Anion Gap 8 (3-11) BUN 19 (6-23) mg/dl Creatinine 0.82 (0.6-1.2) mg/dl Est Cr Clr Drug Dosing 47.0 ml/min eGFR 70.05 BUN/Creatinine Ratio 23.2 H (10-20) Glucose 173 H (70-99(Fasting)) mg/dl POC Glucose (70-99) mg/dl Estimat Average Glucose mg/dl Hemoglobin A1c (4.5-5.6) % Lactate (0.4-2.0) mmol/L Calcium 8.9 (8.6-10.3) mg/dl Magnesium 1.8 (1.7-2.4) mg/dl Total Bilirubin 0.6 (0.2-1.0) mg/dl AST 23 (13-39) U/L ALT 13 (7-52) U/L Alkaline Phosphatase 106 H (34-104) U/L Troponin I High Sens 9.0 (0-14) pg/ml Total Protein 8.2 (6.0-8.3) gm/dl Albumin 3.8 (3.4-5.0) gm/dl Globulin 4.4 H (2.5-4.0) gm/dl Albumin/Globulin Ratio 0.9 (0.9-2) Procalcitonin (0-0.5) ng/ml TSH 2.343 (0.300-4.500) uIu/ml Urine Color Urine Appearance (Clear) Urine pH (4.5-7.5) Ur Specific [place] (1.000-1.030) Urine Protein (Negative) Urine Glucose (UA) (Negative) Urine Ketones (Negative) Urine Blood (Negative) Urine Nitrite (Negative) Urine Bilirubin (Negative) Urine Urobilinogen (Negative) Ur Leukocyte Esterase (Negative) Urine WBC (Auto) (0-5) /hpf Urine RBC (Auto) (0-2) /hpf U Hyaline Cast (Auto) (0-2) /lpf U Epithel Cells (Auto) (0-2) /hpf Urine Bacteria (Auto) (None Seen) Nasal Screen MRSA (PCR) (Negative) SARS-CoV-2 (PCR) (Negative) Influenza Type A (PCR) (Neg) Influenza Type B (PCR) (Neg) RSV (RT-PCR) (Neg) Medications Administered Current Inpatient Medications Acetaminophen (Acetaminophen 325 Mg Tab) 650 mg PO Q4H PRN PRN Reason: pain/fever Stop: 09/27/24 15:57 Last Admin: 08/29/24 04:55 Dose: 650 mg Dextrose (Dextrose 50% 50 Ml Syringe) 25 - 50 ml IV UD PRN; Protocol PRN Reason: Hypoglycemia Protocol Stop: 09/27/24 12:43 Enoxaparin Sodium (Enoxaparin 80 Mg/0.8 Ml Syr) 70 mg SQ Q12H [facility] Stop: 09/28/24 08:59 Glucagon (Glucagon For Inj 1 Mg Vial) 1 mg SQ UD PRN; Protocol PRN Reason: Hypoglycemia Protocol Stop: 09/27/24 12:43 Glucose (Glucose 40% Gel 15 Gm Tube) 15 - 30 gm PO UD PRN; Protocol PRN Reason: Hypoglycemia Protocol Stop: 09/27/24 12:43 Glucose (Glucose 10 Tab/Tube) 4 - 8 tab PO UD PRN; Protocol PRN Reason: Hypoglycemia Protocol Stop: 09/27/24 12:43 Daptomycin 400 mg/ Syringe 8 mls @ 4 mls/min IV Q24H [facility]; Protocol Stop: 09/04/24 13:29 Last Admin: 08/28/24 13:43 Dose: 4 mls/min Insulin Aspart (Insulin Aspart Per Unit Charge) 0 units SC ACHS [facility] Stop: 09/27/24 16:29 Last Admin: 08/28/24 21:53 Dose: Not Given Metoprolol Tartrate (Metoprolol Tartrate 25 Mg Tab) 25 mg PO BID [facility] Stop: 09/27/24 20:59 Last Admin: 08/28/24 21:45 Dose: 25 mg Miscellaneous (Carbohydrates For Hypoglycemia ) 15 - 30 gm PO UD PRN PRN Reason: Hypoglycemia Protocol Stop: 09/27/24 12:43 Miscellaneous Information (Nursing To Pharmacy Communication) 1 each N/A TODAY [facility] Stop: 09/28/24 07:44 Pantoprazole Sodium (Pantoprazole 40 Mg Tab) 40 mg PO BID [facility] Stop: 09/27/24 20:59 Last Admin: 08/28/24 21:52 Dose: 40 mg Potassium Chloride (Potassium Chloride 10 Meq Tabcr) 10 meq PO [id number] [facility] Stop: 09/30/24 08:59 Rosuvastatin Calcium (Rosuvastatin Calcium 20 Mg Tab) 20 mg PO DAILY [facility] Stop: 09/28/24 08:59
[2024-08-29] MEDS: ENOXAPARIN 80 MG/0.8 ML SYR SQ SCH (08:50)
[2024-08-29] MEDS ORDERED: ENOXAPARIN 1 MG/KG SC SCH (09:00)
[2024-08-29] MEDS ORDERED: ROSUVASTATIN CALCIUM 20 MG TAB PO SCH (09:00)
[2024-08-29] MEDS: Nursing to Pharmacy Communication SCH (11:56)
[2024-08-29] MEDS ORDERED: INSULIN ASPART PER UNIT CHARGE SC SCH (12:00)
[2024-08-29] MEDS: INSULIN ASPART PER UNIT CHARGE SC SCH (12:26)
[2024-08-30 07:45] LABS: Hematocrit (blood only) 35.6 % (37.0-47.0); Hemoglobin 11.3 g/dl (12.0-16.0); Mean Corpuscular Hemoglobin 29.7 pg (25.0-34.0); Mean Corpuscular Hgb Conc 31.7 g/dL (32.0-36.0); Mean Corpuscular Volume 93.4 fL (80.0-100.0); Mean Platelet Volume 12.4 fL (9.4-12.4); Platelet Count 258 K/uL (130-400); RDW Coefficient of Variation 14.6 % (11.5-14.5); RDW Standard Deviation 50.4 fL (36.4-46.3); Red Blood Count 3.81 M/uL (4.20-5.40); White Blood Count 8.94 K/ul (4.8-10.8)
[2024-08-30 08:07] LABS: BUN Creatinine Ratio 23.5 (10-20); Calcium 8.8 mg/dl (8.6-10.3); Creatinine Clr Calc Pharmacy 56.6 ml/min; Magnesium 1.7 mg/dl (1.7-2.4); Phosphorus 3.6 mg/dl (2.5-4.9); Potassium 4.2 mmol/L (3.5-5.1)
[2024-08-30 08:17] LABS: INR 2.4 (0.9-1.1); Prothrombin Time 24.4 Seconds (9.0-12.0)
--- NOTE | 2024-08-30 18:46 | Hospitalist Progress Note ---
Date of Service August 30, 2024 Assessment & Plan (1) Pressure injury of heel, stage 2: (2) HLD (hyperlipidemia): (3) Diabetes mellitus, type II: (4) Ambulatory dysfunction: (5) Chronic heart failure with preserved ejection fraction (HFpEF): Plan The patient is a 84-year-old female who presents to the ED on with complaints of generalized weakness and concern for right heel drainage/infection Right heel pressure sorePOA Right foot cellulitis versus possible osteomyelitis Worsening general weakness over the past week, right foot CT not indicative of osteomyelitis Consult podiatry for possible I&D, continue IV Dapto, patient has allergy to penicillin Therapeutic Lovenox, hold warfarin for possible debridement Wound culture pending, blood cultures pending, afebrile - wound cultx positive for staph and strep -> will further discuss w/ ID Per podiatry - Stage 2 pressure injury to the posterior lateral aspect of the right heel: - Likely caused by pressure from prolonged bed rest - Order placed for Betadine wet-to-dry dressing, to be changed once daily right heel - Order placed for heel offloading boots (waffle boots), to be worn at all times while in bed - Weight-bearing as tolerated in normal shoe gear for short distances and transfers. Avoid unnecessary weight-bearing when possible. - No indication for surgical debridement at this time. Hx CHF/NSTEMI/AF/HLD: Continue furosemide/metoprolol/statin Hold warfarin, continue therapeutic Lovenox Hx DM2: Not on any medications at home, last A1c 6.9 SSI/4 times daily BGM, continue to monitor Hx GERD: Continue omeprazole Full code DVT prophylaxis: Therapeutic Lovenox/warfarin Admission and Anticipated Discharge Date Admission Date: August 28, 2024 Subjective Pt seen in follow up of foot wound received clinda in ED, now on dapto wound cultx pending Currently sitting up in bed in NAD no fever, chills, chest pain, shortness of breath, no abd. pain, n/v Podiatry consulted consult ID PT/OT consulted, CM involved in Dc plans Review of Systems Review of Systems: All systems reviewed & are unremarkable except as noted in Subjective Physical Exam Physical Exam: Constitutional: WD/WN, vitals as a sada Eyes: PERRL, conjunctiva e normal, anicteri c sclerae ENMT: external ear and n ose normal Neck: supple Respiratory: normal respiratory effort, lungs yoni ar to auscultation Cardiovascular: RRR, no murmur, no edema Gastrointestinal ( Abdomen): normal bowel sound s, soft, nontender Musculoskeletal: moves extremities Skin: no rashes, warm an d dry (Right heel stage II pressure injury, left heel stage I pressure s ore-POA) Neurologic: PERRL, EOMI,no fac e palsy, no dysart hria, moves extrem ities Psychiatric: A+Ox3, euthymic af fect Results & Data Results & Data Vital Signs (Past 12 Hours) Vital Signs Temp Pulse Resp BP Pulse Ox O2 Del Method 08/30/24 14:32 86 18 168/71 H 96 Room Air 08/30/24 07:30 36.4 C L 94 H 16 155/82 H 95 Room Air 08/30/24 07:10 Room Air Laboratory Results 08/30/24 08/30/24 08/30/24 Range/Units 16:36 11:30 07:27 WBC (4.8-10.8) K/ul RBC (4.20-5.40) M/uL Hgb (12.0-16.0) g/dl Hct (37.0-47.0) % MCV (80.0-100.0) fL MCH (25.0-34.0) pg MCHC (32.0-36.0) g/dL RDW Std Deviation (36.4-46.3) fL RDW Coeff of [place] (11.5-14.5) % Plt Count (130-400) K/uL MPV (9.4-12.4) fL PT (9.0-12.0) Seconds INR (0.9-1.1) Sodium (136-145) mmol/L Potassium (3.5-5.1) mmol/L Chloride (98-107) mmol/L Carbon Dioxide (21-32) mmol/L Anion Gap (3-11) BUN (6-23) mg/dl Creatinine (0.6-1.2) mg/dl Est Cr Clr Drug Dosing ml/min eGFR BUN/Creatinine Ratio (10-20) Glucose (70-99(Fasting)) mg/dl POC Glucose 102 H 114 H 121 H (70-99) mg/dl Calcium (8.6-10.3) mg/dl Phosphorus (2.5-4.9) mg/dl Magnesium (1.7-2.4) mg/dl 08/30/24 08/29/24 Range/Units 07:13 20:17 WBC 8.94 (4.8-10.8) K/ul RBC 3.81 L (4.20-5.40) M/uL Hgb 11.3 L (12.0-16.0) g/dl Hct 35.6 L (37.0-47.0) % MCV 93.4 (80.0-100.0) fL MCH 29.7 (25.0-34.0) pg MCHC 31.7 L (32.0-36.0) g/dL RDW Std Deviation 50.4 H (36.4-46.3) fL RDW Coeff of [place] 14.6 H (11.5-14.5) % Plt Count 258 (130-400) K/uL MPV 12.4 (9.4-12.4) fL PT 24.4 H (9.0-12.0) Seconds INR 2.4 H (0.9-1.1) Sodium 137 (136-145) mmol/L Potassium 4.2 (3.5-5.1) mmol/L Chloride 103 (98-107) mmol/L Carbon Dioxide 28 (21-32) mmol/L Anion Gap 6 (3-11) BUN 16 (6-23) mg/dl Creatinine 0.68 (0.6-1.2) mg/dl Est Cr Clr Drug Dosing 56.6 ml/min eGFR 85.29 BUN/Creatinine Ratio 23.5 H (10-20) Glucose 116 H (70-99(Fasting)) mg/dl POC Glucose 108 H (70-99) mg/dl Calcium 8.8 (8.6-10.3) mg/dl Phosphorus 3.6 (2.5-4.9) mg/dl Magnesium 1.7 (1.7-2.4) mg/dl Medications Administered Current Inpatient Medications Acetaminophen (Acetaminophen 325 Mg Tab) 650 mg PO Q4H PRN PRN Reason: pain/fever Stop: 09/27/24 15:57 Last Admin: 08/30/24 09:20 Dose: 650 mg Dextrose (Dextrose 50% 50 Ml Syringe) 25 - 50 ml IV UD PRN; Protocol PRN Reason: Hypoglycemia Protocol Stop: 09/27/24 12:43 Enoxaparin Sodium (Enoxaparin 80 Mg/0.8 Ml Syr) 70 mg SQ Q12H [facility] Stop: 09/28/24 08:59 Last Admin: 08/30/24 09:21 Dose: 70 mg Glucagon (Glucagon For Inj 1 Mg Vial) 1 mg SQ UD PRN; Protocol PRN Reason: Hypoglycemia Protocol Stop: 09/27/24 12:43 Glucose (Glucose 40% Gel 15 Gm Tube) 15 - 30 gm PO UD PRN; Protocol PRN Reason: Hypoglycemia Protocol Stop: 09/27/24 12:43 Glucose (Glucose 10 Tab/Tube) 4 - 8 tab PO UD PRN; Protocol PRN Reason: Hypoglycemia Protocol Stop: 09/27/24 12:43 Daptomycin 400 mg/ Syringe 8 mls @ 4 mls/min IV Q24H [facility]; Protocol Stop: 09/04/24 13:29 Last Admin: 08/30/24 13:30 Dose: 4 mls/min Insulin Aspart (Insulin Aspart Per Unit Charge) 0 units SC ACHS [facility] Stop: 09/28/24 11:59 Last Admin: 08/30/24 16:49 Dose: Not Given Metoprolol Tartrate (Metoprolol Tartrate 25 Mg Tab) 25 mg PO BID [facility] Stop: 09/27/24 20:59 Last Admin: 08/30/24 09:22 Dose: 25 mg Miscellaneous (Carbohydrates For Hypoglycemia ) 15 - 30 gm PO UD PRN PRN Reason: Hypoglycemia Protocol Stop: 09/27/24 12:43 Pantoprazole Sodium (Pantoprazole 40 Mg Tab) 40 mg PO BID [facility] Stop: 09/27/24 20:59 Last Admin: 08/30/24 09:22 Dose: 40 mg Potassium Chloride (Potassium Chloride 10 Meq Tabcr) 10 meq PO [id number] [facility] Stop: 09/30/24 08:59 Rosuvastatin Calcium (Rosuvastatin Calcium 20 Mg Tab) 20 mg PO DAILY [facility] Stop: 09/28/24 08:59 (1) Pressure injury of heel, stage 2 Laterality: right Qualified Code(s): L89.612 - Pressure ulcer of right heel, stage 2
[2024-08-31 06:42] LABS: INR 1.9 (0.9-1.1); Prothrombin Time 19.9 Seconds (9.0-12.0)
[2024-08-31] MEDS: POTASSIUM CHLORIDE 10 MEQ TABCR PO SCH (08:07)
--- NOTE | 2024-08-31 11:06 | Hospitalist Progress Note ---
Date of Service August 31, 2024 Assessment & Plan (1) Pressure injury of heel, stage 2: (2) HLD (hyperlipidemia): (3) Diabetes mellitus, type II: (4) Ambulatory dysfunction: (5) Chronic heart failure with preserved ejection fraction (HFpEF): Plan The patient is a 84-year-old female who presents to the ED on with complaints of generalized weakness and concern for right heel drainage/infection Right heel pressure sorePOA Right foot cellulitis versus possible osteomyelitis Worsening general weakness over the past week, right foot CT not indicative of osteomyelitis Consulted podiatry for possible I&D, continue IV Dapto, patient has allergy to penicillin Therapeutic Lovenox, hold warfarin for possible debridement Wound culture pending, blood cultures pending, afebrile - wound cultx positive for Staph (MSSA) and Strep group B-> will further discuss w/ ID Per podiatry - Stage 2 pressure injury to the posterior lateral aspect of the right heel: - Likely caused by pressure from prolonged bed rest - Order placed for Betadine wet-to-dry dressing, to be changed once daily right heel - Order placed for heel offloading boots (waffle boots), to be worn at all times while in bed - Weight-bearing as tolerated in normal shoe gear for short distances and transfers. Avoid unnecessary weight-bearing when possible. - No indication for surgical debridement at this time. 08/31 - - Continue Betadine wet-to-dry dressing, to be changed once daily right heel. Soaked gauze and Betadine dressed with ABD pad x 2 to the posterior lateral heel and 1 to the anterior ankle followed by Chelsea and tape. Will continue Betadine wet-to-dry dressings for another 24 hours if this wound does not start to dry out may transition to Santyl and attempt enzymatically debride the nonviable tissue to the wound bed. - Weight-bearing as tolerated in normal shoe gear for short distances and transfers. Avoid unnecessary weight-bearing when possible. - Unfortunately wound is increased in dimensions and is more boggy today with mild malodor. Wound is debrided and sharp excisional debridement at bedside as detailed in procedure note below. Hx CHF/NSTEMI/AF/HLD: Continue furosemide/metoprolol/statin resumed warfarin Hx DM2: Not on any medications at home, last A1c 6.9 SSI/4 times daily BGM, continue to monitor Hx GERD: Continue omeprazole Full code DVT prophylaxis: Therapeutic Lovenox/warfarin Admission and Anticipated Discharge Date Admission Date: August 28, 2024 Subjective Pt seen in follow up of foot wound received clinda in ED, now on dapto Currently sitting up in bed in NAD no fever, chills, chest pain, shortness of breath, no abd. pain, n/v Podiatry consulted - s/p debridement at the bedside today consulted ID PT/OT eval pending Daughter updated at the bedside Review of Systems Review of Systems: All systems reviewed & are unremarkable except as noted in Subjective Physical Exam Physical Exam: Constitutional: WD/WN, vitals as a sada Eyes: PERRL, conjunctiva e normal, anicteri c sclerae ENMT: external ear and n ose normal Neck: supple Respiratory: normal respiratory effort, lungs yoni ar to auscultation Cardiovascular: RRR, no murmur, no edema Gastrointestinal ( Abdomen): normal bowel sound s, soft, nontender Musculoskeletal: moves extremities Skin: no rashes, warm an d dry (Right heel stage II pressure injury, left heel stage I pressure s ore-POA) Neurologic: PERRL, EOMI,no fac e palsy, no dysart hria, moves extrem ities Psychiatric: A+Ox3, euthymic af fect Results & Data Results & Data Vital Signs (Past 12 Hours) Vital Signs Temp Pulse Resp BP Pulse Ox O2 Del Method 08/31/24 07:16 36.7 C 115 H 18 143/62 H 92 Room Air Laboratory Results 08/31/24 08/31/24 08/30/24 Range/Units 07:28 05:40 20:10 PT 19.9 H (9.0-12.0) Seconds INR 1.9 H (0.9-1.1) POC Glucose 137 H 141 H (70-99) mg/dl 08/30/24 08/30/24 Range/Units 16:36 11:30 PT (9.0-12.0) Seconds INR (0.9-1.1) POC Glucose 102 H 114 H (70-99) mg/dl Medications Administered Current Inpatient Medications Acetaminophen (Acetaminophen 325 Mg Tab) 650 mg PO Q4H PRN PRN Reason: pain/fever Stop: 09/27/24 15:57 Last Admin: 08/30/24 09:20 Dose: 650 mg Dextrose (Dextrose 50% 50 Ml Syringe) 25 - 50 ml IV UD PRN; Protocol PRN Reason: Hypoglycemia Protocol Stop: 09/27/24 12:43 Enoxaparin Sodium (Enoxaparin 80 Mg/0.8 Ml Syr) 70 mg SQ Q12H [facility] Stop: 09/28/24 08:59 Last Admin: 08/31/24 07:55 Dose: 70 mg Glucagon (Glucagon For Inj 1 Mg Vial) 1 mg SQ UD PRN; Protocol PRN Reason: Hypoglycemia Protocol Stop: 09/27/24 12:43 Glucose (Glucose 40% Gel 15 Gm Tube) 15 - 30 gm PO UD PRN; Protocol PRN Reason: Hypoglycemia Protocol Stop: 09/27/24 12:43 Glucose (Glucose 10 Tab/Tube) 4 - 8 tab PO UD PRN; Protocol PRN Reason: Hypoglycemia Protocol Stop: 09/27/24 12:43 Daptomycin 400 mg/ Syringe 8 mls @ 4 mls/min IV Q24H [facility]; Protocol Stop: 09/04/24 13:29 Last Admin: 08/30/24 13:30 Dose: 4 mls/min Insulin Aspart (Insulin Aspart Per Unit Charge) 0 units SC ACHS [facility] Stop: 09/28/24 11:59 Last Admin: 08/31/24 08:16 Dose: Not Given Metoprolol Tartrate (Metoprolol Tartrate 25 Mg Tab) 25 mg PO BID [facility] Stop: 09/27/24 20:59 Last Admin: 08/31/24 07:56 Dose: 25 mg Miscellaneous (Carbohydrates For Hypoglycemia ) 15 - 30 gm PO UD PRN PRN Reason: Hypoglycemia Protocol Stop: 09/27/24 12:43 Pantoprazole Sodium (Pantoprazole 40 Mg Tab) 40 mg PO BID [facility] Stop: 09/27/24 20:59 Last Admin: 08/31/24 07:56 Dose: 40 mg Potassium Chloride (Potassium Chloride 10 Meq Tabcr) 10 meq PO [id number] [facility] Stop: 09/30/24 08:59 Last Admin: 08/31/24 08:07 Dose: 10 meq Rosuvastatin Calcium (Rosuvastatin Calcium 20 Mg Tab) 20 mg PO DAILY [facility] Stop: 09/28/24 08:59 Warfarin Sodium (Warfarin Sod 2.5 Mg Tab) 2.5 mg PO UD [facility] Stop: 09/30/24 10:59 (1) Pressure injury of heel, stage 2 Laterality: right Qualified Code(s): L89.612 - Pressure ulcer of right heel, stage 2
--- NOTE | 2024-08-31 11:30 | Podiatry Progress Note ---
Date of Service August 31, 2024 Assessment & Plan (1) Leukocytosis: (2) Cellulitis: (3) Pressure injury of heel, stage 2: Plan Stage 2 pressure injury to the posterior lateral aspect of the right heel: - Likely caused by pressure from prolonged bed rest. Despite offloading waffle boots and pillows attempting to reduce pressure to the lateral aspect of the patient's right heel she is laying on her side with contractures at the knee and I believe still taking too much pressure to the area of the wound. Continue waffle boots, to be worn at all times while in bed. Continue to elevate the right heel off of the mattress and encourage patient to lay on her back or left side to reduce pressure to the lateral right heel. - Continue Betadine wet-to-dry dressing, to be changed once daily right heel. Soaked gauze and Betadine dressed with ABD pad x 2 to the posterior lateral heel and 1 to the anterior ankle followed by Chelsea and tape. Will continue Betadine wet-to-dry dressings for another 24 hours if this wound does not start to dry out may transition to Santyl and attempt enzymatically debride the nonviable tissue to the wound bed. - Weight-bearing as tolerated in normal shoe gear for short distances and transfers. Avoid unnecessary weight-bearing when possible. - Unfortunately wound is increased in dimensions and is more boggy today with mild malodor. Wound is debrided and sharp excisional debridement at bedside as detailed in procedure note below. Surgical Excisional Debridement: Indication:Removal of necrotic tissue to promote healing Pre-op diagnosis: Stage II pressure ulcer right heel Post-op diagnosis: Same Procedure: Surgical excisional debridement right heel wound Surgeon: Jose Diop DPM Anesthesia: None Bleeding:Minimal Disposition: Tolerated well Procedure: Informed consent obtained, Time Out taken. Patient understands and agrees to procedure. Excisional debridement was carried out of right heel wound consisting of necrotic eschar and subcutaneous tissue was carried out utilizing a curette and 15 blade. Anesthesia-none. Patient tolerated the procedure well. Bleeding-minimal. Controlled with-direct pressure. Post-debridement measurements: 4.0 x 2.0 x 0.3 cm. A total of 8 cm2 were debrided. Thank you for consulting podiatry to aid in the care of this patient. Will continue to follow as she remains in health and recommend follow-up in the wound care center within 2 weeks of discharge. Patient will require continued once daily dressing changes to the right heel wound with Betadine wet-to-dry dressing once daily following discharge. Admission and Anticipated Discharge Date Admission Date: August 28, 2024 Subjective Patient sleeping in hospital bed upon entering the room unfortunately she is rolled onto her right side with direct pressure to the area of pressure ulceration on the lateral aspect of the right heel. She reports only mild pain to the right heel. Overall in good spirits. Verbalizes understanding of the importance of keeping pressure off of the outside of the right heel. She is working with nurses to find a way to better offload the lateral aspect of the right heel with more pillows and regular rotation in addition to the waffle boot. Gives verbal consent for bedside debridement of boggy necrotic tissue that is developed over the base of the heel wound and has no pain with the procedure. Review of Systems Review of Systems: Denies nausea vomiting fever chills. Reports mild pain in the right heel. All other systems reviewed and negative unless detailed in HPI. Physical Exam Physical Exam: Objective: Const: Appears well developed and well nourished. No signs of acute distress present. CV: Extremities: No cyanosis or edema. Capillary refill time is less than 2 seconds all digits of the bilateral foot. Posterior tibial and dorsalis pedis pulses are palpable bilateral. Lymph: No palpable or visible regional lymphadenopathy. Skin: No scars, rashes, lesions or ecchymosis. Thin atrophic skin to the bilateral lower extremity below the knee with loss of hair growth. Neuro: Sensation intact to light touch in all areas of the foot and ankle. Psych: Mood/Affect: Mood is normal. Affect is normal. Cognition: Orientation is intact to person, place and time. Focused lower extremity musculoskeletal exam: Leg: No pain with compression of the calf muscle. Patient unable to fully extend knees while at rest in bed which makes offloading with a pillow behind the calf suboptimal as her heels are still able to contact the mattress and apply pressure to the area of ulceration. Ankles: Normal to inspection and palpation. No swelling bilaterally. No tenderness bilaterally. Motor strength is intact. Range of motion pain-free and unlimited. Feet: All ulceration to the posterior lateral aspect of the right heel meets criteria for stage II pressure injury. Dusky tissue overlying the wound bed is increased in thickness and is somewhat macerated despite Betadine wet-to-dry dressings. This tissue was sharply debrided from the wound bed to the level of healthier appearing subcutaneous tissue. Wound is increased in dimensions since last seen likely due to persistent pressure to the area of ulceration despite attempts by nursing team to get patient to lay on her back her left side she continues to lay on her right side with direct pressure to the heel which seems to overpower both pillows and the waffle boot to reach the mattress. Wound continues to extend to subcutaneous tissue. Mild malodor to boggy eschar. Results & Data Results & Data Vital Signs (Past 12 Hours) Vital Signs Temp Pulse Resp BP Pulse Ox O2 Del Method 08/31/24 07:16 36.7 C 115 H 18 143/62 H 92 Room Air Coding [place] [address] SUB INP/OBS CARE 2/35MIN Patient Type Established Diagnoses Leukocytosis D72.829 Leukocytosis type: unspecified Cellulitis L03.115 Laterality: right Site of cellulitis: extremity Site of cellulitis of extremity: lower extremity Pressure injury of right heel, stage 2 L89.612 Laterality: right CPT Codes Debride Skin/Tissue - 36853 ([id number]) (1) Leukocytosis Leukocytosis type: unspecified Qualified Code(s): D72.829 - Elevated white blood cell count, unspecified (2) Cellulitis Laterality: right Site of cellulitis: extremity Site of cellulitis of extremity: lower extremity Qualified Code(s): L03.115 - Cellulitis of right lower limb (3) Pressure injury of heel, stage 2 Laterality: right Qualified Code(s): L89.612 - Pressure ulcer of right heel, stage 2
--- NOTE | 2024-08-31 13:30 | Infectious Disease Consult ---
Date of Service August 31, 2024 Telehealth Information I performed this visit using a real-time telehealth connection between my location and the patients location ([facility]). After connecting through interactive tele-video, patient was identified by name and date of and/or wristband check.Patient (or authorized healthcare call center representative) was informed that this was a telemedicine visit and it was being conducted confidentially over secure lines. My office door was closed and no on e else was present in the room with me.Patient (or authorized healthcare call center representative) provided consent to proceed with the visit, expressed an understanding of privacy and security of the telemedicine visit, and gave permission to have a hospital call center representative in the room in order to assist with the visit and to conduct portions of the visit, as needed. I informed the patient (or authorized healthcare call center representative) that I reviewed their record and presented the opportunity for them to ask any questions regarding the visit today. The patient agreed to participate. Assessment & Plan (1) Pressure injury of heel, stage 2: (2) Cellulitis of foot: (3) Bedridden: (4) Ambulatory dysfunction: Plan Please discontinue all IV antibiotics and start on oral linezolid 600 mg twice daily. Aim for a total duration of 10 days including inpatient antibiotic days. The most important element of management at this point is aggressive Wound Care and avoiding further pressure on the heel with adjustment of positioning as well as special shoes. Thank you for consulting Infectious Disease. We will sign off for now. History of Present Illness History of Present Illness Mrs. Verdugo is a 84-year-old woman with medical history of type 2 diabetes, HTN, hyperlipidemia, atrial fibrillation, CAD with a history of non-STEMI and chronic ambulatory dysfunction (bedridden) who was admitted to [facility] on 08/28/2024 after being referred from her PCP because of elevated white count and high anion gap metabolic acidosis. There was initially concern for UTI; however, after presenting to the hospital, she was noticed to have stage II right heel pressure wound with concern for local cellulitis. On presentation, she was afebrile but tachycardic. Initial workup showed mild leukocytosis of 11 (ANC 9), UA with 11-10 WBCs but no bacteriuria and negative MRSA screen. CT scan of the foot obtained on admission showed no acute fracture, dislocation or erosion to suggest acute osteomyelitis. Superficial wound culture was obtained in the ED which came back positive for MSSA and group B strep. ID team was consulted for further recommendations and to help guide antibiotic treatment. Allergies Allergy/AdvReac Type Severity Reaction Status Date / Time metronidazole Allergy Unknown RASH Verified 07/14/24 11:30 Penicillins Allergy Unknown Swelling Verified 07/14/24 14:46 of Lip/Tongue/Throat Home Medications Medication Instructions Recorded Confirmed Type acetaminophen 500 mg tablet 500 mg PO Q6H PRN Pain 07/14/24 08/28/24 History furosemide 20 mg tablet 20 mg PO 3XWK #16 tabs 07/20/24 08/28/24 Rx metoprolol tartrate 25 mg tablet 25 mg PO BID #60 tabs 07/20/24 08/28/24 Rx omeprazole 20 mg capsule,delayed 20 mg PO BID #60 caps 07/20/24 08/28/24 Rx release potassium chloride 10 mEq 10 meq PO 3XWK #16 tabs 07/20/24 08/28/24 Rx tablet,extended release rosuvastatin 20 mg tablet 20 mg PO DAILY #30 tabs 07/20/24 08/28/24 Rx warfarin 2.5 mg tablet 2.5 mg PO UD 08/28/24 08/28/24 History Patient History Medical History (Updated 08/31/24 @ 13:29 by Yadi Starr MD) HLD (hyperlipidemia) Diabetes mellitus, type II Chronic heart failure with preserved ejection fraction (HFpEF) Elevated troponin Chronic atrial fibrillation Ambulatory dysfunction Generalized weakness UTI (urinary tract infection) Influenza A Hx of ovarian cyst Hx of uterine prolapse Endometrial polyp (1999) Surgical History (Updated 08/20/24 @ 00:06 by Joselo Osuna) S/P lymph node biopsy History of hysterectomy (12/01/12) vaginal hysterectomy with anterior repair S/P wisdom tooth extraction S/P tubal ligation (1981) S/P knee replacement S/P dilation and curettage (09/1999) with hysteroscopy for PMB, suspected endometrial polyp S/P colonoscopy (11/2007) Family History Aunt Breast cancer Mother Ovarian cancer Other Chest pain Social History Smoking Status: Never smoker Second Hand Exposure: No; Do You Dip or Chew Tobacco: No; Hx Alcohol Use: No Hx Substance Use: No Preferred Language: [place]er Communication Ability: Effective Dice Spotter Required: No Beliefs That Will Affect Care: None Current Living Situation: Spouse Feels Safe at Home: Yes Dental Care, Regularly: Yes Physical Activity Frequency Comment: Exercises regularly. Seatbelt Use: always Sunscreen Use: Yes Assistive Devices: Walker Review of Systems Negative except for what was mentioned in the H&P. Physical Exam Could not be performed as the encounter was conducted via TeleMed. Results & Data Vital Signs (Past 12 Hours) Vital Signs Temp Pulse Resp BP Pulse Ox O2 Del Method 08/31/24 12:57 37.1 C 117 H 13 171/73 H 96 Room Air 08/31/24 07:16 36.7 C 115 H 18 143/62 H 92 Room Air Laboratory Results Microbiology: 08/28: 2 sets of blood culture negative to date 08/28: Urine culture negative 08/28: Superficial right heel wound culture growing MSSA and group B strep Diagnostic Findings Imaging: CT right foot on 08/28: 1. No acute fracture, dislocation or osseous erosion to suggest acute osteomyelitis. 2. Nonspecific subcutaneous edema. Differential considerations include cellulitis, venous stasis or lymphedema. 3. Extensive arterial calcifications. 4. Mild to moderate osteoarthritis. 5. Moderate Achilles tendinosis. (1) Pressure injury of heel, stage 2 Laterality: right Qualified Code(s): L89.612 - Pressure ulcer of right heel, stage 2
[2024-08-31] MEDS: WARFARIN SOD 2.5 MG TAB PO SCH (17:44)
[2024-09-01 03:43] LABS: Hematocrit (blood only) 34.6 % (37.0-47.0); Hemoglobin 11.5 g/dl (12.0-16.0); Mean Corpuscular Hemoglobin 30.6 pg (25.0-34.0); Mean Corpuscular Hgb Conc 33.2 g/dL (32.0-36.0); Platelet Count 276 K/uL (130-400); RDW Coefficient of Variation 14.5 % (11.5-14.5); RDW Standard Deviation 49.1 fL (36.4-46.3); Red Blood Count 3.76 M/uL (4.20-5.40); White Blood Count 11.86 K/ul (4.8-10.8)
[2024-09-01 04:00] LABS: Calcium 8.7 mg/dl (8.6-10.3); Creatinine Clr Calc Pharmacy 54.2 ml/min; Magnesium 1.8 mg/dl (1.7-2.4); Phosphorus 3.9 mg/dl (2.5-4.9); Potassium 3.9 mmol/L (3.5-5.1)
[2024-09-01 04:23] LABS: INR 1.8 (0.9-1.1); Prothrombin Time 18.2 Seconds (9.0-12.0)
[2024-09-01] MEDS: LINEZOLID 600 MG TAB PO SCH (10:08)
--- NOTE | 2024-09-01 15:10 | Hospitalist Progress Note ---
Date of Service September 01, 2024 Assessment & Plan (1) Cellulitis of foot: (2) Pressure injury of heel, stage 2: (3) Diabetes mellitus, type II: (4) HLD (hyperlipidemia): (5) Ambulatory dysfunction: (6) Chronic heart failure with preserved ejection fraction (HFpEF): Plan Patient with pressure ulcer of the right heel with subsequent cellulitis in the setting of diabetes. Reviewed infectious disease recommendations to transition to linezolid Communication with case management, patient will need shelter placement, continue to pursue Continue with wound care Continue manage diabetes with insulin Admission and Anticipated Discharge Date Admission Date: August 28, 2024 Subjective Patient doing well. No acute complaints. Ready for discharge. Physical Exam Physical Exam: Constitutional: Alert HEENT: Mucous membranes moist. Lungs: Clear to auscultation, decreased, no wheezes rales or rhonchi CV: S1-S2, regular Abdomen: Soft, nontender, nondistended Extremities: No significant edema, right foot and heel and dry clean dressing Neuro: No focal deficits Psych: Cooperative, normal mood Results & Data Results & Data Vital Signs (Past 12 Hours) Vital Signs Temp Pulse Resp BP BP Pulse Ox O2 Del Method 09/01/24 14:54 36.3 C L 106 H 16 144/79 H 96 Room Air 09/01/24 10:06 37.1 C 93 H 16 118/72 97 Room Air 09/01/24 07:12 36.8 C 105 H 16 145/87 H 94 Room Air 09/01/24 05:31 Room Air Diagnostic Findings Reviewed imaging, laboratory and diagnostic studies. Pertinent findings as below. WBCs 11.8 Hemoglobin 11.5 Electrolytes and renal function stable Glucose was reviewed (2) Pressure injury of heel, stage 2 Laterality: right Qualified Code(s): L89.612 - Pressure ulcer of right heel, stage 2
[2024-09-02 08:12] LABS: INR 1.8 (0.9-1.1); Prothrombin Time 18.5 Seconds (9.0-12.0)
--- NOTE | 2024-09-02 08:14 | Podiatry Progress Note ---
Date of Service September 02, 2024 Assessment & Plan (1) Leukocytosis: (2) Cellulitis: (3) Pressure injury of heel, stage 2: Plan Stage 2 pressure injury to the posterior lateral aspect of the right heel: - Continue to elevate the right heel off of the mattress and encourage patient to lay on her back or left side to reduce pressure to the lateral right heel. - Continue Betadine wet-to-dry dressing, to be changed once daily right heel. Wound flushed with Betadine dressed with Betadine soaked gauze, ABD pad x 2 to the posterior lateral heel and 1 to the anterior ankle followed by Chelsea and tape. - Weight-bearing as tolerated in normal shoe gear for short distances and transfers. Avoid unnecessary weight-bearing when possible. - No indication for further debridement of the wound today. No indication to transition to Santyl at this time as wound is forming a dry stable eschar. Thank you for consulting podiatry to aid in the care of this patient. Will continue to follow as she remains in health and recommend follow-up in the wound care center within 2 weeks of discharge. Patient will require continued once daily dressing changes to the right heel wound with Betadine wet-to-dry dressing once daily following discharge. Admission and Anticipated Discharge Date Admission Date: August 28, 2024 Subjective Patient seen this morning resting comfortably in hospital bed. Reports decreased pain to the right heel. Patient and nurses report she has been doing a much better job keeping weight off the right heel though this is still a difficult task given patient's lower extremity contractures. Patient is currently in waffle boots with pillow behind the right ankle and calf and she is in a supine position. Dressing is clean dry and intact changed 09/01/2024. Physical Exam Physical Exam: Objective: Const: Appears well developed and well nourished. No signs of acute distress present. CV: Extremities: No cyanosis or edema. Capillary refill time is less than 2 seconds all digits of the bilateral foot. Posterior tibial and dorsalis pedis pulses are palpable bilateral. Lymph: No palpable or visible regional lymphadenopathy. Skin: No scars, rashes, lesions or ecchymosis. Thin atrophic skin to the bilateral lower extremity below the knee with loss of hair growth. Neuro: Sensation intact to light touch in all areas of the foot and ankle. Psych: Mood/Affect: Mood is normal. Affect is normal. Cognition: Orientation is intact to person, place and time. Focused lower extremity musculoskeletal exam: Leg: No pain with compression of the calf muscle. Patient unable to fully extend knees while at rest in bed which makes offloading with a pillow behind the calf suboptimal as her heels are still able to contact the mattress and apply pressure to the area of ulceration. Ankles: Normal to inspection and palpation. No swelling bilaterally. No tenderness bilaterally. Motor strength is intact. Range of motion pain-free and unlimited. Feet: All ulceration to the posterior lateral aspect of the right heel meets criteria for stage II pressure injury. Wound has become more stable over the last 24 hours starting to form a superficial eschar. No active drainage. No malodor. No maceration. Results & Data Results & Data Vital Signs (Past 12 Hours) Vital Signs Temp Pulse Resp BP Pulse Ox O2 Del Method 09/02/24 07:09 36.6 C 94 H 15 118/72 95 Room Air Coding Level of Care Code 59443 SUB INP/OBS CARE 05/30MIN Diagnoses Leukocytosis D72.829 Leukocytosis type: unspecified Cellulitis L03.115 Laterality: right Site of cellulitis: extremity Site of cellulitis of extremity: lower extremity Pressure injury of right heel, stage 2 L89.612 Laterality: right (1) Leukocytosis Leukocytosis type: unspecified Qualified Code(s): D72.829 - Elevated white blood cell count, unspecified (2) Cellulitis Laterality: right Site of cellulitis: extremity Site of cellulitis of extremity: lower extremity Qualified Code(s): L03.115 - Cellulitis of right lower limb (3) Pressure injury of heel, stage 2 Laterality: right Qualified Code(s): L89.612 - Pressure ulcer of right heel, stage 2
--- NOTE | 2024-09-02 14:25 | Hospitalist Progress Note ---
Date of Service September 02, 2024 Assessment & Plan (1) Cellulitis of foot: (2) Pressure injury of heel, stage 2: (3) Diabetes mellitus, type II: (4) HLD (hyperlipidemia): (5) Ambulatory dysfunction: (6) Chronic heart failure with preserved ejection fraction (HFpEF): (7) Chronic atrial fibrillation: Plan Continue current wound care as coordinated through podiatry and wound nurse Continue Zyvox through 09/06/2024 Continue therapies as tolerated Continue other medications as ordered Continue Lovenox to warfarin dosing Anticipate discharge to Center care tomorrow Attempted to contact family, no answer Admission and Anticipated Discharge Date Admission Date: August 28, 2024 Subjective Patient doing well, no issues overnight. Physical Exam Physical Exam: Constitutional: Alert HEENT: Mucous membranes moist. Lungs: Clear to auscultation, decreased, no wheezes rales or rhonchi CV: S1-S2, irregular Abdomen: Soft, nontender, nondistended Extremities: No significant edema, right foot in the dry dressing Neuro: No focal deficits Psych: Cooperative, normal mood Results & Data Results & Data Vital Signs (Past 12 Hours) Vital Signs Temp Pulse Resp BP BP Pulse Ox O2 Del Method 09/02/24 12:59 36.4 C L 111 H 15 122/74 97 Room Air 09/02/24 07:09 36.6 C 94 H 15 118/72 95 Room Air Diagnostic Findings INR 1.8 Glucoses reviewed (2) Pressure injury of heel, stage 2 Laterality: right Qualified Code(s): L89.612 - Pressure ulcer of right heel, stage 2
[2024-09-02 15:15] VITALS: RESP 16
[2024-09-03] MEDS ORDERED: POLYETHYLENE (MIRALAX) 17 GM PACK PO PRN (04:56)
[2024-09-03] MEDS: DOCUSATE SODIUM/SENNA 50/8.6MG TAB PO SCH (05:07)
[2024-09-03] MEDS: POLYETHYLENE (MIRALAX) 17 GM PACK PO STA (05:07)
[2024-09-03 07:36] LABS: Basophils # (auto) 0.03 K/uL (0.00-0.20); Basophils % (auto) 0.3 %; Eosinophils # (auto) 0.09 K/uL (0.00-0.50); Eosinophils % (auto) 0.8 %; Hematocrit (blood only) 33.6 % (37.0-47.0); Hemoglobin 10.9 g/dl (12.0-16.0); Immature Granulocytes # (auto) 0.04 K/uL (0.01-0.20); Immature Granulocytes % (auto) 0.4 %; Lymphocytes # (auto) 1.68 K/uL (1.20-3.40); Lymphocytes % (auto) 15.4 %; Mean Corpuscular Hgb Conc 32.4 g/dL (32.0-36.0); Mean Corpuscular Volume 92.6 fL (80.0-100.0); Mean Platelet Volume 12.6 fL (9.4-12.4); Monocytes # (auto) 0.74 K/uL (0.11-0.59); Monocytes % (auto) 6.8 %; Neutrophils # (auto) 8.32 K/uL (1.40-6.50); Neutrophils % (auto) 76.3 %; Platelet Count 259 K/uL (130-400); RDW Coefficient of Variation 14.4 % (11.5-14.5); RDW Standard Deviation 48.9 fL (36.4-46.3); Red Blood Count 3.63 M/uL (4.20-5.40)
[2024-09-03 07:43] VITALS: BP 126/66; PULSE 96; TEMP 97.7; O2SAT 97
[2024-09-03 07:58] LABS: BUN Creatinine Ratio 42.9 (10-20); Calcium 8.5 mg/dl (8.6-10.3); Potassium 3.8 mmol/L (3.5-5.1)
[2024-09-03 08:05] LABS: INR 2.1 (0.9-1.1); Prothrombin Time 21.4 Seconds (9.0-12.0)
--- NOTE | 2024-09-03 10:16 | Discharge Summary ---
Discharge Summary Date of Service September 03, 2024 Principal Dx & Hospital Course #1 = Principal Diagnosis (1) Cellulitis of foot: (2) Pressure injury of heel, stage 2: (3) Diabetes mellitus, type II: (4) HLD (hyperlipidemia): (5) Ambulatory dysfunction: (6) Chronic heart failure with preserved ejection fraction (HFpEF): (7) Chronic atrial fibrillation: Plan Patient 84-year-old female with known diabetes presented to the emergency room with increasing weakness. In the emergency room noted to have a right heel wound that appeared cellulitic. Patient was admitted to the hospital. She was started on broad-spectrum IV antibiotics. Podiatry consultation was obtained. She was continued on her usual outpatient medications. Her warfarin was held and was continued on therapeutic Lovenox. Podiatry continue to follow the pa mihaela on daily basis. They performed bedside debridement. Recommended wet-to-dry dressings with Betadine. Wound culture grew out staph and strep. Infectious disease consultation was obtained. They recommended transition to oral Zyvox and completing a 10-day course of antibiotics. Patient essentially was bedbound mostly due to his cause of her ulcers but needed wound care and some additional rehabilitation. Case management involved in the care. Coordinated patient's ongoing care for her wound and antibiotic management [facility]. Patient's warfarin was restarted after bedside debridement. Patient will be discharged there to follow-up with her outpatient providers and podiatry. Notes For Next Care Provider Check INR on Saturday Medication Changes From Visit Zyvox for 3 more days Admission HPI Per Admitting Provider The patient is a 84-year-old female with a past medical history of DM 2, HLD, A- fibon warfarin, pulmonary hypertension, HTN, GERD, esophageal stricture, osteoarthritis, chronic ambulatory dysfunction, NSTEMI who presents to the ED on 05/30/2024 with complaints of worsening generalized weakness over the past week and abnormal outpatient labs. Patient had blood work at her PCPs office on 08/27/2024 that showed a white count of 12.28, sugar of 220, anion gap 23, CO2 15. Patient has been treated recently outpatient for 2 UTIs. Both E. coli. Family is concerned with the worsening generalized weakness that she may have recurrent UTI. Patient also has a right heel wound, stage II pressure sore that was present on arrival that has been draining more and has a slight odor to it. On arrival to the ED today, labs remarkable for WBC 11.2, glucose 173, alk phos 106 Urinalysis + ketones, protein, leukocytes, WBC, urine culture pending Chest x-ray without any acute findings Right foot CT showed: 1. No acute fracture, dislocation or osseous erosion to suggest acute osteomyelitis. 2. Nonspecific subcutaneous edema. Differential considerations include cellulitis, venous stasis or lymphedema. 3. Extensive arterial calcifications. 4. Mild to moderate osteoarthritis. 5. Moderate Achilles tendinosis. The patient will be admitted for further workup for worsening weakness and treatment of right heel infection Admission Exam Per Admitting Provider See H&P Discharge Exam Constitutional: Alert, frail HEENT: Mucous membranes moist. Lungs: Clear to auscultation, decreased, no wheezes rales or rhonchi CV: S1-S2, regular Abdomen: Soft, nontender, nondistended Extremities: No significant edema, right heel with wound dressing, Betadine soaked. Neuro: Globally weak Psych: Cooperative, normal mood Updated Medication List Medication Instructions Recorded Confirmed Type rosuvastatin 20 mg tablet 20 mg PO DAILY #30 tabs 07/20/24 08/28/24 Rx acetaminophen 500 mg tablet 500 mg PO Q6H PRN Pain #100 tabs 09/03/24 Rx furosemide 20 mg tablet 20 mg PO 3XWK #16 tabs 09/03/24 Rx linezolid 600 mg tablet 600 mg PO BID 3 days #6 tabs 09/03/24 Rx metoprolol tartrate 25 mg tablet 25 mg PO BID #60 tabs 09/03/24 Rx omeprazole 20 mg capsule,delayed 20 mg PO BID #60 caps 09/03/24 Rx release potassium chloride 10 mEq 10 meq PO 3XWK #16 tabs 09/03/24 Rx tablet,extended release warfarin 2.5 mg tablet 2.5 mg PO UD #30 tabs 09/03/24 Rx Hospital Stay Data Consultations 08/28/24 12:39 ED Decision to Admit Stat 08/28/24 15:58 Consult Podiatry Routine 08/30/24 18:47 Consult Infectious Diseases Routine Diagnostic Imagining Performed 08/28/24 10:51 CT foot RT wo con Stat Reviewed imaging, laboratory and diagnostic studies. Pertinent findings as below. WBCs 10.9 Hemoglobin 10.9 Platelets 259 INR 2.1 Sodium 135 Potassium 3.8 Bicarb 28 Creatinine 0.71 Glucose 131 Wound culture from right heel grew out pansensitive Staph aureus and streptococcus group B. Blood cultures no growth Hemoglobin A1c 6.9% Pending Results Patient Have Any Pending Studies at Discharge: No Discharge Instructions Given to Patient (Per Discharging Provider) Continue care and rehabilitation at [facility] Complete course of oral antibiotics Elevate right heel and keep pressure off the heel is much as possible. Betadine wet-to-dry dressing daily to right heel Total Time Total Time Spent Total Time Spent (In Minutes): 39
== END 2024-09-03 11:12 | DRG 571 ==
LOC: ED 10:29 → SUATTDRO 12:37 → EDINP 12:37 → 3E 19:43